=== PATIENT | female | born 1985 | race Caucasian/White ===

== ENCOUNTER 2020-10-26 22:25 | Emergency (ER) | payer OTHER, SELFPAY ==
--- NOTE | ~2020-10-26 | XR_ITS ---
XR tibia fibula LT 2V 10/26/2020 23:03 INDICATION: Left leg pain and swelling PROCEDURE: 2 views left tibia/fibula COMPARISON: No prior studies for comparison. FINDINGS: Fracture, dislocation or subluxation is not identified. The soft tissues appear within norm al limits. No foreign bodies are identified. IMPRESSION: 1: NO ACUTE BONE OR JOINT ABNORMALITY IDENTIFIED. Reviewed, dictated and finalized at location A. INUING EDUCATION DEAN
--- NOTE | ~2020-10-26 | US_ITS ---
EXAMINATION: US venous doppler [facility] DATE: 10/27/2020 07:28 INDICATION: Left lower limb pain and swelling. TECHNIQUE: Grayscale ultrasound images without and with compression and Doppler ultrasound images of the left lower extremity veins were obtained. COMPARISON: None. FINDINGS: There is thrombus in the left common femoral vein, profunda (deep) femoral vein, femoral vein, poplit eal vein, peroneal veins, posterior tibial veins, and greater saphenous vein outflow. IMPRESSION: 1. Extensive deep vein thrombosis in left lower limb. Reviewed, dictated and finalized at location A. G DRIVER
--- NOTE | ~2020-10-26 | XR_ITS ---
XR femur LT min 2V 10/26/2020 23:03 INDICATION: Pain and swelling. PROCEDURE: 2 views left femur COMPARISON: No prior studies for comparison. FINDINGS: Fracture, dislocation or subluxation is not identified. The soft tissues appear within norm al limits. No foreign bodies are identified. IMPRESSION: 1: NO ACUTE BONE OR JOINT ABNORMALITY IDENTIFIED. Reviewed, dictated and finalized at location A. CHAIN QUILLER TENDER
[2020-10-26 22:36] VITALS: BP 101/88; PULSE 85; RESP 18; TEMP 36.9; O2SAT 94
--- NOTE | 2020-10-26 22:42 | PC.NURSE ---
spoke with Ruthie (mother) and updated [phone]
--- NOTE | 2020-10-26 23:00 | PC.NURSE ---
Pt. to XR
--- NOTE | 2020-10-26 23:17 | PC.NURSE ---
Assumed care of pt. report from Maria G RN
[2020-10-26 23:19] LABS: Basophils Absolute Auto 0.1 K/mm3 (0.0-0.1); Basophils Percent Auto 0.6 % (0.2-1.2); Eosinophils Absolute Auto 0.1 K/mm3 (0-0.3); Eosinophils Percent Auto 0.4 % (0-4.4); Hematocrit 36.8 % (37.0-47.0); Hemoglobin 11.7 g/dL (12.0-15.0); Immature Granulocyte Absolute 0.07 K/mm3 (0.00-0.031); Immature Granulocyte Percent A 0.6 % (0-0.5); Lymphocytes Absolute Auto 1.66 K/mm3 (0.9-3.2); Lymphocytes Percent Auto 13.2 % (18.3-44.2); Mean Corpuscular HGB Conc 31.8 g/dl (32-36); Mean Corpuscular Hemoglobin 29.1 pg (26-34); Mean Corpuscular Volume 91.5 fl (80-100); Mean Platelet Volume 11.1 fl (7.4-10.4); Monocytes Absolute Auto 1.2 K/mm3 (0.1-0.6); Monocytes Percent Auto 9.4 % (2.6-8.5); Neutrophils Absolute Auto 9.6 K/mm3 (1.3-6.7); Neutrophils Percent Auto 75.8 % (45.5-73.1); Platelet Count Result 164 k/mm3 (150-375); Red Blood Count 4.02 M/mm3 (4.2-5.4); Red Cell Distribution Width 13.3 % (11.5-14.5); White Blood Count 12.6 K/mm3 (4.5-10.0)
[2020-10-26 23:30] VITALS: BP 96/77; PULSE 80; RESP 15; O2SAT 99
[2020-10-26 23:30] LABS: Prothrombin Time 14.1 Seconds (11.1-14.7)
[2020-10-26 23:31] LABS: Partial Thromboplastin Time 27.7 SECONDS (22.3-36.8)
[2020-10-26 23:32] LABS: Alanine Aminotransferase 14 U/L (4-35); Albumin Level 3.1 g/dL (3.5-5.1); Alkaline Phosphatase 44 U/L (38-126); Anion Gap 2 mmol/L (8-16); Aspartate Amino Transferase 23 U/L (14-36); Bilirubin,Total 0.2 mg/dL (0.2-1.3); Blood Urea Nitrogen 18 mg/dL (7-17); Calcium 8.5 mg/dL (8.4-10.2); Carbon Dioxide 26 mmol/L (22-30); Chloride 113 mmol/L (98-107); Estimated CRCL calculation 116 ml/min; Estimated Glomerular Filt Rate > 60; Glucose 94 mg/dL (65-105); Potassium 3.7 mmol/L (3.4-5.0); Sodium 141 mmol/L (137-145)
[2020-10-26 23:33] LABS: D Dimer 2.97 ug/mL (<0.48)
--- NOTE | 2020-10-27 00:13 | ED.GENADULT ---
HPI - General Adult General Chief complaint: Extremity Problem,Nontraumatic <Abdias Edge MD - Last Filed: 10/27/20 00:18> Stated complaint: poss dvt <Abdias Egde MD - Last Filed: 10/27/20 00:18> Time Seen by Provider: 10/26/20 22:33 <Abdias Edge MD - Last Filed: 10/27/20 00:18> History of Present Illness HPI narrative: Patient is a 35-year-old female who presents the emergency department with chief complaint of left lower extremity swelling. The patient is normally not very ambulatory at the facility where she is a resident at. The patient and care providers have noticed that her left leg has been more swollen patient denies shortness of breath denies chest pain they were concerned for DVT and had a ultrasound scheduled for Thursday but decided to send the patient to the emergency department for evaluation in a's or expedited fashion. <Abdias Edge MD - Last Filed: 10/27/20 00:18> Related Data Home medications: Home Medications Medication Instructions Recorded Confirmed clonazepam 1 mg tablet 1 mg PO .COMPLEX 11/09/19 11/09/19 clonazepam 2 mg disintegrating 2 mg PO .PRN tablet 11/09/19 11/09/19 tablet clonazepam 2 mg tablet 2 mg PO .COMPLEX tablet 11/09/19 11/09/19 fluticasone propionate 50 ml NASAL 11/09/19 11/09/19 mcg/actuation nasal spray,suspension levetiracetam 1,000 mg tablet 1,000 mg PO QID tablet 11/09/19 11/09/19 oxcarbazepine 300 mg tablet 300 mg PO .COMPLEX tablet 11/09/19 11/09/19 pantoprazole 40 mg tablet,delayed tablet PO 11/09/19 11/09/19 release phenytoin sodium extended 30 mg 90 mg PO BID cap 11/09/19 11/09/19 capsule prednisone 20 mg tablet 20 mg PO DAILY tablet 11/09/19 11/09/19 topiramate 200 mg tablet 200 mg PO BID tablet 11/09/19 11/09/19 <Abdias Edge MD - Last Filed: 10/27/20 00:18> Allergies/adverse reactions: Allergies Allergy/AdvReac Type Severity Reaction Status Date / Time lacosamide Allergy Unknown Dizziness Verified 10/26/20 22:43 No Known Allergies Allergy Verified 10/26/20 22:43 <Abdias Edge MD - Last Filed: 10/27/20 00:18> Review of Systems Review of Systems: Narrative: A 10 system review of systems was completed on the patient and is negative except for what is stated in the HPI. Nursing and ancillary documentation was reviewed. <Abdias Edge MD - Last Filed: 10/27/20 00:18> PMFSH Past Medical History Medical History: Medical History Menstrual disorder NEC <Abdias Edge MD - Last Filed: 10/27/20 00:18> Family History Family History: Family History Mother Family history of malignant neoplasm of breast in first degree relative Family history of malignant neoplasm of breast Father Family history of bipolar disorder Grandparent Carcinoma of colon Other Cerebrovascular accident Family history of hypercholesterolemia Family history of lupus erythematosus <Abdias Edge MD - Last Filed: 10/27/20 00:18> Social History Social History: Social History Smoking status: Former smoker Smoking end date: 08/17/02 Alcohol intake: current <Abdias Edge MD - Last Filed: 10/27/20 00:18> Exam Narrative: Exam Narrative: GENERAL: Well-appearing, well-nourished, and in no acute distress. HEAD: Normocephalic, atraumatic. EYES: PERRLA and EOMI. ENT: Nares clear, no rhinorrhea or epistaxis. Mucous membranes moist. NECK: Supple. CHEST: Clear to auscultation. No respiratory distress. HEART: Regular rate and rhythm. No murmur heard. Normal peripheral pulses. ABDOMEN: Soft, nontender, nondistended, normal active bowel sounds. EXTREMITIES: Normal range of motion. There is +1 edema to the left lower e
--- NOTE | 2020-10-27 00:29 | PC.NURSE ---
Addendum entered by Porsche Batista 10/27/20 00:29: ETA [id number] Original Note: called [facility] to request transport. ETA [id number]
[2020-10-27 00:30] VITALS: BP 104/75; PULSE 73; RESP 14; O2SAT 99
[2020-10-27] MEDS: ENOXAPARIN 100 MG/ML SYRINGE SUB-Q (01:05)
[2020-10-27 01:30] VITALS: BP 98/73; PULSE 70; RESP 16; O2SAT 98
--- NOTE | 2020-10-27 01:43 | PC.NURSE ---
Updated ETA for [facility] is 0530. Patient has an 0730 US appointment in the morning - so request [facility] arrive at 0830 to return patient to halfway.
[2020-10-27 03:30] VITALS: BP 111/74; PULSE 77; RESP 19; O2SAT 99
[2020-10-27 08:28] VITALS: BP 108/70; PULSE 78; RESP 19; O2SAT 98
== END 2020-10-27 08:31 ==
PROVIDERS: Emergency Provider Emergency Medicine
DX: I82.412 Acute embolism and thrombosis of left femoral vein (principal); I82.432 Acute embolism and thrombosis of left popliteal vein; I82.452 Acute embolism and thrombosis of left peroneal vein; I82.442 Acute embolism and thrombosis of left tibial vein; I82.492 Acute embolism and thrombosis of other specified deep vein of left lower extremity; Z87.891 Personal history of nicotine dependence
CPT/HCPCS: 36415; 73552; 73590; 80053; 85025; 85380; 85610; 85730; 93971; 96372; 99284; J1650

== ENCOUNTER 2020-11-26 14:37 | Emergency (ER) | payer OTHER, SELFPAY ==
[2020-11-26] VITALS (16 sets, daily range): BP systolic 109–151; BP diastolic 88–97; PULSE 72–95; RESP 12–20; TEMP 36.6; O2SAT 97–100
--- NOTE | ~2020-11-26 | US_ITS ---
EXAMINATION: US venous doppler [facility] DATE: 11/26/2020 15:55 INDICATION: Left lower limb pain and swelling TECHNIQUE: Kapoor scale images without and with compression and Doppler images of the left lower extrem ity veins were obtained. COMPARISON: 10/27/2020 FINDINGS: There is persistent thrombosis of the left common femoral vein, profunda femoral vein, femo ral vein, popliteal vein, posterior tibial veins, and greater saphenous vein. The peroneal veins appe ar normal. IMPRESSION: 1. Persistent extensive deep venous thrombosis of the visualized left lower extremity veins with mild improvement in the peroneal veins. These findings were discussed with Dr. Baudilio Robbins MD in the Emergency Department at 1606 hour s on 11/26/2020. Reviewed, dictated and finalized at location B. IMPRESSION: 1. Persistent extensive deep venous thrombosis of the visualized left lower ext remity veins with mild improvement in the peroneal veins. These findings were discussed with Dr. Baudilio Robbins MD in the Emergency D epartment at 1606 hours on 11/26/2020.
--- NOTE | ~2020-11-26 | XR_ITS ---
EXAMINATION: XR ankle LT 2V DATE: 11/26/2020 15:57 INDICATION: Left ankle swelling and bruising TECHNIQUE: Two views of the left ankle were obtained. COMPARISON: None. FINDINGS: There is mild soft tissue swelling of ankle. Bone alignment is normal. There is no fracture . The joint spaces are unremarkable. IMPRESSION: 1. Mild soft tissue swelling without acute osseous abnormality. Reviewed, dictated and finalized at location B.
--- NOTE | ~2020-11-26 | XR_ITS ---
EXAMINATION: XR foot LT min 3V DATE: 11/26/2020 15:56 INDICATION: Left foot swelling TECHNIQUE: Dorsoplantar, lateral, and 2 oblique views of the left foot were obtained. COMPARISON: None. FINDINGS: There is no fracture, dislocation, or subluxation. Mild osteoarthritis is noted at the firs t metatarsophalangeal joint. Soft tissues are unremarkable. IMPRESSION: 1. No acute osseous abnormality. Reviewed, dictated and finalized at location B.
--- NOTE | 2020-11-26 16:50 | ED.GENADULT ---
HPI - General Adult General Chief complaint: Extremity Problem,Nontraumatic Stated complaint: DVT'S Time Seen by Provider: 11/26/20 14:58 History of Present Illness HPI narrative: Patient is a 35-year-old female who presents ER with concern for lower extremity clot. Patient was diagnosed with extensive DVT to the left lower extremity 1 month ago. She has been on Eliquis. Apparently had a repeat ultrasound today which showed an acute DVT? Patient has difficulty conveying whether she is having increased pain. She will follow directions and intermittently answers yes or no questions appropriate. She is not having chest pain and does not appearing to be short of breath. Related Data Home Medications Medication Instructions Recorded Confirmed clonazepam 1 mg tablet 1 mg PO .COMPLEX 11/09/19 11/09/19 clonazepam 2 mg disintegrating 2 mg PO .PRN tablet 11/09/19 11/09/19 tablet clonazepam 2 mg tablet 2 mg PO .COMPLEX tablet 11/09/19 11/09/19 fluticasone propionate 50 ml NASAL 11/09/19 11/09/19 mcg/actuation nasal spray,suspension levetiracetam 1,000 mg tablet 1,000 mg PO QID tablet 11/09/19 11/09/19 oxcarbazepine 300 mg tablet 300 mg PO .COMPLEX tablet 11/09/19 11/09/19 pantoprazole 40 mg tablet,delayed tablet PO 11/09/19 11/09/19 release phenytoin sodium extended 30 mg 90 mg PO BID cap 11/09/19 11/09/19 capsule prednisone 20 mg tablet 20 mg PO DAILY tablet 11/09/19 11/09/19 topiramate 200 mg tablet 200 mg PO BID tablet 11/09/19 11/09/19 Allergies Allergy/AdvReac Type Severity Reaction Status Date / Time lacosamide Allergy Unknown Dizziness Verified 10/26/20 22:43 No Known Allergies Allergy Verified 10/26/20 22:43 Review of Systems Review of Systems: ROS unobtainable: Yes unobtainable due to medical condition PMFSH Past Medical History Medical History (Updated 11/26/20 @ 17:10 by Baudilio Robbins MD) DVT (deep venous thrombosis) Encephalitis Menstrual disorder NEC Seizure disorder Surgical History Surgical History (Updated 11/26/20 @ 17:06 by Baudilio Robbins MD) No pertinent past surgical history Family History Family History Mother Family history of malignant neoplasm of breast in first degree relative Family history of malignant neoplasm of breast Father Family history of bipolar disorder Grandparent Carcinoma of colon Other Cerebrovascular accident Family history of hypercholesterolemia Family history of lupus erythematosus Social History Social History Smoking status: Former smoker Smoking end date: 08/17/02 Alcohol intake: current Exam Narrative: Exam Narrative: GENERAL: Chronically ill-appearing, well-nourished, and in no acute distress. HEAD: Normocephalic, atraumatic. EYES: PERRL and EOMI. ENT: Mucous membranes moist. CHEST: Clear to auscultation. No respiratory distress. HEART: Regular rate and rhythm. Normal peripheral pulses. ABDOMEN: Soft, nontender, nondistended. EXTREMITIES: Bilateral lower extremities without deformity but left lower extremity with pitting edema just past the ankle. Palpable pulses noted. Negative Homans' sign. SKIN: Warm, dry, no rash. NEURO: Awake and alert, follows commands and intermittently answers questions. Course Reevaluation(s) Reevaluation #1: Discussed case with Dr. Vyas. Patient has not necessarily had treatment failure with Eliquis and would not recommend IVC filter at this time. Patient can be discharged back to [facility]. Date: 11/26/20 Time: 16:51 Reevaluation #2: Discussed with Dr. Hammer at [facility]. He had no additional concerns to be addressed within the ER. His plan is to discontinue the Eliquis and then start patient on a different anticoagulant to see if this helps with her chronic DVT. I discussed with him that should he want an interventional procedure such as a thrombectomy the
[2020-11-26 17:25] LABS: Basophils Absolute Auto 0.1 K/mm3 (0.0-0.1); Basophils Percent Auto 0.8 % (0.2-1.2); Eosinophils Percent Auto 0.3 % (0-4.4); Hemoglobin 14.7 g/dL (12.0-15.0); Immature Granulocyte Absolute 0.04 K/mm3 (0.00-0.031); Immature Granulocyte Percent A 0.4 % (0-0.5); Lymphocytes Absolute Auto 0.89 K/mm3 (0.9-3.2); Lymphocytes Percent Auto 9.8 % (18.3-44.2); Mean Corpuscular Hemoglobin 29.6 pg (26-34); Mean Corpuscular Volume 92.7 fl (80-100); Mean Platelet Volume 11.3 fl (7.4-10.4); Monocytes Absolute Auto 0.4 K/mm3 (0.1-0.6); Monocytes Percent Auto 4.2 % (2.6-8.5); Neutrophils Absolute Auto 7.6 K/mm3 (1.3-6.7); Neutrophils Percent Auto 84.5 % (45.5-73.1); Platelet Count Result 205 k/mm3 (150-375); Red Blood Count 4.96 M/mm3 (4.2-5.4); Red Cell Distribution Width 13.2 % (11.5-14.5)
[2020-11-26 17:33] LABS: Prothrombin Time 13.9 Seconds (11.1-14.7)
[2020-11-26 17:34] LABS: Partial Thromboplastin Time 26.2 SECONDS (22.3-36.8)
[2020-11-26 17:37] LABS: Anion Gap 7 mmol/L (8-16); Blood Urea Nitrogen 28 mg/dL (7-17); Calcium 8.7 mg/dL (8.4-10.2); Carbon Dioxide 28 mmol/L (22-30); Chloride 112 mmol/L (98-107); Estimated Glomerular Filt Rate > 60; Glucose 93 mg/dL (65-105); Potassium 3.6 mmol/L (3.4-5.0); Sodium 147 mmol/L (137-145)
--- NOTE | 2020-11-26 18:26 | PC.NURSE ---
made contact with [employer] and [facility] to transfer patient back to [facility]. both companies declined. [facility] accepted with [facility] 1900
--- NOTE | 2020-11-26 18:53 | PC.NURSE ---
Pt. mother being very inpatient about transfer back of [facility], Pt. is demanding an ambulance right now.
--- NOTE | 2020-11-26 18:57 | PC.NURSE ---
[facility] has arrived
== END 2020-11-26 19:05 ==
PROVIDERS: Emergency Provider Emergency Medicine
DX: I82.502 Chronic embolism and thrombosis of unspecified deep veins of left lower extremity (principal); Z79.01 Long term (current) use of anticoagulants; G40.909 Epilepsy, unspecified, not intractable, without status epilepticus; Z87.891 Personal history of nicotine dependence
CPT/HCPCS: 36415; 73600; 73630; 80048; 85025; 85610; 85730; 87040; 93971; 99284

== ENCOUNTER 2021-03-10 17:28 | Emergency (ER) | payer OTHER, SELFPAY ==
--- NOTE | ~2021-03-10 | XR_ITS ---
EXAMINATION: XR chest 2V EXAM DATE: 03/10/2021 18:04 INDICATION: Fever this p.m.;pt resident at [facility]. TECHNIQUE: Frontal and lateral projections of the chest obtained and reviewed. There is no prior amaya dy for comparison. FINDINGS: The lungs are clear. There are no pleural effusions. The cardiomediastinal silhouette is within normal limits. There is no pneumothorax suspected. The bones and soft tissues are unremarkab le. IMPRESSION: No acute cardiopulmonary findings. Reviewed, dictated and finalized at location A.
[2021-03-10 17:44] VITALS: BP 103/73; PULSE 110; RESP 20; TEMP 36.8; O2SAT 98
--- NOTE | 2021-03-10 18:37 | PC.NURSE ---
mother of the pt, took pt back to facility. unsure if pt needed to be here at this time. encouraged to return if need be. pt was helped into car.
== END 2021-03-10 18:37 | disposition left against medical advice (07) ==
PROVIDERS: Emergency Provider Emergency Medicine
DX: R50.9 Fever, unspecified (principal)
CPT/HCPCS: 71046; 99199

== ENCOUNTER 2021-08-15 07:49 | Emergency (ER) | payer OTHER, SELFPAY ==
[2021-08-15] VITALS (37 sets, daily range): BP systolic 126–157; BP diastolic 82–107; PULSE 113–126; RESP 13–33; TEMP 37.7–38.6; O2SAT 94–100
[2021-08-15] MEDS: levETIRAcetam 500MG/NACL 100ML 500 MG/100 ML BAG 400 MG IVPB (08:14)
--- NOTE | 2021-08-15 08:17 | PC.NURSE ---
500mg of Levetiracetam given IV per EDP [facility] Medrano.
[2021-08-15 08:37] LABS: Basophils Percent Auto 0.4 % (0.2-1.2); Eosinophils Percent Auto 0.1 % (0-4.4); Hematocrit 37.1 % (37.0-47.0); Hemoglobin 11.9 g/dL (12.0-15.0); Immature Granulocyte Absolute 0.02 K/mm3 (0.00-0.031); Immature Granulocyte Percent A 0.3 % (0-0.5); Lymphocytes Percent Auto 15.2 % (18.3-44.2); Mean Corpuscular HGB Conc 32.1 g/dl (32-36); Mean Corpuscular Hemoglobin 30.1 pg (26-34); Mean Corpuscular Volume 93.7 fl (80-100); Mean Platelet Volume 10.6 fl (7.4-10.4); Monocytes Absolute Auto 0.5 K/mm3 (0.1-0.6); Monocytes Percent Auto 6.6 % (2.6-8.5); Neutrophils Absolute Auto 5.6 K/mm3 (1.3-6.7); Neutrophils Percent Auto 77.4 % (45.5-73.1); Platelet Count Result 188 k/mm3 (150-375); Red Blood Count 3.96 M/mm3 (4.2-5.4); Red Cell Distribution Width 12.9 % (11.5-14.5); White Blood Count 7.2 K/mm3 (4.5-10.0)
[2021-08-15 09:00] LABS: Alanine Aminotransferase 18 U/L (4-35); Albumin Level 3.9 g/dL (3.5-5.1); Alkaline Phosphatase 68 U/L (38-126); Anion Gap 7 mmol/L (8-16); Aspartate Amino Transferase 37 U/L (14-36); Bilirubin,Total 0.4 mg/dL (0.2-1.3); Blood Urea Nitrogen 14 mg/dL (7-17); Calcium 8.7 mg/dL (8.4-10.2); Carbon Dioxide 27 mmol/L (22-30); Chloride 106 mmol/L (98-107); Estimated CRCL calculation 132 ml/min; Estimated Glomerular Filt Rate > 60; Glucose 99 mg/dL (65-110); Phenytoin Dilantin 20 ug/mL (10-20); Potassium 3.7 mmol/L (3.4-5.0); Sodium 140 mmol/L (137-145)
--- NOTE | 2021-08-15 12:21 | PC.NURSE ---
pt reported feeling hot, tmp taken, 100.8 orally. provider aware, ofirmev 1g iv x1 from dr sandoval
[2021-08-15 13:53] LABS: EDCOVIDSCREEN Negative (Negative)
--- NOTE | 2021-08-15 13:59 | PC.NURSE ---
covid result called to [facility], now we await a bed
[2021-08-15] MEDS: LORazepam INJ (*CRX) 2 MG/ML VIAL 1 MG IV PUSH (15:05)
--- NOTE | 2021-08-15 15:11 | PC.NURSE ---
Mark Saravia from [place]- pt assigned to room [facility] the [facility], call report to [phone]
[2021-08-15] MEDS: SODIUM CHLORIDE 0.9% IV 1,000 ML 999 ML IV CONT (15:13)
--- NOTE | 2021-08-15 15:29 | ED.SEIZURE ---
HPI - Seizure General Chief Complaint: Seizure Stated Complaint: seizures Time Seen by Provider: 08/15/21 08:03 Source: EMS History of Present Illness HPI Narrative: 36-year-old with a history of ICU complex partial seizures, DVT on Eliquis presently living in [facility] for seizures was sent in for active seizure since this morning as per the [facility] patient is been getting all her medication however when EMS picked her up this morning they were pills found on the bed. No history of fever . Patient upon arrival had a focal seizures which lasted for few minutes. Patient was alert after the seizure activity was able to answer questions. She denied any headache, chest pain or nausea or vomiting. MD complaint: seizure Witnessed: Yes - by Other (By [facility] staff and EMS) Trauma: No Seizure History: Yes Possible Precipitating Event: none Associated symptoms: denies other symptoms Treatments prior to arrival: benzodiazepines (Valium 10 mg IV) Related Data Home Medications Medication Instructions Recorded Confirmed clonazepam 1 mg tablet 1 mg PO .COMPLEX 11/09/19 08/15/21 clonazepam 2 mg disintegrating 2 mg PO .PRN tablet 11/09/19 08/15/21 tablet clonazepam 2 mg tablet 2 mg PO .COMPLEX tablet 11/09/19 08/15/21 fluticasone propionate 50 50 spray NASAL 11/09/19 11/09/19 mcg/actuation nasal spray,suspension levetiracetam 1,000 mg tablet 1,000 mg PO QID tablet 11/09/19 08/15/21 oxcarbazepine 300 mg tablet 300 mg PO .COMPLEX tablet 11/09/19 08/15/21 pantoprazole 40 mg tablet,delayed 40 tablet PO QAM 11/09/19 08/15/21 release prednisone 20 mg tablet 20 mg PO DAILY tablet 11/09/19 11/09/19 topiramate 200 mg tablet 200 mg PO BID tablet 11/09/19 08/15/21 cenobamate [Xcopri] 100 mg PO 08/15/21 divalproex 125 mg PO Q8H 08/15/21 08/15/21 divalproex 500 mg PO Q8H 08/15/21 08/15/21 folic acid 08/15/21 hydrocodone-acetaminophen 08/15/21 phenytoin sodium extended PO 08/15/21 phenytoin sodium extended 30 mg PO 08/15/21 [Dilantin] potassium chloride [Klor-Con M20] meq PO 08/15/21 topiramate 08/15/21 Allergies Allergy/AdvReac Type Severity Reaction Status Date / Time lacosamide Allergy Unknown Dizziness Verified 10/26/20 22:43 No Known Allergies Allergy Verified 10/26/20 22:43 Review of Systems Review of Systems: All systems reviewed & are unremarkable except as noted in HPI and below Constitutional: Constitutional: Reports no additional constitutional complaints Eyes: Eyes: Reports no additional eye complaints Cardiovascular: Cardiovascular: Reports no additional cardiovascular complaints Respiratory: Respiratory: Reports no additional respiratory complaints Musculoskeletal: Musculoskeletal: Reports no additional musculoskeletal complaints Neurologic: Reports as per HPI [facility] Past Medical History Medical History DVT (deep venous thrombosis) Encephalitis Menstrual disorder NEC Seizure disorder Surgical History Surgical History No pertinent past surgical history Family History Family History Mother Family history of malignant neoplasm of breast in first degree relative Family history of malignant neoplasm of breast Father Family history of bipolar disorder Grandparent Carcinoma of colon Other Cerebrovascular accident Family history of hypercholesterolemia Family history of lupus erythematosus Social History Social History Smoking status: Former smoker Smoking end date: 08/17/02 Alcohol intake: current Gender identity (if verbalized by the patient): Female Exam Narrative: GENERAL: ill-appearing, thin ,having focal seizure HEAD: Normocephalic, atraumatic. EYES: PERRLA and EOMI. ENT: Nares clear, no rhinorrhea NECK: Supple. CHEST: Clear to auscul
== END 2021-08-15 17:20 | disposition short-term general hospital (02) ==
PROVIDERS: Emergency Provider Family Medicine
DX: G40.919 Epilepsy, unspecified, intractable, without status epilepticus (principal); Z86.718 Personal history of other venous thrombosis and embolism; Z79.01 Long term (current) use of anticoagulants; Z87.891 Personal history of nicotine dependence
CPT/HCPCS: 36415; 80053; 80185; 85025; 87426; 96361; 96365; 96367; 96375; 99285; C9803; J0131; J1953; J2060; J7030

== ENCOUNTER 2021-10-06 20:40 | Emergency (ER) | payer OTHER, SELFPAY ==
[2021-10-06] VITALS (15 sets, daily range): BP systolic 101–215; BP diastolic 81–86; PULSE 87–105; RESP 11–19; TEMP 37.1; O2SAT 98–100
--- NOTE | ~2021-10-06 | CT_ITS ---
EXAMINATION: CT brain wo con EXAM DATE: 10/06/2021 22:15 INDICATION: increased seizurelike activity . TECHNIQUE: Spiral CT of the head was performed without contrast. Axial, coronal and sagittal images were reviewed. The dose-length product (DLP) for this examination was 605.33 mGy-cm. The exposure w as tailored according to patient size, and iterative reconstruction (ASIR) was used as additional dos e reduction technique. Comparison is made to prior examination from 08/20/2005. FINDINGS: There is no acute intraparenchymal hemorrhage. No evidence of intraparenchymal brain mass lesion. No evidence of acute infarction. Development of moderate amount of atrophy, rather pronounce d for patient's age. There is no mass effect or midline shift. The ventricles are normal in size. T here are no extra-axial collections. There are no acute calvarial fractures. The orbits are unremark able. Soft tissue is unremarkable. The visualized sinuses and mastoid air cells are well aerated. IMPRESSION: 1. No acute intracranial findings. 2. Development of cerebral atrophy rather pronounced for age. Reviewed, dictated and finalized at location A. TIONAL REHABILITATION TEACHER
--- NOTE | ~2021-10-06 | XR_ITS ---
EXAMINATION: XR chest 1V portable DATE: 10/06/2021 21:17 INDICATION: Several episodes of seizure-like activity TECHNIQUE: frontal view of the chest was obtained. COMPARISON: Chest radiograph dated 06/10/2021 FINDINGS: The lungs remain clear with no focal airspace opacities, pulmonary edema, pleural effusion or pneumot horax. The cardiomediastinal silhouette is normal. Prominent gaseous distention of the stomach. IMPRESSION: 1. No acute cardiopulmonary disease. Reviewed, dictated and finalized at location A. SETTER
--- NOTE | 2021-10-06 21:20 | ED.GENADULT ---
HPI - General Adult General Chief complaint: Seizure Stated complaint: Seizure Time Seen by Provider: 10/06/21 20:42 Source: EMS, RN notes reviewed and old records reviewed Mode of arrival: EMS Limitations: language barrier and altered mental status History of Present Illness HPI narrative: 36-year-old female history of seizures presents to the emergency department from a local [facility] for evaluation of possible seizure-like activity. Nurses do not report tonic-clonic seizures but states that she did have her eyes rolling back into her head today. [facility] states that the patient had no evidence of postictal periods. Patient does have a very longstanding history of seizures and has impaired mobility due. Documentation in the EMR states that her previous seizures had been generalized but after starting AED they had become more focal. Patient states that she does believe that she had multiple seizures today. Patient is unsure of when her last seizure was previously but that the multiple seizures she had today are atypical for her. Patient denies any complaints at this time. Related Data Home Medications Medication Instructions Recorded Confirmed clonazepam 1 mg tablet 3 mg PO BID 11/09/19 08/15/21 levetiracetam 1,000 mg tablet 2,000 mg PO BID tablet 11/09/19 08/15/21 oxcarbazepine 300 mg tablet 300 mg PO .COMPLEX tablet 11/09/19 08/15/21 pantoprazole 40 mg tablet,delayed 40 tablet PO QAM 11/09/19 08/15/21 release cenobamate [Xcopri] 100 mg PO DAILY 08/15/21 divalproex 500 mg PO BID 08/15/21 08/15/21 folic acid 800 mcg PO DAILY 08/15/21 hydrocodone-acetaminophen 5 - 325 tablet PO BID PRN 08/15/21 phenytoin sodium extended 100 mg PO BID 08/15/21 phenytoin sodium extended 30 mg PO HS 08/15/21 [Dilantin] potassium chloride [Klor-Con M20] 20 meq PO DAILY 08/15/21 topiramate 50 mg PO BID 08/15/21 Refresh Tears 1 drp EACH EYE Q1H PRN 10/07/21 acetaminophen 650 mg PO Q6H PRN 10/07/21 apixaban [Eliquis DVT-PE Treat 30D 5 mg PO BID 10/07/21 Start] furosemide 20 mg PO BID 02/21/22 Allergies Allergy/AdvReac Type Severity Reaction Status Date / Time lacosamide Allergy Unknown Dizziness Verified 10/26/20 22:43 No Known Allergies Allergy Verified 10/06/21 21:51 Review of Systems Review of Systems: CONSTITUTIONAL: Denies fever, chills, or sweats. EYES: Denies visual changes, redness, or discharge. ENT: Denies rhinorrhea, congestion, sore throat, or otalgia. CARDIOVASCULAR: Denies chest pain, palpitations, or edema. RESPIRATORY: Denies cough or dyspnea. GASTROINTESTINAL: Denies abdominal pain, nausea, vomiting, or diarrhea. GENITOURINARY: Denies dysuria or hematuria. SKIN: Denies rash or itching. MUSCULOSKELETAL: Denies back pain, joint pain, or myalgia. NEUROLOGIC: Breakthrough seizures and increased baseline tremor PSYCHIATRIC: Denies anxiety or depression. All systems reviewed & are unremarkable except as noted in HPI and below PMFSH Past Medical History Medical History DVT (deep venous thrombosis) Encephalitis Menstrual disorder NEC Seizure disorder Surgical History Surgical History No pertinent past surgical history Family History Family History Mother Family history of malignant neoplasm of breast in first degree relative Family history of malignant neoplasm of breast Father Family history of bipolar disorder Grandparent Carcinoma of colon Other Cerebrovascular accident Family history of hypercholesterolemia Family history of lupus erythematosus Social History Social History Smoking status: Former smoker Smoking end date: 08/17/02 Alcohol intake: current Gender identity (if verbalized by the patient): Female Exam Narrative: APPEARANCE: Well appearing, no shai
[2021-10-06 21:31] LABS: Basophils Absolute Auto 0.1 K/mm3 (0.0-0.1); Eosinophils Absolute Auto 0.3 K/mm3 (0-0.3); Eosinophils Percent Auto 4.5 % (0-4.4); Hematocrit 38.7 % (37.0-47.0); Hemoglobin 12.3 g/dL (12.0-15.0); Immature Granulocyte Absolute 0.01 K/mm3 (0.00-0.031); Immature Granulocyte Percent A 0.2 % (0-0.5); Lymphocytes Absolute Auto 2.44 K/mm3 (0.9-3.2); Lymphocytes Percent Auto 39.5 % (18.3-44.2); Mean Corpuscular HGB Conc 31.8 g/dl (32-36); Mean Corpuscular Hemoglobin 29.4 pg (26-34); Mean Corpuscular Volume 92.6 fl (80-100); Mean Platelet Volume 11.3 fl (7.4-10.4); Monocytes Absolute Auto 0.7 K/mm3 (0.1-0.6); Monocytes Percent Auto 11.7 % (2.6-8.5); Neutrophils Absolute Auto 2.7 K/mm3 (1.3-6.7); Neutrophils Percent Auto 43.1 % (45.5-73.1); Platelet Count Result 200 k/mm3 (150-375); Red Blood Count 4.18 M/mm3 (4.2-5.4); Red Cell Distribution Width 12.7 % (11.5-14.5); White Blood Count 6.2 K/mm3 (4.5-10.0)
[2021-10-06 21:39] LABS: Lactic Acid Reflex 1.2 mmol/L (0.7-2.1)
[2021-10-06 21:43] LABS: Add Urine Microscopic? NO; Appearance Urine Clear (Clear); Bilirubin Urine Negative (Negative); Blood Urine Negative (Negative); Color Urine Yellow (Yellow); Glucose Urine UA Negative (Negative); Ketones Urine Negative (Negative); Leukocyte Esterase Ur Negative LEU/UL (Negative); Nitrate Urine Negative (Negative); Protein Urine Negative (Negative); Specific Grav Ur 1.023 (1.001-1.035); Urobilinogen Urine Negative mg/dL (<2.0)
[2021-10-06 21:54] LABS: Phenytoin Dilantin 21 ug/mL (10-20)
[2021-10-06 22:04] LABS: Alanine Aminotransferase 14 U/L (4-35); Alkaline Phosphatase 68 U/L (38-126); Anion Gap 8 mmol/L (8-16); Aspartate Amino Transferase 34 U/L (14-36); Bilirubin,Total 0.4 mg/dL (0.2-1.3); Blood Urea Nitrogen 23 mg/dL (7-17); Carbon Dioxide 29 mmol/L (22-30); Chloride 109 mmol/L (98-107); Estimated Glomerular Filt Rate > 60; Glucose 82 mg/dL (65-110); Potassium 4.2 mmol/L (3.4-5.0); Sodium 146 mmol/L (137-145)
--- NOTE | 2021-10-06 23:34 | PC.NURSE ---
Patient mother, Ruthie, called to check on patient;
[2021-10-07] VITALS (30 sets, daily range): BP systolic 98–107; BP diastolic 73–83; PULSE 73–91; RESP 10–20; TEMP 36.3; O2SAT 95–100
--- NOTE | 2021-10-07 00:17 | PC.NURSE ---
Covid swab obtained and sent to lab as ordered.
--- NOTE | 2021-10-07 00:53 | PC.NURSE ---
Report given to [facility]; COVID swab pending, will call once resulted [phone]
[2021-10-07 01:02] LABS: SARS-CoV-2 RNA PCR Negative
--- NOTE | 2021-10-07 01:22 | PC.NURSE ---
0044: Patient accepted at [facility]. Waiting for COVID results and bed assignment.
--- NOTE | 2021-10-07 01:38 | PC.NURSE ---
Results for COVID swab given to [facility]; awaiting bed assignment
--- NOTE | 2021-10-07 03:06 | PC.NURSE ---
Pt moved from ED H2 to ED Room 2.
--- NOTE | 2021-10-07 03:14 | PC.NURSE ---
Spoke to [facility]...no bed available yet. Waiting for d/c, etc.
== END 2021-10-07 06:00 | disposition short-term general hospital (02) ==
PROVIDERS: Emergency Provider Emergency Medicine
DX: G40.909 Epilepsy, unspecified, not intractable, without status epilepticus (principal); Z20.822 Contact with and (suspected) exposure to COVID-19; Z79.01 Long term (current) use of anticoagulants; Z86.718 Personal history of other venous thrombosis and embolism; Z87.891 Personal history of nicotine dependence; G31.9 Degenerative disease of nervous system, unspecified
CPT/HCPCS: 36415; 70450; 71045; 80053; 80177; 80185; 81003; 83605; 85025; 99285; C9803; U0003; U0005

== ENCOUNTER 2021-11-02 19:34 | Emergency (ER) | payer OTHER, MEDICAID, SELFPAY ==
[2021-11-02] VITALS (25 sets, daily range): BP systolic 107–135; BP diastolic 63–92; PULSE 115–128; RESP 14–21; TEMP 37.1; O2SAT 94–100
--- NOTE | ~2021-11-02 | CT_ITS ---
EXAMINATION: CT brain wo con DATE: 11/02/2021 21:07 INDICATION: Seizure TECHNIQUE: Computed tomography (CT) of the head was performed without intravenous contrast. The mA wa s adjusted according to patient size. Iterative reconstruction technique was employed. Exam dose: 75 6.67 mGy-cm total exam DLP. COMPARISON: October 06, 2021 CT brain FINDINGS: Nonstandard head positioning. There is prominent central and cortical cerebral and cerebellar atrophy. No intracranial mass lesion or hemorrhage, midline shift or mass effect or subdural or epidural hemat darci is evident. No fracture or bone destruction of the cranial vault. Advise mild mucoperiosteal thickening of the le ft maxillary sinus and an opacified posterior right ethmoid air cell. IMPRESSION: Cerebral and cerebellar atrophy No acute intracranial finding or skull fracture Reviewed, dictated and finalized at [facility]. Reviewed, dictated and finalized at [facility].
--- NOTE | 2021-11-02 19:48 | PC.NURSE ---
When assessing patient, she begins to make abnormal movements when provider in room but is able to look at you and respond when spoken to.
--- NOTE | 2021-11-02 19:55 | PC.NURSE ---
1954 ERP in room, gives VORB give 1mg ativan IV. Med given at 1954. Patient does desat to 78% on RA after the ativan given, came right back up moments later to 96%. Patient shaking decreased and patient states she feels better.
[2021-11-02] MEDS: LORazepam INJ (*CRX) 2 MG/ML VIAL (19:57)
--- NOTE | 2021-11-02 20:08 | ECG_ITS ---
Measurements Intervals [place] Rate: 116 P: 54 FL: 138 QRS: 48 QRSD: 88 T: 73 QT: 341 QTc: 474 Interpretive Statements [address] DEVIATION AND MODERATE T-WAVE ABNORMALITY, CONSIDER LATERAL ISCHEMIA [-0.1+ mV T- WAVE IN I/aVL/V5/V6] ABNORMAL ECG NO PREVIOUS ECG AVAILABLE FOR COMPARISON Electronically Signed On 11-03-2021 12:33:14 CDT by Tim Nelson M.D.
--- NOTE | 2021-11-02 20:40 | PC.NURSE ---
Called [facility], spoke with Claudia, caregiver at the [place], Claudia stated she did not give her evening doses of medications yet. Per Claudia, patient left right before med pass. ERP notified of the evening meds.
[2021-11-02 20:43] LABS: Basophils Absolute Auto 0.1 K/mm3 (0.0-0.1); Basophils Percent Auto 0.5 % (0.2-1.2); Eosinophils Percent Auto 0.1 % (0-4.4); Hematocrit 37.3 % (37.0-47.0); Hemoglobin 12.1 g/dL (12.0-15.0); Immature Granulocyte Absolute 0.04 K/mm3 (0.00-0.031); Immature Granulocyte Percent A 0.3 % (0-0.5); Lymphocytes Absolute Auto 1.34 K/mm3 (0.9-3.2); Lymphocytes Percent Auto 10.4 % (18.3-44.2); Mean Corpuscular HGB Conc 32.4 g/dl (32-36); Mean Corpuscular Hemoglobin 30.3 pg (26-34); Mean Corpuscular Volume 93.3 fl (80-100); Mean Platelet Volume 10.5 fl (7.4-10.4); Monocytes Percent Auto 7.9 % (2.6-8.5); Neutrophils Absolute Auto 10.4 K/mm3 (1.3-6.7); Neutrophils Percent Auto 80.8 % (45.5-73.1); Platelet Count Result 221 k/mm3 (150-375); Red Cell Distribution Width 13.2 % (11.5-14.5); White Blood Count 12.9 K/mm3 (4.5-10.0)
--- NOTE | 2021-11-02 20:46 | ED.SEIZURE ---
HPI - Seizure General Chief Complaint: Seizure <Baudilio Robbins MD - Last Filed: 11/02/21 22:06> Stated Complaint: seizure <Baudilio Robbins MD - Last Filed: 11/02/21 22:06> Time Seen by Provider: 11/02/21 19:34 <Baudilio Robbins MD - Last Filed: 11/02/21 22:06> History of Present Illness HPI Narrative: Patient is a 36-year-old female who presents ER with seizure-like activity. Patient has come partial seizures and is on multiple antiepileptics and is followed at [facility]. According to the assisted patient was having more full body seizure-like activity but they report as her typical absent seizures. No reports of trauma. Patient is on blood thinners. History is limited due to patient's chronic medical condition. Though she can intermittently answer questions and will respond she cannot provide a full history. <Baudilio Robbins MD - Last Filed: 11/02/21 22:06> Seizure History: Yes <Baudilio Robbins MD - Last Filed: 11/02/21 22:06> Related Data Home Medications: Home Medications Medication Instructions Recorded Confirmed clonazepam 1 mg tablet 3 mg PO BID 11/09/19 08/15/21 levetiracetam 1,000 mg tablet 2,000 mg PO BID tablet 11/09/19 08/15/21 oxcarbazepine 300 mg tablet 300 mg PO .COMPLEX tablet 11/09/19 08/15/21 pantoprazole 40 mg tablet,delayed 40 tablet PO QAM 11/09/19 08/15/21 release cenobamate [Xcopri] 100 mg PO DAILY 08/15/21 divalproex 500 mg PO BID 08/15/21 08/15/21 folic acid 800 mcg PO DAILY 08/15/21 hydrocodone-acetaminophen 5 - 325 tablet PO BID PRN 08/15/21 phenytoin sodium extended 100 mg PO BID 08/15/21 phenytoin sodium extended 30 mg PO HS 08/15/21 [Dilantin] potassium chloride [Klor-Con M20] 20 meq PO DAILY 08/15/21 topiramate 50 mg PO BID 08/15/21 Refresh Tears 1 drp EACH EYE Q1H PRN 10/07/21 acetaminophen 650 mg PO Q6H PRN 10/07/21 apixaban [Eliquis DVT-PE Treat 30D 5 mg PO BID 10/07/21 Start] furosemide 20 mg PO BID 10/07/21 <Baudilio Robbins MD - Last Filed: 11/02/21 22:06> Allergies/Adverse Reactions: Allergies Allergy/AdvReac Type Severity Reaction Status Date / Time lacosamide Allergy Unknown Dizziness Verified 10/26/20 22:43 No Known Allergies Allergy Verified 11/02/21 20:00 <Baudilio Robbins MD - Last Filed: 11/02/21 22:06> Review of Systems Review of Systems: ROS unobtainable: Yes unobtainable due to medical condition <Baudilio Robbins MD - Last Filed: 11/02/21 22:06> PMFSH Past Medical History Medical History: Medical History DVT (deep venous thrombosis) Encephalitis Menstrual disorder NEC Seizure disorder <Baudilio Robbins MD - Last Filed: 11/02/21 22:06> Surgical History Surgical History: Surgical History No pertinent past surgical history <Baudilio Robbins MD - Last Filed: 11/02/21 22:06> Family History Family History: Family History Mother Family history of malignant neoplasm of breast in first degree relative Family history of malignant neoplasm of breast Father Family history of bipolar disorder Grandparent Carcinoma of colon Other Cerebrovascular accident Family history of hypercholesterolemia Family history of lupus erythematosus <Baudilio Robbins MD - Last Filed: 11/02/21 22:06> Social History Social History: Social History Smoking status: Former smoker Smoking end date: 08/17/02 Alcohol intake: current Gender identity (if verbalized by the patient): Female <Baudilio Robbins MD - Last Filed: 11/02/21 22:06> Exam Narrative: GENERAL: Chronically ill-appearing, thin, seizing. HEAD: Normocephalic, atraumatic. EYES: Pupils equal but poorly reactive bilaterally with mydriasis approximately 10 mm pupils, EOMI. ENT: Mucous
[2021-11-02 20:49] LABS: Add Urine Microscopic? YES; Appearance Urine Cloudy (Clear); Bilirubin Urine Negative (Negative); Blood Urine Negative (Negative); Color Urine Yellow (Yellow); Glucose Urine UA Negative (Negative); Ketones Urine Trace mg/dL (Negative); Leukocyte Esterase Ur Negative LEU/UL (Negative); Mucus Urine Few /lpf; Nitrate Urine Negative (Negative); Protein Urine Negative (Negative); Specific Grav Ur 1.026 (1.001-1.035); Squamous Epithelial Cell Urine Occasional /hpf (Few); Urobilinogen Urine Negative mg/dL (<2.0); WBC Urine 0-3 /hpf
--- NOTE | 2021-11-02 20:50 | PC.NURSE ---
Patient to CT at this time.
[2021-11-02 20:53] LABS: Prothrombin Time 13.2 Seconds (11.1-14.7)
[2021-11-02 20:54] LABS: Partial Thromboplastin Time 29.8 SECONDS (22.3-36.8)
[2021-11-02 20:56] LABS: Alanine Aminotransferase 15 U/L (4-35); Albumin Level 3.9 g/dL (3.5-5.1); Alkaline Phosphatase 75 U/L (38-126); Anion Gap 7 mmol/L (8-16); Aspartate Amino Transferase 25 U/L (14-36); Bilirubin,Total 0.3 mg/dL (0.2-1.3); Blood Urea Nitrogen 15 mg/dL (7-17); Calcium 8.5 mg/dL (8.4-10.2); Carbon Dioxide 25 mmol/L (22-30); Chloride 107 mmol/L (98-107); Estimated Glomerular Filt Rate > 60; Glucose 116 mg/dL (65-110); Phenytoin Dilantin 20 ug/mL (10-20); Potassium 3.9 mmol/L (3.4-5.0); Sodium 139 mmol/L (137-145)
--- NOTE | 2021-11-02 21:06 | PC.NURSE ---
Patient mother Ruthie called to get update on patient. Ruthie stated she will call back later. She did also state she has a Neurologist appt at [facility] on Thursday.
[2021-11-02 21:19] LABS: Valproic Acid 10.9 ug/mL (50-120)
--- NOTE | 2021-11-02 21:21 | PC.NURSE ---
[facility] to give patient home evening meds. Orders placed in computer.
[2021-11-02] MEDS: SODIUM CHLORIDE 0.9% IV 1,000 ML 999 ML IV CONT (21:25)
[2021-11-02] MEDS: DIVALPROEX SODIUM SPRINKLE 125 MG CAP.DR 500 MG PO (21:39)
[2021-11-02] MEDS: levETIRAcetam 250 MG TABLET 2000 MG PO (21:39)
[2021-11-02] MEDS: FUROSEMIDE 20 MG TABLET PO (21:39)
[2021-11-02] MEDS: TOPIRAMATE 25 MG TABLET 50 MG PO (21:39)
[2021-11-02] MEDS: OXcarbazepine 300 MG TABLET 900 MG PO (21:39)
[2021-11-02] MEDS: APIXABAN 5 MG TABLET PO (21:39)
--- NOTE | 2021-11-02 21:58 | PC.NURSE ---
Patient given PO meds with water and jello. Patient tolerated well.
[2021-11-02] MEDS: PHENYTOIN SODIUM 100 MG EXTENDED RELEASE CAP PO (22:13)
[2021-11-02] MEDS: clonazePAM (*CRX) 0.5 MG TABLET 3 MG PO (22:13)
[2021-11-02] MEDS: PHENYTOIN SODIUM 30 MG PO (22:20)
--- NOTE | 2021-11-02 23:59 | PC.NURSE ---
Pt to be transported back to facility. will notify ems of impending transport need.
[2021-11-03] VITALS (32 sets, daily range): BP systolic 113–136; BP diastolic 61–101; PULSE 103–114; RESP 15–19; TEMP 36.7–37.3; O2SAT 94–100
--- NOTE | 2021-11-03 00:21 | PC.NURSE ---
Contacted Ruthie, updated her on patients status and that she is going back to the NH and to follow up with her neurologist.
--- NOTE | 2021-11-03 00:56 | PC.NURSE ---
Claudia, patients caregiver from [place] calls back to get report.
--- NOTE | 2021-11-03 04:41 | PC.NURSE ---
Patient stated she urinated in her brief. Patient a/ox3. Patient linen changed, patient cleaned up, repositioned. Patient denies any pain at this time. Patient resting comfortably on stretcher, call light in hand, VSS.
--- NOTE | 2021-11-03 05:43 | PC.NURSE ---
[facility] here to take patient back to [place]. Patient transferred with her chart and belongings. Patient conversant, a/ox3.
== END 2021-11-03 05:48 ==
PROVIDERS: Emergency Medicine; Emergency Provider Emergency Medicine
DX: G40.909 Epilepsy, unspecified, not intractable, without status epilepticus (principal); Z79.01 Long term (current) use of anticoagulants; Z86.718 Personal history of other venous thrombosis and embolism; Z87.891 Personal history of nicotine dependence; G31.9 Degenerative disease of nervous system, unspecified
CPT/HCPCS: 36415; 51701; 70450; 80053; 80164; 80185; 81001; 85025; 85610; 85730; 93005; 96361; 96374; 99284; A9270; J2060; J7030

== ENCOUNTER 2023-05-20 22:31 | Inpatient (IN) | payer OTHER, MEDICAID, SELFPAY ==
--- NOTE | ~2023-05-20 | CT_ITS ---
EXAMINATION: CT brain wo con DATE: 05/20/2023 23:35 INDICATION: Intractable seizures. L sided weakness. . TECHNIQUE: Computed tomography (CT) of the head was performed without intravenous contrast. The mA wa s adjusted according to patient size. Iterative reconstruction technique was employed. The dose-lengt h product was 681.00 mGy-cm. COMPARISON: 11/02/2021 and 10/06/2021. FINDINGS: Examination is mildly limited by motion artifact. No acute intracranial hemorrhage or extra-axial fluid collection. No hydrocephalus, mass, or herniation. No acute large vessel infarct. Unremarkable dural venous sinus attenuation. No acute osseous abnormality. The aerated spaces are clear. Moderate atrophy and chronic white matter change. Bilateral lens replacements. IMPRESSION: No acute intracranial process. Reviewed, dictated and finalized at [facility].
--- NOTE | ~2023-05-20 | XR_ITS ---
EXAMINATION: XR chest 1V portable Exam Date/Time: 05/20/2023 23:15 CDT HISTORY: Fever, seizures Comparison: 10/06/2021. RESULT: Lines, tubes, and devices: None. Lungs and pleura: Clear. Cardiomediastinal silhouette: Stable. Other: No acute osseous or upper abdominal finding. Persistent gaseous distention of the stomach. IMPRESSION: No acute cardiopulmonary process. Reviewed, dictated and finalized at [facility].
[2023-05-20 22:31] VITALS: BP 112/75; PULSE 116; RESP 19; TEMP 37.9; O2SAT 99
[2023-05-20 22:40] VITALS: BP 112/75; PULSE 113; PULSE 116; RESP 25; TEMP 38.8; O2SAT 98
[2023-05-20 22:41] VITALS: O2SAT 99
[2023-05-20 22:47] VITALS: O2SAT 99
--- NOTE | 2023-05-20 22:53 | ECG_ITS ---
Measurements Intervals [place] Rate: 115 P: 41 MN: 123 QRS: 48 QRSD: 83 T: 18 QT: 295 QTc: 408 Interpretive Statements SINUS TACHYCARDIA ST DEVIATION AND MODERATE T-WAVE ABNORMALITY, CONSIDER ANTEROLATERAL ISCHEMIA [-0.1+ mV T WAVE IN V3-V6] COMPARED TO ECG 11/02/2021 19:49:16 NO SIGNIFICANT CHANGES Electronically Signed On 05-21-2023 12:43:25 CDT by Delmi Colon M.D.
[2023-05-20 22:59] LABS: Glucose Point of Care 122 mg/dl (65-105)
[2023-05-20 23:07] LABS: Basophils Absolute Auto 0.1 K/mm3 (0.0-0.1); Basophils Percent Auto 1.1 % (0.2-1.2); Eosinophils Percent Auto 0.5 % (0-4.4); Hematocrit 40.2 % (37.0-47.0); Hemoglobin 12.9 g/dL (12.0-15.0); Immature Granulocyte Absolute 0.03 K/mm3 (0.00-0.031); Immature Granulocyte Percent A 0.4 % (0-0.5); Lymphocytes Absolute Auto 1.25 K/mm3 (0.9-3.2); Lymphocytes Percent Auto 15.4 % (18.3-44.2); Mean Corpuscular HGB Conc 32.1 g/dl (32-36); Mean Corpuscular Hemoglobin 30.4 pg (26-34); Mean Corpuscular Volume 94.6 fl (80-100); Mean Platelet Volume 10.8 fl (7.4-10.4); Monocytes Absolute Auto 0.3 K/mm3 (0.1-0.6); Monocytes Percent Auto 3.8 % (2.6-8.5); Neutrophils Absolute Auto 6.4 K/mm3 (1.3-6.7); Neutrophils Percent Auto 78.8 % (45.5-73.1); Platelet Count Result 234 k/mm3 (150-375); Red Blood Count 4.25 M/mm3 (4.2-5.4); Red Cell Distribution Width 12.5 % (11.5-14.5); White Blood Count 8.1 K/mm3 (4.5-10.0)
[2023-05-20] MEDS: LORazepam INJ (*CRX) 2 MG/ML VIAL IV PUSH (23:08)
[2023-05-20] MEDS: SODIUM CHLORIDE 0.9% IV 2,000 ML 999 ML IV CONT (23:10)
[2023-05-20 23:12] LABS: Alanine Aminotransferase 19 U/L (6-35); Albumin Level 4.3 g/dL (3.5-5.1); Alkaline Phosphatase 64 U/L (38-126); Anion Gap 12 mmol/L (8-16); Aspartate Amino Transferase 24 U/L (14-36); Bilirubin,Total 0.4 mg/dL (0.2-1.3); Blood Urea Nitrogen 18 mg/dL (7-17); Calcium 8.5 mg/dL (8.4-10.2); Carbon Dioxide 21 mmol/L (22-30); Chloride 109 mmol/L (98-107); Estimated CRCL calculation 125 ml/min; Estimated Glomerular Filt Rate > 60; Glucose 133 mg/dL (65-110); Magnesium 2.4 mg/dL (1.6-2.3); Potassium 3.5 mmol/L (3.4-5.0); Sodium 142 mmol/L (137-145)
--- NOTE | 2023-05-20 23:43 | ED.GENADULT ---
HPI - General Adult General Chief complaint: Seizure <Shai Martin MD - Last Filed: 05/21/23 07:25> Stated complaint: SZ <Shai Martin MD - Last Filed: 05/21/23 07:25> Time Seen by Provider: 05/20/23 22:48 <Shai Martin MD - Last Filed: 05/21/23 07:25> History of Present Illness HPI narrative: This is a 38-year-old female with history of seizures Presenting with seizure-like activity. Patient's seizures are partial seizures with repetitive movements of the right arm and face. the patient's fpc has not been able to give her her daily Klonopin due to medication shortages. She has been taking her other medications as directed. Patient notes that she does feel like she has a fever but has no other complaints at this time. <Shai Martin MD - Last Filed: 05/21/23 07:25> Related Data Home medications: Home Medications Medication Instructions Recorded Confirmed clonazepam 1 mg tablet 3 mg PO BID 11/09/19 05/21/23 levetiracetam 1,000 mg tablet 2,000 mg PO BID 11/09/19 05/21/23 oxcarbazepine 300 mg tablet 300 mg PO .COMPLEX 11/09/19 05/21/23 cenobamate 100 mg tablet (Xcopri) 100 mg PO DAILY 08/15/21 05/21/23 divalproex 125 mg capsule,delayed 500 mg PO BID 08/15/21 05/21/23 release sprinkle folic acid 800 mcg tablet 800 mcg PO DAILY 08/15/21 05/21/23 phenytoin sodium extended 100 mg 100 mg PO BID 08/15/21 05/21/23 capsule phenytoin sodium extended 30 mg 30 mg PO HS 08/15/21 05/21/23 capsule (Dilantin) topiramate 50 mg tablet 50 mg PO BID 08/15/21 05/21/23 Refresh Tears 1 drp EACH EYE Q1H PRN Dry Eye(S) 10/07/21 05/21/23 apixaban 5 mg (74 tabs) tablets in 5 mg PO BID 10/07/21 05/21/23 a dose pack (Eliquis DVT-PE Treat 30D Start) furosemide 20 mg tablet 20 mg PO BID 10/07/21 05/21/23 polyethylene glycol 3350 17 17 g PO DAILY PRN Constipation 05/21/23 05/21/23 gram/dose oral powder (Miralax) <Shai Martin MD - Last Filed: 05/21/23 07:25> Allergies/adverse reactions: Allergies Allergy/AdvReac Type Severity Reaction Status Date / Time lacosamide Allergy Unknown Dizziness Verified 10/26/20 22:43 <Shai Martin MD - Last Filed: 05/21/23 07:25> [facility] Past Medical History Medical History: Medical History DVT (deep venous thrombosis) Encephalitis Menstrual disorder NEC Seizure disorder <Shai Martin MD - Last Filed: 05/21/23 07:25> Surgical History Surgical History: Surgical History No pertinent past surgical history <Shai Martin MD - Last Filed: 05/21/23 07:25> Family History Family History: Family History Mother Family history of malignant neoplasm of breast in first degree relative Family history of malignant neoplasm of breast Father Family history of bipolar disorder Grandparent Carcinoma of colon Other Cerebrovascular accident Family history of hypercholesterolemia Family history of lupus erythematosus <Shai Martin MD - Last Filed: 05/21/23 07:25> Social History Social History: Social History Smoking status: Never smoker Second hand tobacco smoke exposure: No Smoking end date: 08/17/02 Alcohol intake: never Substance use: never Lack of Transportation: No Lack of Food: Never True Current Housing: I Have Housing Concerned About Future Housing: No Difficulty Paying Gas/Electric Bills: No Difficulty Paying for Meds: No Currently Unemployed: No Education: High School Diploma/GED Difficulty w/ Childcare or Family Care: No Gender identity (if verbalized by the patient): Female Spiritual care concerns: No <Shai Martin MD - Last Filed: 05/21/23 07:25> Exam Narrative: APPEARANCE: No apparent distress. Head: atraumatic. EYES: EOMI,
[2023-05-21] VITALS (23 sets, daily range): BP systolic 85–122; BP diastolic 52–77; PULSE 67–112; RESP 12–18; TEMP 36.3–38.4; O2SAT 97–100; BMI 16.9
[2023-05-21 00:22] LABS: Influenza A QL RT-PCR Negative (Negative); Influenza B QL RT-PCR Negative (Negative); RSV RNA, RT-PCR Negative (Negative); SARS-CoV-2 RNA PCR Negative (Negative)
[2023-05-21 00:55] LABS: Appearance Urine Cloudy (Clear); Bacteria Urine 3+ /hpf; Bilirubin Urine Negative (Negative); Blood Urine Negative (Negative); Color Urine Yellow (Yellow); Glucose Urine UA Negative (Negative); Ketones Urine Negative (Negative); Leukocyte Esterase Ur 1+ LEU/UL (Negative); Need Manual Microscopic Reviewed; Nitrate Urine Negative (Negative); Non Pathogenic Casts 0-2; Protein Urine Negative (Negative); RBC Urine 0-2 /hpf (0-2); Specific Grav Ur 1.014 (1.001-1.035); Squamous Epithelial Cell Urine Many /hpf (Few)
[2023-05-21 00:59] LABS: Add Urine Microscopic? YES
[2023-05-21] MEDS: LORazepam INJ (*CRX) 2 MG/ML VIAL IV PUSH ×2 (01:28)
[2023-05-21 01:37] LABS: Creatine Kinase 27 U/L (30-135)
--- NOTE | 2023-05-21 01:43 | PC.NURSE ---
Spoke with Kirsten RN @ [facility] regarding pt transfer. States she will call back when pt receives a bed.
[2023-05-21 03:01] LABS: Glucose CSF 68 mg/dL (40-70); Total Protein CSF 48 mg/dL (12-60)
[2023-05-21] MEDS: cefTRIAXone 2 GM/NS 100 ML 2 GM/100 ML BAG IVPB (03:26)
[2023-05-21 03:53] LABS: Appearance CSF Clear (Clear); CSF source CSF; Color CSF Colorless (Colorless)
[2023-05-21 04:16] LABS: Lymphocytes CSF 10 % (40-80)
[2023-05-21 04:18] LABS: Nucleated Cell CSF 0 /uL (0-5)
[2023-05-21 04:19] LABS: Red Blood Cell CSF 2 (0-2)
--- NOTE | 2023-05-21 04:29 | PC.NURSE ---
Spoke with Lucrecia from [facility] regarding pt status. Updated that pt is awaiting a bed at [facility].
[2023-05-21] MEDS: VANCOMYCIN 1,250 MG/NS 250 ML 1,250 MG/250 ML BAG 166.67 MG IVPB (06:58)
--- NOTE | 2023-05-21 09:21 | PC.NURSE ---
called [facility] for ETA of bed assignment - states per drafting technician - 5 days before a bed is open
[2023-05-21] MEDS: APIXABAN 5 MG TABLET PO ×2 (09:36→21:01)
[2023-05-21] MEDS: FUROSEMIDE 20 MG TABLET PO ×2 (09:37→16:21)
[2023-05-21] MEDS: PHENYTOIN SODIUM 100 MG EXTENDED RELEASE CAP PO ×2 (09:37→16:21)
[2023-05-21] MEDS: TOPIRAMATE 25 MG TABLET 50 MG PO ×2 (09:38→21:02)
[2023-05-21] MEDS: OXcarbazepine 300 MG TABLET 900 MG PO ×2 (09:38→21:02)
[2023-05-21] MEDS: DIVALPROEX SODIUM SPRINKLE 125 MG CAP.DR 500 MG PO ×2 (09:42→16:21)
--- NOTE | 2023-05-21 13:20 | ADMGEN ---
This patient, Khadra Meadows, was admitted to IMU Room 207-01. Patient/family oriented to hospital policies and general routines including ID bracelet, bed and alarms, visiting hours, pain management, procedures, bathroom and other care routines, personal items, smoking policy, room service/diet, and visiting hours. Information on how to activate the Rapid Response Team has been discussed. Patient/Family are encouraged to report perceived risks to care and to ask questions if they do not understand what they are told or what they should do.
[2023-05-21] MEDS: VANCOMYCIN 1,000 MG/NS 250 ML 1,000 MG/250 ML BAG 250 MG IVPB (15:05)
--- NOTE | 2023-05-21 15:59 | PM.IMHP ---
H&P: HPI History of Present Illness Date/Time: 05/21/23 15:59 Chief Complaint: Seizures, Fever Narrative: 38-year-old female presents here with multiple seizures and fever with past medical history of encephalitis, seizures since childhood, and DVT. Patient is currently a resident at [facility], she has been a resident there for quite some time. Patient reportedly has not received her Klonopin due to medication shortage is for a few days. She reports that she has been feeling feverish for a couple days, unknown exact onset. Patient was transferred here after she experienced 8 seizures. Was given 2 of Versed EN route by EMS. After arrival to the ED she received 6 mg Ativan. She is currently A/Ox4. states that her seizures are controlled for the most part. Last seizure was a few weeks ago and on average she has a seizure every few weeks. No other changes reported recently beyond receiving flu vaccination. She reports an aura with her seizures, metallic taste. During history and physical she endorsed experiencing that taste. History obtained from patient, report per ED provider, and chart review. Review of Systems Review of Systems: She denies chest pain, shortness of breath, headache, vision changes, changes in sensation, or changes in speech. [facility] Past Medical History Medical History DVT (deep venous thrombosis) Encephalitis Menstrual disorder NEC Seizure disorder Surgical History Surgical History No pertinent past surgical history Family History Family History Mother Family history of malignant neoplasm of breast in first degree relative Family history of malignant neoplasm of breast Father Family history of bipolar disorder Grandparent Carcinoma of colon Other Cerebrovascular accident Family history of hypercholesterolemia Family history of lupus erythematosus Social History Social History (Updated 05/22/23 @ 00:26 by Brittany Stevens APRN) Social History: Currently a resident at [facility]. Surrogate decision maker: Ruthie Torres - mom. Full Code. Smoking status: Never smoker Second hand tobacco smoke exposure: No Smoking end date: 08/17/02 Alcohol intake: never Substance use: never Lack of Transportation: No Lack of Food: Never True Current Housing: I Have Housing Concerned About Future Housing: No Difficulty Paying Gas/Electric Bills: No Difficulty Paying for Meds: No Currently Unemployed: No Education: High School Diploma/GED Difficulty w/ Childcare or Family Care: No Gender identity (if verbalized by the patient): Female Spiritual care concerns: No Meds Home Medications and Allergies Home Medications Medication Instructions Recorded Confirmed Type clonazepam 1 mg tablet 3 mg PO BID 11/09/19 05/21/23 History levetiracetam 1,000 mg tablet 2,000 mg PO BID 11/09/19 05/21/23 History oxcarbazepine 300 mg tablet 300 mg PO .COMPLEX 11/09/19 05/21/23 History cenobamate 100 mg tablet (Xcopri) 100 mg PO DAILY 08/15/21 05/21/23 History divalproex 125 mg capsule,delayed 500 mg PO BID 08/15/21 05/21/23 History release sprinkle folic acid 800 mcg tablet 800 mcg PO DAILY 08/15/21 05/21/23 History phenytoin sodium extended 100 mg 100 mg PO BID 08/15/21 05/21/23 History capsule phenytoin sodium extended 30 mg 30 mg PO HS 08/15/21 05/21/23 History capsule (Dilantin) topiramate 50 mg tablet 50 mg PO BID 08/15/21 05/21/23 History Refresh Tears 1 drp EACH EYE Q1H PRN Dry Eye(S) 10/07/21 05/21/23 History apixaban 5 mg (74 tabs) tablets in 5 mg PO BID 10/07/21 05/21/23 History a dose pack (Eliquis DVT-PE Treat 30D Start) furosemide 20 mg tablet 20 mg PO BID 10/07/21 05/21/23 History polyethylene glycol 3350 17 17 g PO DAILY PRN Cons
[2023-05-21] MEDS: clonazePAM (*CRX) 0.5 MG TABLET 3 MG PO (16:21)
[2023-05-21 17:23] LABS: Phenytoin Dilantin 15 ug/mL (10-20)
[2023-05-21] MEDS: levETIRAcetam 500 MG TABLET 2000 MG PO (21:01)
[2023-05-21] MEDS: PHENYTOIN SODIUM 30 MG PO (21:03)
[2023-05-22] VITALS (17 sets, daily range): BP systolic 91–111; BP diastolic 39–70; PULSE 80–108; RESP 16–18; TEMP 36.2–36.9; O2SAT 98–100; BMI 17.4
[2023-05-22] MEDS: VANCOMYCIN 1,000 MG/NS 250 ML 1,000 MG/250 ML BAG 250 MG IVPB (03:00)
[2023-05-22 05:01] LABS: Basophils Absolute Auto 0.1 K/mm3 (0.0-0.1); Basophils Percent Auto 0.9 % (0.2-1.2); Eosinophils Absolute Auto 0.4 K/mm3 (0-0.3); Eosinophils Percent Auto 4.7 % (0-4.4); Hematocrit 32.7 % (37.0-47.0); Immature Granulocyte Absolute 0.02 K/mm3 (0.00-0.031); Immature Granulocyte Percent A 0.2 % (0-0.5); Lymphocytes Absolute Auto 3.69 K/mm3 (0.9-3.2); Lymphocytes Percent Auto 45.2 % (18.3-44.2); Mean Corpuscular HGB Conc 30.6 g/dl (32-36); Mean Corpuscular Volume 98.2 fl (80-100); Mean Platelet Volume 10.5 fl (7.4-10.4); Monocytes Absolute Auto 0.7 K/mm3 (0.1-0.6); Monocytes Percent Auto 8.2 % (2.6-8.5); Neutrophils Absolute Auto 3.3 K/mm3 (1.3-6.7); Neutrophils Percent Auto 40.8 % (45.5-73.1); Platelet Count Result 180 k/mm3 (150-375); Red Blood Count 3.33 M/mm3 (4.2-5.4); Red Cell Distribution Width 12.3 % (11.5-14.5); White Blood Count 8.2 K/mm3 (4.5-10.0)
[2023-05-22 05:23] LABS: Anion Gap 6 mmol/L (8-16); Blood Urea Nitrogen 10 mg/dL (7-17); Calcium 7.5 mg/dL (8.4-10.2); Carbon Dioxide 20 mmol/L (22-30); Chloride 112 mmol/L (98-107); Estimated CRCL calculation 121 ml/min; Estimated Glomerular Filt Rate > 60; Glucose 88 mg/dL (65-110); Magnesium 2.2 mg/dL (1.6-2.3); Phosphorus 3.1 mg/dL (2.5-4.5); Potassium 2.8 mmol/L (3.4-5.0); Sodium 138 mmol/L (137-145)
[2023-05-22] MEDS: POTASSIUM CHLORIDE 20 MEQ ER TABLET 80 MEQ PO (06:03)
[2023-05-22] MEDS: TOPIRAMATE 25 MG TABLET 50 MG PO ×2 (08:39→21:18)
[2023-05-22] MEDS: PHENYTOIN SODIUM 100 MG EXTENDED RELEASE CAP PO ×2 (08:39→16:45)
[2023-05-22] MEDS: clonazePAM (*CRX) 0.5 MG TABLET 3 MG PO ×2 (08:40→16:45)
[2023-05-22] MEDS: FUROSEMIDE 20 MG TABLET PO ×2 (08:40→16:45)
[2023-05-22] MEDS: DIVALPROEX SODIUM SPRINKLE 125 MG CAP.DR 500 MG PO (08:40)
[2023-05-22] MEDS: levETIRAcetam 500 MG TABLET 2000 MG PO (08:40)
[2023-05-22] MEDS: OXcarbazepine 300 MG TABLET 900 MG PO ×2 (08:40→21:17)
[2023-05-22] MEDS: FOLIC ACID 0.4 MG TABLET 0.8 MG PO (08:40)
[2023-05-22] MEDS: APIXABAN 5 MG TABLET PO ×2 (08:41→21:17)
--- NOTE | 2023-05-22 10:06 | P.PNIM_ITS ---
Progress Note: A&P Assessment and Plan (1) Epileptic seizure: Code(s): G40.909 - Epilepsy, unspecified, not intractable, without status epilepticus Status: Acute Assessment and Plan: Case discussed with MD Nat at [facility] - Neurology. She recommended LP and meningitic antibiotics. Transfer to be [facility] attempted, bed unavailable for the next 5 days. Accepted here with Neurology consulting. * Ativan 2 mg PRN for breakthrough seizures x1 - call provider if patient requires medication * Continue home epilepsy medication: Klonopin 3 mg b.i.d., divalproex 500 mg b.i.d., Keppra 2 g q.12, oxcarbazepine 900 mg q.12, phenytoin 100 mg b.i.d., topiramate 50 mg q.12, cenobamate 100 mg daily * Seizure precautions * Neurology consulted - [facility] * Dilantin level * Keppra level * CT brain without contrast: No acute intracranial process * Magnesium 2.4, trend chemistry and mag * Neurological checks q.4 (2) Fever: Code(s): R50.9 - Fever, unspecified Status: Acute Assessment and Plan: No current identified source, normal white count * Broad-spectrum antibiotics and antivirals: Vancomycin 1G q.12, ceftriaxone 1G Q24, and acyclovir 500 mg q.8 - started on 05/21 * LP performed - current abnormals from resulted testing: CSF lymphocytes 10 (L), - fungal culture and smear - herpes simplex virus culture - CSF culture - AFB culture and smear - glucose - lactic acid - VDRL quantitative - Herpes simplex PCR - West Nile virus PCR - lyme disease IgG, IgM - Total protein * Lyme disease antibody * Multiple sclerosis panel * Cryptococcus antigen * Total creatinine kinase: 27 * UA: cloudy, 1+ leuks, 11-20 WBC, many squamous epithelial cells, 3+ bacteria * UC pending * CXR impression: no acute cardiopulmonary process * Viral PCR negative for influenza, RSV, COVID on 05/20/23 * continue tele monitoring with Q2 VS * Trend CBC * Tylenol p.r.n. for fever or pain * Zofran p.r.n. for nausea Plan GI Prophylaxis: not indicated DVT Prophylaxis: Eliquis Code Status: Full Code Subjective Date/time seen: 05/22/23 10:06 Interval history: 38-year-old female with past medical history of encephalitis, seizures since childhood, and DVT presents here with multiple seizures and fever. No overnight events noted. No chest pain or shortness of breath. No nausea, vomiting or diarrhea. No fevers or chills. Eating lunch, feels a little weak. Review of Systems Review of Systems: 12 point review of systems was assessed and was negative except as noted in the HPI Exam Narrative: General: No acute distress, alert and oriented per baseline HEENT: Atraumatic, normocephalic, mucous membranes moist CV: Regular rate and rhythm, S1, S2 Lungs: Clear to auscultation bilaterally, no rales or crackles noted, no wheezes, good air entry Abdomen: Soft, nontender, nondistended Extremities: Normal to inspection Skin: No rashes noted, no lesions or wounds seen Psych: Euthymic, normal affect Objective Data Vital Signs Vital Signs: Vital Signs - 24 hr 05/21/23 10:30 05/21/23 11:28 05/21/23 12:23 Temperature 97.6 F Pulse Rate 80 95 96 Respiratory Rate 16 16 15 Blood Pressure 104/71 99/65 L 102/69 Pulse
--- NOTE | 2023-05-22 10:06 | PM.IMPN ---
Progress Note: A&P Assessment and Plan (1) Epileptic seizure: Code(s): G40.909 - Epilepsy, unspecified, not intractable, without status epilepticus Status: Acute Assessment and Plan: Case discussed with MD Nat at [facility] - Neurology. She recommended LP and meningitic antibiotics. Transfer to be [facility] attempted, bed unavailable for the next 5 days. Accepted here with Neurology consulting. Ativan 2 mg PRN for breakthrough seizures x1 - call provider if patient requires medication Continue home epilepsy medication: Klonopin 3 mg b.i.d., divalproex 500 mg b.i.d., Keppra 2 g q.12, oxcarbazepine 900 mg q.12, phenytoin 100 mg b.i.d., topiramate 50 mg q.12, cenobamate 100 mg daily Seizure precautions Neurology consulted - Ron Silveira level Keppra level CT brain without contrast: No acute intracranial process Magnesium 2.4, trend chemistry and mag Neurological checks q.4 (2) Fever: Code(s): R50.9 - Fever, unspecified Status: Acute Assessment and Plan: No current identified source, normal white count Broad-spectrum antibiotics and antivirals: Vancomycin 1G q.12, ceftriaxone 1G Q24, and acyclovir 500 mg q.8 - started on 05/21 LP performed - current abnormals from resulted testing: CSF lymphocytes 10 (L), - fungal culture and smear - herpes simplex virus culture - CSF culture - AFB culture and smear - glucose - lactic acid - VDRL quantitative - Herpes simplex PCR - West Nile virus PCR - lyme disease IgG, IgM - Total protein Lyme disease antibody Multiple sclerosis panel Cryptococcus antigen Total creatinine kinase: 27 UA: cloudy, 1+ leuks, 11-20 WBC, many squamous epithelial cells, 3+ bacteria UC pending CXR impression: no acute cardiopulmonary process Viral PCR negative for influenza, RSV, COVID on 05/20/23 continue tele monitoring with Q2 VS Trend CBC Tylenol p.r.n. for fever or pain Zofran p.r.n. for nausea Plan GI Prophylaxis: not indicated DVT Prophylaxis: Eliquis Code Status: Full Code Subjective Date/time seen: 05/22/23 10:06 Interval history: 38-year-old female with past medical history of encephalitis, seizures since childhood, and DVT presents here with multiple seizures and fever. No overnight events noted. No chest pain or shortness of breath. No nausea, vomiting or diarrhea. No fevers or chills. Eating lunch, feels a little weak. Review of Systems Review of Systems: 12 point review of systems was assessed and was negative except as noted in the HPI Exam Narrative: General: No acute distress, alert and oriented per baseline HEENT: Atraumatic, normocephalic, mucous membranes moist CV: Regular rate and rhythm, S1, S2 Lungs: Clear to auscultation bilaterally, no rales or crackles noted, no wheezes, good air entry Abdomen: Soft, nontender, nondistended Extremities: Normal to inspection Skin: No rashes noted, no lesions or wounds seen Psych: Euthymic, normal affect Objective Data Vital Signs Vital Signs: Vital Signs - 24 hr 05/21/23 10:30 05/21/23 11:28 05/21/23 12:23 Temperature 97.6 F Pulse Rate 80 95 96 Respiratory Rate 16 16 15 Blood Pressure 104/71 99/65 L 102/69 Pulse Oximetry 100 100 100 Oxygen Delivery 05/21/23 12:33 05/21/23 13:00 05/21/23 14:00 Temperature 97.6 F Pulse Rate 93 93 89 Respiratory Rate 17 12 Blood Pressure 93/65 L Pulse Oximetry 98 Oxygen Delivery 05/21/23 15:51 05/21/23 16:00 05/21/23 16:00 Temperature 98.1 F Pulse Rate 99 99 105 H Respiratory Rate 16 16 Blood Pressure 91/66 L Pulse Oximetry 97 97 Oxygen Delivery Room Air 05/21/23 18:00 05/21/23 19:15 05/21/23 20:00 Temperature 98.3 F Pulse Rate 106 H 104 H 102 H Respiratory Rate 18 Blood Pressure 85/62 L Pulse Oximetry 100 Oxygen Delivery 05/21/23 20:00 05/21/23 22:00 05/21/23 23:24 Temperature 97.3 F L Pu
[2023-05-22] MEDS: LORazepam INJ (*CRX) 2 MG/ML VIAL IV PUSH (10:19)
--- NOTE | 2023-05-22 13:04 | WPDNEURCNPN ---
Assessment and Plan Assessment and plan (1) Increasing frequency of seizure activity: Code(s): R56.9 - Unspecified convulsions Status: Acute (2) Intractable epilepsy: Code(s): G40.919 - Epilepsy, unspecified, intractable, without status epilepticus Status: Acute (3) Fever: Code(s): R50.9 - Fever, unspecified Status: Acute (4) UTI (urinary tract infection): Code(s): N39.0 - Urinary tract infection, site not specified Status: Acute Plan Khadra Meadows is a 38 year old female with a history of intractable epilepsy presenting for increased seizure frequency. Likely provoked by medication non-compliance and underlying UTI. - Continue Klonopin 3mg BID, Keppra 2000mg BID, Trilpetal 900mg BID, Cenobamate 100mg daily, VPA 500mg BID, Dilantin 100mg/130mg, Topamax 50mg BID - Ativan 2mg as needed for breakthrough seizures while admitted - Follow-up AED levels - Pending transfer to [facility] Consult date: 05/22/23 Reason for consult: Increased seizure frequency HPI: Khadra Meadows is a 38 year old female with a history of intractable epilepsy presenting for increased seizure frequency. Patient take several anti-seizure medications and resides in a detention. Recently they ran out of patient's Klonopin so she had not been receiving it. She presented yesterday due to increase in baseline seizures. EMS was called and patient received 2mg Versed en route. On arrival to [facility] she continued to have seizures (described as RUE and right facial twitching). She ultimately received 6mg Ativan which aborted the seizures. Her temperature was 100.2 in the ED with initial blood pressure of 85/62. Case was discussed by ED physician with Neurologist at [facility], who recommend starting meningitic antibiotics and performing LP. LP was done successfully. Cell count came back as 0 with normal protein level. She is still on vancomycin, Rocephin, and Acyclovir. CT head did not show any acute process. Drug levels were drawn. Dilantin level was 15 which is within range. Other levels still pending. Her current medication regimen for her epilepsy are Klonopin 3mg BID, Keppra 2000mg BID, Trilpetal 900mg BID, Cenobamate 100mg daily, VPA 500mg BID, Dilantin 100mg/130mg, Topamax 50mg BID. She also takes Eliquis 5mg BID for history of DVT. Patient has been completely alert and oriented since she was admitted. UA on admission did show positive LE, WBC, and bacteria. Urine culture is pending. Preliminary blood and CSF cultures are negative to date. Patient is pending transfer to [facility]. Review of Systems Review of Systems: All systems reviewed & are unremarkable except as noted in HPI and below PMFSH Past Medical History Medical History DVT (deep venous thrombosis) Encephalitis Menstrual disorder NEC Seizure disorder Surgical History Surgical History No pertinent past surgical history Family History Family History Mother Family history of malignant neoplasm of breast in first degree relative Family history of malignant neoplasm of breast Father Family history of bipolar disorder Grandparent Carcinoma of colon Other Cerebrovascular accident Family history of hypercholesterolemia Family history of lupus erythematosus Social History Social History Social History: Currently a resident at [facility]. Surrogate decision maker: Ruthiechi Torres - mom. Full Code. Smoking status: Never smoker Second hand tobacco smoke exposure: No Smoking end date: 08/17/02 Alcohol intake: never Substance use: never Lack of Transportation: No Lack of Food: Never True Current Housing: I Have Housing Concerned About Future Housing: No Difficulty Paying Gas/Electric Bills
--- NOTE | 2023-05-22 13:48 | PHAR ---
The patient's home med of Cenobamate [Xcopri] 100 mg tablet has been verified.
[2023-05-22 15:44] LABS: Vancomycin Trough 7.1 ug/mL (10.0-20.0)
[2023-05-22] MEDS: PHENYTOIN SODIUM 30 MG PO (21:17)
[2023-05-22] MEDS: HYALURONIDASE, HUMAN RECOMB. 150 UNITS/ML VIAL SUB-Q (21:35)
[2023-05-22] MEDS: levETIRAcetam 1000MG/NACL100ML 1,000 MG/100 ML BAG 400 MG IVPB ×2 (22:34→22:39)
[2023-05-22] MEDS: VALPROIC ACID INJ 500 MG in DEXTROSE 5% 100 ML 100 MG IVPB (23:08)
--- NOTE | 2023-05-22 23:25 | PC.NURSE ---
Spoke with KANCHAN Gomez at [facility] transfer center. States that there is no bed available at this time.
[2023-05-23] VITALS (8 sets, daily range): BP systolic 87–96; BP diastolic 55–61; PULSE 75–104; RESP 16–18; TEMP 36.1–36.4; O2SAT 98–100
[2023-05-23 05:33] LABS: Estimated CRCL calculation 131 ml/min; Estimated Glomerular Filt Rate > 60
[2023-05-23] MEDS: clonazePAM (*CRX) 0.5 MG TABLET 3 MG PO (09:32)
[2023-05-23] MEDS: OXcarbazepine 300 MG TABLET 900 MG PO (09:33)
[2023-05-23] MEDS: PHENYTOIN SODIUM 100 MG EXTENDED RELEASE CAP PO (09:34)
[2023-05-23] MEDS: FOLIC ACID 0.4 MG TABLET 0.8 MG PO (09:35)
[2023-05-23] MEDS: APIXABAN 5 MG TABLET PO (09:35)
[2023-05-23] MEDS: FUROSEMIDE 20 MG TABLET PO (09:35)
[2023-05-23] MEDS: levETIRAcetam 1000MG/NACL100ML 1,000 MG/100 ML BAG 400 MG IVPB ×2 (09:37→10:36)
[2023-05-23] MEDS: TOPIRAMATE 25 MG TABLET 50 MG PO (09:57)
[2023-05-23] MEDS: VALPROIC ACID INJ 500 MG in DEXTROSE 5% 100 ML 100 MG IVPB (10:50)
--- NOTE | 2023-05-23 11:42 | P.PNIM_ITS ---
Progress Note: A&P Assessment and Plan (1) Epileptic seizure: Code(s): G40.909 - Epilepsy, unspecified, not intractable, without status epilepticus Status: Acute Assessment and Plan: Case discussed with MD Nat at [facility] - Neurology. She recommended LP and meningitic antibiotics. Transfer to [facility] attempted, bed unavailable for the next 5 days. Accepted here with Neurology consulting. * Ativan 2 mg PRN for breakthrough seizures x1 - call provider if patient requires medication * Continue home epilepsy medication: Klonopin 3 mg b.i.d., divalproex 500 mg b.i.d., Keppra 2 g q.12, oxcarbazepine 900 mg q.12, phenytoin 100 mg b.i.d., topiramate 50 mg q.12, cenobamate 100 mg daily * Seizure precautions * Neurology consulted - Ron * Dilantin level * Keppra level * CT brain without contrast: No acute intracranial process * Magnesium 2.4, trend chemistry and mag * Neurological checks q.4 (2) Fever: Code(s): R50.9 - Fever, unspecified Status: Acute Assessment and Plan: No current identified source, normal white count * Broad-spectrum antibiotics and antivirals: Vancomycin 1G q.12, ceftriaxone 1G Q24, and acyclovir 500 mg q.8 - started on 05/21 * LP performed - current abnormals from resulted testing: CSF lymphocytes 10 (L), - fungal culture and smear - herpes simplex virus culture - CSF culture - AFB culture and smear - glucose - lactic acid - VDRL quantitative - Herpes simplex PCR - West Nile virus PCR - lyme disease IgG, IgM - Total protein * Lyme disease antibody * Multiple sclerosis panel * Cryptococcus antigen * Total creatinine kinase: 27 * UA: cloudy, 1+ leuks, 11-20 WBC, many squamous epithelial cells, 3+ bacteria * UC pending * CXR impression: no acute cardiopulmonary process * Viral PCR negative for influenza, RSV, COVID on 05/20/23 * continue tele monitoring with Q2 VS * Trend CBC * Tylenol p.r.n. for fever or pain * Zofran p.r.n. for nausea Plan GI Prophylaxis: not indicated DVT Prophylaxis: Eliquis Code Status: Full Code Subjective Date/time seen: 05/23/23 11:42 Interval history: 38-year-old female with past medical history of encephalitis, seizures since childhood, and DVT presents here with multiple seizures and fever. No overnight events noted. No chest pain or shortness of breath. No nausea, vomiting or diarrhea. No fevers or chills. Doing much better than yesterday, states she almost feels back to baseline. Review of Systems Review of Systems: 12 point review of systems was assessed and was negative except as noted in the HPI Exam Narrative: General: No acute distress, alert and oriented per baseline HEENT: Atraumatic, normocephalic, mucous membranes moist CV: Regular rate and rhythm, S1, S2 Lungs: Clear to auscultation bilaterally, no rales or crackles noted, no wheezes, good air entry Abdomen: Soft, nontender, nondistended Extremities: Normal to inspection Skin: No rashes noted, no lesions or wounds seen, significant muscle atrophy noted Psych: Euthymic, normal affect Objective Data Vital Signs Vital Signs: Vital Signs - 24 hr 05/22/23 11:43 05/22/23 12:00 05/22/23 12:00 Temperature 97.1 F L Pulse Rate 96 104 H Respirator
--- NOTE | 2023-05-23 11:42 | PM.IMPN ---
Progress Note: A&P Assessment and Plan (1) Epileptic seizure: Code(s): G40.909 - Epilepsy, unspecified, not intractable, without status epilepticus Status: Acute Assessment and Plan: Case discussed with MD Nat at [facility] - Neurology. She recommended LP and meningitic antibiotics. Transfer to [facility] attempted, bed unavailable for the next 5 days. Accepted here with Neurology consulting. Ativan 2 mg PRN for breakthrough seizures x1 - call provider if patient requires medication Continue home epilepsy medication: Klonopin 3 mg b.i.d., divalproex 500 mg b.i.d., Keppra 2 g q.12, oxcarbazepine 900 mg q.12, phenytoin 100 mg b.i.d., topiramate 50 mg q.12, cenobamate 100 mg daily Seizure precautions Neurology consulted - Ron Silveira level Keppra level CT brain without contrast: No acute intracranial process Magnesium 2.4, trend chemistry and mag Neurological checks q.4 (2) Fever: Code(s): R50.9 - Fever, unspecified Status: Acute Assessment and Plan: No current identified source, normal white count Broad-spectrum antibiotics and antivirals: Vancomycin 1G q.12, ceftriaxone 1G Q24, and acyclovir 500 mg q.8 - started on 05/21 LP performed - current abnormals from resulted testing: CSF lymphocytes 10 (L), - fungal culture and smear - herpes simplex virus culture - CSF culture - AFB culture and smear - glucose - lactic acid - VDRL quantitative - Herpes simplex PCR - West Nile virus PCR - lyme disease IgG, IgM - Total protein Lyme disease antibody Multiple sclerosis panel Cryptococcus antigen Total creatinine kinase: 27 UA: cloudy, 1+ leuks, 11-20 WBC, many squamous epithelial cells, 3+ bacteria UC pending CXR impression: no acute cardiopulmonary process Viral PCR negative for influenza, RSV, COVID on 05/20/23 continue tele monitoring with Q2 VS Trend CBC Tylenol p.r.n. for fever or pain Zofran p.r.n. for nausea Plan GI Prophylaxis: not indicated DVT Prophylaxis: Eliquis Code Status: Full Code Subjective Date/time seen: 05/23/23 11:42 Interval history: 38-year-old female with past medical history of encephalitis, seizures since childhood, and DVT presents here with multiple seizures and fever. No overnight events noted. No chest pain or shortness of breath. No nausea, vomiting or diarrhea. No fevers or chills. Doing much better than yesterday, states she almost feels back to baseline. Review of Systems Review of Systems: 12 point review of systems was assessed and was negative except as noted in the HPI Exam Narrative: General: No acute distress, alert and oriented per baseline HEENT: Atraumatic, normocephalic, mucous membranes moist CV: Regular rate and rhythm, S1, S2 Lungs: Clear to auscultation bilaterally, no rales or crackles noted, no wheezes, good air entry Abdomen: Soft, nontender, nondistended Extremities: Normal to inspection Skin: No rashes noted, no lesions or wounds seen, significant muscle atrophy noted Psych: Euthymic, normal affect Objective Data Vital Signs Vital Signs: Vital Signs - 24 hr 05/22/23 11:43 05/22/23 12:00 05/22/23 12:00 Temperature 97.1 F L Pulse Rate 96 104 H Respiratory Rate 16 Blood Pressure 99/60 L Pulse Oximetry 98 Oxygen Delivery Room Air 05/22/23 14:00 05/22/23 16:26 05/22/23 16:00 Temperature 97.5 F L Pulse Rate 100 88 96 Respiratory Rate 18 Blood Pressure 97/66 L Pulse Oximetry 100 Oxygen Delivery 05/22/23 16:00 05/22/23 19:52 05/22/23 18:00 Temperature 97.2 F L Pulse Rate 96 98 Respiratory Rate 18 Blood Pressure 102/70 Pulse Oximetry 98 Oxygen Delivery Room Air 05/22/23 23:40 05/22/23 20:00 05/23/23 00:00 Temperature 97.5 F L Pulse Rate 95 96 95 Respiratory Rate 18 18 18 Blood Pressure 111/67 Pulse Oximetry 98 98 98 Oxygen Delivery Room Air Room Air
[2023-05-23 22:50] LABS: Cryptococcus Antigen Not Detected (Not Detected); Cryptococcus Specimen Source Serum
[2023-05-24 18:51] LABS: Levetiracetam Keppra <2.0 mcg/mL (6.0-46.0)
[2023-05-25 14:37] LABS: VDRL Quantitative CSF Nonreactive (Nonreactive)
[2023-05-26 06:34] LABS: Lyme Disease Ab (IgM), Blot Negative (Negative); Lyme Disease Ab(IgG), Blot Negative (Negative)
[2023-05-30 11:02] LABS: Source CSF
--- NOTE | 2023-06-04 15:27 | P.TS_ITS ---
Transfer Discharge Sum: Prov Provider Date of admission: 05/22/23 10:56 Primary care physician: Luciano Gutiérrez MD Admitting clinician: Derick Lucio MD Consults: 05/21/23 10:54 Consult to Physician Routine Comment: Consulting Provider: Teresa Velasquez Reason for consultation: Seizure Has provider been notified: Yes DS: Admitting Diagnosis Discharge Date 05/23/23 Admitting Diagnosis Seizures with a fever DS: Discharge Diagnosis Discharge Diagnosis (1) Epileptic seizure: Code(s): G40.909 - Epilepsy, unspecified, not intractable, without status epilepticus Status: Acute Assessment and Plan: Case discussed with MD Nat at [facility] - Neurology. She recommended LP and meningitic antibiotics. Transfer to [facility] attempted, bed unavailable for the next 5 days. Accepted here with Neurology consulting. * Ativan 2 mg PRN for breakthrough seizures x1 - call provider if patient requires medication * Continue home epilepsy medication: Klonopin 3 mg b.i.d., divalproex 500 mg b.i.d., Keppra 2 g q.12, oxcarbazepine 900 mg q.12, phenytoin 100 mg b.i.d., topiramate 50 mg q.12, cenobamate 100 mg daily * Seizure precautions * Neurology consulted - Ron * Dilantin level * Keppra level * CT brain without contrast: No acute intracranial process * Magnesium 2.4, trend chemistry and mag * Neurological checks q.4 (2) Fever: Code(s): R50.9 - Fever, unspecified Status: Acute Assessment and Plan: No current identified source, normal white count * Broad-spectrum antibiotics and antivirals: Vancomycin 1G q.12, ceftriaxone 1G Q24, and acyclovir 500 mg q.8 - started on 05/21 * LP performed - current abnormals from resulted testing: CSF lymphocytes 10 (L), - fungal culture and smear - herpes simplex virus culture - CSF culture - AFB culture and smear - glucose - lactic acid - VDRL quantitative - Herpes simplex PCR - West Nile virus PCR - lyme disease IgG, IgM - Total protein * Lyme disease antibody * Multiple sclerosis panel * Cryptococcus antigen * Total creatinine kinase: 27 * UA: cloudy, 1+ leuks, 11-20 WBC, many squamous epithelial cells, 3+ bacteria * UC pending * CXR impression: no acute cardiopulmonary process * Viral PCR negative for influenza, RSV, COVID on 05/20/23 * continue tele monitoring with Q2 VS * Trend CBC * Tylenol p.r.n. for fever or pain * Zofran p.r.n. for nausea Plan GI Prophylaxis: not indicated DVT Prophylaxis: Eliquis Code Status: Full Code Transfer Discharge Sum: Med Medications Active and Home Medications: Home Medications clonazepam 1 mg tablet 3 mg PO BID 11/09/19 [History Confirmed 05/21/23] levetiracetam 1,000 mg tablet 2,000 mg PO BID 11/09/19 [History Confirmed 05/21/23] oxcarbazepine 300 mg tablet 300 mg PO .COMPLEX 11/09/19 [History Confirmed 05/21/23] cenobamate 100 mg tablet (Xcopri) 100 mg PO DAILY 08/15/21 [History Confirmed 05/21/23] divalproex 125 mg capsule,delayed release sprinkle 500 mg PO BID 08/15/21 [History Confirmed 05/21/23] folic acid 800 mcg tablet 800 mcg PO DAILY 08/15/21 [History Confirmed 05/21/23] phenytoin sodium extended 100 mg capsule 100 mg PO BID 08/15/21 [History Confi rmed 05/21/23] phenytoin sodium extended 30 mg capsule (Dilantin) 30 mg PO HS 08/15/21 [History Confirmed 10
--- NOTE | 2023-06-04 15:27 | PM.TDS ---
Transfer Discharge Sum: Prov Provider Date of admission: 05/22/23 10:56 Primary care physician: Luciano Gutiérrez MD Admitting clinician: Derick Lucio MD Consults: 05/21/23 10:54 Consult to Physician Routine Comment: Consulting Provider: Teresa Velasquez Reason for consultation: Seizure Has provider been notified: Yes DS: Admitting Diagnosis Discharge Date 05/23/23 Admitting Diagnosis Seizures with a fever DS: Discharge Diagnosis Discharge Diagnosis (1) Epileptic seizure: Code(s): G40.909 - Epilepsy, unspecified, not intractable, without status epilepticus Status: Acute Assessment and Plan: Case discussed with MD Nat at [facility] - Neurology. She recommended LP and meningitic antibiotics. Transfer to [facility] attempted, bed unavailable for the next 5 days. Accepted here with Neurology consulting. Ativan 2 mg PRN for breakthrough seizures x1 - call provider if patient requires medication Continue home epilepsy medication: Klonopin 3 mg b.i.d., divalproex 500 mg b.i.d., Keppra 2 g q.12, oxcarbazepine 900 mg q.12, phenytoin 100 mg b.i.d., topiramate 50 mg q.12, cenobamate 100 mg daily Seizure precautions Neurology consulted - Ron Silveira level Keppra level CT brain without contrast: No acute intracranial process Magnesium 2.4, trend chemistry and mag Neurological checks q.4 (2) Fever: Code(s): R50.9 - Fever, unspecified Status: Acute Assessment and Plan: No current identified source, normal white count Broad-spectrum antibiotics and antivirals: Vancomycin 1G q.12, ceftriaxone 1G Q24, and acyclovir 500 mg q.8 - started on 05/21 LP performed - current abnormals from resulted testing: CSF lymphocytes 10 (L), - fungal culture and smear - herpes simplex virus culture - CSF culture - AFB culture and smear - glucose - lactic acid - VDRL quantitative - Herpes simplex PCR - West Nile virus PCR - lyme disease IgG, IgM - Total protein Lyme disease antibody Multiple sclerosis panel Cryptococcus antigen Total creatinine kinase: 27 UA: cloudy, 1+ leuks, 11-20 WBC, many squamous epithelial cells, 3+ bacteria UC pending CXR impression: no acute cardiopulmonary process Viral PCR negative for influenza, RSV, COVID on 05/20/23 continue tele monitoring with Q2 VS Trend CBC Tylenol p.r.n. for fever or pain Zofran p.r.n. for nausea Plan GI Prophylaxis: not indicated DVT Prophylaxis: Eliquis Code Status: Full Code Transfer Discharge Sum: Med Medications Active and Home Medications: Home Medications clonazepam 1 mg tablet 3 mg PO BID 11/09/19 [History Confirmed 05/21/23] levetiracetam 1,000 mg tablet 2,000 mg PO BID 11/09/19 [History Confirmed 05/21/23] oxcarbazepine 300 mg tablet 300 mg PO .COMPLEX 11/09/19 [History Confirmed 05/21/23] cenobamate 100 mg tablet (Xcopri) 100 mg PO DAILY 08/15/21 [History Confirmed 05/21/23] divalproex 125 mg capsule,delayed release sprinkle 500 mg PO BID 08/15/21 [History Confirmed 05/21/23] folic acid 800 mcg tablet 800 mcg PO DAILY 08/15/21 [History Confirmed 05/21/23] phenytoin sodium extended 100 mg capsule 100 mg PO BID 08/15/21 [History Confirmed 05/21/23] phenytoin sodium extended 30 mg capsule (Dilantin) 30 mg PO HS 08/15/21 [History Confirmed 05/21/23] topiramate 50 mg tablet 50 mg PO BID 08/15/21 [History Confirmed 05/21/23] Refresh Tears 1 drp EACH EYE Q1H PRN Dry Eye(S) 10/07/21 [History Confirmed 05/21/23] apixaban 5 mg (74 tabs) tablets in a dose pack (Ginais DVT-PE Treat 30D Start) 5 mg PO BID 10/07/21 [History Confirmed 05/21/23] furosemide 20 mg tablet 20 mg PO BID 10/07/21 [History Confirmed 05/21/23] polyethylene glycol 3350 17 gram/dose oral powder (Miralax) 17 g PO DAILY PRN Constipation 05/21/23 [History Confirmed 05/21/23] Transfer Discharge Sum: Hosp Hospital Course Hospital course: 38-year-old female with past medical history of
[2023-06-11 21:04] LABS: Albumin, CSF 16.4 mg/dL (8.0-42.0); Albumin, Serum 3.4 g/dL (3.6-5.1); IgG Index, CSF 0.48 (<0.70); IgG, CSF 2.4 mg/dL (0.8-7.7); Immunoglobulin G, Serum 1040 mg/dL (600-1640); Myelin Basic Protein, CSF <2.0 mcg/L (<=4.0); Oligoclonal Bands (IgG), CSF Absent (Absent); Synthesis Rate IgG, CSF -3.2 mg/24 h (-9.9-3.3)
== END 2023-05-23 12:48 | disposition short-term general hospital (02) | DRG 101 ==
LOC: ANHED 05-21 10:56 → ANHIMU 05-21 11:06
PROVIDERS: Emergency Medicine; Student in an Organized Health Care Education/Training Program; Admitting Provider Chiropractor; Emergency Provider Preventive Medicine Aerospace Medicine; PCP Hospitalist; Visit Provider Student in an Organized Health Care Education/Training Program
DX: G40.909 Epilepsy, unspecified, not intractable, without status epilepticus (principal); R50.9 Fever, unspecified; Z91.148 Patient's other noncompliance with medication regimen for other reason; Z20.822 Contact with and (suspected) exposure to COVID-19; Z86.718 Personal history of other venous thrombosis and embolism; Z86.61 Personal history of infections of the central nervous system
CPT/HCPCS: 36415; 70450; 71045; 80048; 80053; 80177; 80185; 80202; 81001; 82040; 82042; 82550; 82565; 82784; 82945; 82948; 83605; 83735; 83873; 83916; 84100; 84157; 85025; 86403; 86592; 86617; 87015; 87040; 87070; 87086; 87088; 87102; 87116; 87206; 87255; 87529; 87637; 87798; 89051; 93005; 96361; 96365; 96366; 96367; 96375; 96376; 99285; A9270; G0378; J0133; J0696; J1100; J1953; J2060; J3370; J3473; J7030

== ENCOUNTER 2024-05-02 12:30 | Inpatient (IN) | payer BC, SELFPAY ==
--- NOTE | ~2024-05-02 | XR_ITS ---
EXAMINATION: XR chest 1V portable DATE: 05/05/2024 15:42 INDICATION: Fever. TECHNIQUE: A single frontal view of the chest was obtained on 2 radiographs. COMPARISON: Chest single view 05/20/2023 FINDINGS: There is no pneumonia, pleural effusion, or pneumothorax. The heart size is normal. IMPRESSION: 1. No acute cardiopulmonary disease. Reviewed, dictated and finalized at location A.
--- NOTE | ~2024-05-02 | CT_ITS ---
EXAMINATION: CT brain wo con DATE: 05/02/2024 20:46 INDICATION: seizure . TECHNIQUE: Computed tomography (CT) of the head was performed without intravenous contrast. The mA wa s adjusted according to patient size. Iterative reconstruction technique was employed. The dose-lengt h product was 1362.00 mGy-cm. COMPARISON: 05/20/2023. FINDINGS: No acute intracranial hemorrhage or extra-axial fluid collection. No hydrocephalus, mass, or herniation. No acute ischemic infarct. Unremarkable dural venous sinus attenuation. No acute osseous abnormality. Nodular mucosal thickening in the left maxillary sinus, mild right maxillary, sphenoid, and ethmoid m ucosal thickening, the remaining aerated spaces are clear. Moderate atrophy, greater than expected for age. Mild chronic white matter change. IMPRESSION: No acute intracranial process. Reviewed, dictated and finalized at location K.
[2024-05-02 12:31] VITALS: BP 107/77; PULSE 100; RESP 20; TEMP 36.9; O2SAT 97
--- NOTE | 2024-05-02 12:36 | ECG_ITS ---
Test Date: 2024-05-02 12:37:24 Measurements Intervals [place] Rate: 102 P: 53 [place]: 118 QRS: 41 QRSD: 82 T: -14 QT: 334 QTc: 435 Interpretive Statements SINUS TACHYCARDIA WITH SHORT [place] INTERVAL ST DEVIATION AND MODERATE T-WAVE ABNORMALITY, CONSIDER ANTEROLAT/INF ISCHEMIA BASELINE ARTIFACT- I, II, AVR, AVL, V1-V2, V4 ABNORMAL ECG No previous ECG available for comparison Electronically Signed On 05-02-2024 12:53:42 CDT by Saleem Mckeon D.O.
[2024-05-02 13:39] LABS: Basophils Absolute Auto 0.1 K/mm3 (0.0-0.1); Eosinophils Absolute Auto 0.1 K/mm3 (0-0.3); Eosinophils Percent Auto 1.8 % (0-4.4); Hematocrit 38.7 % (37.0-47.0); Hemoglobin 12.3 g/dL (12.0-15.0); Immature Granulocyte Absolute 0.01 K/mm3 (0.00-0.031); Immature Granulocyte Percent A 0.3 % (0-0.5); Lymphocytes Absolute Auto 1.01 K/mm3 (0.9-3.2); Lymphocytes Percent Auto 25.8 % (18.3-44.2); Mean Corpuscular HGB Conc 31.8 g/dl (32-36); Mean Corpuscular Hemoglobin 29.9 pg (26-34); Mean Corpuscular Volume 93.9 fl (80-100); Mean Platelet Volume 9.8 fl (7.4-10.4); Monocytes Absolute Auto 0.4 K/mm3 (0.1-0.6); Neutrophils Absolute Auto 2.4 K/mm3 (1.3-6.7); Neutrophils Percent Auto 60.1 % (45.5-73.1); Platelet Count Result 270 k/mm3 (150-375); Red Blood Count 4.12 M/mm3 (4.2-5.4); Red Cell Distribution Width 11.9 % (11.5-14.5); White Blood Count 3.9 K/mm3 (4.5-10.0)
[2024-05-02 13:48] LABS: Prothrombin Time 13.6 Seconds (11.1-14.7)
[2024-05-02 13:49] LABS: Partial Thromboplastin Time 31.1 Seconds (22.3-36.8)
[2024-05-02 13:54] LABS: Alanine Aminotransferase 13 U/L (6-35); Alkaline Phosphatase 80 U/L (38-126); Anion Gap 12 mmol/L (4-12); Aspartate Amino Transferase 20 U/L (14-36); Bilirubin,Total 0.2 mg/dL (0.2-1.3); Blood Urea Nitrogen 20 mg/dL (7-17); Calcium 8.5 mg/dL (8.4-10.2); Carbon Dioxide 22 mmol/L (22-30); Chloride 107 mmol/L (98-107); Creatine Kinase 21 U/L (30-135); Estimated CRCL calculation 152 ml/min; Estimated Glomerular Filt Rate > 60; Glucose 98 mg/dL (65-110); Potassium 3.8 mmol/L (3.4-5.0); Sodium 141 mmol/L (137-145)
--- NOTE | 2024-05-02 13:56 | PC.NURSE ---
Called nursing facility to inquire about medication list. Will fax it over.
[2024-05-02 14:08] LABS: Add Urine Microscopic? YES; Appearance Urine Clear (Clear); Bacteria Urine 4+ /hpf; Bilirubin Urine Negative (Negative); Blood Urine Negative (Negative); Color Urine Dark Yellow (Yellow); Glucose Urine UA Negative (Negative); Ketones Urine Trace mg/dL (Negative); Leukocyte Esterase Ur 1+ LEU/UL (Negative); Nitrate Urine Positive (Negative); Non Pathogenic Casts 0-2; Protein Urine 1+ mg/dL (Negative); RBC Urine 0-2 /hpf (0-2); Specific Grav Ur 1.029 (1.001-1.035); Squamous Epithelial Cell Urine Few /hpf (Few); WBC Urine 21-50 /hpf (0-3); pH Urine 5.5 (5.0-9.0)
[2024-05-02 15:33] VITALS: BP 105/91; PULSE 105; RESP 20; O2SAT 98
[2024-05-02] MEDS: levETIRAcetam 1000MG/NACL100ML 1,000 MG/100 ML BAG 400 MG IVPB (15:41)
[2024-05-02] MEDS: TOPIRAMATE 25 MG TABLET 75 MG PO (15:53)
[2024-05-02] MEDS: PHENYTOIN SODIUM 100 MG EXTENDED RELEASE CAP PO (15:56)
[2024-05-02] MEDS: OXcarbazepine 300 MG TABLET PO (15:56)
[2024-05-02] MEDS: DIVALPROEX SODIUM ER 500 MG TAB.24H PO (15:56)
[2024-05-02 17:05] VITALS: BP 112/90; PULSE 100; RESP 20; TEMP 37.4; O2SAT 100
--- NOTE | 2024-05-02 17:59 | ED.GENADULT ---
HPI - General Adult General Chief complaint: Seizure <Baudilio Robbins MD - Last Filed: 05/04/24 18:40> Stated complaint: seizures <Baudilio Robbins MD - Last Filed: 05/04/24 18:40> Time Seen by Provider: 05/02/24 12:59 <Baudilio Robbins MD - Last Filed: 05/04/24 18:40> History of Present Illness HPI narrative: Patient is a 39-year-old female who presents ER with reports of seizures from [facility]. She did not take her morning medication because ER crushed up and she went to take going to take them in whole form. Patient then started having recurrent seizures. History limited from patient. Intermittent twitching in the and also the way it is. Patient is awake through all this and can respond to commands. Patient receives her neurologic care at [facility]. <Baudilio Robbins MD - Last Filed: 05/04/24 18:40> Related Data Home medications: Home Medications Medication Instructions Recorded Confirmed levetiracetam 1,000 mg tablet 2,000 mg PO BID 11/09/19 05/04/24 oxcarbazepine 300 mg tablet 900 mg PO BID 11/09/19 05/04/24 cenobamate 100 mg tablet (Xcopri) 100 mg PO DAILY 08/15/21 05/04/24 phenytoin sodium extended 100 mg 100 mg PO BID 08/15/21 05/04/24 capsule phenytoin sodium extended 30 mg 30 mg PO HS 08/15/21 05/04/24 capsule (Dilantin) topiramate 50 mg tablet 75 mg PO BID 08/15/21 05/04/24 acetaminophen 325 mg tablet 650 mg PO Q6H PRN Pain (Scale 05/04/24 05/04/24 Score 1-3) divalproex 125 mg capsule,delayed 500 mg PO BID 05/04/24 05/04/24 release sprinkle (Depakote Sprinkles) folic acid 1 mg tablet 1 mg PO DAILY 05/04/24 05/04/24 pantoprazole 40 mg tablet,delayed 40 mg PO DAILY 05/04/24 05/04/24 release potassium chloride 20 mEq/15 mL 20 meq PO DAILY 05/04/24 05/04/24 oral liquid <Baudilio Robbins MD - Last Filed: 05/04/24 18:40> Allergies/adverse reactions: Allergies Allergy/AdvReac Type Severity Reaction Status Date / Time ceftriaxone Allergy Hives Verified 05/02/24 23:25 lacosamide AdvReac Unknown Dizziness Verified 05/04/24 08:24 <Baudilio Robbins MD - Last Filed: 05/04/24 18:40> Review of Systems Review of Systems: ROS unobtainable: Yes unobtainable due to medical condition <Baudilio Robbins MD - Last Filed: 05/04/24 18:40> [facility] Past Medical History Medical History: Medical History Deep venous thrombosis Encephalitis Seizure disorder <Baudilio Robbins MD - Last Filed: 05/04/24 18:40> Surgical History Surgical History: Surgical History History of local excision of skin lesion Benign lesion from left neck. History of wisdom tooth extraction <Baudilio Robbins MD - Last Filed: 05/04/24 18:40> Family History Family History: Family History Mother Family history of malignant neoplasm of breast in first degree relative Family history of malignant neoplasm of breast Father Family history of bipolar disorder Grandparent Carcinoma of colon Other Cerebrovascular accident Family history of hypercholesterolemia Family history of lupus erythematosus <Baudilio Robbins MD - Last Filed: 05/04/24 18:40> Social History Social History: Social History Social History: Surrogate decision maker: Ruthie Torres, mother. Code status: Full Code. Smoking packs per day: 1 Smoking cigarettes per day: 20.0 Years smoked: 15 Smoking pack-years: 15.00 Smoking status: Former smoker Second hand tobacco smoke exposure: No Alcohol intake: never Substance use: never Do You Feel Safe in your Home?: Yes Lack of Transportation: No Lack of Food: Never True Current Housing: I Have Housing Concerned About Future Housing: No Difficulty Paying Gas/Electric Bills: No Difficulty Paying
[2024-05-02] MEDS: LORazepam INJ (*CRX) 2 MG/ML VIAL 1 MG IV PUSH (18:17)
[2024-05-02] MEDS: LORazepam INJ (*CRX) 2 MG/ML VIAL IV PUSH (19:29)
[2024-05-02 19:32] VITALS: BP 96/62; PULSE 108; RESP 18; TEMP 37.4; O2SAT 96
[2024-05-02 22:41] VITALS: BP 112/82; PULSE 108; RESP 20; O2SAT 98
--- NOTE | 2024-05-02 23:23 | PC.NURSE ---
Hives noted to patient's face after Rocephin infusion. Pt has no other complaints. VSS.
[2024-05-02] MEDS: diphenhydrAMINE HCl INJ 50 MG/ML VIAL 25 MG IV PUSH (23:35)
[2024-05-03] VITALS (18 sets, daily range): BP systolic 104–196; BP diastolic 34–135; PULSE 11–117; RESP 15–95; TEMP 36.8–38.5; O2SAT 24–99
[2024-05-03] MEDS: LORazepam INJ (*CRX) 2 MG/ML VIAL 1 MG IV PUSH (06:00)
[2024-05-03] MEDS: levETIRAcetam 1000MG/NACL100ML 1,000 MG/100 ML BAG 400 MG IVPB ×2 (06:22→20:50)
[2024-05-03] MEDS: DIVALPROEX SODIUM ER 500 MG TAB.24H PO (08:07)
--- NOTE | 2024-05-03 08:24 | PC.NURSE ---
No beds available remains on wait list
[2024-05-03] MEDS: PHENYTOIN SODIUM 100 MG EXTENDED RELEASE CAP PO ×2 (09:09→17:35)
[2024-05-03] MEDS: OXcarbazepine 150 MG TABLET PO ×2 (09:10→21:38)
[2024-05-03] MEDS: TOPIRAMATE 25 MG TABLET 75 MG PO ×2 (09:12→21:38)
--- NOTE | 2024-05-03 11:03 | PC.NURSE ---
Pt mother, Josue Torres, called for update on pt and requested to be called with any changes & when pt is to be transferred to [facility]
--- NOTE | 2024-05-03 12:55 | PC.NURSE ---
gave VORB that EKG was not needed at this time
[2024-05-03] MEDS: LORazepam INJ (*CRX) 2 MG/ML VIAL IV PUSH ×3 (16:30→20:48)
--- NOTE | 2024-05-03 16:30 | PC.NURSE ---
1627: RN entered pt room with student nurse to check on pt. RN observed pt eyes starting to deviate left and pt tremors began to become more apparent at 1628. Pt was no longer responsive to verbal commands at that time. EDP made aware and gave VORB for 2mg Ativan IV push. Pt seizure lasted 1.5 minutes. Seizure assessment filled out
--- NOTE | 2024-05-03 16:53 | PC.NURSE ---
dinner tray ordered
--- NOTE | 2024-05-03 21:22 | PC.NURSE ---
[facility] called to get an update on pt. states that they are still at capacity and will call when a bed becomes available
[2024-05-03] MEDS: ACETAMINOPHEN 500 MG TABLET 1000 MG PO (21:42)
--- NOTE | 2024-05-03 21:56 | PC.NURSE ---
Pt continues to have multiple seizures. Lasting approx 2-3 mins at a time. Pts eyes veers to the left and pt has tremors to her face. Pt not arousable during seizure, but quickly comes back to baseline.
[2024-05-03] MEDS: levoFLOXacin 750 MG/D5W 150 ML 750 MG/150 ML BAG 100 MG IVPB (22:53)
[2024-05-03 22:59] LABS: Glucose Point of Care 113 mg/dl (65-105)
[2024-05-04] VITALS (16 sets, daily range): BP systolic 105–135; BP diastolic 75–93; PULSE 92–112; RESP 13–20; TEMP 37.2–38.2; O2SAT 97–100; BMI 21.6
[2024-05-04] MEDS: LORazepam INJ (*CRX) 2 MG/ML VIAL IV PUSH ×2 (02:14→16:39)
[2024-05-04] MEDS: ACETAMINOPHEN 500 MG TABLET 1000 MG PO (05:07)
[2024-05-04] MEDS: IBUPROFEN IV 400 MG in SODIUM CHLORIDE 0.9% IV 100 ML 208 MG IVPB (05:08)
--- NOTE | 2024-05-04 05:54 | PC.NURSE ---
Pt given bed bath, oral care, don care, repositioned and hair brushed
[2024-05-04] MEDS: levETIRAcetam 1000MG/NACL100ML 1,000 MG/100 ML BAG 400 MG IVPB ×2 (08:45→22:10)
[2024-05-04] MEDS: SODIUM CHLORIDE 0.9% IV 1,000 ML 150 ML IV CONT (08:45)
[2024-05-04] MEDS: DIVALPROEX SODIUM ER 500 MG TAB.24H PO (08:46)
[2024-05-04] MEDS: OXcarbazepine 150 MG TABLET PO ×2 (08:52→22:10)
[2024-05-04] MEDS: PHENYTOIN SODIUM 100 MG EXTENDED RELEASE CAP PO ×2 (08:52→18:56)
[2024-05-04] MEDS: TOPIRAMATE 25 MG TABLET 75 MG PO ×2 (08:52→22:10)
--- NOTE | 2024-05-04 10:30 | PC.NURSE ---
Tina with [facility] transfer center called. updated on vitals and condition. states will call back when they get a bed.
--- NOTE | 2024-05-04 12:44 | PC.NURSE ---
No Beds Available remains on wait list
[2024-05-04] MEDS: SULFAMETHOXAZOLE/TRIMETHOPRIM 800/160 MG DS TABLET 1 TAB PO ×2 (15:44→22:09)
--- NOTE | 2024-05-04 16:30 | PC.NURSE ---
When starting antiobiotic infusion IV in left wrist noted to be leaking at the IV site. Attempted to redress the area without success, still leaking. Vascular access contacted to assist in starting a new IV. Shortly after [facility] left the room the patient had another seizure. SJ from Dr. Robbins for 2mg of Ativan.
--- NOTE | 2024-05-04 19:35 | PM.IMHP ---
H&P: HPI History of Present Illness Date/Time: 05/04/24 20:15 Chief Complaint: Breakthrough seizures. Narrative: This is a 39-year-old female with epilepsy with reports of focal seizures and occasional grand and petit mal seizures who presented to the emergency department via EMS from her nursing facility for evaluation of breakthrough seizures on 05/02/2024. The patient provides the following history. She has had an increase in seizure activity mainly focal seizures, over the past several days. It is my understanding that she missed at least 1 of her morning medications on the day of presentation but she is reportedly receiving her medications as directed since that time. She continues to have intermittent focal seizures and has required IV lorazepam on several occasions. Transfer was initiated to [place] where her neurologist is however no but is yet available. Workup in the ED was significant for a grossly abnormal urinalysis which has now come back growing multidrug resistant E coli. She is symptomatic with that and was started on ceftriaxone however had almost immediate hives and that was discontinued. She was given a dose of gentamicin and has been started on Bactrim. At the time my evaluation she feels fine and has no complaints aside from the food. She denies headache, fever, chills, sweats, cold and flu symptoms, chest pain, shortness of breath, abdominal pain, nausea, vomiting, and diarrhea. Review of Systems Review of Systems: 12 systems were reviewed and are negative except for as per HPI. [facility] Past Medical History Medical History (Updated 05/04/24 @ 23:29 by Edilma Stacy PA-C) Deep venous thrombosis Encephalitis Seizure disorder Surgical History Surgical History (Updated 05/04/24 @ 23:14 by Edilma Stacy PA-C) History of local excision of skin lesion Benign lesion from left neck. History of wisdom tooth extraction Family History Family History Mother Family history of malignant neoplasm of breast in first degree relative Family history of malignant neoplasm of breast Father Family history of bipolar disorder Grandparent Carcinoma of colon Other Cerebrovascular accident Family history of hypercholesterolemia Family history of lupus erythematosus Social History Social History (Updated 05/04/24 @ 23:15 by Edilma Stacy PA-C) Social History: Surrogate decision maker: Ruthie Torres, mother. Code status: Full Code. Smoking packs per day: 1 Smoking cigarettes per day: 20.0 Years smoked: 15 Smoking pack-years: 15.00 Smoking status: Former smoker Second hand tobacco smoke exposure: No Alcohol intake: never Substance use: never Do You Feel Safe in your Home?: Yes Lack of Transportation: No Lack of Food: Never True Current Housing: I Have Housing Concerned About Future Housing: No Difficulty Paying Gas/Electric Bills: No Difficulty Paying for Meds: No Currently Unemployed: No Education: High School Diploma/GED Difficulty w/ Childcare or Family Care: No Additional living arrangements comments: [facility]. Spiritual care concerns: No Meds Home Medications and Allergies Home Medications Medication Instructions Recorded Confirmed Type clonazepam 1 mg tablet 3 mg PO BID 11/09/19 05/21/23 History levetiracetam 1,000 mg tablet 2,000 mg PO BID 11/09/19 05/21/23 History oxcarbazepine 300 mg tablet 300 mg PO .COMPLEX 11/09/19 05/21/23 History cenobamate 100 mg tablet (Xcopri) 100 mg PO DAILY 08/15/21 05/21/23 History divalproex 125 mg capsule,delayed 500 mg PO BID 08/15/21 05/21/23 History release sprinkle folic acid 800 mcg tablet 800 mcg PO DAILY 08/15/21 05/21/23 History phenytoin sodium extended 100 mg 100 mg PO BID 08/15/21 05/21/23 History capsule phenytoin sodium extended 30 mg 30 mg PO HS 08/15/21 05/21/23 History capsule (Dilantin) topiramate 5
--- NOTE | 2024-05-04 20:15 | ADMGEN ---
This patient, Khadra Meadows, was admitted to 2 Medical Room 243-01. Patient/family oriented to hospital policies and general routines including ID bracelet, bed and alarms, visiting hours, pain management, procedures, bathroom and other care routines, personal items, smoking policy, room service/diet, and visiting hours. Information on how to activate the Rapid Response Team has been discussed. Patient/Family are encouraged to report perceived risks to care and to ask questions if they do not understand what they are told or what they should do. Report received from Soham in ED.
[2024-05-04 22:14] LABS: Phenytoin Dilantin 16 ug/mL (10-20)
[2024-05-04 23:26] LABS: Valproic Acid 31.8 ug/mL (50-120)
--- NOTE | 2024-05-04 23:42 | PC.NURSE ---
Multiple calls made to [facility] regarding patient medication. [facility] never sent over medication list after repeated calls. Med list completed per external med list.
--- NOTE | 2024-05-04 23:59 | PC.NURSE ---
Teodora from [facility] returned call and was able to verify medication. They stated they attempted to fax medication list, but we never received the list.
[2024-05-05] VITALS (10 sets, daily range): BP systolic 114–143; BP diastolic 75–97; PULSE 99–119; RESP 16–24; TEMP 37.1–37.8; O2SAT 96–100; BMI 21.6
[2024-05-05 06:43] LABS: Hemoglobin 11.6 g/dL (12.0-15.0); Mean Corpuscular HGB Conc 32.2 g/dl (32-36); Mean Corpuscular Hemoglobin 29.9 pg (26-34); Mean Corpuscular Volume 92.8 fl (80-100); Platelet Count Result 276 k/mm3 (150-375); Red Blood Count 3.88 M/mm3 (4.2-5.4); Red Cell Distribution Width 11.5 % (11.5-14.5); White Blood Count 7.2 K/mm3 (4.5-10.0)
[2024-05-05 06:56] LABS: Alanine Aminotransferase 12 U/L (6-35); Albumin Level 3.7 g/dL (3.5-5.1); Alkaline Phosphatase 83 U/L (38-126); Anion Gap 14 mmol/L (4-12); Aspartate Amino Transferase 24 U/L (14-36); Bilirubin,Total 0.5 mg/dL (0.2-1.3); Blood Urea Nitrogen 5 mg/dL (7-17); Calcium 8.3 mg/dL (8.4-10.2); Carbon Dioxide 19 mmol/L (22-30); Chloride 103 mmol/L (98-107); Estimated CRCL calculation 152 ml/min; Estimated Glomerular Filt Rate > 60; Glucose 88 mg/dL (65-110); Magnesium 2.1 mg/dL (1.6-2.3); Potassium 3.1 mmol/L (3.4-5.0); Sodium 136 mmol/L (137-145)
--- NOTE | 2024-05-05 07:30 | PM.IMPN ---
Progress Note: A&P Assessment and Plan (1) Increasing frequency of seizure activity: Code(s): R56.9 - Unspecified convulsions Status: Acute Assessment and Plan: Seizure this morning, resolved with ativan Home meds: Depakote 500mg BID, Xcopri 100mg (not on formulary), Clonazepam 3mg BID, Levetiracetamin 2000mg, oxcarbazepine 900mg BID, Phenytoin 100 BID, 30mg hs, Topiramate 50mg BID --Increased meds to home doses (2) Urinary tract infection: Code(s): N39.0 - Urinary tract infection, site not specified Status: Acute Assessment and Plan: On Bactrim, but new fever this afternoon Urine Culture 05/02 1. Escherichia Coli M.I.C. RX --------- --- Amoxicillin/Clavulanate 16 I Ampicillin/Sulbactam >=32 R Cefazolin >=64 R Ceftazidime 4 S Cefepime 8 I Ceftriaxone >=64 R Ciprofloxacin >=4 R Levofloxacin >=8 R Gentamicin <=1 S Imipenem <=0.25 S Meropenem <=0.25 S Nitrofurantoin <=16 S Piperacillin/Tazobactam 8 S Trimethoprim/Sulfamethoxazole <=20 S (3) Fever: Code(s): R50.9 - Fever, unspecified Status: Acute Assessment and Plan: No headache, but having seizures so low threshold to treat for [employer] infection Blood cultures x2 in process Urine culture sensitive to Zosyn and Meropenem, but both lower seizure threshold slightly (<1%). Check viral swab before broadening Consider CT abd/pelvis and lumbar puncture if worsening clinically --Continuing bactrim Plan UTI--Denies symptoms but currently febrile Fever--blood cultures x2, portable chest x-ray negative. May need CT abd/pelvis or lumbar puncture. Check viral swab Seizures--Head CT no acute findings Time Spent With Patient Time: 63 minutes Subjective Date/time seen: 05/05/24 07:30 Interval history: Had a seizure this morning, s/p ativan Clarified outpatient meds and increased doses Fever this afternoon, sending blood cultures, chest x-ray negative Urine cultures sensitive to Bactrim, may need to broaden to Zosyn or Indy if continued fevers but slight increased risk of seizures Waiting for transfer to [facility] Review of Systems Review of Systems: 12 systems were reviewed and are negative except for as per HPI. Exam Narrative: General: Nontoxic-appearing female in the semi-Koenig position in bed. Weight: 53.6 kg. BMI: 21.6. HEENT: Pupils are slightly irregular in size but are reactive. Extraocular motions intact. Sclera anicteric. Moist mucous membranes. Neck: Supple. Respiratory: Lungs are clear to auscultation bilaterally. Cardiovascular: Regular rate and rhythm with S1-S2. Gastrointestinal: Abdomen is soft, nontender, and nondistended with positive bowel sounds. Skin: Warm and dry. No rash or lesions on limited exam. Extremities: No cyanosis, clubbing, or edema. Radial and pedal pulses intact. Neurological: Alert and oriented. Cranial nerves 2-12 are grossly intact. Speech is slow but clear. No facial asymmetry. Left-sided extremities are a bit contracted. Left footdrop. She is unable to raise her legs off of the bed which she states is chronic. Fine tremors of the right hand. Psychiatric: Cooperative with appropriate mood. Objective Data Vital Signs Vital Signs: Vital Signs - 24 hr 05/04/24 08:42 05/04/24 09:52 05/04/24 10:52 Temperature 100.7 F H 100.3 F H Pulse Rate 109 H 104 H 96 Respiratory Rate 20 15 19 Blood Pressure 109/83 117/80 105/83 Pulse Oximetry
[2024-05-05] MEDS: levETIRAcetam 1000MG/NACL100ML 1,000 MG/100 ML BAG 400 MG IVPB (08:12)
[2024-05-05] MEDS: TOPIRAMATE 25 MG TABLET 75 MG PO ×2 (08:15→19:58)
[2024-05-05] MEDS: SULFAMETHOXAZOLE/TRIMETHOPRIM 800/160 MG DS TABLET 1 TAB PO ×2 (08:15→19:58)
[2024-05-05] MEDS: OXcarbazepine 150 MG TABLET PO (08:15)
[2024-05-05] MEDS: PHENYTOIN SODIUM 100 MG EXTENDED RELEASE CAP PO ×2 (08:16→16:55)
[2024-05-05] MEDS: DIVALPROEX SODIUM ER 500 MG TAB.24H PO ×2 (08:23→16:55)
[2024-05-05 11:06] LABS: Glucose Point of Care 94 mg/dl (65-105)
[2024-05-05] MEDS: LORazepam INJ (*CRX) 2 MG/ML VIAL IV PUSH ×2 (11:23→19:29)
[2024-05-05] MEDS: OXcarbazepine 300 MG TABLET PO (11:28)
--- NOTE | 2024-05-05 11:31 | WPDNEURCNPN ---
Assessment and Plan Assessment and plan (1) Increasing frequency of seizure activity: Code(s): R56.9 - Unspecified convulsions Status: Acute (2) Intractable epilepsy: Code(s): G40.919 - Epilepsy, unspecified, intractable, without status epilepticus Status: Acute (3) UTI (urinary tract infection): Code(s): N39.0 - Urinary tract infection, site not specified Status: Acute Plan I noted that Bere has been investigated by the various speciality Neurology at [facility]. At least 1 of the noted from 1999 indicates that she was being investigated for autoimmune encephalitis. 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 She is given a treatment with the steroids and that seemed to have helped her. The best we could find that she started to have these problems at around age of 16 or 17 and she is significantly incapacitated at this time. She is wheelchair bound or bed bound. Her parents have been the support however she is currently custodial. I noted that she is on lower doses of some of the medications which may have been done due to side effect from them or a decent control at which point most neurologist will consider lowering the dose of medications if possible. She is also on Trileptal or oxcarbazepine 300 mg a day. For now I would suggest to increase the dose of oxcarbazepine to 450 mg twice a day and Keppra to 1500 mg twice a day and continue with other medications . I believe that she is awaiting to get a bed in [facility] where she is under care epileptologist. Consult date: 05/05/24 HPI: Khadra Meadows is a 39 year old female with history of intractable seizures presented emergency room after having seizures. She had a seizure this also. Minutes or earlier prior to the seizure she appeared awake and smiled a was able to talk briefly. She states that she does not what to years ago she started having seizures. She is currently in a custodial. She is aware of the weakness on the left side being greater compared right side. She has been evaluated [facility] and does follow up over there. Looking at her current medications and the previous medications in an admission in 2022 before transfer it appears that some of the medications have been reduced particularly the dose of oxcarbazepine and Keppra has been reduced. She was previously on oxcarbazepine 900 mg twice a day and currently she is on 300 mg twice a day. She was on Keppra 2000 mg twice a day and now is on 1000 mg twice a day. She weighs 118 lb. She has not had any fever or chills her she denies any headache or any other pertinent symptoms. However she does not appear to be a completely reliable historian since he tends to drift off Review of Systems Review of Systems: ROS unobtainable: Yes unobtainable due to mental status PMFSH Past Medical History Medical History Deep venous thrombosis Encephalitis Seizure disorder Surgical History Surgical History History of local excision of skin lesion Benign lesion from left neck. History of wisdom tooth extraction Family History Family History Mother Family history of malignant neoplasm of breast in first degree relative Family history of malignant neoplasm of breast Father Family history of bipolar disorder Grandparent Carcinoma of colon Other Cerebrovascular accident Family history of hypercholesterolemia Family history of lupus erythematosus Social History Social History Social History: Surrogate decision maker: Ruthie Torres, mother. Code status: Full Code. Smoking packs per day: 1 Smoking cigarettes per day: 20.0 Years smoked: 15 Smoking pack-years: 15.00 Smoking status: Former smoker Second hand to
--- NOTE | 2024-05-05 11:34 | PC.NURSE ---
1105 Patient had 30 seconds seizure while [employer] inspector was giving her a bath. No ativan prn ordered. Rapid response called and Dr Polanco and Dr Dunn at bedside.
--- NOTE | 2024-05-05 13:19 | PM.EVENT ---
Event Note Event Note Event Note: Rapid response was called for seizure At bedside patient awake, seizure had stopped She had another focal episode for a few seconds with no loss consciousness Patient already on multiple Antiseizure meds called Dr Hernandez from neurology who came to bedside and reviewed patient antiseizure meds and made further adjustment and recommended PRN Ativan pending transfer to [facility]. Continue close monitoring and PRN Ativan pending transfer to [facility]
[2024-05-05 19:43] LABS: Influenza A QL RT-PCR Negative (Negative); Influenza B QL RT-PCR Negative (Negative); RSV RNA, RT-PCR Negative (Negative); SARS-CoV-2 RNA PCR Positive (Negative)
[2024-05-05] MEDS: clonazePAM (*CRX) 0.5 MG TABLET 3 MG PO (19:57)
[2024-05-05] MEDS: OXcarbazepine 300 MG TABLET 900 MG PO (19:58)
[2024-05-05] MEDS: levETIRAcetam IV 2,000 MG in DEXTROSE 5% 100 ML 720 MG IVPB (19:58)
--- NOTE | 2024-05-05 22:23 | PC.NURSE ---
Updates given to [facility]. No bed available yet. Pt remains on waitlist for a bed with neurology.
[2024-05-06] VITALS (10 sets, daily range): BP systolic 98–102; BP diastolic 63–75; PULSE 88–107; RESP 12–18; TEMP 36.6–36.9; O2SAT 98–100
--- NOTE | 2024-05-06 06:05 | PM.IMPN ---
Progress Note: A&P Assessment and Plan (1) Increasing frequency of seizure activity: Code(s): R56.9 - Unspecified convulsions Status: Acute Assessment and Plan: Seizure this morning, resolved with ativan Home meds: Depakote 500mg BID, Xcopri 100mg (not on formulary), Clonazepam 3mg BID, Levetiracetamin 2000mg, oxcarbazepine 900mg BID, Phenytoin 100 BID, 30mg hs, Topiramate 50mg BID --Increased meds to home doses (2) Urinary tract infection: Code(s): N39.0 - Urinary tract infection, site not specified Status: Acute Assessment and Plan: On Bactrim, new fever yester afternoon Urine Culture 05/02 1. Escherichia Coli M.I.C. RX --------- --- Amoxicillin/Clavulanate 16 I Ampicillin/Sulbactam >=32 R Cefazolin >=64 R Ceftazidime 4 S Cefepime 8 I Ceftriaxone >=64 R Ciprofloxacin >=4 R Levofloxacin >=8 R Gentamicin <=1 S Imipenem <=0.25 S Meropenem <=0.25 S Nitrofurantoin <=16 S Piperacillin/Tazobactam 8 S Trimethoprim/Sulfamethoxazole <=20 S (3) Fever: Code(s): R50.9 - Fever, unspecified Status: Acute Assessment and Plan: No headache, but having seizures so low threshold to treat for [employer] infection Blood cultures x2 in process Urine culture sensitive to Zosyn and Meropenem, but both lower seizure threshold slightly (<1%). Positive for COVID so not broadening and no fevers today. Consider CT abd/pelvis and lumbar puncture if worsening clinically, but has been stable --Continuing bactrim (4) COVID-19: Code(s): U07.1 - COVID-19 Status: Acute Assessment and Plan: NO oxygen requirement, shortness of breath, or cough. No fevers today --Monitoring off medications. Remdesivir and Paxlovid may both lower seizure threshhold so benefit doesn't outweigh the risk Plan Monitoring seizures-neurology following UTI-continuing bactrim Fever/Covid--monitoring Had planned transfer but family discussed staying her, not sure they want to transfer Time Spent With Patient Time: 69 minutes Subjective Date/time seen: 05/06/24 06:05 Interval history: Covid positive, likely cause of fever, could be seizure trigger No diarrhea, shortness of breath or cough. Overall feeling ok. RN reports 3 seizures overnight, about 30 seconds each. s/p ativan. None this morning. Clarified outpatient meds and increased doses yesterday. Discussed with neurology and ok with managing here. Have been told that family prefers not to transfer. Left a message for patient's mother, waiting for a call back. Review of Systems Review of Systems: 12 systems were reviewed and are negative except for as per HPI. Exam Narrative: General: Nontoxic-appearing female in the semi-Koenig position in bed. Weight: 53.6 kg. BMI: 21.6. HEENT: Pupils are slightly irregular in size but are reactive. Extraocular motions intact. Sclera anicteric. Moist mucous membranes. Neck: Supple. Respiratory: Lungs are clear to auscultation bilaterally. Cardiovascular: Regular rate and rhythm with S1-S2. Gastrointestinal: Abdomen is soft, nontender, and nondistended with positive bowel sounds. Skin: Warm and dry. No rash or lesions on limited exam. Extremities: No cyanosis, clubbing, or edema. Radial and pedal pulses intact. Neurological: Alert and oriented. Cranial nerves 2-12 are grossly intact. Speech is slow but clear. No facial asymmetry. Left-sided extremities are a
[2024-05-06 07:23] LABS: Basophils Absolute Auto 0.1 K/mm3 (0.0-0.1); Basophils Percent Auto 0.8 % (0.2-1.2); Eosinophils Absolute Auto 0.2 K/mm3 (0-0.3); Eosinophils Percent Auto 2.8 % (0-4.4); Hemoglobin 11.8 g/dL (12.0-15.0); Immature Granulocyte Absolute 0.02 K/mm3 (0.00-0.031); Immature Granulocyte Percent A 0.3 % (0-0.5); Lymphocytes Absolute Auto 3.08 K/mm3 (0.9-3.2); Lymphocytes Percent Auto 43.4 % (18.3-44.2); Mean Corpuscular HGB Conc 33.7 g/dl (32-36); Mean Corpuscular Hemoglobin 30.5 pg (26-34); Mean Corpuscular Volume 90.4 fl (80-100); Mean Platelet Volume 9.6 fl (7.4-10.4); Monocytes Absolute Auto 0.7 K/mm3 (0.1-0.6); Monocytes Percent Auto 9.7 % (2.6-8.5); Neutrophils Absolute Auto 3.1 K/mm3 (1.3-6.7); Platelet Count Result 266 k/mm3 (150-375); Red Blood Count 3.87 M/mm3 (4.2-5.4); Red Cell Distribution Width 11.8 % (11.5-14.5); White Blood Count 7.1 K/mm3 (4.5-10.0)
[2024-05-06 07:43] LABS: Alanine Aminotransferase 14 U/L (6-35); Albumin Level 3.7 g/dL (3.5-5.1); Alkaline Phosphatase 68 U/L (38-126); Anion Gap 10 mmol/L (4-12); Aspartate Amino Transferase 25 U/L (14-36); Bilirubin,Total 0.4 mg/dL (0.2-1.3); Blood Urea Nitrogen 10 mg/dL (7-17); CRP 1.6 mg/dL (<1.0); Calcium 8.5 mg/dL (8.4-10.2); Carbon Dioxide 22 mmol/L (22-30); Chloride 101 mmol/L (98-107); Estimated CRCL calculation 152 ml/min; Estimated Glomerular Filt Rate > 60; Glucose 92 mg/dL (65-110); Phosphorus 2.6 mg/dL (2.5-4.5); Sodium 133 mmol/L (137-145)
--- NOTE | 2024-05-06 08:40 | PC.NURSE ---
called pharmacy to clarify which seizure medications I can crush, as patient takes her medications crushed in pudding. okay to crush all medications besides depakote and phenytoin.
[2024-05-06] MEDS: clonazePAM (*CRX) 0.5 MG TABLET 3 MG PO ×2 (09:06→20:52)
[2024-05-06] MEDS: OXcarbazepine 300 MG TABLET 900 MG PO ×2 (09:06→20:51)
[2024-05-06] MEDS: SULFAMETHOXAZOLE/TRIMETHOPRIM 800/160 MG DS TABLET 1 TAB PO ×2 (09:06→20:51)
[2024-05-06] MEDS: TOPIRAMATE 25 MG TABLET 75 MG PO ×2 (09:06→20:51)
[2024-05-06] MEDS: levETIRAcetam IV 2,000 MG in DEXTROSE 5% 100 ML 720 MG IVPB (09:08)
[2024-05-06] MEDS: PHENYTOIN SODIUM 100 MG EXTENDED RELEASE CAP PO ×2 (09:08→18:49)
[2024-05-06] MEDS: DIVALPROEX SODIUM ER 500 MG TAB.24H PO ×2 (09:08→18:49)
[2024-05-06 12:19] LABS: Erythrocyte Sedimentation Rate 19 mm/hr (0-20)
--- NOTE | 2024-05-06 15:12 | WPDNEUROPN ---
Progress Note: A&P Assessment and Plan (1) Intractable epilepsy: Code(s): G40.919 - Epilepsy, unspecified, intractable, without status epilepticus Status: Acute (2) COVID-19: Code(s): U07.1 - COVID-19 Status: Acute Plan I had discussed the situation once again with the hospitalist team and agreed that we should continue same medications and the chances are that the patient minute to get transferred to [facility] in view of the development of COVID 19 infection. Patient monitor and continue the same medication for now. Her vital signs in the state of hydration also need to monitor since he is on lot of medications and now she has developed COVID-19. Her current medications were reviewed which includes Keppra 2000 mg twice a day, Klonopin 3 mg twice a day, Topamax 75 mg twice a day, Depakote 500 mg twice a day and Trileptal 900 mg twice a day. Subjective Date/time seen: 05/06/24 15:12 Interval history: The patient is 39-year-old white female with history of seizure disorder for past 20 years. She has had several spells in the last 24 hours. During the night she had 3 spells. The nurse practitioner cover here yesterday found out that she was getting Trileptal 900 mg twice a day and Klonopin 3 mg twice a day and discuss this with me and I suggested that we should go ahead with what she was on before admission. It was also noted that on the last admission to this hospital about a year ago she was on same dose of Trileptal. The patient follows up at [facility] and I am not sure whether somebody was trying to reduce some of the medication as may happen due to side effects. The patient is otherwise tolerating the medication fairly well. She required additional dose of Ativan on 2 occasions yesterday finally at the end of the day I decided that we can go ahead with the home medications to be given slightly early however during the night she still has 3 brief spells however this was most likely due to the fact that her home medications were being reinstated. She has no to be in intractable seizure patient. Now she also has been found to have positive COVID 19 status and is now placed in isolation. Review of Systems Review of Systems: ROS unobtainable: Yes unobtainable due to mental status Objective Data Vital Signs Vital Signs: Vital Signs - 24 hr 05/05/24 16:00 05/05/24 19:55 05/05/24 20:00 Temperature 99.5 F Pulse Rate 114 H 99 114 H Respiratory Rate 24 H Blood Pressure 135/97 H Pulse Oximetry 96 Oxygen Delivery 05/05/24 19:55 05/06/24 00:00 05/06/24 04:00 Temperature Pulse Rate 114 H 102 H 88 Respiratory Rate 24 H Blood Pressure Pulse Oximetry 96 Oxygen Delivery Room Air 05/06/24 06:00 05/06/24 07:40 05/06/24 08:00 Temperature 98.1 F Pulse Rate 93 98 Respiratory Rate 18 Blood Pressure 102/65 Pulse Oximetry 100 98 Oxygen Delivery Room Air 05/06/24 09:30 05/06/24 12:00 05/06/24 14:00 Temperature 97.8 F Pulse Rate 105 H 101 H Respiratory Rate 12 Blood Pressure 98/75 L Pulse Oximetry 100 Oxygen Delivery Room Air Intake/Output Intake/Output: Intake & Output 05/03/24 05/04/24 05/05/24 05/06/24 23:59 23:59 23:59 23:59 Intake Total 200 1560.5 1730 700 Output Total 500 Balance 200 1060.5 1730 700 Meds/Results Medications: Active Medications Generic Name Dose Route Start Last Admin Trade Name Freq PRN Reason Stop Dose Admin Acetaminophen 650 mg 05/04/24 08:16 Acetaminophen 325 Mg Tablet PO Q6HR PRN fever Hydrocodone Bitart/Acetaminophen 1 tab 05/04/24 18:26 Hydrocodone/Acetaminophen (*Crx) 5-325 Mg Tablet PO Q4H PRN Pain Rated 4-6 Clonazepam 3 mg 05/05/24 21:00 05/06/24 09:06 Clonazepam (*Crx) 0.5 Mg Tablet PO 3 mg Q12HR LAISHA Administration Divalproex Sodium 500 mg 05/05/24 09:00 05/06/24 09:08 Divalproex Sodium Er 500 Mg Tab.24h PO 500 mg BID LAISHA Admin
[2024-05-06] MEDS: POTASSIUM CHLORIDE INJ 40 MEQ in SODIUM CHLORIDE 0.9% IV 500 ML 130 MEQ IVPB (15:52)
--- NOTE | 2024-05-06 16:41 | PC.NURSE ---
[facility] transfer center called with bed provider notified and she reports family does not want transferred provider asked property underwriter to call and verify spoke with Ruthie daughter who reports she does not want her transferred out of facility.
[2024-05-07] VITALS (9 sets, daily range): BP systolic 92–94; BP diastolic 54–62; PULSE 79–102; RESP 16–18; TEMP 36.1–36.4; O2SAT 100
[2024-05-07] MEDS: levETIRAcetam IV 2,000 MG in DEXTROSE 5% 100 ML 720 MG IVPB ×2 (00:05→10:10)
[2024-05-07 05:21] LABS: Basophils Absolute Auto 0.1 K/mm3 (0.0-0.1); Eosinophils Absolute Auto 0.3 K/mm3 (0-0.3); Eosinophils Percent Auto 4.6 % (0-4.4); Hematocrit 36.5 % (37.0-47.0); Hemoglobin 11.7 g/dL (12.0-15.0); Immature Granulocyte Absolute 0.01 K/mm3 (0.00-0.031); Immature Granulocyte Percent A 0.2 % (0-0.5); Lymphocytes Absolute Auto 3.24 K/mm3 (0.9-3.2); Lymphocytes Percent Auto 53.3 % (18.3-44.2); Mean Corpuscular HGB Conc 32.1 g/dl (32-36); Mean Corpuscular Hemoglobin 29.8 pg (26-34); Mean Corpuscular Volume 93.1 fl (80-100); Monocytes Absolute Auto 0.4 K/mm3 (0.1-0.6); Monocytes Percent Auto 6.4 % (2.6-8.5); Neutrophils Absolute Auto 2.1 K/mm3 (1.3-6.7); Neutrophils Percent Auto 34.5 % (45.5-73.1); Platelet Count Result 239 k/mm3 (150-375); Red Blood Count 3.92 M/mm3 (4.2-5.4); Red Cell Distribution Width 11.9 % (11.5-14.5); White Blood Count 6.1 K/mm3 (4.5-10.0)
--- NOTE | 2024-05-07 08:41 | PM.IMPN ---
Progress Note: A&P Assessment and Plan (1) Increasing frequency of seizure activity: Code(s): R56.9 - Unspecified convulsions Status: Acute Assessment and Plan: Seizure this morning, resolved with ativan Home meds: Depakote 500mg BID, Xcopri 100mg (not on formulary), Clonazepam 3mg BID, Levetiracetamin 2000mg, oxcarbazepine 900mg BID, Phenytoin 100 BID, 30mg hs, Topiramate 50mg BID - Continue at these doses - Usually care for by [place] epileptologist (2) Urinary tract infection: Code(s): N39.0 - Urinary tract infection, site not specified Status: Acute Assessment and Plan: On Bactrim DS since 05/04 Urine Culture 05/02 1. Escherichia Coli M.I.C. RX --------- --- Amoxicillin/Clavulanate 16 I Ampicillin/Sulbactam >=32 R Cefazolin >=64 R Ceftazidime 4 S Cefepime 8 I Ceftriaxone >=64 R Ciprofloxacin >=4 R Levofloxacin >=8 R Gentamicin <=1 S Imipenem <=0.25 S Meropenem <=0.25 S Nitrofurantoin <=16 S Piperacillin/Tazobactam 8 S Trimethoprim/Sulfamethoxazole <=20 S (3) Fever: Code(s): R50.9 - Fever, unspecified Status: Acute Assessment and Plan: No headache, but having seizures so low threshold to treat for [employer] infection Blood cultures x2 in process Urine culture sensitive to Zosyn and Meropenem, but both lower seizure threshold slightly (<1%). Positive for COVID so not broadening and no fevers today. --Continuing bactrim (4) COVID-19: Code(s): U07.1 - COVID-19 Status: Acute Assessment and Plan: No oxygen requirement, shortness of breath, or cough. No fevers today --Monitoring off medications. Remdesivir and Paxlovid may both lower seizure threshhold so benefit doesn't outweigh the risk Subjective Date/time seen: 05/07/24 08:41 Interval history: No seizures. Tolerated diet. Denied pain. Denied gi/gu issues. Chronic weakness is stable. Review of Systems Review of Systems: All systems reviewed & are unremarkable except as noted in HPI and below Exam Narrative: General: Middle-aged female resting comfortably in hospital bed. HEENT: Pupils are slightly irregular in size but are reactive.Sclera anicteric. Moist mucous membranes. Neck: Supple. Respiratory: Lungs are clear to auscultation bilaterally. Cardiovascular: Regular rate and rhythm with S1-S2. Gastrointestinal: Abdomen is soft, nontender, and nondistended with positive bowel sounds. Skin: Warm and dry. No rash or lesions on limited exam. Extremities: No cyanosis, clubbing, or edema. Neurological: Alert and oriented. Cranial nerves 2-12 are grossly intact. Speech is slow but clear. No facial asymmetry. Left-sided extremities are a bit contracted. Left footdrop. She is unable to raise her legs off of the bed which she states is chronic. Psychiatric: Cooperative with appropriate mood. Objective Data Vital Signs Vital Signs: Vital Signs - 24 hr 05/06/24 09:30 05/06/24 12:00 05/06/24 14:00 Temperature 97.8 F Pulse Rate 105 H 101 H Respiratory Rate 12 Blood Pressure 98/75 L Pulse Oximetry 100 Oxygen Delivery Room Air 05/06/24 16:00 05/06/24 20:28 05/06/24 20:00 Temperature 98.5 F Pulse Rate 96 101 H 107 H Respiratory Rate 16 Blood Pressure 98/63 L Pulse Oximetry 100 Oxygen Delivery 05/06/24 20:00 05/07/24 00:00 05/07/24 04:00 Temperature Pulse Rate 101 H 94 81 Respiratory Rate 16 Blood Pressure Puls
[2024-05-07] MEDS: DIVALPROEX SODIUM ER 500 MG TAB.24H PO ×2 (10:09→17:55)
[2024-05-07] MEDS: SULFAMETHOXAZOLE/TRIMETHOPRIM 800/160 MG DS TABLET 1 TAB PO ×2 (10:10→21:11)
[2024-05-07] MEDS: OXcarbazepine 300 MG TABLET 900 MG PO ×2 (10:10→21:11)
[2024-05-07] MEDS: clonazePAM (*CRX) 0.5 MG TABLET 3 MG PO ×2 (10:10→21:11)
[2024-05-07] MEDS: TOPIRAMATE 25 MG TABLET 75 MG PO ×2 (10:10→21:10)
[2024-05-07] MEDS: PHENYTOIN SODIUM 100 MG EXTENDED RELEASE CAP PO ×2 (10:10→17:55)
[2024-05-07 13:28] LABS: Anion Gap 10 mmol/L (4-12); Blood Urea Nitrogen 14 mg/dL (7-17); Calcium 8.6 mg/dL (8.4-10.2); Carbon Dioxide 19 mmol/L (22-30); Chloride 108 mmol/L (98-107); Estimated CRCL calculation 152 ml/min; Estimated Glomerular Filt Rate > 60; Glucose 70 mg/dL (65-110); Potassium 4.1 mmol/L (3.4-5.0); Sodium 137 mmol/L (137-145)
--- NOTE | 2024-05-07 16:52 | WPDNEUROPN ---
Progress Note: A&P Assessment and Plan (1) Intractable epilepsy: Code(s): G40.919 - Epilepsy, unspecified, intractable, without status epilepticus Status: Acute (2) COVID-19: Code(s): U07.1 - COVID-19 Status: Acute Plan Continue the same medications however the IV medications can be changed to p.o. medications. Subjective Date/time seen: 05/07/24 16:52 Interval history: The patient is 39-year-old history of her intractable epilepsy. She now has COVID 19. She is stable and has not had any seizures yesterday or today whereas prior to that she has had numerous seizures. The current medications were reviewed. She seems to tolerating them fairly well. I discussed with the nursing staff about switching her from Keppra IV to p.o. medications. She can not take all the medications by mouth and these include Trileptal 900 mg twice a day, Depakote ER 500 mg twice a day, Topamax 75 mg twice a day, Cebinamate 100 mg a day and clonazepam 3 mg twice a day and I would suggest to continue the same Exam Narrative: fully conscious and alert, no aphasia or dysarthria. Moving both upper and lower limbs. Objective Data Vital Signs Vital Signs: Vital Signs - 24 hr 05/06/24 20:28 05/06/24 20:00 05/06/24 20:00 Temperature 98.5 F Pulse Rate 101 H 107 H 101 H Respiratory Rate 16 16 Blood Pressure 98/63 L Pulse Oximetry 100 100 Oxygen Delivery Room Air 05/07/24 00:00 05/07/24 04:00 05/07/24 05:47 Temperature 97.0 F L Pulse Rate 94 81 87 Respiratory Rate 18 Blood Pressure 94/62 L Pulse Oximetry 100 Oxygen Delivery 05/07/24 08:00 05/07/24 10:15 05/07/24 12:00 Temperature Pulse Rate 79 92 Respiratory Rate Blood Pressure Pulse Oximetry Oxygen Delivery Room Air 05/07/24 14:00 Temperature 97.6 F Pulse Rate 97 Respiratory Rate 16 Blood Pressure 92/54 L Pulse Oximetry 100 Oxygen Delivery Intake/Output Intake/Output: Intake & Output 05/04/24 05/05/24 05/06/24 05/07/24 23:59 23:59 23:59 23:59 Intake Total 1560.5 1730 2560 1300 Output Total 500 Balance 1060.5 1730 2560 1300 Meds/Results Medications: Active Medications Generic Name Dose Route Start Last Admin Trade Name Wilian PRN Reason Stop Dose Admin Acetaminophen 650 mg 05/04/24 08:16 Acetaminophen 325 Mg Tablet PO Q6HR PRN fever Hydrocodone Bitart/Acetaminophen 1 tab 05/04/24 18:26 Hydrocodone/Acetaminophen (*Crx) 5-325 Mg Tablet PO Q4H PRN Pain Rated 4-6 Clonazepam 3 mg 05/05/24 21:00 05/07/24 10:10 Clonazepam (*Crx) 0.5 Mg Tablet PO 3 mg Q12HR LAISHA Administration Divalproex Sodium 500 mg 05/05/24 09:00 05/07/24 10:09 Divalproex Sodium Er 500 Mg Tab.24h PO 500 mg BID LAISHA Administration Levetiracetam 2,000 mg 05/07/24 21:00 Levetiracetam 500 Mg Tablet PO Q12HR LAISHA Lorazepam 2 mg 05/05/24 13:14 05/05/24 19:29 Lorazepam Inj (*Crx) 2 Mg/Ml Vial IV PUSH 2 mg Q4H PRN Administration Seizure Activity Oxcarbazepine 900 mg 05/05/24 21:00 05/07/24 10:10 Oxcarbazepine 300 Mg Tablet PO 900 mg Q12HR LAISHA Administration Phenytoin Sodium 100 mg 05/03/24 09:00 05/07/24 10:10 Phenytoin Sodium 100 Mg Extended Release Cap PO 100 mg BID LAISHA Administration Polyethylene Glycol 17 gm 05/06/24 11:58 Polyethylene Glycol 3350 17 Gm Powd.Pack PO QAM PRN Constipation Topiramate 75 mg 05/03/24 09:00 05/07/24 10:10 Topiramate 25 Mg Tablet PO 75 mg Q12HR LAISHA Administration Trimethoprim/Sulfamethoxazole 1 tab 05/04/24 21:00 05/07/24 10:10 Sulfamethoxazole/Trimethoprim 800/160 Mg Ds Tablet PO 1 tab Q12HR LAISHA Administration Radiology Results: ITS Impressions Head CT 05/02/24 20:51 IMPRESSION: No acute intracranial process. Chest X-Ray 05/05/24 15:44 IMPRESSION: 1. No acute cardiopulmonary disease. Labs Labs: Laboratory Re
[2024-05-07] MEDS: levETIRAcetam 500 MG TABLET 2000 MG PO (21:10)
[2024-05-08] VITALS (9 sets, daily range): BP systolic 92–100; BP diastolic 55–60; PULSE 77–103; RESP 16–17; TEMP 36.2–36.4; O2SAT 99–100
[2024-05-08 05:14] LABS: Basophils Absolute Auto 0.1 K/mm3 (0.0-0.1); Eosinophils Absolute Auto 0.3 K/mm3 (0-0.3); Eosinophils Percent Auto 5.3 % (0-4.4); Immature Granulocyte Absolute 0.02 K/mm3 (0.00-0.031); Immature Granulocyte Percent A 0.3 % (0-0.5); Lymphocytes Absolute Auto 2.93 K/mm3 (0.9-3.2); Lymphocytes Percent Auto 48.7 % (18.3-44.2); Mean Corpuscular HGB Conc 31.6 g/dl (32-36); Mean Corpuscular Hemoglobin 29.9 pg (26-34); Mean Corpuscular Volume 94.5 fl (80-100); Monocytes Absolute Auto 0.4 K/mm3 (0.1-0.6); Monocytes Percent Auto 6.1 % (2.6-8.5); Neutrophils Absolute Auto 2.3 K/mm3 (1.3-6.7); Neutrophils Percent Auto 38.6 % (45.5-73.1); Platelet Count Result 288 k/mm3 (150-375); Red Blood Count 4.02 M/mm3 (4.2-5.4)
[2024-05-08 05:25] LABS: Anion Gap 8 mmol/L (4-12); Blood Urea Nitrogen 13 mg/dL (7-17); Calcium 8.7 mg/dL (8.4-10.2); Carbon Dioxide 24 mmol/L (22-30); Chloride 106 mmol/L (98-107); Estimated CRCL calculation 119 ml/min; Estimated Glomerular Filt Rate > 60; Glucose 72 mg/dL (65-110); Potassium 4.9 mmol/L (3.4-5.0); Sodium 138 mmol/L (137-145)
--- NOTE | 2024-05-08 08:30 | PC.NURSE ---
spoke with pharmacy to clarify if I can crush PO keppra. unable to crush
[2024-05-08] MEDS: SULFAMETHOXAZOLE/TRIMETHOPRIM 800/160 MG DS TABLET 1 TAB PO ×2 (09:20→20:10)
[2024-05-08] MEDS: clonazePAM (*CRX) 0.5 MG TABLET 3 MG PO ×2 (09:20→20:10)
[2024-05-08] MEDS: levETIRAcetam 500 MG TABLET 2000 MG PO ×2 (09:20→20:10)
[2024-05-08] MEDS: TOPIRAMATE 25 MG TABLET 75 MG PO ×2 (09:20→20:10)
[2024-05-08] MEDS: DIVALPROEX SODIUM ER 500 MG TAB.24H PO ×2 (09:20→18:20)
[2024-05-08] MEDS: PHENYTOIN SODIUM 100 MG EXTENDED RELEASE CAP PO ×2 (09:20→18:20)
[2024-05-08] MEDS: OXcarbazepine 300 MG TABLET 900 MG PO ×2 (09:20→20:10)
--- NOTE | 2024-05-08 14:58 | PM.DS ---
DS: Admitting Diagnosis Discharge Date 05/08/2024 Admitting Diagnosis breakthrough seizures DS: Discharge Diagnosis Discharge Diagnosis (1) Increasing frequency of seizure activity: Code(s): R56.9 - Unspecified convulsions Status: Acute Assessment and Plan: Seizure this morning, resolved with ativan Home meds: Depakote 500mg BID, Xcopri 100mg (not on formulary), Clonazepam 3mg BID, Levetiracetamin 2000mg, oxcarbazepine 900mg BID, Phenytoin 100 BID, 30mg hs, Topiramate 50mg BID - Continue at these doses - Usually care with f/u by [place] epileptologist (2) Urinary tract infection: Code(s): N39.0 - Urinary tract infection, site not specified Status: Acute Assessment and Plan: On Bactrim DS since 05/04 Urine Culture 05/02 1. Escherichia Coli M.I.C. RX --------- --- Amoxicillin/Clavulanate 16 I Ampicillin/Sulbactam >=32 R Cefazolin >=64 R Ceftazidime 4 S Cefepime 8 I Ceftriaxone >=64 R Ciprofloxacin >=4 R Levofloxacin >=8 R Gentamicin <=1 S Imipenem <=0.25 S Meropenem <=0.25 S Nitrofurantoin <=16 S Piperacillin/Tazobactam 8 S Trimethoprim/Sulfamethoxazole <=20 S (3) COVID-19: Code(s): U07.1 - COVID-19 Status: Acute Assessment and Plan: No oxygen requirement, shortness of breath, or cough. No fevers today --Monitoring off medications. Remdesivir and Paxlovid may both lower seizure threshhold so benefit doesn't outweigh the risk DS: Summary Hospital Course Hospital Course: Admitted to the emergency department May 02 due to seizure activity. Was found to have abnormal urinalysis and treated empirically with Bactrim DS. Her seizure medications have recently been reduced and where increased back to her previous doses. She did have a fever during hospitalization with blood cultures that have been negative thus far and a positive COVID-19 swab. She remained afebrile through the remainder of her hospitalization. Tolerated a diet. Had no more seizures. Had no complaints. Remained oriented and conversant. Discharge laboratories included a white count of 6000 hemoglobin of 12 platelet count [id number] creatinine 0.4. Chest x-ray done May 05 was negative on the date her COVID swab was positive. CT head was negative May 02. During hospitalization she did not require oxygen therapy nor did she have any gastrointestinal symptoms. She was seen by Neurology during her hospitalization. Time Spent with Patient Time attestation: Total time spent providing and/or coordinating discharge services: Exam Narrative: General: Middle-aged female resting comfortably in hospital bed. HEENT: Pupils are slightly irregular in size but are reactive.Sclera anicteric. Moist mucous membranes. Neck: Supple. Respiratory: Lungs are clear to auscultation bilaterally. Cardiovascular: Regular rate and rhythm with S1-S2. Gastrointestinal: Abdomen is soft, nontender, and nondistended with positive bowel sounds. Skin: Warm and dry. No rash or lesions on limited exam. Extremities: No cyanosis, clubbing, or edema. Neurological: Alert and oriented. Cranial nerves 2-12 are grossly intact. Speech is slow but clear. No facial asymmetry. Left-sided extremities are a bit contracted. Left footdrop. She is unable to raise her legs off of the bed which she states is chronic. Psychiatric: Cooperative with appropriate mood. DS: Data Data Completed and Pending Labs on da
== END 2024-05-08 22:25 | DRG 689 ==
LOC: ANHED 05-04 18:34 → ANH2MED 05-04 19:47
PROVIDERS: Nurse Practitioner Acute Care; Physician Assistant; Admitting Provider Internal Medicine; Emergency Provider Emergency Medicine; PCP Hospitalist; Visit Provider Internal Medicine
DX: N39.0 Urinary tract infection, site not specified (principal); U07.1 COVID-19; B96.20 Unspecified Escherichia coli [E. coli] as the cause of diseases classified elsewhere; G40.909 Epilepsy, unspecified, not intractable, without status epilepticus; Z87.891 Personal history of nicotine dependence; Z74.01 Bed confinement status; Z86.718 Personal history of other venous thrombosis and embolism
CPT/HCPCS: 36415; 70450; 71045; 80048; 80053; 80164; 80185; 81001; 82550; 82948; 83735; 84100; 85025; 85027; 85610; 85652; 85730; 86140; 87040; 87077; 87086; 87088; 87186; 87637; 93005; 96365; 96375; 96376; 99285; A9270; G0378; J0696; J1200; J1580; J1741; J1953; J1956; J2060; J3480; J7030; J7040

== ENCOUNTER 2024-07-26 19:16 | Emergency (ER) | payer MEDICARE, MEDICAID, SELFPAY ==
[2024-07-26] VITALS (14 sets, daily range): BP systolic 106–155; BP diastolic 70–98; PULSE 85–114; RESP 12–29; TEMP 36.6–36.9; O2SAT 97–100
--- NOTE | ~2024-07-26 | XR_ITS ---
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 RESULT: Lines, tubes, and devices: None. Lungs and pleura: Rightward rotation, otherwise clear. Cardiomediastinal silhouette: Stable. Other: No acute osseous or upper abdominal finding. IMPRESSION: No acute cardiopulmonary process. Reviewed, dictated and finalized at location K. L OWNER OPERATOR TRUCK DRIVER
--- NOTE | ~2024-07-26 | CT_ITS ---
EXAMINATION: CT brain wo con DATE: 07/26/2024 18:48 INDICATION: seizure . TECHNIQUE: Computed tomography (CT) of the head was performed without intravenous contrast. The mA wa s adjusted according to patient size. Iterative reconstruction technique was employed. The dose-lengt h product was 681.00 mGy-cm. COMPARISON: Prior head CT's back to 10/06/2021; MR brain 02/02/2024. FINDINGS: No acute intracranial hemorrhage or extra-axial fluid collection. No hydrocephalus, mass, or herniation. No acute ischemic infarct. Unremarkable dural venous sinus attenuation. No acute osseous abnormality. Nodular mucosal thickening with near complete opacification in the left maxillary sinus, the remainin g aerated spaces are clear. Cerebral and cerebellar atrophy, greater in the right hemisphere, with compensatory lateral ventricul ar dilation and midline shift. IMPRESSION: No acute intracranial process. Reviewed, dictated and finalized at location K. ING SUPERVISOR
--- NOTE | 2024-07-26 18:12 | ECG_ITS ---
Test Date: 2024-07-26 18:21:41 Measurements Intervals [place] Rate: 109 P: 45 ND: 122 QRS: 66 QRSD: 80 T: -83 QT: 342 QTc: 461 Interpretive Statements SINUS TACH[address] DEVIATION AND MODERATE T-WAVE ABNORMALITY, CONSIDER LATERAL ISCHEMIA [-0.1+ mV T WAVE IN I/aVL/V5/V6] Compared to ECG 05/02/2024 12:37:24 Short ND interval no longer present T-wave abnormality still present Possible ischemia still present Electronically Signed On 07-27-2024 11:48:34 [employer] by Erica Can
[2024-07-26] MEDS: SODIUM CHLORIDE 0.9% IV 1,000 ML 999 ML IV CONT (18:18)
--- NOTE | 2024-07-26 18:31 | ED_ITS ---
HPI - Seizure General Chief Complaint: Seizure Stated Complaint: seizures History of Present Illness HPI Narrative: 39-year-old female with a history of complex seizure disorder on multiple epileptic medication. She has been to this emergency department and hospital several times for breakthrough seizures and usually requires transfer to her epileptologist at [facility]. Today patient had a witnessed generalized seizure at her nursing facility. Was short-lived and EMS noted that she had recurrent partial seizure activity in the EMS rig. Patient is normally alert oriented x3 a presently only alert to her name and having twitching activity of both her arms and face. According to previous documentation and paperwork the twitching is chronic however the partial seizures have been increasing in frequency today. On initial presentation in the emergency department the triage nurse noted that patient was answering questions appropriately and alert x2 however when I went into the room patient was having a partial seizure and was not following commands or answering questions appropriately requiring IV Ativan at this time. IV was established and blood was drawn. EMR reviewed shows complex epileptic history on 6 different high-dose antiepileptic medications as well as Xarelto for DVTs. No reported trauma or injuries. Seizure History: Yes (Takes PO meds.) Related Data Home Medications ?Medication ?Instructions ?Recorded ?Confirmed ?Last Taken ?Type levetiracetam 1,000 mg tablet 2,000 mg PO BID 11/09/19 05/04/24 Unknown History oxcarbazepine 300 mg tablet 900 mg PO BID 11/09/19 05/04/24 Unknown History cenobamate 100 mg tablet (Xcopri) 100 mg PO DAILY 08/15/21 05/04/24 Unknown History phenytoin sodium extended 100 mg 100 mg PO BID 08/15/21 05/04/24 Unknown History capsule phenytoin sodium extended 30 mg 30 mg PO HS 08/15/21 05/04/24 Unknown History capsule (Dilantin) topiramate 50 mg tablet 75 mg PO BID 08/15/21 05/04/24 Unknown History acetaminophen 325 mg tablet 650 mg PO Q6H PRN Pain (Scale 05/04/24 05/04/24 Unknown History Score 1-3) divalproex 125 mg capsule,delayed 500 mg PO BID 05/04/24 05/04/24 Unknown History release sprinkle (Depakote Sprinkles) folic acid 1 mg tablet 1 mg PO DAILY 09/18/24 09/18/24 Unknown History pantoprazole 40 mg tablet,delayed 40 mg PO DAILY 05/04/24 05/04/24 Unknown History release potassium chloride 20 mEq/15 mL 20 meq PO DAILY 05/04/24 05/04/24 Unknown History oral liquid Allergies Allergy/AdvReac Type Severity Reaction Status Date / Time ceftriaxone Allergy Hives Verified 05/02/24 23:25 lacosamide AdvReac Unknown Dizziness Verified 05/04/24 08:24 Review of Systems 2 Review of Systems: As reviewed above in HPI [facility] Past Medical History Medical History Deep venous thrombosis Seizure disorder Encephalitis Surgical History Surgical History History of local excision of skin lesion Benign lesion from left neck. History of wisdom tooth extraction Family History Family History Mother Family history of malignant neoplasm of breast in first degree relative Family history of malignant neoplasm of breast Father Family history of bipolar disorder Grandparent Carcinoma of colon Other Cerebrovascular accident Family history of hypercholesterolemia Family history of lupus erythematosus Social History Social History Social History: Surrogate decision maker: Ruthie Torres, mother. Code status: Full Code. Smoking packs per day: 1 Smoking cigarettes per day: 20.0 Years smoked: 15 Smoking pack-years: 15.00 Smoking status: Former smoker Second hand tobacco smoke exposure: No Alcohol intake: never Substance use: never Do You Feel Safe in your Home?: Yes Lack of Transportation: No Lack of Food: Never True Current Housing: I Have Housing Concerned About Future Housing: No Difficulty Paying Gas/Electric Bills: No Difficulty Paying for Meds: No Currently Unemployed: No Education: High School Diploma/GED Difficulty w/ Childcare or Family Care: No Additional living arrangements comments: [facility]. Spiritual care concerns: No Exam 2 Narrative: GENERAL: Chronically ill-appearing, not any acute distress but does have twitching of right upper extremity and face. HEAD: [Normocephalic, atraumatic.] EYES: Pupils are 4 mm and reactive bilaterally, extraocular movements appear full ENT: Nares clear, no rhinorrhea or epistaxis. Mucous membranes moist. NECK: Supple. CHEST: [Clear to auscultation. No respiratory distress.] HEART: [Regular rate and rhythm]. No murmur heard. [Normal peripheral pulses.] ABDOMEN: [Soft, nondistended], [nontender], [No rigidity or guarding] EXTREMITIES: Normal range of motion of the right extremities, flaccid process left-sided chronic SKIN: Warm, dry, no rash. NEURO: Repetitive twitching of the right arm and face, flaccid left arm and leg. Awake but not alert, not following commands PSYCH: Unable to fully assess Course Vital Signs Vital signs: Vital Signs Temperature 36.6 C 07/26/24 18:06 Pulse Rate 114 H 07/26/24 18:06 Respiratory Rate 29 H 07/26/24 18:06 Blood Pressure 155/98 H 07/26/24 18:06 Pulse Oximetry 98 07/26/24 18:06 Oxygen Delivery Room Air 07/26/24 18:06 Temperature 36.6 C 07/26/24 21:17 Pulse Rate 96 07/26/24 21:17 Respiratory Rate 19 07/26/24 21:17 Blood Pressure 112/82 07/26/24 21:17 Pulse Oximetry 97 07/26/24 21:17 Oxygen Delivery Room Air 07/26/24 18:14 MDM - Seizure MDM Narrative Medical decision making narrative: 39-year-old female with complex epileptic history on multiple medications including phenytoin, Keppra, clonazepam, Depakote, topiramate, Cenobamate as well as Xarelto for DVT history. Patient presents via EMS today for a witnessed generalized seizure. She has a history of complex partial seizures but today had increased frequency of shaking and well as 1 episode of generalized tonic clonic activity. On initial presentation to the emergency department she was awake alert x2 and able to answer questions intermittently but somewhat confused and potentially postictal. On my initial assessment the patient she began having a complex partial seizure where she was twitching arms and face, not able to follow commands, able to answer questions appropriately but awake and moving her eyes. She has a twitching of the face and arms at baseline but presently I believe she is having a seizure. IV was established and blood was drawn. She is given 2 mg of IV Ativan and orders were placed including toxicological panel, Keppra and Dilantin level, head CT, urinalysis with straight catheterization, urine drug screen, EKG and chest x-ray. She was given a fluid bolus of normal saline and loaded with Keppra. Patient was frequent re-evaluated. After her CT scan patient was able to converse with me and talk to me in full complete sentences and was back to her baseline. This was very short-lived however during my repeat assessments she had a generalized seizure once again with gaze deviation fixed the left, rhythmic jerking of the right-sided arms and legs and face. She did given additional 2 mg of IV Ativan which resolved this and she was given a 60 cc/kg bolus of Keppra for status epilepticus at this time. She is maintaining her oxygen saturations as well as her airway at this time does not require any kind of emergent intubation but we will be very careful with her and she will need to be transferred to a higher level of care center after remaining workup. Patient was evaluated frequently and did not have any further grand mall or breakthrough seizures while here in the emergency department. She is resting comfortably on room air with stable reassuring vital signs on continuous monitoring. She has normal blood pressure, no tachycardia or hypoxia at this time. Breathing comfortably, but not at her baseline mentation yet indicative of status epilepticus at least from a definition standpoint. She has a history of refractory epilepsy and a complex epileptic history and does require transfer to a higher level of care center and even Neuro ICU with continuous EEG availability. Workup reveals no leukocytosis or anemia worse than her baseline. Normal platelet levels. Coagulation studies normal. CT head without any acute findings such as a bleed or mass. Electrolytes within normal limits, renal function within normal limits, normal glucose. Normal lactic acid and normal hepatic function panel. Urine was straight catheterization shows no acute infectious findings or drug screen concerns. Toxicological panel is negative. Her care is normally at [facility] and I 1st tried the transfer center there. I spoke to the neurologist Dr. Solano and we went over patient's presentation here in the emergency department, need for Ativan and Keppra and ICU admission. We then spoke to the ICU neuro spinning supervisor who states that the beds oral filled up at the facility and to try transfer to another facility such as [facility] or [facility]. I called and spoke to the [facility] transfer center was connected to another physician the neurologist over at [facility] on [address]. Dr. Thomas. After realizing the patient's presentation and concerns for continuous EEG monitoring and ICU level of admission he accepted the patient to a Neuro ICU bed to their facility. Agree with my plan of care going forward to maintain current medications and monitor for any further seizure activity here until transfer can be secured. If she were to further require any additional doses of Ativan or any escalation of therapy at that time intubation can be revisited, but currently she is doing well without need for airway protection on my frequent re-evaluations and the consultants have agreed to hold off unless absolutely needed. Patient has been accepted as a transfer and pending bed assignment for ALS transfer. Paperwork is filled out and signed. Awaiting call from accepting facility for bed placement. Her normal nightly doses of medications will be provided here in the ED. Lab Data Attestation: I reviewed the patient's lab results. 07/26/24 19:36 07/26/24 19:36 Labs: Lab Results 07/26/24 07/26/24 07/26/24 Range/Units 19:36 19:36 19:36 WBC 8.0 (4.5-10.0) K/mm3 RBC 3.78 L (4.2-5.4) M/mm3 Hgb 11.3 L (12.0-15.0) g/dL Hct 35.8 L (37.0-47.0) % MCV 94.7 (80-100) fl MCH 29.9 (26-34) pg MCHC 31.6 L (32-36) g/dl RDW 13.3 (11.5-14.5) % Plt Count 203 (150-375) k/mm3 MPV 10.7 H (7.4-10.4) fl Immature Gran % (Auto) 0.3 (0-0.5) % Neut % (Auto) 67.4 (45.5-73.1) % Lymph % (Auto) 21.4 (18.3-44.2) % [place] % (Auto) 9.7 H (2.6-8.5) % Eos % (Auto) 0.4 (0-4.4) % Baso % (Auto) 0.8 (0.2-1.2) % Lymph # (Auto) 1.70 (0.9-3.2) K/mm3 [place] # (Auto) 0.8 H (0.1-0.6) K/mm3 Eos # (Auto) 0.0 (0-0.3) K/mm3 Baso # (Auto) 0.1 (0.0-0.1) K/mm3 Abs Immat Gran (auto) 0.02 (0.00-0.031) K/mm3 Absolute Neuts (auto) 5.4 (1.3-6.7) K/mm3 Absolute Nucleated RBC 0.000 (0.0-0.012) K/mm3 Nucleated RBC % 0.0 (0.0-0.2) % PT 14.5 Cancelled (11.1-14.7) Seconds INR 1.1 Cancelled APTT 26.4 (22.3-36.8) Seconds Sodium (137-145) mmol/L Potassium (3.4-5.0) mmol/L Chloride (98-107) mmol/L Carbon Dioxide (22-30) mmol/L Anion Gap (4-12) mmol/L BUN (7-17) mg/dL Creatinine (0.7-1.0) mg/dL Estim Creat Clear Calc Estimated GFR (59 - ) Glucose (65-110) mg/dL Lactic Acid (0.7-2.0) mmol/L Calcium (8.4-10.2) mg/dL Total Bilirubin (0.2-1.3) mg/dL AST (14-36) U/L ALT (6-35) U/L Alkaline Phosphatase (38-126) U/L Total Creatine Kinase (30-135) U/L Total Protein (6.3-8.2) g/dL Albumin (3.5-5.1) g/dL Urine Color (Yellow) Urine Appearance (Clear) Urine pH (5.0-9.0) Ur Specific [place] (1.001-1.035) Urine Protein (Negative) mg/dL Urine Glucose (UA) (Negative) mg/dL Urine Ketones (Negative) mg/dL Ur Blood (Man) (Negative) Urine Nitrate (Negative) Urine Bilirubin (Negative) Urine Urobilinogen (<2.0) mg/dL Leukocyte Esterase Rfl (Negative) SHANTEL/UL Urine Test Salicylates (2-20) mg/dL Acetaminophen (10-30) ug/mL Free Phenytoin Levetiracetam Ethyl Alcohol (<10) mg/dL 07/26/24 07/26/24 Range/Units 19:36 19:48 WBC (4.5-10.0) K/mm3 RBC (4.2-5.4) M/mm3 Hgb (12.0-15.0) g/dL Hct (37.0-47.0) % MCV (80-100) fl MCH (26-34) pg MCHC (32-36) g/dl RDW (11.5-14.5) % Plt Count (150-375) k/mm3 MPV (7.4-10.4) fl Immature Gran % (Auto) (0-0.5) % Neut % (Auto) (45.5-73.1) % Lymph % (Auto) (18.3-44.2) % [place] % (Auto) (2.6-8.5) % Eos % (Auto) (0-4.4) % Baso % (Auto) (0.2-1.2) % Lymph # (Auto) (0.9-3.2) K/mm3 [place] # (Auto) (0.1-0.6) K/mm3 Eos # (Auto) (0-0.3) K/mm3 Baso # (Auto) (0.0-0.1) K/mm3 Abs Immat Gran (auto) (0.00-0.031) K/mm3 Absolute Neuts (auto) (1.3-6.7) K/mm3 Absolute Nucleated RBC (0.0-0.012) K/mm3 Nucleated RBC % (0.0-0.2) % PT (11.1-14.7) Seconds INR APTT Cancelled (22.3-36.8) Seconds Sodium 142 (137-145) mmol/L Potassium 4.0 (3.4-5.0) mmol/L Chloride 113 H (98-107) mmol/L Carbon Dioxide 23 (22-30) mmol/L Anion Gap 6 (4-12) mmol/L BUN 22 H (7-17) mg/dL Creatinine 0.50 L (0.7-1.0) mg/dL Estim Creat Clear Calc Not Reportable Estimated GFR > 60 (59 - ) Glucose 92 (65-110) mg/dL Lactic Acid 1.2 (0.7-2.0) mmol/L Calcium 8.4 (8.4-10.2) mg/dL Total Bilirubin 0.3 (0.2-1.3) mg/dL AST 16 (14-36) U/L ALT 13 (6-35) U/L Alkaline Phosphatase 64 (38-126) U/L Total Creatine Kinase 30 (30-135) U/L Total Protein 6.0 L (6.3-8.2) g/dL Albumin 3.6 (3.5-5.1) g/dL Urine Color Yellow (Yellow) Urine Appearance Clear (Clear) Urine pH 6.0 (5.0-9.0) Ur Specific [place] 1.033 (1.001-1.035) Urine Protein Negative (Negative) mg/dL Urine Glucose (UA) Negative (Negative) mg/dL Urine Ketones Negative (Negative) mg/dL Ur Blood (Man) Negative (Negative) Urine Nitrate Negative (Negative) Urine Bilirubin Negative (Negative) Urine Urobilinogen 1.0 (<2.0) mg/dL Leukocyte Esterase Rfl Negative (Negative) SHANTEL/UL Urine Test Negative Salicylates < 1.0 L (2-20) mg/dL Acetaminophen < 10 L (10-30) ug/mL Free Phenytoin Pending Levetiracetam Pending Ethyl Alcohol < 10 (<10) mg/dL Imaging Data Attestation: I personally reviewed and interpreted this imaging study as follows: Critical Care Time Critical Care Time Critical Care Time: Yes Total Critical Care Time: 75 Discharge Plan Discharge Clinical Impression: Epilepsy with status epilepticus, not intractable, Increasing frequency of seizure activity Patient Disposition: Acute Care Hospital Condition: Serious Patient Language: Portuguese Prescriptions: No Action levetiracetam 1,000 mg tablet 2,000 mg PO BID oxcarbazepine 300 mg tablet 900 mg PO BID acetaminophen 325 mg Tablet 650 mg PO Q6H PRN (Reason: Pain (Scale Score 1-3)) potassium chloride 20 mEq/15 mL Liquid 20 meq PO DAILY pantoprazole 40 mg tablet,delayed release (DR/EC) 40 mg PO DAILY folic acid 1 mg Tablet 1 mg PO DAILY divalproex [Depakote Sprinkles] 125 mg Capsule, Delayed Rel Sprinkle 500 mg PO BID sulfamethoxazole-trimethoprim 800-160 mg Tablet 1 tab PO Q12HR Qty: 7 0RF hydrocodone-acetaminophen 5-325 mg Tablet 1 tablet PO Q12H Qty: 14 0RF clonazepam 1 mg tablet 3 mg PO BID Qty: 42 0RF phenytoin sodium extended 100 mg capsule 100 mg PO BID Dilantin 30 mg capsule 30 mg PO HS topiramate 50 mg tablet 75 mg PO BID Xcopri 100 mg tablet 100 mg PO DAILY Follow-up/Referrals: Luciano Gutiérrez MD [Primary Care Provider] - Time of Disposition: 22:44
[2024-07-26] MEDS: LORazepam INJ (*CRX) 2 MG/ML VIAL IV PUSH ×2 (18:34→18:55)
[2024-07-26] MEDS: levETIRAcetam 1500MG/NACL100ML 1,500 MG/100 ML BAG 600 MG IVPB ×2 (18:51→18:54)
[2024-07-26 19:48] LABS: Basophils Absolute Auto 0.1 K/mm3 (0.0-0.1); Basophils Percent Auto 0.8 % (0.2-1.2); Eosinophils Percent Auto 0.4 % (0-4.4); Hematocrit 35.8 % (37.0-47.0); Hemoglobin 11.3 g/dL (12.0-15.0); Immature Granulocyte Absolute 0.02 K/mm3 (0.00-0.031); Immature Granulocyte Percent A 0.3 % (0-0.5); Lymphocytes Percent Auto 21.4 % (18.3-44.2); Mean Corpuscular HGB Conc 31.6 g/dl (32-36); Mean Corpuscular Hemoglobin 29.9 pg (26-34); Mean Corpuscular Volume 94.7 fl (80-100); Mean Platelet Volume 10.7 fl (7.4-10.4); Monocytes Absolute Auto 0.8 K/mm3 (0.1-0.6); Monocytes Percent Auto 9.7 % (2.6-8.5); Neutrophils Absolute Auto 5.4 K/mm3 (1.3-6.7); Neutrophils Percent Auto 67.4 % (45.5-73.1); Platelet Count Result 203 k/mm3 (150-375); Red Blood Count 3.78 M/mm3 (4.2-5.4); Red Cell Distribution Width 13.3 % (11.5-14.5)
[2024-07-26 19:50] LABS: Add Urine Microscopic? NO; Appearance Urine Clear (Clear); Bilirubin Urine Negative (Negative); Blood Urine Negative (Negative); Color Urine Yellow (Yellow); Glucose Urine UA Negative (Negative); Ketones Urine Negative (Negative); Leukocyte Esterase Ur Negative LEU/UL (Negative); Nitrate Urine Negative (Negative); Protein Urine Negative (Negative); Specific Grav Ur 1.033 (1.001-1.035)
[2024-07-26 20:00] LABS: Pregnancy On Board Control Positive; Urine Pregnancy Test Negative
[2024-07-26 20:01] LABS: INR 1.1; Prothrombin Time 14.5 Seconds (11.1-14.7)
[2024-07-26 20:02] LABS: Alanine Aminotransferase 13 U/L (6-35); Albumin Level 3.6 g/dL (3.5-5.1); Alkaline Phosphatase 64 U/L (38-126); Anion Gap 6 mmol/L (4-12); Aspartate Amino Transferase 16 U/L (14-36); Bilirubin,Total 0.3 mg/dL (0.2-1.3); Blood Urea Nitrogen 22 mg/dL (7-17); Calcium 8.4 mg/dL (8.4-10.2); Carbon Dioxide 23 mmol/L (22-30); Chloride 113 mmol/L (98-107); Estimated Glomerular Filt Rate > 60; Glucose 92 mg/dL (65-110); Lactic Acid Reflex 1.2 mmol/L (0.7-2.0); Partial Thromboplastin Time 26.4 Seconds (22.3-36.8); Sodium 142 mmol/L (137-145)
[2024-07-26 20:04] LABS: Acetaminophen < 10 ug/mL (10-30); Ethanol < 10 mg/dL (<10); Salicylate < 1.0 mg/dL (2-20)
[2024-07-26 20:09] LABS: Creatine Kinase 30 U/L (30-135)
--- NOTE | 2024-07-26 23:20 | PC.NURSE ---
rm [id number] assigned to patient at [facility] on [address] [phone] for report
== END 2024-07-27 00:45 | disposition short-term general hospital (02) ==
PROVIDERS: Emergency Provider Student in an Organized Health Care Education/Training Program; PCP Hospitalist
DX: G40.901 Epilepsy, unspecified, not intractable, with status epilepticus (principal); Z86.718 Personal history of other venous thrombosis and embolism; Z79.01 Long term (current) use of anticoagulants; Z87.891 Personal history of nicotine dependence
CPT/HCPCS: 36415; 70450; 71045; 80053; 80143; 80177; 80179; 80186; 81003; 81025; 82077; 82550; 83605; 85025; 85610; 85730; 93005; 96365; 96366; 96375; 99285; J1953; J2060; J7030

== ENCOUNTER 2024-10-21 18:26 | Emergency (ER) | payer MEDICARE, MEDICAID, SELFPAY ==
--- NOTE | ~2024-10-21 | XR_ITS ---
XR chest 1V Ordering provider: Ines Ngo PA-C History: 39 years Female with . sz, fever . Comparison: July 26, 2024 FINDINGS: MEDIASTINUM: The cardiac silhouette is not enlarged. LUNGS: No infiltrates, effusions or pneumothorax. OTHER: No free air under the diaphragm. IMPRESSION: No acute cardiopulmonary pathology. Reviewed, dictated and finalized at location A. ENTERS HELPER
--- NOTE | ~2024-10-21 | CT_ITS ---
CT brain wo con Ordering provider: Ines Ngo PA-C History: 39 years Female with . recurrent sz . Comparison: None. Technique: CT of the head without contrast. Radiation reduction technique utilized.The dose-length product was 1513.33 mGy-cm. FINDINGS: BRAIN PARENCHYMA AND CSF SPACES: Moderate leukoaraiosis and diffuse cortical atrophy. Moderate athero matous disease. No midline shift, mass effect or hemorrhage. The brain parenchyma and CSF spaces are otherwise normal. VISUALIZED PARANASAL SINUSES: Left maxillary sinus disease. Otherwise, Well aerated. MASTOIDS: Well aerated. BONES: The bones appear intact. SOFT TISSUES: Visualized nasopharynx is normal. Superficial soft tissues are normal. IMPRESSION: No acute intracranial findings. Reviewed, dictated and finalized at location A. S [employer]
[2024-10-21 18:39] VITALS: BP 120/84; PULSE 105; RESP 23; O2SAT 95
--- OUTSIDE RECORDS SUMMARY | 2024-10-21 18:43 | XMS_ITS | Encounter Summary ---
Author Organization [facility] Address 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
--- OUTSIDE RECORDS SUMMARY | 2024-10-21 18:43 | XMS_ITS | Clinical Summary ---
Author Organization [facility] Address [address] [place] [address] Care Team Providers Care Operations Lieutenant Name Role Phone Unavailable Primary Care Provider Unavailabl e Allergies Active Allergy Reactions Criticality Noted Date Comments Lacosamide Dizziness Low 02/06/2016 Medications acetaminophen 325 MG tablet Take 2 tablets (650 mg total) by mouth every 6 (six) hours as needed for Pain. Active divalproex EC 125 MG tablet Take 4 tablets (500 mg total) by mouth 2 (two) times daily. Active Carboxymethylcel lulose Sodium (REFRESH TEARS OP) Apply 1 drop to eye every hour as needed. Active folic acid 1 MG tablet Take 1 tablet (1 mg total) by mouth daily. Active Carboxymethylcel sarah-Glycerin (REFRESH RELIEVA) 0.5-0.9 % Solution Apply 1 drop to eye 3 (three) times a day. Active polyethylene glycol (GLYCOLAX) packet Take 240 mLs (17 g total) by mouth daily as needed. Dissolve powder in 240 mL water Active phenytoin ER (DILANTIN KAPSEALS) 30 MG capsule Take by mouth nightly at bedtime. Active levETIRAcetam (KEPPRA) 1000 MG tabletIndication s:Seizure (CMS/HCC HHS/HCC) TAKE 2 TABLETS (2,000 MG TOTAL) BY MOUTH 2 TIMES DAILY. 360 tablet 1 2 Active furosemide (LASIX) 20 MG tabletIndication s:Hypertension TAKE 1 TABLET BY MOUTH TWICE A DAY 180 tablet 3 Active topiramate (TOPAMAX) 50 MG TabIndications:S eizure ([facility]) Take 1 tablet (50 mg total) by mouth 2 (two) times daily. 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 180 tablet 1 3 Active Cenobamate (XCOPRI) 100 MG TabIndications:S tatus epilepticus due to complex partial seizure ([facility]) Take 1 tablet by mouth daily. 30 tablet 2 3 Active clonazePAM (KLONOPIN) 1 MG tabletIndication s:Status epilepticus due to complex partial seizure ([facility]) Take 3 tablets (3 mg total) by mouth 2 (two) times daily. 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 ([facility]) 01/06/2022 Gastroesophageal reflux disease without esophagi tis 01/06/2022 Other encephalitis and encephalomyelitis ([facility]) 01/06/2022 Moderate malnutrition ([facility]) 10/08/2021 Sepsis ([facility]) 02/28/2021 Localization-related (focal) (partial) symptomatic epilepsy and epileptic syndromes with complex partial seizures, intractable, with status epilepticus ([facility]) 02/03/2020 On antiepileptic therapy 01/07/2019 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 ([facility]) 01/07/2019 Status epilepticus due to co mplex partial seizure ([facility]) 09/11/2018 Hallux abductovalgus, acquired, left 06/21/2015 Capsulitis 06/21/2015 Onychomycosis of toenail 06/13/2015 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 ([facility]) 06/15/2006 Immunizations Name Administration Dates Next Due Influenza Adult (Generic) 06/01/2019 MODERNA COVID-19 (12+) MRNA, LNP-S, PF, 100 MCG/ 0.5 ML DOSE 02/12/2021,01/15/2021 PFIZER COVID-19 (ORIGINAL FO RMULATION, PURPLE CAP) mRNA, LNP-S, PF, 30 MCG/0.3 ML DOSE 08/27/2021 Tdap (Generic) 08/17/2018 Family History Medical History Relation Comments Stroke Maternal Grandfather Hypertension Maternal Grandmother Relation Status Comments Maternal Grandfather Maternal Grandmother Social History Tobacco Use Types Packs/Day Years Used Date Smoking Tobacco: Never Smokeless Tobacco: Never Tobacco Cessation:Counseling Given: No Alcohol Use Standard Drinks/Week Comments Yes 0 (1 standard drink = 0.6 oz pur e alcohol) Comments Unknown Sex and Gender Information Value Date Recorded Sex Assigned at Not on file Legal Sex Female 9:04 PM CDT Gender Identity Not on file Sexual Orientation Not on file Last Filed Vital Signs Vital Sign Reading Time Taken Comments Blood Pressure 106/82 01/07/2023 1:45 PM CDT Pulse 88 01/07/2023 1:45 PM CDT Temperature 36.7 C (98 F) 01/07/2023 1:45 PM CDT Respiratory Rate 16 12/10/2022 8:02 AM CDT Oxygen Saturation 99% 01/07/2023 1:45 PM CDT Inhaled Oxygen Concentration - - Weight 47.2 kg (104 lb) 10/22/2022 1:24 PM INSURANCE FOLLOW UP SPECIALIST Height 167.6 cm (5' 6 ) 09/06/2020 10:56 AM INSURANCE FOLLOW UP SPECIALIST Body Mass Index 16.79 09/06/2020 10:56 AM INSURANCE FOLLOW UP SPECIALIST Plan of Treatment Health Maintenance Due Date Last Done Comments Cervical Cancer Screening Pa p Smear (Age 30 to 64) Every 3 Years 1983 Annual Physical 1986 PHQ-2 (Physician [place]) 1995 Hepatitis C 2001 Hepatitis B Vaccines (1 of 3 - 19+ 3-dose series) 2002 Cervical Cancer Screening Pa p with HPV Testing (Age 30 to 64) Every 5 Years 2013 Cervical Cancer Screening wi th HPV 2013 Mammogram Screening 2023 COVID-19 Vaccine (4 - 2023-2 5 season) 2024 08/27/2021, 02/12/2021, 01/15/2021 Influenza Adult (#1) 2024 06/01/2019 PHQ-2 (Physician [employer]) 08/17/2024 DTaP, Tdap and Td Vaccines ( 2 - Td or Tdap) 08/17/2028 08/17/2018 HPV Vaccines Aged Out No longer eligi ble based on patient's age to complete this topic Meningococcal B Vaccine Aged Out No l onger eligible based on patient's age to complete this topic Meningococcal Vaccine Aged Out No ayleen olu eligible based on patient's age to complete this topic Pneumococcal Vaccine: Pediatrics (0 to 5 Years) and At-Risk Patients (6 to 64 Years) Aged Out No longer eligible b ased on patient's age to complete this topic RSV Immunizations Under 20 Months Aged Out No longer eligible b ased on patient's age to complete this topic Insurance [employer] Advance Directives * Full Code (Latest Code Status on File) Date Activated Date Inactivated Comments 01/06/2022 2:49 PM
--- OUTSIDE RECORDS SUMMARY | 2024-10-21 18:43 | XMS_ITS | Referral Summary ---
Author Organization [facility] Address [address] [place] [address] Care Team Providers Care Blind Eyeletter Name Role Phone Rodney Hutchinson MD, Jorge Luis Burciaga [facility] + Abdullahi Hammer MD Primary Care Provider [phone] Allergies No known active allergies Medications folic acid (FOLVITE) 1 mg tabletIndication s:Partial symptomatic epilepsy with complex partial seizures, intractable, with status epilepticus (HCC) Take 1 tablet (1 mg total) by mouth daily 90 tablet 3 0 Active acetaminophen (TYLENOL) 325 mg tablet Take 2 tablets (650 mg total) by mouth every 6 (six) hours as needed for pain or headaches 30 tablet 3 1 Active phenytoin ER (DILANTIN) 100 mg ER capsule Take 1 capsule (100 mg total) by mouth 2 (two) times a day 180 capsule 3 1 Active levETIRAcetam (KEPPRA) 1,000 mg tabletIndication s:Partial symptomatic epilepsy with complex partial seizures, intractable, with status epilepticus (HCC) Take 2 tablets (2,000 mg total) by mouth 2 (two) times a day 360 tablet 3 1 Active OXcarbazepine (TRILEPTAL) 300 mg tabletIndication s:Complex-Partia l Epilepsy Take 3 tablets (900 mg total) by mouth 2 (two) times a day 540 tablet 3 1 Active phenytoin ER (DILANTIN) 30 mg ER capsule Take 1 capsule (30 mg total) by mouth nightly 30 capsule 11 1 Active apixaban (ELIQUIS) 5 mg tablet Take 1 tablet (5 mg total) by mouth 2 (two) times a day Active Klor-Con M20 20 mEq CR tablet Take 1 tablet (20 mEq total) by mouth daily 1 Active HYDROcodone-acet aminophen (NORCO) 5-325 mg per tablet Take 1 tablet by mouth 2 (two) times a day Scheduled dosing verified w/ [place] records [address] (PROTONIX) 40 mg EC tabletIndication s:Treatment of Non-Bleeding Gastric Disorder Take 1 tablet (40 mg total) by mouth daily 30 tablet 11 2 Active divalproex (DEPAKOTE SPRINKLE) 125 mg capsule Take 4 capsules (500 mg total) by mouth 2 (two) times a day 240 capsule 3 Active clonazePAM (KlonoPIN) 1 mg tablet Take 3 tablets (3 mg total) by mouth 2 (two) times a day 180 tablet 3 Active cenobamate (XCOPRI) 100 mg tablet Take 1 tablet (100 mg total) by mouth daily 30 tablet 3 Active topiramate (TOPAMAX) 25 mg tablet Take 3 tablets (75 mg total) by mouth 2 (two) times a day 180 tablet 11 4 Active Active Problems Problem Noted Date Diagnosed Date Wheelchair dependent 08/07/2022 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 01/06/2022 Gastroesophageal reflux disease without esophagi tis 01/06/2022 Other encephalitis and encephalomyelitis 022 Moderate malnutrition 10/08/2021 Sepsis 02/28/2021 Liz encephalitis 02/03/2020 Localization-related (focal) (partial) symptomatic epilepsy and epileptic syndromes with complex partial seizures, intractable, with status epilepticus 02/03/2020 On antiepileptic therapy 01/07/2019 Cerebellar ataxia 01/07/2019 Cerebellar ataxia in diseases classified elsewhe re 01/07/2019 Status epilepticus due to complex partial seizur e 09/11/2018 Capsulitis 06/21/2015 Hallux abductovalgus, acquired, left 06/21/2015 Onychomycosis of toenail 06/13/2015 Intractable epilepsy with complex partial seizur es 06/15/2006 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 06/15/2006 Immunizations Immunization Administration Dates Next Due Influenza, Quadrivalent, Spl it, Preservative Free, Intramuscular 06/01/2019 Tdap 08/17/2018 Social History Tobacco Use Types Packs/Day Years Used Date Smoking Tobacco: Former Smokeless Tobacco: Never Tobacco Cessation:Counseling Given: Not Answered Alcohol Use Standard Drinks/Week Comments Yes 0 (1 standard drink = 0.6 oz pur e alcohol) very rare use Personal Safety Answer Date Recorded Have you ever been in or are you currently in a harmful physical or emotional relationship or is someone making you feel afraid or unsafe? 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 AND FEEDER Gender Identity Female 12/31/2018 9:37 AM CDT Sexual Orientation Straight 12/31/2018 9: 37 AM CDT Occupation Industry Job Start Date Job End Date Disability Not on file Not on file Not on file Last Filed Vital Signs Vital Sign Reading Time Taken Comments Blood Pressure 96/73 08/21/2023 11:00 PM TOGGLE PRESS FOLDER AND FEEDER Pulse 87 08/21/2023 11:00 PM TOGGLE PRESS FOLDER AND FEEDER Temperature 37.1 C (98.8 F) 08/21/2023 1:17 PM TOGGLE PRESS FOLDER AND FEEDER Respiratory Rate 16 08/21/2023 1:17 PM TOGGLE PRESS FOLDER AND FEEDER Oxygen Saturation 98% 08/21/2023 11:00 PM TOGGLE PRESS FOLDER AND FEEDER Inhaled Oxygen Concentration - - Weight 48.1 kg (106 lb) 08/21/2023 1:17 PM TOGGLE PRESS FOLDER AND FEEDER Height 167.6 cm (5' 6 ) 08/21/2023 1:17 PM TOGGLE PRESS FOLDER AND FEEDER Body Mass Index 17.11 08/21/2023 1:17 PM TOGGLE PRESS FOLDER AND FEEDER Plan of Treatment Not on file Additional Health Concerns Infection Onset Date Last 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 08/21/2023 08/21/2023 Insurance [facility] MEDICARE [facility] [address] [address] [facility] MEDICARE [facility] Address: [address] [address] [place] [address] Advance Directives For more information, please contact: [phone] Documents on File Type Date Recorded Patient Infantry Operations Specialist Expl anation ADVANCE DIRECTIVE 03/05/2021 9:39 AM DNR * Full Code (Latest Code Status on File) Date Activated Date Inactivated Comments 05/23/2023 1:57 PM 05/27/2023 9:14 PM * Full Code Date Activated Date Inactivated Comments 10/07/2021 7:30 AM 10/10/2021 1:33 AM * Full Code Date Activated Date Inactivated Comments 08/15/2021 6:39 PM 08/17/2021 10:43 PM * Full Code Date Activated Date Inactivated Comments 02/28/2021 7:55 PM 03/02/2021 6:36 AM * Full Code Date Activated Date Inactivated Comments 09/22/2020 12:56 PM 09/25/2020 9:00 PM Healthcare Agents on File Name Relationship Healthcare Agent Relationshi p Communication Ruthie Torres Mother Health Care Agent [email or web address] Process Care Teams Blind Eyeletter Relationship Specialty Start Date End Date Abdullahi Hammer MD [address] [place] [address] PCP - General Internal Medicine 08/29/24 Jorge Luis Stevens Jr., MD [address] [place] [address] Consulting Physician Neurology 02/07/20
--- OUTSIDE RECORDS SUMMARY | 2024-10-21 18:43 | XMS_ITS | Encounter Summary ---
Author Organization [facility] Healthcare Address [address] [place] [address] Care Team Providers Care Clinical Research Tech Name Role Phone Rodney Hutchinson MD, Jorge Luis Burciaga 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 Gender Identity Female 12/31/2018 9:37 AM CDT Sexual Orientation Straight 12/31/2018 9: 37 AM CDT Occupation Industry Job Start Date Job End Date Disability Not on file Not on file Not on file documented as of this encounter Plan of Treatment Not on file documented as of this encounter Visit Diagnoses Not on filedocumented in this encounter Additional Health Concerns Infection Onset Date Last Indicated Resolved Time 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
--- OUTSIDE RECORDS SUMMARY | 2024-10-21 18:43 | XMS_ITS | Clinical Summary ---
Author Organization [facility] Address [address] [place] [address] Care Team Providers Care Director Print Name Role Phone Rodney Hutchinson MD, Jorge Luis Burciaga [facility] + Abdullahi Hammer MD Primary Care Provider [phone] Allergies No known active allergies Medications folic [...] it, Preservative Free, Intramuscular 06/01/2019 Tdap 08/17/2018 Medical History Medical History Date Comments Focal epilepsy (HCC) Liz encephalitis Left Family History Medical History Relation Name Comments Kidney disease Father Breast cancer Mother Relation Name Status Comments Father Mother Alive Breast cancer ( dx age 2014) Social History Tobacco Use Types Packs/Day Years [...] on file Legal Sex Female 8:55 AM 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 FIBERGLASS Gender Identity Female 12/31/2018 9:37 AM CDT Sexual Orientation Straight 12/31/2018 9: 37 AM CDT Occupation Industry Job Start Date Job End Date Disability Not on file Not on file Not on file Obstetrics History Last Filed Vital Signs Vital Sign Reading Time Taken Comments Blood Pressure 96/73 08/21/2023 11:00 PM TUBE MOLDER FIBERGLASS Pulse 87 08/21/2023 11:00 PM TUBE MOLDER FIBERGLASS Temperature 37.1 C (98.8 F) 08/21/2023 1:17 PM TUBE MOLDER FIBERGLASS Respiratory Rate 16 08/21/2023 1:17 PM TUBE MOLDER FIBERGLASS Oxygen Saturation 98% 08/21/2023 11:00 PM TUBE MOLDER FIBERGLASS Inhaled Oxygen Concentration - - Weight 48.1 kg (106 lb) 08/21/2023 1:17 PM TUBE MOLDER FIBERGLASS Height 167.6 cm (5' 6 ) 08/21/2023 1:17 PM TUBE MOLDER FIBERGLASS Body Mass Index 17.11 08/21/2023 1:17 PM TUBE MOLDER FIBERGLASS Plan of Treatment Health Maintenance Due Date Last Done Comments Breast Cancer Screening-Mammogram 1983 Cervical Cancer Screening 1983 Depression Screening 1983 Hepatitis C Screening 1983 Varicella Vaccines (1 of 2 - 13+ 2-dose series) 02/17/1996 Hepatitis B Screening 2001 Regular Well Visit/Exam 18-64 2001 Covid-19 Vaccine (2023-2 5 season) 2024 08/27/2021, 02/12/2021, 01/15/2021 Influenza Vaccine (#1) 2024 06/01/2019 DTaP/Tdap/Td Vaccine (2 - Td or Tdap) 08/17/2028 08/17/2018 HPV Vaccines Aged Out No longer eligi ble based on patient's age to complete this topic Pneumococcal vaccine <65 Aged Out No longer eligible based on patient's age to complete this topic Additional Health Concerns Infection Onset Date Last 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 08/21/2023 08/21/2023 Insurance [facility] MEDIC[facility] Member Subscriber Plan / Payer (Ef fective 2018-Present) Name:Khadra Meadows Relation to Subscriber:Self Name:Khadra Meadows Payer ID:[id number] (NAIC) Type:MEDICARE RISK OTHER Address: [facility] [address] [facility] Advance Directives For more information, please contact: [phone] Documents on File Type Date Recorded Patient 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
--- OUTSIDE RECORDS SUMMARY | 2024-10-21 18:43 | XMS_ITS | Data Portability ---
Author Organization [facility] Address [address] [place] [id number] Assessment Encounter Date Assessment Date Assessment LastModified by Organization Details LastModified Time 04/05/2024 04/05/2024 pt no showed augabi Not available 0 04/24/2024 14:27:03 Plan of Treatment Reminders Order Date Submit Date Provider Last Modified By Organization Details Last Modified Time Details Appointments None record ed. Lab None record ed. Referral None record ed. Procedures None record ed. Surgeries None record ed. Imaging None record ed. Medication Orders None record ed. Patient TargetsNo targets recorded. Patient InstructionsNo instructions recorded. Reason for Referral None Reported. Medical Equipment None Reported. Medications Name Sig Start Date Stop Date Status Note LastModified by Organization Details LastModified Time hydrocodone 5 mg-acetaminophe n 325 mg tablet active Not Available Not Availa ble Not Available clonazepam 1 mg tablet active Not Available Not Available Not Available topiramate 25 mg tablet active Not Available Not Available No t Available oxcarbazepine 300 mg tablet active Not Available Not Availabl e Not Available phenytoin sodium extended 100 mg capsule active Not Available Not Availab le Not Available potassium chloride 20 mEq/15 mL oral liquid active Not Available Not Available Not Available pantoprazole 40 mg tablet,delayed release active Not Available Not Available Not Available divalproex 125 mg capsule,delayed release sprinkle active Not Available Not Available Not Available topiramate 50 mg tablet active Not Available Not Available No t Available levetiracetam 1,000 mg tablet active Not Available Not Availa ble Not Available Dilantin 30 mg capsule active Not Available Not Available Not Available Eliquis 5 mg tablet active Not Available Not Available Not Available Xcopri 100 mg tablet active Not Available Not Available Not Available Vitals None Recorded Social History None recorded. Functional Status None recorded. Mental Status None recorded. Family History Nothing Reported. Medical History No medical history recorded. Gynecological HistoryNo gynecological history recorded. Obstetrics History GPAL:G 0 P 0 0 0 0 Past Encounters Encounter ID Performer Location Encounter Start Date Encounter Closed Date Diagnosis/Indication Diagnosis SNOMED-CT Code Diagnosis ICD10 Code Diagnosis Note [id number] Sonya Medeiros MD [place] [address] [facility] [address] [place] [address] 04/05/2024 10:20:38 04/24/2024 14:27:30 Health Concerns Section Related Observation LastModified by Organization Detai ls LastModified Time None Recorded Concern Status LastModified by Organization Details LastModified Time None Recorded Advance Directives Directive None Recorded Payers Encounter Date Sequence Insurance Name Policy Number Policy Garcia Covered Member ID Garcia Member ID Guarantor Name 04/05/2024 2 [place] WHEN MEDICARE OR MEDICARE REPLACEMENT PRIMARY) Khadra Meadows [id number] Khadra Meadows 04/05/2024 1 [place] Khadra Meadows [id number] Khadra Meadows OBGyn Episode No OBEpisode recorded.
--- OUTSIDE RECORDS SUMMARY | 2024-10-21 18:44 | XMS_ITS | Continuity of Care Document ---
Author Organization [facility] Address [address] [place] [address] Phone Care Team Providers Care Milled Lumber Grader Name Role Phone Curt Hand MD Unavailable Unavailable Allergies, Adverse Reactions, Alerts Substance Reaction Status Criticality No Known Allergies Active No Inform ation Procedures Procedure Date PREV VISIT, NEW, AGE 18-39 Advance Directives Directive Yes / No Effective Date File Name No Information Encounters Encounter Description Practice Location Reason(s) For Visit Diagnoses Date Provider Providers Copied on Encounter PREV VISIT, NEW, AGE 18-39 [facility], [address] [place], [id number], [place] tel:[phone] [facility] Physical (chief complaint) Routine Medical ExamRoutine Medical Exam Yazan Elias. [address], [facility] [place], [id number], [place]. tel:[phone] Family History Family Member Type Diagnosis Age At Onset Father Problem (finding) Unknown Disease Brother Problem (finding) Alive and well Mother Problem (finding) Cancer -breast [place] 65 Payers Payer name Insurance type Covered alliance party ID Authoriza tion(s) No Information Social History Type Description Quantity Date Captured Comments Alcohol Use Details Caffeine Use Details Unknown Tobacco Use Status No Information Smoking Status Former smoker Smoking Tobacco Use Details Cigarette: No Details Available Cigarette: No Details Available Sex Female Vital Signs Date / Time: Height Weight BMI Pulse Rate Blood Pressure Temperature Respiratory Rate Body Surface Area Head Circumference BMI percentile Pulse Ox Inhaled Ox 5:53 PM 66.00 in 133.50 lbs 21.5 5 kg/m eter (2) 98 /min 111/72 mm[Hg] 99.0 F 16 /min Chief Complaint And Reason For Visit From encounter dated 10/03/2014 17:40'. Physical (chief complaint) Plan Of Treatment Date Type Action Status Referral Ordered: MAMMOGRAM, SCREENING ordered History Of Present Illness Encounter Date Complaint History Of Prese nt Illness No Information Instructions Date Instruction Additional Infor mation No Information Assessments Type Assessment Date No Information Mental Status Date Cognitive Assessment Orientation - Barron ed to time, place, person, situation.
--- OUTSIDE RECORDS SUMMARY | 2024-10-21 18:44 | XMS_ITS | Clinical Summary ---
Author Organization [facility] Address [address] [place] [address] Phone Care Team Providers Care Field Mechanical Meter Tester Name Role Phone Unavailable Primary Care Provider Unavailabl e Allergies No known active allergies Medications acetaminophen (TYLENOL) 325 mg tablet Take 650 mg by mouth every 6 hours as needed. Active apixaban (Eliquis) 5 mg tablet Take 5 mg by mouth daily. 09/23/2022 Active cenobamate (Xcopri) 100 mg tablet Take 100 mg by mouth daily. 10/13/2022 Active clonazePAM (KlonoPIN) 1 mg tablet Take 3 mg by mouth 2 times daily. 10/13/2022 Active folic acid (FOLVITE) 1 mg tablet Take 1 mg by mouth daily. Active levETIRAcetam (KEPPRA) 1,000 mg tablet Take 2,000 mg by mouth 2 times daily. 06/16/2022 Active OXcarbazepine (TRILEPTAL) 300 mg tablet Take 900 mg by mouth 2 times daily. 10/27/2022 Active pantoprazole (PROTONIX) 40 mg Tablet, Delayed Release (E.C.) Take 40 mg by mouth daily. 10/10/2021 Active phenytoin sodium extended release (Dilantin) 30 mg capsule Take 30 mg by mouth daily at bedtime. Active polyethylene glycol (MIRALAX) 17 gram Powder in Packet Take 17 Grams by mouth 1 time daily as needed. Active topiramate (TOPAMAX) 25 mg tablet Take 25 mg by mouth 2 times daily. 08/21/2023 Active topiramate (TOPAMAX) 50 mg tablet Take 50 mg by mouth 2 times daily. 09/18/2022 Active valproic acid (DEPAKENE) 250 mg/5 mL (5 mL) Solution 20 mL (1,000 mg) by NG Tube route every 8 hours. 08/07/2024 Active predniSONE (DELTASONE) 20 mg tablet Take 4 tabs x 1 week, 3tabs x 10 days, 2tabs x 10 days, 1 tab x 10 days 08/07/2024 Active phenytoin (DILANTIN) 125 mg/5 mL suspension 5 mL (125 mg) by NG Tube route every 12 hours. 08/07/2024 Active Active Problems Problem Noted Date Diagnosed Date Chronic venous embolism and thrombosis of deep vessels of distal end of left lower extremity 08/04/2024 Acute cystitis without hematuria 07/31/2024 Status epilepticus 07/27/2024 Complex partial seizures 07/27/2024 Acute metabolic encephalopathy 07/27/2024 Left-sided weakness 07/27/2024 Seizure 07/27/2024 Encounters Date Type Department Care Team Description 10/19/2024 External Device Data [facility] Provider, Abstract 10/05/2024 External Device Data [facility] Provider, Abstract 10/04/2024 External Device Data [facility] Provider, Abstract 09/13/2024 External Device Data [facility] Provider, Abstract 09/07/2024 External Device Data [facility] Provider, Abstract 09/07/2024 External Device Data [facility] Provider, Abstract 08/30/2024 External Device Data [facility] Provider, Abstract 08/02/2024 External Device Data [facility] Provider, Abstract 07/27/2024 1:59 AM HVAC MECHANIC - 08/07/2024 5:57 PM HVAC MECHANIC Hospital Encounter [facility] [address] [place] [id number] Heidi Thomas MD Demertzis, Lee Michael, MD Ahmad, MD Delbert Erwin, MD Ayan Dominguez Venkat, MD Status epilepticus ([facility]) Discharge Disposition: Intermediate Care Facility 07/27/2024 Travel from Last 3 Months Social History Tobacco Use Types Packs/Day Years Used Date Smoking Tobacco: Never Tobacco Cessation:Counseling Given: Not Answered Feeling Safe Answer Date Recorded Are you [...] on file Legal Sex Female 9:27 PM HVAC MECHANIC Gender Identity Not on file Sexual Orientation Not on file Last Filed Vital Signs Vital Sign Reading Time Taken Comments Blood Pressure 101/61 08/07/2024 9:19 AM HVAC MECHANIC Pulse 78 08/07/2024 4:40 AM HVAC MECHANIC Temperature 36.4 C (97.5 F) 08/07/2024 9:19 AM HVAC MECHANIC Respiratory Rate 16 08/07/2024 9:19 AM HVAC MECHANIC Oxygen Saturation 100% 08/07/2024 9:1 9 AM HVAC MECHANIC Inhaled Oxygen Concentration - - Weight 58.6 kg (129 lb 1.6 oz) 08/06/2024 5:00 AM HVAC MECHANIC Height 165.1 cm (5' 5 ) 07/27/2024 3:24 AM HVAC MECHANIC first height was stated by patient. Body Mass Index 21.48 07/27/2024 3:24 AM HVAC MECHANIC Plan of Treatment Health Maintenance Due Date Last Done Comments HEPATITIS B VACCINES (1 of 3 - 19+ 3-dose series) 2002 CERVICAL CANCER SCREENING 2013 BREAST CANCER SCREENING 2023 INFLUENZA VACCINE (#1) 2024 06/01/2019 COVID-19 Vaccine ( - 2023-2 5 season) 2024 08/27/2021, 02/12/2021, 01/15/2021 DTAP/TDAP/TD VACCINES (2 - T d or Tdap) 08/17/2028 08/17/2018 HPV VACCINES Aged Out No longer eligi ble based on patient's age to complete this topic PNEUMOCOCCAL VACCINE 0-49 YEARS Aged Out No longer eligible b ased on patient's age to complete this topic Procedures Procedure Name Priority Date/Time Associated Diagnosis Comments TELEMETRY REPORT 08/27/2024 10:4 0 AM HVAC MECHANIC TELEMETRY REPORT 08/27/2024 10:1 8 AM HVAC MECHANIC TELEMETRY REPORT 08/27/2024 10:0 4 AM HVAC MECHANIC TELEMETRY REPORT 08/26/2024 12:3 1 PM HVAC MECHANIC TELEMETRY REPORT 08/23/2024 1:56 PM HVAC MECHANIC POC GLUCOSE Routine 08/07/2024 4:48 PM HVAC MECHANIC POC GLUCOSE Routine 08/07/2024 9:22 AM HVAC MECHANIC POC GLUCOSE Routine 08/07/2024 4:45 AM HVAC MECHANIC POC GLUCOSE Routine 08/07/2024 1:42 AM HVAC MECHANIC POC GLUCOSE Routine 08/06/2024 10:18 PM HVAC MECHANIC POC GLUCOSE Routine 08/06/2024 4:45 PM HVAC MECHANIC POC GLUCOSE Routine 08/06/2024 12:58 PM HVAC MECHANIC POC GLUCOSE Routine 08/05/2024 10:43 PM HVAC MECHANIC POC GLUCOSE Routine 08/05/2024 6:28 PM HVAC MECHANIC TELEMETRY REPORT 08/05/2024 12:5 6 PM HVAC MECHANIC TELEMETRY REPORT 08/05/2024 12:4 8 PM HVAC MECHANIC POC GLUCOSE Routine 08/05/2024 11:53 AM HVAC MECHANIC POC GLUCOSE Routine 08/05/2024 8:30 AM HVAC MECHANIC PHENYTOIN LEVEL, TOTAL AND FREE Routine 08/05/2024 1:49 AM HVAC MECHANIC CBC WITH DIFFERENTIAL Routine 08/05/2024 1:49 AM HVAC MECHANIC RENAL FUNCTION PANEL Routine 08/05/2024 1:49 AM HVAC MECHANIC MAGNESIUM LEVEL Routine 08/05/2024 1:49 AM HVAC MECHANIC POC GLUCOSE Routine 08/04/2024 9:11 PM HVAC MECHANIC POC GLUCOSE Routine 08/04/2024 4:50 PM HVAC MECHANIC POC GLUCOSE Routine 08/04/2024 12:36 PM HVAC MECHANIC POC GLUCOSE Routine 08/04/2024 10:50 AM HVAC MECHANIC POC GLUCOSE Routine 08/04/2024 9:36 AM HVAC MECHANIC VALPROIC ACID LEVEL, TOTAL Routine 08/04/2024 4:03 AM HVAC MECHANIC PHENYTOIN LEVEL, TOTAL Routine 08/04/2024 4:03 AM HVAC MECHANIC CBC WITH DIFFERENTIAL Routine 08/04/2024 4:03 AM HVAC MECHANIC RENAL FUNCTION PANEL Routine 08/04/2024 4:03 AM HVAC MECHANIC MAGNESIUM LEVEL Routine 08/04/2024 4:03 AM HVAC MECHANIC CARBAMAZEPINE LEVEL Routine 08/04/2024 4 :03 AM HVAC MECHANIC POC GLUCOSE Routine 08/04/2024 3:33 AM HVAC MECHANIC EEG 08/04/2024 12:54 AM HVAC MECHANIC POC GLUCOSE Routine 08/03/2024 11:54 PM HVAC MECHANIC POC GLUCOSE Routine 08/03/2024 8:17 PM HVAC MECHANIC POC GLUCOSE Routine 08/03/2024 6:31 PM HVAC MECHANIC POC GLUCOSE Routine 08/03/2024 4:25 PM HVAC MECHANIC POC GLUCOSE Routine 08/03/2024 4:22 PM HVAC MECHANIC ASSOCIATE CHIEF NURSE EVALUATE AND TREAT Routine 08/03/2024 3:09 PM HVAC MECHANIC POC GLUCOSE Routine 08/03/2024 12:43 PM HVAC MECHANIC POC GLUCOSE Routine 08/03/2024 9:49 AM HVAC MECHANIC RENAL FUNCTION PANEL Routine 08/03/2024 5:11 AM HVAC MECHANIC MAGNESIUM LEVEL Routine 08/03/2024 5:11 AM HVAC MECHANIC PHENYTOIN LEVEL, TOTAL Routine 08/03/2024 5:11 AM HVAC MECHANIC POC GLUCOSE Routine 08/03/2024 4:58 AM HVAC MECHANIC POC GLUCOSE Routine 08/03/2024 12:13 AM HVAC MECHANIC POC GLUCOSE Routine 08/02/2024 8:35 PM HVAC MECHANIC EEG 08/02/2024 7:16 PM HVAC MECHANIC POC GLUCOSE Routine 08/02/2024 6:18 PM HVAC MECHANIC OXCARBAZEPINE LEVEL Routine 08/02/2024 4 :29 PM HVAC MECHANIC POC GLUCOSE Routine 08/02/2024 3:45 PM HVAC MECHANIC EEG Stat 08/02/2024 12:52 PM HVAC MECHANIC POC GLUCOSE Routine 08/02/2024 11:35 AM HVAC MECHANIC POC GLUCOSE Routine 08/02/2024 8:55 AM HVAC MECHANIC EEG Routine 08/02/2024 7:24 AM HVAC MECHANIC BLOOD GAS ARTERIAL Routine 08/02/2024 6: 02 AM HVAC MECHANIC XR CHEST PA OR AP 1 VW Routine 08/02/2024 5:19 AM HVAC MECHANIC PHOSPHORUS Routine 08/02/2024 4:20 AM HVAC MECHANIC BASIC METABOLIC PANEL Routine 08/02/2024 4:20 AM HVAC MECHANIC HEPATIC FUNCTION PANEL Routine 08/02/2024 4:20 AM HVAC MECHANIC CBC WITH DIFFERENTIAL Routine 08/02/2024 4:20 AM HVAC MECHANIC MAGNESIUM LEVEL Routine 08/02/2024 4:20 AM HVAC MECHANIC POC GLUCOSE Routine 08/02/2024 4:11 AM HVAC MECHANIC POC GLUCOSE Routine 08/01/2024 11:27 PM HVAC MECHANIC EEG 08/01/2024 9:33 PM HVAC MECHANIC POC GLUCOSE Routine 08/01/2024 7:43 PM HVAC MECHANIC POC GLUCOSE Routine 08/01/2024 5:02 PM HVAC MECHANIC POC LACTIC ACID Routine 08/01/2024 2:45 PM HVAC MECHANIC BLOOD GAS,(INCL. H+H, LYTES, GLUC) Routine 08/01/2024 2:45 PM HVAC MECHANIC POC GLUCOSE Routine 08/01/2024 11:54 AM HVAC MECHANIC CARBAMAZEPINE LEVEL Stat 08/01/2024 9 :57 AM HVAC MECHANIC PHENYTOIN LEVEL, TOTAL Stat 08/01/2024 9:57 AM HVAC MECHANIC EEG 08/01/2024 7:49 AM HVAC MECHANIC POC GLUCOSE Routine 08/01/2024 7:45 AM HVAC MECHANIC EEG Routine 08/01/2024 7:22 AM HVAC MECHANIC PT EVAL AND TREAT Routine 08/01/2024 7:0 8 AM HVAC MECHANIC OT EVAL AND TREAT Routine 08/01/2024 7:0 8 AM HVAC MECHANIC POC GLUCOSE Routine 08/01/2024 3:56 AM HVAC MECHANIC VALPROIC ACID LEVEL, TOTAL Stat 08/01/2024 3:54 AM HVAC MECHANIC BASIC METABOLIC PANEL Routine 08/01/2024 3:54 AM HVAC MECHANIC CBC WITH DIFFERENTIAL Routine 08/01/2024 3:54 AM HVAC MECHANIC POC GLUCOSE Routine 08/01/2024 12:01 AM HVAC MECHANIC POC GLUCOSE Routine 07/31/2024 7:52 PM HVAC MECHANIC POC GLUCOSE Routine 07/31/2024 4:31 PM HVAC MECHANIC POC GLUCOSE Routine 07/31/2024 12:29 PM HVAC MECHANIC POC GLUCOSE Routine 07/31/2024 8:34 AM HVAC MECHANIC CBC WITH DIFFERENTIAL Routine 07/31/2024 3:34 AM HVAC MECHANIC BASIC METABOLIC PANEL Routine 07/31/2024 3:34 AM HVAC MECHANIC POC GLUCOSE Routine 07/31/2024 3:31 AM HVAC MECHANIC POC GLUCOSE Routine 07/31/2024 12:04 AM HVAC MECHANIC POC GLUCOSE Routine 07/30/2024 7:39 PM HVAC MECHANIC POC GLUCOSE Routine 07/30/2024 3:41 PM HVAC MECHANIC EEG AWAKE OR DROWSY ROUTINE Routine 07/30/2024 3:40 PM HVAC MECHANIC POC GLUCOSE Routine 07/30/2024 11:22 AM HVAC MECHANIC POC GLUCOSE Routine 07/30/2024 8:02 AM HVAC MECHANIC CBC WITH DIFFERENTIAL Routine 07/30/2024 5:50 AM HVAC MECHANIC BASIC METABOLIC PANEL Routine 07/30/2024 5:50 AM HVAC MECHANIC POC GLUCOSE Routine 07/30/2024 5:49 AM HVAC MECHANIC POC LACTIC ACID Routine 07/30/2024 4:21 AM HVAC MECHANIC BLOOD GAS,(INCL. H+H, LYTES, GLUC) Routine 07/30/2024 4:21 AM HVAC MECHANIC POC GLUCOSE Routine 07/30/2024 12:20 AM HVAC MECHANIC POC GLUCOSE Routine 07/30/2024 12:05 AM HVAC MECHANIC POC GLUCOSE Routine 07/29/2024 8:06 PM HVAC MECHANIC POC GLUCOSE Routine 07/29/2024 3:41 PM HVAC MECHANIC BASIC METABOLIC PANEL Routine 07/29/2024 12:24 PM HVAC MECHANIC POC GLUCOSE Routine 07/29/2024 12:18 PM HVAC MECHANIC EEG 07/29/2024 7:49 AM HVAC MECHANIC POC GLUCOSE Routine 07/29/2024 7:30 AM HVAC MECHANIC POC LACTIC ACID Routine 07/29/2024 5:29 AM HVAC MECHANIC BLOOD GAS,(INCL. H+H, LYTES, GLUC) Routine 07/29/2024 5:29 AM HVAC MECHANIC EXTRA TUBE (URINE SCHMITZ) Routine 07/29/2024 5:16 AM HVAC MECHANIC URINALYSIS W/REFLEX MICROSCOPIC Routine 07/29/2024 5:16 AM HVAC MECHANIC URINE CULTURE Routine 07/29/2024 5:16 AM HVAC MECHANIC POC GLUCOSE Routine 07/29/2024 3:21 AM HVAC MECHANIC POC GLUCOSE Routine 07/29/2024 12:04 AM HVAC MECHANIC POC GLUCOSE Routine 07/28/2024 9:18 PM HVAC MECHANIC POC GLUCOSE Routine 07/28/2024 8:55 PM HVAC MECHANIC POC GLUCOSE Routine 07/28/2024 8:35 PM HVAC MECHANIC POC GLUCOSE Routine 07/28/2024 8:00 PM HVAC MECHANIC XR CHEST PA OR AP 1 VW Stat 07/28/2024 5:37 PM HVAC MECHANIC BLOOD GAS ARTERIAL Routine 07/28/2024 5: 36 PM HVAC MECHANIC OXCARBAZEPINE LEVEL Routine 07/28/2024 4 :35 PM HVAC MECHANIC XR ABDOMEN FOR FEEDING TUBE 1 VW Stat 07/28/2024 4:00 PM HVAC MECHANIC POC GLUCOSE Routine 07/28/2024 3:33 PM HVAC MECHANIC POC GLUCOSE Routine 07/28/2024 11:36 AM HVAC MECHANIC EEG 24 HOUR Stat 07/28/2024 10:50 AM HVAC MECHANIC LACTIC ACID Stat 07/28/2024 8:52 AM HVAC MECHANIC POC GLUCOSE Routine 07/28/2024 7:45 AM HVAC MECHANIC BASIC METABOLIC PANEL Routine 07/28/2024 4:29 AM HVAC MECHANIC CBC WITHOUT DIFFERENTIAL Routine 07/28/2024 4:29 AM HVAC MECHANIC POC GLUCOSE Routine 07/28/2024 3:51 AM HVAC MECHANIC POC GLUCOSE Routine 07/27/2024 11:09 PM HVAC MECHANIC POC GLUCOSE Routine 07/27/2024 8:33 PM HVAC MECHANIC POC GLUCOSE Routine 07/27/2024 3:59 PM HVAC MECHANIC POC GLUCOSE Routine 07/27/2024 11:34 AM HVAC MECHANIC PT EVAL AND TREAT Routine 07/27/2024 10: 07 AM HVAC MECHANIC OT EVAL AND TREAT Routine 07/27/2024 10: 07 AM HVAC MECHANIC C. DIFFICILE DETECTION Routine 07/27/2024 10:00 AM HVAC MECHANIC POC GLUCOSE Routine 07/27/2024 7:51 AM HVAC MECHANIC EXTRA TUBE (URINE SCHMITZ) Routine 07/27/2024 6:53 AM HVAC MECHANIC URINALYSIS W/REFLEX MICROSCOPIC Routine 07/27/2024 6:53 AM HVAC MECHANIC EKG 12-LEAD Routine 07/27/2024 4:16 AM HVAC MECHANIC TOPIRAMATE LEVEL Routine 07/27/2024 4:10 AM HVAC MECHANIC PHENYTOIN LEVEL, FREE Routine 07/27/2024 4:10 AM HVAC MECHANIC LEVETIRACETAM LEVEL Routine 07/27/2024 4 :10 AM HVAC MECHANIC T4 FREE Routine 07/27/2024 4:06 AM HVAC MECHANIC TSH REFLEXIVE Routine 07/27/2024 4:06 AM HVAC MECHANIC PROCALCITONIN Routine 07/27/2024 4:06 AM HVAC MECHANIC C-REACTIVE PROTEIN Routine 07/27/2024 4: 06 AM HVAC MECHANIC VITAMIN B12 AND FOLATE Routine 07/27/2024 4:06 AM HVAC MECHANIC VALPROIC ACID LEVEL, TOTAL Timed Study 07/27/2024 4:06 AM HVAC MECHANIC PHENYTOIN LEVEL, TOTAL Routine 07/27/2024 4:06 AM HVAC MECHANIC CARBAMAZEPINE LEVEL Timed Study 07/27/2024 4 :06 AM HVAC MECHANIC PHOSPHORUS Routine 07/27/2024 4:06 AM HVAC MECHANIC MAGNESIUM LEVEL Routine 07/27/2024 4:06 AM HVAC MECHANIC PROTIME-INR Routine 07/27/2024 4:06 AM HVAC MECHANIC LACTIC ACID Routine 07/27/2024 4:06 AM HVAC MECHANIC PROLACTIN Routine 07/27/2024 4:06 AM HVAC MECHANIC COMPREHENSIVE METABOLIC PANEL Routine 07/27/2024 4:06 AM HVAC MECHANIC CBC WITH DIFFERENTIAL Routine 07/27/2024 4:06 AM HVAC MECHANIC POC GLUCOSE Routine 07/27/2024 4:00 AM HVAC MECHANIC from Last 3 Months Results * TELEMETRY REPORT (08/27/2024 10:40 AM HVAC MECHANIC) Only the most recent of7 resultswithin the time period is included. us Provider Scanning ECG ORDERABLES Final Result * (ABNORMAL) POC GLUCOSE (08/07/2024 4:48 PM HVAC MECHANIC) Only the most recent of72 resultswithin the time period is included. GLUCOSE POC 145(H) 74 - 99 mg/dL 08/07/2024 4:48 PM HVAC MECHANIC [facility] POINT OF CARE SPECIMEN SOURCE, GLUCOSE POC Whole Blood 08/07/2024 4:48 PM HVAC MECHANIC [facility] POINT OF CARE Blood, whole 08/07/2024 4:48 PM HVAC MECHANIC 08/07/2024 5:13 PM HVAC MECHANIC Corky Botello MD POINT OF CARE TESTING Final Re sult [facility] POINT OF CARE CLIA # [id number] [place] [address] * (ABNORMAL) CBC WITH DIFFERENTIAL (08/05/2024 1:49 AM HVAC MECHANIC) Only the most recent of7 resultswithin the time period is included. WBC 9.1 4.0 - 9.8 K/uL 08/05/2024 2:12 AM HVAC MECHANIC [facility] RBC 3.67(L) 3.90 - 4.90 M/uL 08/05/2024 2:12 AM [facility] HEMOGLOBIN 11.5(L) 11.8 - 14.8 g/dL 08/05/2024 2:12 AM [facility] HEMATOCRIT 34.0(L) 35.5 - 44.0 % 08/05/2024 2:12 AM [facility] MCV 92.6 82.0 - 99.0 fL 08/05/2024 2:12 AM [facility] [place] [facility] MCH 31.3 27.2 - 32.6 pg 08/05/2024 2:12 AM [facility] MCHC 33.8 31.5 - 35.5 g/dL 08/05/2024 2:12 AM [facility] RDW 12.7 11.5 - 14.5 % 08/05/2024 2:12 AM [facility] RDW-STDEV 43.4 37.1 - 48.7 fL 08/05/2024 2:12 AM [facility] [place] [facility] PLATELETS 298 140 - 350 K/uL 08/05/2024 2:12 AM [facility] [place] [facility] MPV 10.4 9.3 - 12.4 fL 08/05/2024 2:12 AM [facility] [place] [facility] NEUTROPHILS 50 % 08/05/2024 2:12 AM [facility] [place] [facility] LYMPHOCYTES 36 % 08/05/2024 2:12 AM [facility] [place] [facility] MONOCYTES 9 % 08/05/2024 2:12 AM [facility] [place] [facility] EOSINOPHILS 3 % 08/05/2024 2:12 AM [facility] [place] [facility] BASOPHILS 1 % 08/05/2024 2:12 AM [facility] [place] [facility] IMMATURE GRANULOCYTES 2 % 08/05/2024 2:12 AM [facility] [place] [facility] Comment:IG (Immature Granulo cyte) count includes Metamyelocytes, Myelocytes, and Promyelocytes NEUTROPHIL ABSOLUTE 4.57 1.90 - 7.00 K/uL 08/05/2024 2:12 AM [facility] LYMPHOCYTE ABSOLUTE 3.29 0.70 - 4.50 K/uL 08/05/2024 2:12 AM HVAC MECHANIC [facility] MONOCYTE ABSOLUTE 0.80 0.10 - 1.30 K/uL 08/05/2024 2:12 AM [facility] EOSINOPHIL ABSOLUTE 0.23 0.00 - 0.70 K/uL 08/05/2024 2:12 AM HVAC MECHANIC [facility] BASOPHILS ABSOLUTE 0.05 0.00 - 0.20 K/uL 08/05/2024 2:12 AM HVAC MECHANIC [facility] IMMATURE GRANULOCYTES ABSOLUTE 0.14(H) 0.00 - 0.03 K/uL 08/05/2024 2:12 AM [facility] Blood Venipuncture / Unknown 08/05/2024 1:49 AM HVAC MECHANIC 08/05/2024 2:06 AM HVAC MECHANIC Amberly Mandujano MD HEMATOLOGY ORDERABLES Final Result [facility] CLIA# [id number] [place] [address] * PHENYTOIN LEVEL, TOTAL AND FREE (08/05/2024 1:49 AM HVAC MECHANIC) Pathologist [facility] PHENYTOIN TOTAL 12.7 10.0 - 20.0 mg/L 08/08/2024 3:53 AM HVAC MECHANIC [facility] PHENYTOIN FREE 1.6 1.0 - 2.0 mg/L 08/08/2024 3:53 AM HVAC MECHANIC [facility] Blood Venipuncture / Unknown 08/05/2024 1:49 AM HVAC MECHANIC 08/05/2024 2:06 AM HVAC MECHANIC Narrative [facility] - 08/08/2024 3:53 AM HVAC MECHANIC Performing Organization Information: Site ID: [id number] Name: [employer] Address: [address] [phone] Director: Thao Kaye MD Performing Organization Information: Site ID: [id number] Name: [employer] [employer] Address: [address] [place] Director: Marcos Grimm M.D.,PhD Site ID: [place] Name: [employer] Address: [address] [phone] Director: Thao Kaye MD us Amberly Mandujano MD CHEMISTRY ORDERABLES Final Result [facility] [phone] * MAGNESIUM LEVEL (08/05/2024 1:49 AM HVAC MECHANIC) Only the most recent of5 resultswithin the time period is included. MAGNESIUM 2.2 1.6 - 2.6 mg/dL 08/05/2024 2:41 AM HVAC MECHANIC [facility] Blood Venipuncture / Unknown 08/05/2024 1:49 AM HVAC MECHANIC 08/05/2024 2:05 AM HVAC MECHANIC us Amberly Mandujano MD CHEMISTRY ORDERABLES Final Result Performing Organization Address City/[facility]/ZIP Co de Phone Number [facility] [place] [facility] CLIA# [id number] [place] [address] * (ABNORMAL) RENAL FUNCTION PANEL (08/05/2024 1:49 AM HVAC MECHANIC) Only the most recent of3 resultswithin the time period is included. SODIUM 138 136 - 145 mmol/L 08/05/2024 2:41 AM HVAC MECHANIC [facility] POTASSIUM 4.0 3.4 - 5.1 mmol/L 08/05/2024 2:41 AM HVAC MECHANIC [facility] CHLORIDE 105 98 - 107 mmol/L 08/05/2024 2:41 AM HVAC MECHANIC [facility] CO2 20(L) 22 - 29 mmol/L 08/05/2024 2:41 AM HVAC MECHANIC [facility] CALCIUM 8.4(L) 8.6 - 10.4 mg/dL 08/05/2024 2:41 AM [facility] BUN 12 6 - 20 mg/dL 08/05/2024 2:41 AM [facility] CREATININE 0.26(L) 0.51 - 0.95 mg/dL 08/05/2024 2:41 AM [facility] GLUCOSE 116(H) 74 - 99 mg/dL 08/05/2024 2:41 AM [facility] ALBUMIN 3.2(L) 3.5 - 5.2 g/dL 08/05/2024 2:41 AM [facility] PHOSPHORUS 3.1 2.5 - 4.5 mg/dL 08/05/2024 2:41 AM [facility] GFR >60 >=60 mL/min/1.7 3 sq meter 08/05/2024 2:41 AM [facility] Comment:eGFR calculated with 2020 CKD-EPI equation. Vegetarian diet, extremely high or low muscle mass, and may affect results. Cystatin C with Glomerular Filtration Rate is a suitable alternative for these patients. ANION GAP 13 8 - 16 mmol/L 08/05/2024 2:41 AM [facility] Blood Venipuncture / Unknown 08/05/2024 1:49 AM HVAC MECH[employer]IC 08/05/2024 2:05 AM HVAC MECHANIC Amberly Mandujano MD CHEMISTRY ORDERABLES Final Result [facility] CLIA# [id number] [place] [address] * (ABNORMAL) PHENYTOIN LEVEL, TOTAL (08/04/2024 4:03 AM HVAC MECHANIC) Only the most recent of4 resultswithin the time period is included. PHENYTOIN TOTAL 9.7(L) 10.0 - 20.0 ug/mL 08/04/2024 11:06 AM [facility] Blood Venipuncture / Unknown 08/04/2024 4:03 AM HVAC MECHANIC 08/04/2024 4:26 AM HVAC MECHANIC Narrative [facility] - 08/04/2024 11:06 AM HVAC MECHANIC Phenytoin Toxic Level = >30 ug/mL Hipolito Richard NP CHEMISTRY ORDERABLES Final Re sult [facility] CLIA# [id number] [address] [place] [address] * (ABNORMAL) VALPROIC ACID LEVEL, TOTAL (08/04/2024 4:03 AM HVAC MECHANIC) Only the most recent of3 resultswithin the time period is included. VALPROIC ACID TOTAL 48.6(L) 50.0 - 100.0 ug/mL 08/04/2024 11:06 AM HVAC MECHANIC [facility] Comment: Valproic Acid Antiepileptic Control = 50 - 100 ug/mL Valproic Acid Manic Episode Control = 50 - 125 ug/mL Valproic Acid Toxic Level = >200 ug/mL Blood Venipuncture / Unknown 08/04/2024 4:03 AM HVAC MECHANIC 08/04/2024 4:26 AM HVAC MECHANIC Amberly Mandujano MD CHEMISTRY ORDERABLES Final Result [id number] [address] [place] [address] * (ABNORMAL) CARBAMAZEPINE LEVEL (08/04/2024 4:03 AM HVAC MECHANIC) Only the most recent of3 resultswithin the time period is included. CARBAMAZEPINE LEVEL <2.5(L) 4.0 - 12.0 ug/mL 08/04/2024 11:06 AM HVAC MECHANIC [facility] [place] Blood Venipuncture / Unknown 08/04/2024 4:03 AM HVAC MECHANIC 08/04/2024 4:26 AM HVAC MECHANIC Narrative [facility] - 08/04/2024 11:06 AM HVAC MECHANIC Carbamazepine Toxic Level = > 15.0 ug/mL us Amberly Mandujano MD CHEMISTRY ORDERABLES Final Result [facility] CLIA# [id number] [address] [place] [address] * EEG (08/04/2024 12:54 AM HVAC MECHANIC) Narrative Procedure Note Gualberto Duckworth MD - 08/04/2024 12:54 [place] [address] Patient Name: KHADRA MATHEW CSN: [id number] : 1985 Provider: Gualberto Duckworth MD Electroencephalogram PROCEDURE DATE: 08/02/2024 Routine followup EEG, 39-year-old patient located in ICU withnonconvulsive seizure activity in prior EEGs. EEG was done 08/02/2024.EEG shows moderate amount of movement artifact, but there is no evidenceof epileptiform discharges. There is frequent eye movement artifact andthere is at times well-formed rhythm in the upper theta range of 6 cyclesper second, other times slowing in the 3-4 cycles per second, mixed deltaand theta activity. It has remained symmetrical throughout. IMPRESSION: Mildly abnormal with some slowing disorganization, similar toprior EEGs. No epileptiform discharges at this time. Gualberto Duckworth MD med D: [id number] V: [id number] CC us Gualberto Duckworth MD NEUROLOGY ORDERABLES Final Res ult * EEG (08/02/2024 7:16 PM HVAC MECHANIC) Narrative Procedure Note Gualberto Duckworth MD - 08/02/2024 7:16 [place] [address] Patient Name: KHADRA MATHEW CSN: [id number] : 1985 Provider: Gualberto Duckworth MD Electroencephalogram PROCEDURE DATE: 08/02/2024 Routine EEG. A 39-year-old patient. Prior EEG showing encephalopathy andepileptiforms. EEG today is moderate amplitude and symmetrical. Ismildly disorganized mixture of slow and upper range theta activity withsome delta activity and there is some mild intermittent alpha rhythms seenbilaterally, but it is rare. The predominant rhythm is in the low to midtheta range, symmetrical. During this EEG, there is eye movementartifact, but there is no evidence of epileptiform discharges or seizureactivity seen. IMPRESSION: No evidence of seizure focus or epileptiform discharges. EEGas described above. Mildly abnormal due to metabolic, toxic or othercauses of encephalopathy. Gualberto Duckworth MD medq D: [id number] V: [id number] CC us Gualberto Duckworth MD NEUROLOGY ORDERABLES Final Res ult * OXCARBAZEPINE LEVEL (08/02/2024 4:29 PM HVAC MECHANIC) Only the most recent of2 resultswithin the time period is included. 10 HYDROXYCARBAZEPINE 22.1 8.0 - 35.0 mcg/mL 08/11/2024 3:30 PM HVAC MECHANIC [facility] Blood Venipuncture / Unknown 08/02/2024 4:29 PM HVAC MECHANIC 08/02/2024 4:38 PM HVAC MECHANIC Narrative [facility] - 08/11/2024 3:30 PM HVAC MECHANIC Performing Organization Information: Site ID: [id number] Name: [employer] [facility] Address: [address] [place] [address] Dr [place] Director: Marcos Grimm M.D.,PhD Performing Organization Information: Site ID: [facility] Name: [employer] [facility] Address: [address] [place] [address] Dr [place] Director: Marcos Grimm M.D.,PhD us Meme Queen [employer]VER[employer] BUFFER CHEMISTRY ORDERABLES Edited Re ronn - Final [facility] [phone] * (ABNORMAL) BLOOD GAS ARTERIAL (08/02/2024 6:02 AM HVAC MECHANIC) Only the most recent of2 resultswithin the time period is included. PH BLOOD POC 7.44 7.35 - 7.45 08/02/2024 6:02 AM [facility] PCO2 POC 35 35 - 48 mm Hg 08/02/2024 6:02 AM [facility] PO2 POC 153(H) 83 - 108 mm Hg 08/02/2024 6:02 AM [facility] HCO3 (CALC) POC 24 22 - 26 mmol/L 08/02/2024 6:02 AM [facility] BASE EXCESS POC 0 -2 - 3 mmol/L 08/02/2024 6:02 AM [facility] [place] [facility] O2 SATURATION POC 100(H) 94 - 98 % 08/02/2024 6:02 AM [facility] PH TEMP CORRECT 7.44 7.35 - 7.45 08/02/2024 6:02 AM [facility] PCO2 TEMP CORRECT 35 35 - 48 mm Hg 08/02/2024 6:02 AM [facility] PO2 TEMP CORRECT 153(H) 83 - 108 mm Hg 08/02/2024 6:02 AM [facility] SPECIMEN SOURCE, GASES POC Arterial 08/02/2024 6:02 AM [facility] FIO2 30.0 21.0 - 100.0 % 08/02/2024 6:02 AM [facility] P/F RATIO POC 510 08/02/2024 6:02 AM [facility] SET RATE POC 12 08/02/2024 6:02 AM [facility] VENT MODE POC A/C 08/02/2024 6:02 AM [facility] Blood, arterial 08/02/2024 6 :02 AM HVAC MECHANIC 08/02/2024 6:05 AM HVAC MECHANIC Erlinda Rascon SIL[employer] BUFFER ABG ORDERABLES Final Resul t [facility] CLIA# [id number] [address] * XR CHEST PA OR AP 1 VW (08/02/2024 5:19 AM HVAC MECHANIC) Only the most recent of2 resultswithin the time period is included. Anatomical Region Laterality Modality Chest Computed Radiogr aphy 08/02/2024 6:03 AM HVAC MECHANIC Impressions 08/02/2024 7:35 AM HVAC MECHANIC IMPRESSION: No acute pulmonary disease Stable endotracheal tube and feeding tube DICTATION LOCATION: [address] Narrative 08/02/2024 7:35 AM HVAC MECHANIC CHEST PORTABLE AP UPRIGHT VIEW DATE: 08/02/2024 5:19 AM HISTORY: Respiratory Failure COMPARISON: Five days earlier FINDINGS: Examination of the chest in anteroposterior projection in the upright position at the patient's bedside endotracheal tube and feeding tubes are stable. The lung art have not changed. The heart and mediastinal structures have not changed. INCIDENTAL FINDINGS: None. Procedure Note Todd Wagner MD - 08/02/2024 CHEST PORTABLE AP UPRIGHT VIEW DATE: 08/02/2024 5:19 AM HISTORY: Respiratory Failure COMPARISON: Five days earlier FINDINGS: Examination of the chest in anteroposterior projection in the upright position at the patient's bedside endotracheal tube and feeding tubes are stable. The lung art have not changed. The heart and mediastinal structures have not changed. INCIDENTAL FINDINGS: None. IMPRESSION: No acute pulmonary disease Stable endotracheal tube and feeding tube DICTATION LOCATION: Location [address] [place] [address] Amberly Mandujano MD DIAGNOSTIC IMAGING ORDERABL ES Final Result * PHOSPHORUS (08/02/2024 4:20 AM HVAC MECHANIC) Only the most recent of2 resultswithin the time period is included. PHOSPHORUS 3.1 2.5 - 4.5 mg/dL 08/02/2024 5:04 AM HVAC MECHANIC [facility] Blood Venipuncture / Unknown 08/02/2024 4:20 AM HVAC MECHANIC 08/02/2024 4:33 AM HVAC MECHANIC Amberly Mandujano MD CHEMISTRY ORDERABLES Final Result Performing Organization Address [facility]/ZIP Co de Phone Number [facility] CLIA# [id number] [place] [address] * (ABNORMAL) HEPATIC FUNCTION PANEL (08/02/2024 4:20 AM HVAC MECHANIC) Pathologist [facility] TOTAL PROTEIN 5.5(L) 6.3 - 8.7 g/dL 08/02/2024 5:04 AM [facility] ALBUMIN 3.0(L) 3.5 - 5.2 g/dL 08/02/2024 5:04 AM [facility] BILIRUBIN TOTAL <0.2(L) 0.3 - 1.2 mg/dL 08/02/2024 5:04 AM [facility] BILIRUBIN DIRECT <0.2 0.0 - 0.3 mg/dL 08/02/2024 5:04 AM [facility] ALKALINE PHOSPHATASE 58 40 - 150 U/L 08/02/2024 5:04 AM [facility] AST 10 0 - 33 U/L 08/02/2024 5:04 AM [facility] ALT 12 0 - 33 U/L 08/02/2024 5:04 AM [facility] Blood Venipuncture / Unknown 08/02/2024 4:20 AM HVAC MECHANIC 08/02/2024 4:33 AM HVAC MECHANIC Amberly Mandujano MD CHEMISTRY ORDERABLES Final Result Performing Organization Address City/[facility]/ZIP Co de Phone Number [facility] CLIA# [id number] [place] [address] * (ABNORMAL) BASIC METABOLIC PANEL (08/02/2024 4:20 AM HVAC MECHANIC) Only the most recent of6 resultswithin the time period is included. SODIUM 141 136 - 145 mmol/L 08/02/2024 5:04 AM [facility] POTASSIUM 4.1 3.4 - 5.1 mmol/L 08/02/2024 5:04 AM [facility] CHLORIDE 111(H) 98 - 107 mmol/L 08/02/2024 5:04 AM [facility] CO2 19(L) 22 - 29 mmol/L 08/02/2024 5:04 AM [facility] CALCIUM 8.3(L) 8.6 - 10.4 mg/dL 08/02/2024 5:04 AM [facility] BUN 19 6 - 20 mg/dL 08/02/2024 5:04 AM [facility] CREATININE 0.29(L) 0.51 - 0.95 mg/dL 08/02/2024 5:04 AM [facility] GLUCOSE 119(H) 74 - 99 mg/dL 08/02/2024 5:04 AM [facility] GFR >60 >=60 mL/min/1.7 3 sq meter 08/02/2024 5:04 AM [facility] Comment:eGFR calculated with 2020 CKD-EPI equation. Vegetarian diet, extremely high or low muscle mass, and may affect results. Cystatin C with Glomerular Filtration Rate is a suitable alternative for these patients. ANION GAP 11 8 - 16 mmol/L 08/02/2024 5:04 AM [facility] Blood Venipuncture / Unknown 08/02/2024 4:20 AM HVAC MECHANIC 08/02/2024 4:33 AM [facility] us Amberly Mandujano MD CHEMISTRY ORDERABLES Final Result [facility] CLIA# [id number] [address] * EEG (08/01/2024 9:33 PM HVAC MECHANIC) Narrative Procedure Note Gualberto Duckworth MD - 08/01/2024 9:33 [place] [address] Patient Name: KHADRA MATHEW CSN: [id number] : 1985 Provider: Gualberto Duckworth MD Electroencephalogram PROCEDURE DATE: 08/01/2024 Routine EEG, followup 39-year-old patient located in ICU with prior EEGshowing epileptiform discharges. The initial EEG is low voltage mixedslow activity, mostly in the delta range and slow theta activity. Thereare occasional sharp waves associated with EKG artifact. There are raresharp waves seen that do not localize nor lateralize, that do not havephase reversal, but at times a low amplitude sharp waves does appear tohave phase reversal and may be associated with isolated spike, but thereis no seizure activity seen, otherwise in the background rhythmpredominantly theta range. IMPRESSION: EEG shows overall generalized slowing predominantly thetarange or encephalopathy which may be medication induced versus toxicmetabolic or degenerative. The prior described atypical epileptiformdischarges on earlier record are not seen and there are occasional butrare isolated sharp waves without definite epileptiform discharges. Gualberto Duckworth MD medq D: [id number] V: [id number] CC Gualberto Duckworth MD NEUROLOGY ORDERABLES Final Res ult * POC LACTIC ACID (08/01/2024 2:45 PM HVAC MECHANIC) Only the most recent of3 resultswithin the time period is included. LACTIC ACID POC 1.1 <=2.0 mmol/L 08/01/2024 2:45 PM HVAC MECHANIC [facility] SPECIMEN SOURCE, GASES POC Venous 08/01/2024 2:45 PM HVAC MECHANIC [facility] Blood 08/01/2024 2:45 PM HVAC MECHANIC 08/01/2024 2:46 PM HVAC MECHANIC us Amberly Mandujano MD POINT OF CARE TESTING Final Result [facility] MARIA ISABEL# [id number] [address] * (ABNORMAL) BLOOD GAS,(INCL. H+H, LYTES, GLUC) (08/01/2024 2:45 PM HVAC MECHANIC) Only the most recent of3 resultswithin the time period is included. PH BLOOD POC 7.44(H) 7.32 - 7.43 08/01/2024 2:45 PM HVAC MECHANIC [facility] PCO2 POC 35(L) 38 - 50 mm Hg 08/01/2024 2:45 PM HVAC MECHANIC [facility] PO2 POC 82(H) 28 - 40 mm Hg 08/01/2024 2:45 PM HVAC MECHANIC [facility] HCO3 (CALC) POC 24 22 - 29 mmol/L 08/01/2024 2:45 PM HVAC MECHANIC [facility] O2 SATURATION POC 98(H) 40 - 70 % 08/01/2024 2:45 PM HVAC MECHANIC [facility] BASE EXCESS POC 0 No Reference Range Established mmol/L 08/01/2024 2:45 PM HVAC MECHANIC [facility] HEMOGLOBIN POC 9.9(L) 11.8 - 14.8 g/dL 08/01/2024 2:45 PM HVAC MECHANIC [facility] HEMATOCRIT POC 30(L) 35 - 44 % 08/01/2024 2:45 PM HVAC MECHANIC [facility] Comment:Estimated Value GLUCOSE POC 94 74 - 99 mg/dL 08/01/2024 2:45 PM HVAC MECHANIC [facility] SODIUM POC 138 135 - 145 mmol/L 08/01/2024 2:45 PM HVAC MECHANIC [facility] POTASSIUM POC 3.7 3.5 - 4.9 mmol/L 08/01/2024 2:45 PM HVAC MECHANIC [facility] CHLORIDE POC 109(H) 98 - 107 mmol/L 2:45 PM HVAC MECHANIC [facility] CALCIUM IONIZED POC 5.0 4.8 - 5.2 mg/dL 08/01/2024 2:45 PM HVAC MECHANIC [facility] PH TEMP CORRECT 7.44(H) 7.32 - 7.43 08/01/2024 2:45 PM HVAC MECHANIC [facility] PCO2 TEMP CORRECT 35(L) 38 - 50 mm Hg 08/01/2024 2:45 PM HVAC MECHANIC [facility] PO2 TEMP CORRECT 82(H) 25 - 40 mm Hg 08/01/2024 2:45 PM HVAC MECHANIC [facility] SPECIMEN SOURCE, GASES POC Venous 08/01/2024 2:45 PM HVAC MECHANIC [facility] Blood, venous 08/01/2024 2:4 5 PM HVAC MECHANIC 08/01/2024 2:46 PM HVAC MECHANIC us Amberly Mandujano MD ABG ORDERABLES Final Resul t [facility] CLIA# [id number] [address] [place] [address] * EEG (08/01/2024 7:49 AM HVAC MECHANIC) Narrative Procedure Note Gualberto Duckworth MD - 08/01/2024 7:49 [place] [address] Patient Name: KAHDRA MATHEW CSN: [id number] : 1985 Provider: Gualberto Duckworth MD Electroencephalogram PROCEDURE DATE: 07/31/2024 Routine EEG. 39-year-old patient. Test performed on 07/31/2024. EEGpredominantly shows slow and mid-range theta activity, mildlydisorganized. There are episodes of eye movement artifacts symmetrically,episodes of muscle tension artifact. The record is moderate amplitude andsymmetrical. The record is nonfocal, nonlateralizing, nonparoxysmalwithout evidence of seizure burst or seizure activity or focus. IMPRESSION: EEG is mildly abnormal due to persistent slowing which may bedue to underlying encephalopathy, metabolic, toxic, or medication inducedwithout evidence of seizure focus nor seizure activity. Gualberto Duckworth MD medq D: [id number] V: [id number] CC us Gualberto Duckworth MD NEUROLOGY ORDERABLES Final Res ult * EEG (07/29/2024 7:49 AM HVAC MECHANIC) Narrative Procedure Note Gualberto Duckworth MD - 07/29/2024 7:49 [place] [address] Patient Name: KHADRA MATHEW CSN: [id number] : 1985 Provider: Gualberto Duckworth MD Electroencephalogram PROCEDURE DATE: 07/28/2024 Routine EEG, 39-year-old patient, history of seizures on multiplemedications, located in ICU with epileptiform activity. The EEG showssignificant episodes of muscle tension that can be seen, right body orleft body. At times, there is moderately formed theta rhythms seen, atother times there is paroxysmal slightly higher amplitude sharp thetaactivity seen persistently in the right hemisphere. Otherwise, I cannotlocalize and that will disappear, but she still has this persistent muscletension artifact which is seen on the right and left at times, describedby physics technician as frequent twitching, but she goes in and out of theparoxysmal generalized slow activity. Sharp features more on the rightthan left. 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 Gualberto Duckworth MD medq D: [id number] V: [id number] CC us Gualberto Duckworth MD NEUROLOGY ORDERABLES Final Res ult * EXTRA TUBE (URINE SCHMITZ) (07/29/2024 5:16 AM HVAC MECHANIC) Only the most recent of2 resultswithin the time period is included. Urine URINE SPECIMEN OBTAINED BY CLEAN CATCH PROCEDURE / Unknown Collection / Unknown 07/29/2024 5:16 AM HVAC MECHANIC 07/29/2024 5:30 AM HVAC MECHANIC Roderick Salazar MD URINE ORDERABLES Final Result [facility] CLIA# [id number] [place] [address] * (ABNORMAL) URINALYSIS WITH REFLEX MICROSCOPIC (07/29/2024 5:16 AM HVAC MECHANIC) Only the most recent of2 resultswithin the time period is included. COLOR UA Yellow Pale to Dark Yellow 07/29/2024 5:45 AM [facility] CLARITY UA Slightly Cloudy(A) Clear 07/29/2024 5:45 AM [facility] SPECIFIC GRAVITY UA 1.012 1.003 - 1.035 07/29/2024 5:45 AM HVAC MECHANIC [facility] PH UA 8.0 5.0 - 8.0 07/29/2024 5:45 AM HVAC MECHANIC [facility] LEUKOCYTE ESTERASE UA 3+(A) Negative 07/29/2024 5:45 AM [facility] NITRITE UA Positive(A) Negative 07/29/2024 5:45 AM [facility] PROTEIN UA 1+(A) Negative 07/29/2024 5:45 AM HVAC MECHANIC [facility] GLUCOSE UA Negative Negative 07/29/2024 5:45 AM HVAC MECHANIC [facility] KETONES UA Negative Negative 07/29/2024 5:45 AM HVAC MECHANIC [facility] UROBILINOGEN UA Normal <2.0 mg/dL 5:45 AM HVAC MECHANIC [facility] BILIRUBIN UA Negative Negative 07/29/2024 5:45 AM HVAC MECHANIC [facility] BLOOD UA 3+(A) Negative 07/29/2024 5:45 AM HVAC MECHANIC [facility] WBC UA 51-100(A) 0 - 2 /hpf 07/29/2024 5:45 AM HVAC MECHANIC [facility] RBC UA 3-5(A) 0 - 2 /hpf 07/29/2024 5:45 AM HVAC MECHANIC [facility] BACTERIA UA 1+(A) Negative /hpf 07/29/2024 5:45 AM HVAC MECHANIC [facility] EPITHELIAL CELLS, URINE 0-5 0 - 5 /hpf 07/29/2024 5:45 AM HVAC MECHANIC [facility] HYALINE CAST None Seen None Seen, 0-2 /lpf 07/29/2024 5:45 AM HVAC MECHANIC [facility] Urine URINE SPECIMEN OBTAINED BY CLEAN CATCH PROCEDURE / Unknown Collection / Unknown 07/29/2024 5:16 AM HVAC MECHANIC 07/29/2024 5:30 AM HVAC MECHANIC Roderick Salazar MD URINE ORDERABLES Final Result [facility] CLIA# [id number] [address] * URINE CULTURE (07/29/2024 5:16 AM HVAC MECHANIC) CULTURE Polymicrobial growth consistent with normal urethral purvi and/or colonizing bacteria CLARENCE MCG/ML 07/31/2024 11:19 AM HVAC MECHANIC [facility] Urine URINE SPECIMEN OBTAINED BY CLEAN CATCH PROCEDURE / Unknown Collection / Unknown 07/29/2024 5:16 AM HVAC MECHANIC 07/29/2024 5:30 AM HVAC MECHANIC Narrative [facility] - 07/31/2024 11:19 AM HVAC MECHANIC After further incubation, culture result has been updated to polymicrobial growth consistent with normal urethral purvi and/or colonizing bacteria. us Kvng Gonzales MD MICROBIOLOGY - GENERAL ORDERABLES Final Result [facility] CLIA# [id number] [address] [place] [address] * XR ABDOMEN FOR FEEDING TUBE 1 VW (07/28/2024 4:00 PM HVAC MECHANIC) Anatomical Region Laterality Modality Abdomen Computed Radiogr aphy 07/28/2024 4:01 PM HVAC MECHANIC Narrative 07/28/2024 4:07 PM HVAC MECHANIC Abdomen AP History: Feeding tube placement aftercare FINDINGS: Feeding tube ends in the mid stomach. DICTATION LOCATION: Location [address] [place] [address] Erlinda Rascon S[employer] BUFFER DIAGNOSTIC IMAGING ORDERABL ES Edited * LACTIC ACID (07/28/2024 8:52 AM HVAC MECHANIC) Only the most recent of2 resultswithin the time period is included. Pathologist [facility] LACTIC ACID 1.6 <=2.0 mmol/L 07/28/2024 9:25 AM HVAC MECHANIC [facility] Blood Venipuncture / Unknown 07/28/2024 8:52 AM HVAC MECHANIC 07/28/2024 8:58 AM HVAC MECHANIC Erlinda Rascon [employer] BUFFER CHEMISTRY ORDERABLES Final Result [facility]# [id number] [place] [address] * (ABNORMAL) CBC WITHOUT DIFFERENTIAL (07/28/2024 4:29 AM HVAC MECHANIC) WBC 7.0 4.0 - 9.8 K/uL 07/28/2024 5:32 AM HVAC MECHANIC [facility] RBC 3.61(L) 3.90 - 4.90 M/uL 07/28/2024 5:32 AM [facility] HEMOGLOBIN 10.9(L) 11.8 - 14.8 g/dL 07/28/2024 5:32 AM [facility] HEMATOCRIT 35.4(L) 35.5 - 44.0 % 07/28/2024 5:32 AM [facility] MCV 98.1 82.0 - 99.0 fL 07/28/2024 5:32 AM HVAC MECHANIC [facility] MCH 30.2 27.2 - 32.6 pg 07/28/2024 5:32 AM [facility] MCHC 30.8(L) 31.5 - 35.5 g/dL 07/28/2024 5:32 AM [facility] PLATELETS 117(L) 140 - 350 K/uL 07/28/2024 5:32 AM [facility] Comment:No clot in sample MPV 11.5 9.3 - 12.4 fL 07/28/2024 5:32 AM [facility] RDW 12.9 11.5 - 14.5 % 07/28/2024 5:32 AM [facility] RDW-STDEV 46.1 37.1 - 48.7 fL 07/28/2024 5:32 AM [facility] Blood Venipuncture / Unknown 07/28/2024 4:29 AM HVAC MECHANIC 07/28/2024 5:01 AM HVAC MECHANIC us Redd Can MD HEMATOLOGY ORDERABLES Final Resu lt [facility] CLIA# [id number] [address] [place] [address] * C. DIFFICILE DETECTION (07/27/2024 10:00 AM HVAC MECHANIC) Pathologist [facility] TOXIGENIC C DIFFICILE NOT DETECTED Not Detected 07/27/2024 11:10 AM HVAC MECHANIC [facility] Stool STOOL SPECIMEN / Unknown Collection / Unknown 07/27/2024 10:00 AM HVAC MECHANIC 07/27/2024 10:11 AM HVAC MECHANIC Narrative [facility] - 07/27/2024 11:10 AM HVAC MECHANIC Admitted 07/27/2024 This assay is used to detect Toxigenic C. difficile target(B gene) DNA sequences in unformed stool specimens. If toxigenic C. difficile is not detected, but clinical suspicion is high please consult ID for consultation and potential repeat testing. This test should not be used as a test of cure. us Heidi Thomas MD MICROBIOLOGY - GENER AL ORDERABLES Final Result [facility]# [id number] [address] [place] [address] * EKG 12-LEAD (07/27/2024 4:16 AM HVAC MECHANIC) 07/27/2024 4:16 AM HVAC MECHANIC Narrative INTERFACE SYSTEM - 07/27/2024 5:49 [place] [address] Test Date: 2024-07-27 Pat Name: KHADRA MATHEW Department: 98 Room: [address] [place] [address] Gender: Female Kennel Attendant: LIA ZENDEJASB: 1985 Requested By: HEIDI ABREU Order Number: [id number] Reading MD: Aide Berg Measurements Intervals [place] Rate: 83 P: 60 VT: 122 QRS: 51 QRSD: 74 T: 24 QT: 382 QTc: 448 Interpretive Statements Normal sinus rhythm Septal infarct, age undetermined Abnormal ECG No previous ECG available for comparison Electronically Signed On 07-27-2024 17:49:44 HVAC MECHANIC by Aide Berg Procedure Note Aide Berg MD - 07/27/2024 [place] [address] Test Date: 2024-07-27 Pat Name: KHADRA MATHEW Department: 98 Room: [address] [place] [address] Gender: Female Kennel Attendant: LIA : 1985 Requested By: HEIDI DELGADO Order Number: [id number] Reading JORGE Berg Measurements Intervals [place] Rate: 83 P: 60 VT: 122 QRS: 51 QRSD: 74 T: 24 QT: 382 QTc: 448 Interpretive Statements Normal sinus rhythm Septal infarct, age undetermined Abnormal ECG No previous ECG available for comparison Electronically Signed On 07-27-2024 17:49:44 HVAC MECHANIC by Aide Berg us Silas Ruth NP ECG ORDERABLES Final Result INTERFACE SYSTEM Refer to clinic/hospital department * TOPIRAMATE LEVEL (07/27/2024 4:10 AM HVAC MECHANIC) TOPIRAMATE LEVEL 1.4 mcg/mL 08/01/20 24 10:25 AM HVAC MECHANIC [facility] Comment: Unable to flag abnormal result(s), please refer to reference range(s) below: THERAPEUTIC RANGES FOR TOPIRAMATE: Daily Dose Peak Trough (mg) (mcg/mL) (mcg/mL) 100 6.5-9.2 4.5-6.6 200 12.0-16.0 8.0-12.0 400 20.0-30.0 14.0-20.0 This test was developed and its analytical performance characteristics have been determined by [employer] [place], [place]. It has not been cleared or approved by the U.S. Food and Drug Administration. This assay has been validated pursuant to the CLIA regulations and is used for clinical purposes. Blood Venipuncture / Unknown 07/27/2024 4:10 AM HVAC MECHANIC 07/27/2024 4:21 AM HVAC MECHANIC Narrative [facility] - 08/01/2024 10:25 AM HVAC MECHANIC Performing Organization Information: Site ID: [facility] Name: [employer] Address: [address] [place] [address] [place] [address] Director: Marcos Grimm M.D.,PhD us Heidi Thomas MD CHEMISTRY ORDERABLES Final Result [facility] [phone] * LEVETIRACETAM LEVEL (07/27/2024 4:10 AM HVAC MECHANIC) LEVETIRACETAM LEVEL 19.2 6.0 - 46.0 mcg/mL 08/01/2024 10:25 AM HVAC MECHANIC [facility] Comment: Brivaracetam (Briviact(R), Rikelta(R)) exhibits significant cross-reactivity in the Levetiracetam (Keppra(R), Spritam(R)) immunoassay. If Brivaracetam has been prescribed, order Test Code 90979 Levetiracetam by LCMSMS. Blood Venipuncture / Unknown 07/27/2024 4:10 AM HVAC MECHANIC 07/27/2024 4:21 AM HVAC MECHANIC Narrative [facility] - 08/01/2024 10:25 AM HVAC MECHANIC Performing Organization Information: Site ID: [place] Name: [employer] Address: [address] [place] [phone] Director: Thao Kaye MD Performing Organization Information: Site ID: [place] Name: [employer] Address: [address] [place] [phone] Director: Thao Kaye MD Heidi Thomas MD CHEMISTRY ORDERABLES Edited Result - Final [facility] [phone] * PHENYTOIN LEVEL, FREE (07/27/2024 4:10 AM HVAC MECHANIC) PHENYTOIN FREE 1.0 1.0 - 2.0 mg/L 08/01/2024 10:25 AM HVAC MECHANIC [facility] Blood Venipuncture / Unknown 07/27/2024 4:10 AM HVAC MECHANIC 07/27/2024 4:21 AM HVAC MECHANIC Narrative [facility] - 08/01/2024 10:25 AM HVAC MECHANIC Performing Organization Information: Site ID: [facility] Name: [employer] [place] Address: [address] [place] Director: Marcos Grimm M.D.,PhD Performing Organization Information: Site ID: [place] Name: [employer] Address: [address] [place] [address] [place] Director: Marcos Grimm M.D.,PhD us Heidi Thomas MD CHEMISTRY ORDERABLES Edited Result - Final [facility] [phone] * (ABNORMAL) TSH REFLEXIVE (07/27/2024 4:06 AM HVAC MECHANIC) TSH 4.38(H) 0.27 - 4.20 uIU/mL 07/27/2024 5:33 AM HVAC MECHANIC [facility] Blood Venipuncture / Unknown 07/27/2024 4:06 AM HVAC MECHANIC 07/27/2024 4:22 AM HVAC MECHANIC us Heidi Thomas MD CHEMISTRY ORDERABLES Final Result [facility]# [id number] [place] [address] * PROCALCITONIN (07/27/2024 4:06 AM HVAC MECHANIC) PROCALCITONIN <0.06 <2.01 ng/mL 07/27/2024 5:04 AM HVAC MECHANIC [facility] Blood Venipuncture / Unknown 07/27/2024 4:06 AM HVAC MECHANIC 07/27/2024 4:22 AM HVAC MECHANIC Narrative [facility] - 07/27/2024 5:04 AM HVAC MECHANIC The utility of procalcitonin is limited/NOT recommended in certain populations (e.g. newborns, dialysis/ESRD, patients with recent major surgery/trauma/[place], liver cirrhosis, viral hepatitis, certain cancers, etc.). Procalcitonin levels MUST be interpreted in the context of the patient's clinical condition and CANNOT be solely relied upon for diagnosis of infection. <0.25 ng/mL: Bacterial infection unlikely, particularly lower respiratory tract infections. <0.5 ng/mL: Low risk for progression to severe sepsis/septic shock. Localized infection possible. Measurements done early (<6 hours) after systemic process starts may still be low. 0.5-2 ng/mL: Moderate risk for progression to severe sepsis/septic shock. >2 ng/mL: High risk for progression to severe sepsis/septic shock. If antibiotics ARE administered, repeat testing is recommended every 2-3 days to help guide antibiotic cessation. Once a decrease of 80% or more has occurred from baseline, discontinuation of antibiotics should strongly be considered in clinically stable patients. Procalcitonin is produced in the setting of systemic inflammation, particularly bacterial infections. It is detectable within 2-4 hours and peaks within 6-24 hours. us Heidi Thomas MD CHEMISTRY ORDERABLES Final Result Performing Organization Address City/[facility]/ZIP Co de Phone Number [facility] [id number] [place] [address] * VITAMIN B12 AND FOLATE (07/27/2024 4:06 AM HVAC MECHANIC) [facility] VITAMIN B12 484 232 - 1,245 pg/mL 07/27/2024 5:33 AM HVAC MECHANIC [facility] FOLATE, SERUM >20.0 4.6 - 34.8 ng/mL 07/27/2024 5:33 AM HVAC MECHANIC [facility] LABORATORY [facility] Blood Venipuncture / Unknown 07/27/2024 4:06 AM HVAC MECHANIC 07/27/2024 4:21 AM HVAC MECHANIC us Heidi Thomas MD CHEMISTRY ORDERABLES Final Result Performing Organization Address City/[facility]/ZIP Co de Phone Number [facility] CLIA# [id number] [place] [address] * PROLACTIN (07/27/2024 4:06 AM HVAC MECHANIC) Pathologist [facility] PROLACTIN 17.7 3.0 - 18.6 ng/mL 07/27/2024 5:04 AM HVAC MECHANIC [facility] Blood Venipuncture / Unknown 07/27/2024 4:06 AM HVAC MECHANIC 07/27/2024 4:22 AM HVAC MECHANIC Silas Ruth NP CHEMISTRY ORDERABLES Final Re sult [facility]# [id number] [address] [place] [address] * PROTIME-INR (07/27/2024 4:06 AM HVAC MECHANIC) Pathologist [facility] PROTIME 14.1 11.5 - 14.7 Seconds 07/27/2024 4:51 AM HVAC MECHANIC [facility] INR 1.1 0.9 - 1.1 07/27/2024 4:51 AM HVAC MECHANIC [facility] Blood Venipuncture / Unknown 07/27/2024 4:06 AM HVAC MECHANIC 07/27/2024 4:21 AM HVAC MECHANIC Silas Ruth NP HEMATOLOGY ORDERABLES Final R esult Performing Organization Address City/[facility] Co de Phone Number [facility] CLIA# [id number] [place] [address] * C-REACTIVE PROTEIN (07/27/2024 4:06 AM HVAC MECHANIC) CRP 3.1 <5.0 mg/L 07/27/2024 5:04 AM HVAC MECHANIC [facility] Blood Venipuncture / Unknown 07/27/2024 4:06 AM HVAC MECHANIC 07/27/2024 4:22 AM HVAC MECHANIC Heidi Thomas MD CHEMISTRY ORDERABLES Final Result [facility] [id number] [place] [address] * (ABNORMAL) T4 FREE (07/27/2024 4:06 AM HVAC MECHANIC) Pathologist [facility] T4 FREE 0.74(L) 0.93 - 1.70 ng/dL 07/27/2024 7:43 AM [facility] Blood Venipuncture / Unknown 07/27/2024 4:06 AM HVAC MECHANIC 07/27/2024 4:22 AM HVAC MECHANIC Heidi Thomas MD CHEMISTRY ORDERABLES Final Result [facility]# [id number] [place] [address] * (ABNORMAL) COMPREHENSIVE METABOLIC PANEL (07/27/2024 4:06 AM HVAC MECHANIC) [facility] SODIUM 141 136 - 145 mmol/L 07/27/2024 5:04 AM [facility] POTASSIUM 3.4 3.4 - 5.1 mmol/L 07/27/2024 5:04 AM [facility] CHLORIDE 112(H) 98 - 107 mmol/L 07/27/2024 5:04 AM [facility] CO2 20(L) 22 - 29 mmol/L 07/27/2024 5:04 AM [facility] CALCIUM 8.2(L) 8.6 - 10.4 mg/dL 07/27/2024 5:04 AM [facility] BUN 20 6 - 20 mg/dL 07/27/2024 5:04 AM [facility] CREATININE 0.33(L) 0.51 - 0.95 mg/dL 07/27/2024 5:04 AM [facility] GLUCOSE 119(H) 74 - 99 mg/dL 07/27/2024 5:04 AM [facility] TOTAL PROTEIN 5.7(L) 6.3 - 8.7 g/dL 07/27/2024 5:04 AM [facility] ALBUMIN 3.5 3.5 - 5.2 g/dL 07/27/2024 5:04 AM [facility] BILIRUBIN TOTAL 0.3 0.3 - 1.2 mg/dL 07/27/2024 5:04 AM [facility] ALKALINE PHOSPHATASE 60 40 - 150 U/L 07/27/2024 5:04 AM [facility] AST 14 0 - 33 U/L 07/27/2024 5:04 AM [facility] ALT 9 0 - 33 U/L 07/27/2024 5:04 AM [facility] GFR >60 >=60 mL/min/1.7 3 sq meter 07/27/2024 5:04 AM [facility] Comment:eGFR calculated with 2020 CKD-EPI equation. Vegetarian diet, extremely high or low muscle mass, and may affect results. Cystatin C with Glomerular Filtration Rate is a suitable alternative for these patients. ANION GAP 9 8 - 16 mmol/L 07/27/2024 5:04 AM [facility] Blood Venipuncture / Unknown 07/27/2024 4:06 AM HVAC MECHANIC 07/27/2024 4:22 AM HVAC MECHANIC us Silas Ruth SILVERWARE BUFFER CHEMISTRY ORDERABLES Final Re sult [facility] CLIA# [id number] [place] [address] from Last 3 Months Insurance MEDICARE PART A AND B Advance Directives For more information, please contact: [phone] * Full Code (Latest Code Status on File) Date Activated Date Inactivated Comments 07/27/2024 2:52 AM 08/07/2024 7:57 PM * Default Full Code - Needs Discussion Date Activated Date Inactivated Comments 07/27/2024 2:16 AM 07/27/2024 2:52 AM
[2024-10-21 18:46] VITALS: O2SAT 96
--- NOTE | 2024-10-21 18:46 | ED.SEIZURE ---
HPI - Seizure General Chief Complaint: Seizure Stated Complaint: seizure Time Seen by Provider: 10/21/24 18:32 Source: patient, EMS and old records reviewed Mode of arrival: EMS Limitations: clinical condition History of Present Illness HPI Narrative: Patient is a 39 y/o female, with PMH of complex seizure disorder on multiple high dose epileptic medications, who presents to the ED via EMS with report of multiple seizures. Patient is a resident of [facility]. She has been seen in our ED several times for breakthrough seizures. She follows with neurology and epilepsy team at [facility]. Today at care home, patient was reported to have 6 seizures in a 45 minute time frame. Seizures were very brief, did not require abortive medications. She was reportedly alert and able to speak in between seizure episodes. Per EMS, patient had 2 more witnessed seizures in route to the ED. She was also noted to be alert and able to speak in between seizure episodes. Again did not require report of medications due to brief nature of seizures. Upon my evaluation, patient is able to follow some commands, speaks some words and answer some questions. She is alert. Denies any pain. Was noted to be febrile by EMS. Seizure History: Yes (Takes PO meds.) Related Data Home Medications ?Medication ?Instructions ?Recorded ?Confirmed ?Last Taken ?Type levetiracetam 1,000 mg tablet 2,000 mg PO BID 11/09/19 05/04/24 Unknown History oxcarbazepine 300 mg tablet 900 mg PO BID 11/09/19 05/04/24 Unknown History cenobamate 100 mg tablet (Xcopri) 100 mg PO DAILY 08/15/21 05/04/24 Unknown History phenytoin sodium extended 100 mg 100 mg PO BID 08/15/21 05/04/24 Unknown History capsule phenytoin sodium extended 30 mg 30 mg PO HS 08/15/21 05/04/24 Unknown History capsule (Dilantin) topiramate 50 mg tablet 75 mg PO BID 08/15/21 05/04/24 Unknown History acetaminophen 325 mg tablet 650 mg PO Q6H PRN Pain (Scale 05/04/24 05/04/24 Unknown History Score 1-3) divalproex 125 mg capsule,delayed 500 mg PO BID 05/04/24 05/04/24 Unknown History release sprinkle (Depakote Sprinkles) folic acid 1 mg tablet 1 mg PO DAILY 05/04/24 05/04/24 Unknown History pantoprazole 40 mg tablet,delayed 40 mg PO DAILY 05/04/24 05/04/24 Unknown History release potassium chloride 20 mEq/15 mL 20 meq PO DAILY 05/04/24 05/04/24 Unknown History oral liquid Allergies Allergy/AdvReac Type Severity Reaction Status Date / Time ceftriaxone Allergy Hives Verified 05/02/24 23:25 lacosamide AdvReac Unknown Dizziness Verified 05/04/24 08:24 Review of Systems Review of Systems: All systems reviewed & are unremarkable except as noted in HPI. All systems reviewed & are unremarkable except as noted in HPI and below PMFSH Past Medical History Medical History Deep venous thrombosis Seizure disorder Encephalitis Surgical History Surgical History History of local excision of skin lesion Benign lesion from left neck. History of wisdom tooth extraction Family History Family History Mother Family history of malignant neoplasm of breast in first degree relative Family history of malignant neoplasm of breast Father Family history of bipolar disorder Grandparent Carcinoma of colon Other Cerebrovascular accident Family history of hypercholesterolemia Family history of lupus erythematosus Social History Social History Social History: Surrogate decision maker: Ruthie Torres, mother. Code status: Full Code. Smoking packs per day: 1 Smoking cigarettes per day: 20.0 Years smoked: 15 Smoking pack-years: 15.00 Smoking status: Former smoker Second hand tobacco smoke exposure: No Alcohol intake: never Substance use: never Do You Feel Safe in your Home?: Yes Lack of Transportation: No Lack of Food: Never True Current Housing: I Have Housing Concerned About Future Housing: No Difficulty Paying Gas/Electric Bills: No Difficulty Paying for Meds: No Currently Unemployed: No Education: High School Diploma/GED Difficulty w/ Childcare or Family Care: No Additional living arrangements comments: [facility]. Spiritual care concerns: No Exam Narrative: GENERAL: Chronically ill appearing, somewhat thin, in no acute obvious distress, twitching of R arm and face. HEAD: Normocephalic, atraumatic. RESPIRATORY: Airway patent, respirations nonlabored. Clear to auscultation bilaterally, no rales, rhonchi, wheezing. CARDIOVASCULAR: Borderline tachycardic with regular rhythm. Peripheral pulses intact. ABDOMINAL: Soft, nondistended, no appreciable tenderness. Normoactive BS. MUSCULOSKELETAL: No gross deformities. Flaccid LUE/LLE. SKIN: Warm, dry, mildly flushed. NEURO: Alert, able to follow commands, answers some questions. Speech clear. Tracking movements with eyes. Repetitive twitching of the right arm and face. Flaccid LUE/LLE. Strong receiving barn custodian strength on R PSYCHIATRIC: Appropriate mood. Course Vital Signs Vital signs: Vital Signs Pulse Rate 105 H 10/21/24 18:39 Respiratory Rate 23 H 10/21/24 18:39 Blood Pressure 120/84 10/21/24 18:39 Pulse Oximetry 95 10/21/24 18:39 Temperature 99.0 F 10/21/24 19:27 Pulse Rate 94 10/22/24 00:18 Respiratory Rate 25 H 10/22/24 00:18 Blood Pressure 129/80 10/22/24 00:18 Pulse Oximetry 99 10/22/24 00:18 Oxygen Delivery Room Air 10/21/24 19:19 MDM - Seizure MDM Narrative Medical decision making narrative: Patient presented to ED with multiple seizures at care home. History of complex seizure disorder, on 9 different high dose seizure medications. Records were reviewed extensively. Vital signs were stable upon arrival. Patient was borderline tachycardic. Borderline febrile. Fluids and Tylenol initiated. She is in no acute distress. Stable respiratory status. She is alert and awake, able to answer some questions. She is able to follow my commands. Not speaking in full sentences. She does have some repetitive twitching of her right arm and face, which is chronic for her per care home records and previous records here. She does not appear to be having any active ongoing seizure-like activity. A thorough workup was obtained. Patient was loaded with Keppra. CT brain without acute findings. Chest x-ray is clear. Laboratory studies are fairly unremarkable. No leukocytosis or anemia. Kidney function is stable. Electrolytes are stable. Does appear slightly dry. Fluids are ongoing. Lactic acid within normal range at 1.5. Viral swabs negative. Urine obtained via straight catheterization at does appear infectious. 2+ leuk esterase, greater than 100 WBC, 1+ urine bacteria. Blood and urine cultures obtained. Previous urine cultures review, culture positive last April grew out E coli with several resistances. She has a ceftriaxone allergy. Discussed with pharmacy, low cross-reactivity with meropenem. Given dose of this. Aside from UTI, overall workup is nonrevealing. Patient has been monitored in the ED for several hours and has not had any recurrent seizure-like activity. Patient is completely back to her baseline. She is alert oriented x4, able to hold a conversation and is making jokes. Remains hemodynamically stable. Vital signs stable. No respiratory distress. Minimal tachycardia resolved. Discussed case with Dr. Araiza, Neurology @ [facility], advised this is fairly similar to patient's previous presentations. Feels reassured that she is back to her baseline and has not had any further activity in the ED. OK to discharge back to facility with antibiotics for UTI and continue home medications. Patient has a follow-up appointment with her neurologist in December. She will reach out to patient's neurologist to notify of ED visit and determine if she needs a sooner follow-up appointment. I do feel this is appropriate. Again patient has remained at her baseline. She has no complaints. She would like to go home. EMS transport being arranged. Will be discharged on bactrim for UTI, sensitive per previous cx result. Discussed strict return precautions on paperwork. Patient was given her nighttime/10 pm doses of home seizure medicines due to slight delay in EMS transfer back home. Medical Records Attestation: I reviewed the patient's medical records. Lab Data Attestation: I reviewed the patient's lab results. 10/21/24 20:42 10/21/24 20:42 Labs: Lab Results 10/21/24 10/21/24 10/21/24 Range/Units 20:13 20:23 20:42 WBC 7.7 (4.5-10.0) K/mm3 RBC 4.16 L (4.2-5.4) M/mm3 Hgb 12.4 (12.0-15.0) g/dL Hct 39.8 (37.0-47.0) % MCV 95.7 (80-100) fl MCH 29.8 (26-34) pg MCHC 31.2 L (32-36) g/dl RDW 13.2 (11.5-14.5) % Plt Count 306 D (150-375) k/mm3 MPV 9.9 (7.4-10.4) fl Immature Gran % (Auto) 0.4 (0-0.5) % Neut % (Auto) 59.3 (45.5-73.1) % Lymph % (Auto) 31.2 (18.3-44.2) % [place] % (Auto) 6.2 (2.6-8.5) % Eos % (Auto) 1.7 (0-4.4) % Baso % (Auto) 1.2 (0.2-1.2) % Lymph # (Auto) 2.40 (0.9-3.2) K/mm3 [place] # (Auto) 0.5 (0.1-0.6) K/mm3 Eos # (Auto) 0.1 (0-0.3) K/mm3 Baso # (Auto) 0.1 (0.0-0.1) K/mm3 Abs Immat Gran (auto) 0.03 (0.00-0.031) K/mm3 Absolute Neuts (auto) 4.6 (1.3-6.7) K/mm3 Absolute Nucleated RBC 0.000 (0.0-0.012) K/mm3 Nucleated RBC % 0.0 (0.0-0.2) % PT 14.1 (11.1-14.7) Seconds INR 1.1 APTT 27.7 (22.3-36.8) Seconds Sodium 148 H (137-145) mmol/L Potassium 3.6 (3.4-5.0) mmol/L Chloride 115 H (98-107) mmol/L Carbon Dioxide 23 (22-30) mmol/L Anion Gap 10 (4-12) mmol/L BUN 19 H (7-17) mg/dL Creatinine 0.33 L (0.7-1.0) mg/dL Estim Creat Clear Calc 153 ml/min Estimated GFR > 60 (59 - ) Glucose 109 (65-110) mg/dL Lactic Acid 1.5 (0.7-2.0) mmol/L Calcium 8.2 L (8.4-10.2) mg/dL Magnesium 2.1 (1.6-2.3) mg/dL Total Bilirubin 0.2 (0.2-1.3) mg/dL AST 16 (14-36) U/L ALT 13 (6-35) U/L Alkaline Phosphatase 84 (38-126) U/L Total Protein 7.0 (6.3-8.2) g/dL Albumin 3.6 (3.5-5.1) g/dL Urine Color Yellow (Yellow) Urine Appearance Cloudy H (Clear) Urine pH 5.5 (5.0-9.0) Ur Specific [place] 1.028 (1.001-1.035) Urine Protein 1+ H (Negative) mg/dL Urine Glucose (UA) Negative (Negative) mg/dL Urine Ketones Trace H (Negative) mg/dL Ur Blood (Man) Negative (Negative) Urine Nitrate Negative (Negative) Urine Bilirubin Negative (Negative) Urine Urobilinogen 1.0 (<2.0) mg/dL Add Ur Microanalysis Reviewed Leukocyte Esterase Rfl 2+ H (Negative) SHANTEL/UL Urine RBC 3-5 H (0-2) /hpf Urine WBC >100 H (0-3) /hpf Ur Squamous Epith Cells Moderate (Few) /hpf Urine Bacteria 1+ H /hpf Urine Casts 3-5 Influenza A (RT-PCR) Negative (Negative) Influenza B (RT-PCR) Negative (Negative) RSV (RT-PCR) Negative (Negative) SARS-CoV-2 RNA (RT-PCR) Negative (Negative) Imaging Data Attestation: I personally reviewed and interpreted this imaging study as follows: Radiologist's impression: ITS Impressions Chest X-Ray 10/21/24 19:03 IMPRESSION: No acute cardiopulmonary pathology. Head CT 10/21/24 19:20 IMPRESSION: No acute intracranial findings. Discharge Plan Discharge Clinical Impression: Breakthrough seizure Intractable epilepsy Qualifiers: Epilepsy type: unspecified Status epilepticus: without status epilepticus Qualified Code(s): G40.919 - Epilepsy, unspecified, intractable, without status epilepticus UTI (urinary tract infection) Qualifiers: Urinary tract infection type: acute cystitis Hematuria presence: with hematuria Qualified Code(s): N30.01 - Acute cystitis with hematuria Patient Disposition: NH Detention/Asst Living Condition: Stable Instructions: Antibiotic Form, Epilepsy (ED), Recurrent Seizures in Adults (ED) Additional Instructions: Take antibiotics as prescribed for urinary tract infection. Continue Tylenol as needed for fevers. Continue home seizure medications. Follow-up closely with patient's neurologist. Return to the ED for recurrent uncontrollable seizures, unable to keep down food or drink, confusion, or any other symptoms of concern. Patient Language: Japanese Prescriptions: New sulfamethoxazole-trimethoprim [Bactrim DS] 800-160 mg tablet 1 tablet PO Q12H 7 Days Qty: 14 0RF sulfamethoxazole-trimethoprim [Bactrim DS] 800-160 mg tablet 1 tablet PO Q12H 7 Days Qty: 14 0RF Discontinued sulfamethoxazole-trimethoprim 800-160 mg Tablet 1 tab PO Q12HR Qty: 7 0RF No Action levetiracetam 1,000 mg tablet 2,000 mg PO BID oxcarbazepine 300 mg tablet 900 mg PO BID acetaminophen 325 mg Tablet 650 mg PO Q6H PRN (Reason: Pain (Scale Score 1-3)) potassium chloride 20 mEq/15 mL Liquid 20 meq PO DAILY pantoprazole 40 mg tablet,delayed release (DR/EC) 40 mg PO DAILY folic acid 1 mg Tablet 1 mg PO DAILY divalproex [Depakote Sprinkles] 125 mg Capsule, Delayed Rel Sprinkle 500 mg PO BID hydrocodone-acetaminophen 5-325 mg Tablet 1 tablet PO Q12H Qty: 14 0RF clonazepam 1 mg tablet 3 mg PO BID Qty: 42 0RF phenytoin sodium extended 100 mg capsule 100 mg PO BID Dilantin 30 mg capsule 30 mg PO HS topiramate 50 mg tablet 75 mg PO BID Xcopri 100 mg tablet 100 mg PO DAILY Follow-up/Referrals: Luciano Gutiérrez MD [Primary Care Provider] - Time of Disposition: 22:16
[2024-10-21 19:19] VITALS: O2SAT 95
[2024-10-21 19:27] VITALS: BP 128/67; PULSE 101; RESP 16; TEMP 37.2; O2SAT 95
[2024-10-21] MEDS: levETIRAcetam 1500MG/NACL100ML 1,500 MG/100 ML BAG 400 MG IVPB (19:28)
[2024-10-21] MEDS: SODIUM CHLORIDE 0.9% IV 1,000 ML 999 ML IV CONT (19:28)
--- NOTE | 2024-10-21 19:57 | PC.NURSE ---
attempted to draw patients blood. due to patients chronic condition, unable to find a vein to draw blood. Marj HEMPHILL aware.
[2024-10-21] MEDS: ACETAMINOPHEN 500 MG TABLET 1000 MG PO (20:06)
[2024-10-21 20:27] LABS: Add Urine Microscopic? YES; Appearance Urine Cloudy (Clear); Bacteria Urine 1+ /hpf; Bilirubin Urine Negative (Negative); Blood Urine Negative (Negative); Color Urine Yellow (Yellow); Glucose Urine UA Negative (Negative); Ketones Urine Trace mg/dL (Negative); Leukocyte Esterase Ur 2+ LEU/UL (Negative); Need Manual Microscopic Reviewed; Nitrate Urine Negative (Negative); Protein Urine 1+ mg/dL (Negative); Specific Grav Ur 1.028 (1.001-1.035); Squamous Epithelial Cell Urine Moderate /hpf (Few); WBC Urine >100 /hpf (0-3); pH Urine 5.5 (5.0-9.0)
[2024-10-21 20:28] VITALS: BP 110/78; PULSE 100; RESP 20; O2SAT 96
--- NOTE | 2024-10-21 20:31 | PC.NURSE ---
phlebotomy at bedside at this time
[2024-10-21 20:51] LABS: Basophils Absolute Auto 0.1 K/mm3 (0.0-0.1); Basophils Percent Auto 1.2 % (0.2-1.2); Eosinophils Absolute Auto 0.1 K/mm3 (0-0.3); Eosinophils Percent Auto 1.7 % (0-4.4); Hematocrit 39.8 % (37.0-47.0); Hemoglobin 12.4 g/dL (12.0-15.0); Immature Granulocyte Absolute 0.03 K/mm3 (0.00-0.031); Immature Granulocyte Percent A 0.4 % (0-0.5); Lymphocytes Percent Auto 31.2 % (18.3-44.2); Mean Corpuscular HGB Conc 31.2 g/dl (32-36); Mean Corpuscular Hemoglobin 29.8 pg (26-34); Mean Corpuscular Volume 95.7 fl (80-100); Mean Platelet Volume 9.9 fl (7.4-10.4); Monocytes Absolute Auto 0.5 K/mm3 (0.1-0.6); Monocytes Percent Auto 6.2 % (2.6-8.5); Neutrophils Absolute Auto 4.6 K/mm3 (1.3-6.7); Neutrophils Percent Auto 59.3 % (45.5-73.1); Platelet Count Result 306 k/mm3 (150-375); Red Blood Count 4.16 M/mm3 (4.2-5.4); Red Cell Distribution Width 13.2 % (11.5-14.5); White Blood Count 7.7 K/mm3 (4.5-10.0)
[2024-10-21 21:00] LABS: Lactic Acid Reflex 1.5 mmol/L (0.7-2.0)
[2024-10-21 21:01] LABS: Alanine Aminotransferase 13 U/L (6-35); Albumin Level 3.6 g/dL (3.5-5.1); Alkaline Phosphatase 84 U/L (38-126); Anion Gap 10 mmol/L (4-12); Aspartate Amino Transferase 16 U/L (14-36); Bilirubin,Total 0.2 mg/dL (0.2-1.3); Blood Urea Nitrogen 19 mg/dL (7-17); Calcium 8.2 mg/dL (8.4-10.2); Carbon Dioxide 23 mmol/L (22-30); Chloride 115 mmol/L (98-107); Estimated CRCL calculation 153 ml/min; Estimated Glomerular Filt Rate > 60; Glucose 109 mg/dL (65-110); Magnesium 2.1 mg/dL (1.6-2.3); Potassium 3.6 mmol/L (3.4-5.0); Sodium 148 mmol/L (137-145)
[2024-10-21 21:04] LABS: Influenza A QL RT-PCR Negative (Negative); Influenza B QL RT-PCR Negative (Negative); RSV RNA, RT-PCR Negative (Negative); SARS-CoV-2 RNA PCR Negative (Negative)
[2024-10-21 21:05] LABS: INR 1.1; Prothrombin Time 14.1 Seconds (11.1-14.7)
[2024-10-21 21:06] LABS: Partial Thromboplastin Time 27.7 Seconds (22.3-36.8)
[2024-10-21] MEDS: MEROPENEM 1 GM/NS 100 ML 1 GM/100 ML BAG IVPB (21:11)
[2024-10-21] MEDS: clonazePAM (*CRX) 0.5 MG TABLET 3 MG PO (23:16)
[2024-10-21] MEDS: VALPROIC ACID LIQ 250 MG/5 ML ORAL SOLUTION UDC 1000 MG PO (23:17)
[2024-10-22] MEDS: OXcarbazepine 300 MG TABLET 900 MG PO (00:03)
[2024-10-22] MEDS: levETIRAcetam 500 MG TABLET 2000 MG PO (00:03)
[2024-10-22] MEDS: PHENYTOIN SODIUM 30 MG PO (00:04)
[2024-10-22] MEDS: TOPIRAMATE 25 MG TABLET 75 MG PO (00:04)
[2024-10-22 00:18] VITALS: BP 129/80; PULSE 94; RESP 25; O2SAT 99
== END 2024-10-22 00:25 ==
PROVIDERS: Emergency Provider Physician Assistant; PCP Hospitalist
DX: G40.919 Epilepsy, unspecified, intractable, without status epilepticus (principal); N30.01 Acute cystitis with hematuria; Z20.822 Contact with and (suspected) exposure to COVID-19; Z86.718 Personal history of other venous thrombosis and embolism; Z87.891 Personal history of nicotine dependence; Z79.899 Other long term (current) drug therapy
CPT/HCPCS: 36415; 70450; 71045; 80053; 81001; 83605; 83735; 85025; 85610; 85730; 87040; 87637; 96361; 96365; 96375; 99284; A9270; J1953; J2185; J7030

== ENCOUNTER 2025-01-28 11:22 | Emergency (ER) | payer MEDICARE, MEDICAID, SELFPAY ==
--- NOTE | ~2025-01-28 | XR_ITS ---
EXAMINATION: XR chest 1V portable 01/28/2025 12:08 INDICATION: Seizures PROCEDURE: AP portable chest COMPARISON: 05/20/2023 FINDINGS: The lungs are clear. The cardiomediastinal silhouette is within normal limits. There are no pleural effusions. There is no pneumothorax suspected. IMPRESSION: 1: NO ACUTE CARDIOPULMONARY DISEASE. Reviewed, dictated and finalized at location B.
--- NOTE | ~2025-01-28 | XR_ITS ---
XR foot LT 2V 01/28/2025 12:31 Indication: Left second toe pain Procedure: 4 views left foot Comparison: 11/26/2020 Findings: Osteopenia. Lisfranc joint intact. No fracture or traumatic malalignment. No soft tissue ab normality. No foreign bodies. Impression: 1: No acute fracture. Reviewed, dictated and finalized at location B. Impression: 1: No acute fracture.
--- NOTE | ~2025-01-28 | CT_ITS ---
EXAMINATION: CT brain wo con DATE: 01/28/2025 11:44 INDICATION: Recurrent seizures TECHNIQUE: Computed tomography (CT) of the head was performed without intravenous contrast. The dose- length product was 605.33 mGy-cm. Automated exposure control and iterative reconstruction technique w ere employed. COMPARISON: CT dated 10/21/2024 FINDINGS: Asymmetric atrophy right hemisphere. No ventriculomegaly. No acute hemorrhage, infarction, mass or mass effect. There is chronic mucosal thickening of the left maxillary sinus. There is midlin e shift to the right secondary to right-sided volume loss. Mastoids are pneumatized. No depressed sku ll fractures. IMPRESSION: 1. No acute intracranial abnormality. No significant interval change. Reviewed, dictated and finalized at location B.
[2025-01-28 11:19] VITALS: BP 113/77; PULSE 94; RESP 20; TEMP 37.3; O2SAT 93
[2025-01-28 11:25] VITALS: PULSE 95; RESP 21
--- NOTE | 2025-01-28 11:26 | ECG_ITS ---
Test Date: 2025-01-28 11:31:42 Measurements Intervals Coden Rate: 96 P: 49 NJ: 117 QRS: 38 QRSD: 78 T: -38 QT: 355 QTc: 449 Interpretive Statements SINUS RHYTHM WITH SHORT NJ INTERVAL WITH OCCASIONAL SUPRAVENTRICULAR PREMATURE COMPLEXES ST-T WAVE ABNORMALITY IN ANTEROLAT/INF LEADS- CONSIDER ISCHEMIA ABNORMAL ECG Compared to ECG 07/26/2024 18:21:41 HEART RATE HAS DECREASED Short NJ interval now present ST-T WAVE ABNORMALITY NOW PRESENT POSSIBLE ISCHEMIA NOW PRESENT Electronically Signed On 01-28-2025 13:38:26 CDT by Saleem Mckeon D.O.
[2025-01-28 11:28] VITALS: BP 113/77; PULSE 94; RESP 17; O2SAT 93; O2SAT 94
--- OUTSIDE RECORDS SUMMARY | 2025-01-28 11:29 | XMS_ITS | Continuity of Care Document ---
Author Organization [facility] Address [address] [place] [address] [place] [address] Phone Care Team Providers Care Senior Internal Auditor Name Role Phone Curt Hand MD Unavailable Unavailable Allergies, Adverse Reactions, Alerts Substance Reaction Status Criticality No Known Allergies Active No Inform ation Procedures Procedure Date PREV VISIT, NEW, AGE 18-39 Advance Directives Directive Yes / No Effective Date File Name No Information Encounters Encounter Description Practice Location Reason(s) For Visit Diagnoses Date Provider Providers Copied on Encounter PREV VISIT, NEW, AGE 18-39 [facility], [address] [place], [id number], [place] tel:[phone] [facility] Physical (chief complaint) Routine Medical ExamRoutine Medical Exam Yazan Elias. [address], [facility] [place], [id number], [place]. tel:[phone] Family History Family Member Type Diagnosis Age At Onset Father Problem (finding) Unknown Disease Brother Problem (finding) Alive and well Mother Problem (finding) Cancer -breast [place] 65 Payers Payer name Insurance type Covered constitution party ID Authoriza tion(s) No Information Social [...] Mental Status Date Cognitive Assessment Orientation - Otho ed to time, place, person, situation.
--- OUTSIDE RECORDS SUMMARY | 2025-01-28 11:29 | XMS_ITS | Clinical Summary ---
Author Organization [facility] Address [address] [place] [address] Phone Care Team Providers Care Pension Fund Manager Name Role Phone Unavailable Primary Care Provider [...] Encounters Date Type Department Care Team Description 01/10/2025 External Device Data STL ABSTRACTION Provider, Abstract 01/05/2025 External Device Data [facility] ABSTRACTION Provider, Abstract 01/04/2025 External Device Data [facility] ABSTRACTION Provider, Abstract 01/03/2025 External Device Data [facility] ABSTRACTION Provider, Abstract 12/20/2024 External Device Data [facility] ABSTRACTION Provider, Abstract 11/15/2024 External Device Data ST[facility] ABSTRACTION Provider, Abstract 11/08/2024 External Device Data ST[facility] ABSTRACTION Provider, Abstract 11/02/2024 External Device Data STL ABSTRACTION Provider, Abstract from Last 3 Months Social History Tobacco Use Types Packs/Day Years Used Date Smoking Tobacco: Never Tobacco Cessation:Counseling Given: Not Answered Feeling Safe Answer Date Recorded Are you in a relationship wi th someone who hurts you emotionally and/or physically? No 07/27/2024 Food Insecurity Answer Date Recorded Patient needs follow up regardin 12/08/2024 Transportation Needs Answer Date Record ed Patient needs follow up regardin 12/08/2024 Housing Stability Answer Date Recorded Social/Environmental Concerns No concerns Utility Needs Answer Date Recorded Patient needs follow up regardin 12/08/2024 Comments Unknown Sex and Gender Information Value Date Recorded Sex Assigned at Not on file Legal Sex Female 9:27 PM ASSEMBLER RADIO AND ELECTRICAL Gender Identity Not on file Sexual Orientation Not on file Last Filed Vital Signs Vital Sign Reading Time Taken Comments Blood Pressure 101/61 08/07/2024 9:19 AM ASSEMBLER RADIO AND ELECTRICAL Pulse 78 08/07/2024 4:40 AM ASSEMBLER RADIO AND ELECTRICAL Temperature 36.4 C (97.5 F) 08/07/2024 9:19 AM ASSEMBLER RADIO AND ELECTRICAL Respiratory Rate 16 08/07/2024 9:19 AM ASSEMBLER RADIO AND ELECTRICAL Oxygen Saturation 100% 08/07/2024 9:1 9 AM ASSEMBLER RADIO AND ELECTRICAL Inhaled Oxygen Concentration - - Weight 58.6 kg (129 lb 1.6 oz) 08/06/2024 5:00 AM ASSEMBLER RADIO AND ELECTRICAL Height 165.1 cm (5' 5) 07/27/2024 3:24 AM ASSEMBLER RADIO AND ELECTRICAL first height was stated by patient. Body Mass Index 21.48 07/27/2024 3:24 AM ASSEMBLER RADIO AND ELECTRICAL Plan of Treatment Health Maintenance Due Date Last Done Comments HEPATITIS B VACCINES (1 of 3 - 19+ 3-dose series) 2002 HPV/Cotest (21-29) 02/17/2004 CERVICAL CANCER SCREENING 2013 HPV/Cotest (30-65) 2013 PAP SMEAR 2013 BREAST CANCER SCREENING 2023 INFLUENZA VACCINE (#1) 2024 06/01/2019 COVID-19 Vaccine ( season) 2024 08/27/2021, 02/12/2021, 01/15/2021 DTAP/TDAP/TD VACCINES (2 - Td or Tdap) 08/17/2028 08/17/2018 HPV VACCINES Aged Out No longer eligi ble based on patient's age to complete [place] [address] MEDICARE PART A AND B Advance Directives For more information, please contact: [phone] * Full Code (Latest Code Status on File) Date Activated Date Inactivated Comments 07/27/2024 2:52 AM 08/07/2024 7:57 PM * Default Full Code - Needs Discussion Date Activated Date Inactivated Comments 07/27/2024 2:16 AM 07/27/2024 2:52 AM
--- OUTSIDE RECORDS SUMMARY | 2025-01-28 11:29 | XMS_ITS | Clinical Summary ---
Author Organization [facility] Address [address] [place] [address] Care Team Providers Care Placement Director Name Role Phone Rodney Hutchinson MD, Jorge Luis Gualberto [facility] + Margarette Maravilla MD Primary Care Provider [phone] Allergies No known active allergies Medications folic [...] on file Legal Sex Female 8:55 AM ELECTROPHYSIOLOGY TECHNICIAN Gender Identity Female 12/31/2018 9:37 AM CDT Sexual Orientation Straight 12/31/2018 9: 37 AM CDT Occupation Industry Job Start Date Job End Date Disability Not on file Not on file Not on file Obstetrics History Last Filed Vital Signs Vital Sign Reading Time Taken Comments Blood Pressure 96/73 08/21/2023 11:00 PM ELECTROPHYSIOLOGY TECHNICIAN Pulse 87 08/21/2023 11:00 PM ELECTROPHYSIOLOGY TECHNICIAN Temperature 37.1 C (98.8 F) 08/21/2023 1:17 PM ELECTROPHYSIOLOGY TECHNICIAN Respiratory Rate 16 08/21/2023 1:17 PM ELECTROPHYSIOLOGY TECHNICIAN Oxygen Saturation 98% 08/21/2023 11:00 PM ELECTROPHYSIOLOGY TECHNICIAN Inhaled Oxygen Concentration - - Weight 48.1 kg (106 lb) 08/21/2023 1:17 PM ELECTROPHYSIOLOGY TECHNICIAN Height 167.6 cm (5' 6) 08/21/2023 1:17 PM ELECTROPHYSIOLOGY TECHNICIAN Body Mass Index 17.11 08/21/2023 1:17 PM ELECTROPHYSIOLOGY TECHNICIAN Plan of Treatment Health Maintenance Due Date Last Done Comments Breast Cancer Screening-Mammogram 1983 Cervical Cancer Screening 1983 Depression Screening 1983 Hepatitis C Screening 1983 Varicella Vaccines (1 of 2 - 13+ 2-dose series) 02/17/1996 Hepatitis B Screening 2001 Regular Well Visit/Exam 18-64 2001 Covid-19 Vaccine (4 - 2023-2 5 season) 2024 08/27/2021, 02/12/2021, 01/15/2021 Influenza Vaccine (Season Ended) 2025 06/01/2019 DTaP/Tdap/Td Vaccine (2 - Td or Tdap) 08/17/2028 08/17/2018 HPV Vaccines Aged Out No longer eligi ble based on patient's age to complete this topic Pneumococcal vaccine <65 Aged Out No longer eligible based on patient's age to complete this topic Additional Health Concerns Infection Onset Date Last 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 08/21/2023 08/21/2023 Insurance [facility] MEDICARE [facility] Member Subscriber Plan / Payer (Ef fective 2018-Present) Name:Khadra Meadows Relation to Subscriber:Self Name:Khadra Meadows Payer ID:[id number] (NAIC) Type:MEDICARE RISK OTHER Address: [address] [place] MEDICARE Advance Directives For more information, please contact: [phone] Documents on File Type Date Recorded Patient Closet Organizer Expl anation ADVANCE DIRECTIVE 03/05/2021 9:39 AM [...] Comments 09/22/2020 12:56 PM 09/25/2020 9:00 PM Care Teams Placement Director Relationship Specialty Start Date End Date Margarette Maravilla MD [address] [facility] [place] [address] PCP - General Internal Medicine 11/23/24 Jorge Luis Stevens Jr., MD [address] [place] [address] Consulting Physician Neurology 02/07/20
--- OUTSIDE RECORDS SUMMARY | 2025-01-28 11:29 | XMS_ITS | Data Portability ---
Author Organization [facility] Address [address] [place] [id number] Assessment Encounter Date Assessment Date Assessment LastModified [...] SNOMED-CT Code Diagnosis ICD10 Code Diagnosis Note [id number] MD Danny Ellis 14 [address] [facility] [address] [place] [address] 04/05/2024 10:20:38 04/24/2024 14:27:30 Health Concerns Section Related Observation LastModified by Organization Detai ls LastModified Time None Recorded Concern Status LastModified by Organization Details LastModified Time None Recorded Advance Directives Directive None Recorded Payers Insurance Date Sequence Insurance Name Policy Number Policy Garcia Covered Member ID Garcia Member ID Guarantor Name 04/05/2024 2 [place]CON[place] WHEN MEDICARE OR MEDICARE REPLACEMENT PRIMARY) Khadra Meadows [id number] Khadra Meadows 03/21/2024 1 [place] Khadra Meadows [id number] Khadra Meadows 04/05/2024 1 [place] Khadra Meadows [id number] Khadra Meadows OBGyn Episode No OBEpisode recorded.
--- OUTSIDE RECORDS SUMMARY | 2025-01-28 11:29 | XMS_ITS | Referral Summary ---
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 Gender Identity Female 12/31/2018 9:37 AM CDT Sexual Orientation Straight 12/31/2018 9: 37 AM CDT Occupation Industry Job Start Date Job End Date Disability Not on file Not on file Not on file Last Filed Vital Signs Vital Sign Reading Time Taken Comments Blood Pressure 96/73 08/21/2023 11:00 PM VP STRATEGIC PLANNING Pulse 87 08/21/2023 11:00 PM VP STRATEGIC PLANNING Temperature 37.1 C (98.8 F) 08/21/2023 1:17 PM VP STRATEGIC PLANNING Respiratory Rate 16 08/21/2023 1:17 PM VP STRATEGIC PLANNING Oxygen Saturation 98% 08/21/2023 11:00 PM VP STRATEGIC PLANNING Inhaled Oxygen Concentration - - Weight 48.1 kg (106 lb) 08/21/2023 1:17 PM VP STRATEGIC PLANNING Height 167.6 cm (5' 6) 08/21/2023 1:17 PM VP STRATEGIC PLANNING Body Mass Index 17.11 08/21/2023 1:17 PM VP STRATEGIC PLANNING Plan of Treatment Not on file Additional Health Concerns Infection Onset Date Last 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 08/21/2023 08/21/2023 Insurance [facility] MEDICARE [facility] [place] [place] [address] [facility] [place] [address] [facility] Advance Directives For more information, please contact: [phone] Documents on File Type Date Recorded 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
--- OUTSIDE RECORDS SUMMARY | 2025-01-28 11:29 | XMS_ITS | Encounter Summary ---
Author Organization [facility] Address [address] [place] [address] Care Team Providers Care Engraver Hand Hard Metals Name Role Phone Rodney Hutchinson MD, Jorge Luis Burciaga Unavailable + Miguel Rabago DO Primary Care Provider [phone] Abdullahi Hammer MD Primary Care Provider Margarette Maravilla MD Primary Care Provider [phone] Encounter Details Date Type Department Care Team (Late st Contact Info) Description 05/02/2024 Hospital Encounter [facility] [address] [place] [address] Lemuel Mckinney MD PhD [address] [place] [address] Social History Tobacco Use Types Packs/Day Years [...] on file 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 Gender Identity Female 12/31/2018 9:37 AM CDT [...] documented as of this encounter Care Teams Engraver Hand Hard Metals Relationship Specialty Start Date End Date Miguel Rabago DO [address] [place] [address] PCP - General Internal Medicine 11/21/22 08/28/24 Abdullahi Hammer MD [address] [place] [address] PCP - General Internal Medicine 08/29/24 11/22/24 Margarette Maravilla MD [address] [facility] [place] [address] PCP - General Internal Medicine 11/23/24 Jorge Luis Stevens Jr., MD [address] [place] [address] Consulting Physician Neurology 02/07/20 documented as of this encounter
[2025-01-28 11:34] VITALS: O2SAT 93
--- NOTE | 2025-01-28 11:38 | ED_ITS ---
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 She presents to the emergency department after having multiple [id number] seizures at her [facility] facility without return to baseline. Nursing staff noted that she was actively seizing with inability to give her morning medications and EMS was called. EMS administered 5 mg of IV Valium in route she had multiple seizures in the ambulance ride over here without return to baseline. Seizures were described as focal seizure activity in the extremities with ocular deviation to the right and loss of consciousness. Patient normally is alert oriented x4 and contracted at baseline. No traumatic injuries reported by [facility] staff for EMS. Patient is somnolent but protecting airway at this time, not able to provide collateral information. EMR used for remaining collateral. Patient is well-known to this facility and has been seen numerous times for intractable epilepsy and [facility] such as her neurologist at [facility]. Seizure History: Yes (Takes PO meds.) Related Data Home Medications ?Medication ?Instructions ?Recorded ?Confirmed ?Last Taken ?Type levetiracetam 1,000 mg tablet 2,000 mg PO BID 11/09/19 05/04/24 Unknown History oxcarbazepine 300 mg tablet 900 mg PO BID 11/09/19 05/04/24 Unknown History cenobamate 100 mg tablet (Xcopri) 100 mg PO DAILY 08/15/21 05/04/24 Unknown History phenytoin sodium extended 100 mg 100 mg PO BID 08/15/21 05/04/24 Unknown History capsule phenytoin sodium extended 30 mg 30 mg PO HS 08/15/21 05/04/24 Unknown History capsule (Dilantin) topiramate 50 mg tablet 75 mg PO BID 08/15/21 05/04/24 Unknown History acetaminophen 325 mg tablet 650 mg PO Q6H PRN Pain (Scale 05/04/24 05/04/24 Unknown History Score 1-3) divalproex 125 mg capsule,delayed 500 mg PO BID 05/04/24 05/04/24 Unknown History release sprinkle (Depakote Sprinkles) folic acid 1 mg tablet 1 mg PO DAILY 05/04/24 05/04/24 Unknown History pantoprazole 40 mg tablet,delayed 40 mg PO DAILY 05/04/24 05/04/24 Unknown History release potassium chloride 20 mEq/15 mL 20 meq PO DAILY 05/04/24 05/04/24 Unknown History oral liquid Allergies Allergy/AdvReac Type Severity Reaction Status Date / Time ceftriaxone Allergy Hives Verified 05/02/24 23:25 lacosamide AdvReac Unknown Dizziness Verified 05/04/24 08:24 Review of Systems 2 Review of Systems: As [facility] Past Medical History Medical History Deep venous thrombosis Seizure disorder Encephalitis Surgical History Surgical History History of local excision of skin lesion Benign lesion from left neck. History of wisdom tooth extraction Family History Family History Mother Family history of malignant neoplasm of breast in first degree relative Family history of malignant neoplasm of breast Father Family history of bipolar disorder Grandparent Carcinoma of colon Other Cerebrovascular accident Family history of hypercholesterolemia Family history of lupus erythematosus Social History Social History Social History: Surrogate decision maker: Ruthie Torres, mother. Code status: Full Code. Smoking packs per day: 1 Smoking cigarettes per day: 20.0 Years smoked: 15 Smoking pack-years: 15.00 Smoking status: Former smoker Second hand tobacco smoke exposure: No Alcohol intake: never Substance use: never Do You Feel Safe in your Home?: Yes Lack of Transportation: No Lack of Food: Never True Current Housing: I Have Housing Concerned About Future Housing: No Difficulty Paying Gas/Electric Bills: No Difficulty Paying for Meds: No Currently Unemployed: No Education: High School Diploma/GED Difficulty w/ Childcare or Family Care: No Additional living arrangements comments: [facility]. Spiritual care concerns: No Exam 2 Narrative: GENERAL: Somnolent, not arousable to verbal or physical stimuli, protecting airway HEAD: [Normocephalic, atraumatic.] EYES: Pupils are 3 mm and reactive, not deviated ENT: Nares clear, no rhinorrhea or epistaxis. Mucous membranes moist. NECK: Supple. CHEST: [Clear to auscultation. No respiratory distress.] HEART: [Regular rate and rhythm]. No murmur heard. [Normal peripheral pulses.] ABDOMEN: [Soft, nondistended], [nontender], [No rigidity or guarding] EXTREMITIES: Contracted extremities SKIN: Warm, dry, no rash. NEURO: Not able to fully assess secondary to obtundation Course Vital Signs Vital signs: Vital Signs Temperature 37.3 C 01/28/25 11:19 Pulse Rate 94 01/28/25 11:19 Respiratory Rate 20 01/28/25 11:19 Blood Pressure 113/77 01/28/25 11:19 Pulse Oximetry 93 01/28/25 11:19 Oxygen Delivery Room Air 01/28/25 11:19 Temperature 37.3 C 01/28/25 11:19 Pulse Rate 94 01/28/25 11:28 Respiratory Rate 17 01/28/25 11:28 Blood Pressure 113/77 01/28/25 11:28 Pulse Oximetry 93 01/28/25 11:34 Oxygen Delivery Room Air 01/28/25 11:34 MDM - Seizure MDM Narrative Medical decision making narrative: 39-year-old female with history of intractable epilepsy in complex seizure disorders on 7 different antiepileptic medication as well as Xarelto for DVT. Patient presents after having multiple seizures today witnessed by nursing staff. Patient was not able to get her morning antiepileptic medications as she was actively seizing. EMS arrived and patient had multiple seizures [id number] without return to baseline so she was administered 5 mg of IV Valium in route with of her seizure activity. Patient is currently somnolent and not arousable, protecting her own airway and breathing spontaneously with normal vital signs which is reassuring. No signs of traumatic injury. She has chronic contractures. Patient is well-known to this facility. Altered mental status workup ordered this time including a CT of the head, EKG, chest x-ray, troponin, CBC, CMP, lactic acid, CPK. Suspect breakthrough seizures, potential infectious pathology, urinary tract infections as she is prone to them, less likely intracranial pathology such as new mass or brain bleed but she is on Xarelto making this high risk. Patient is currently protecting airway but given her status epilepticus with rebound seizures back to back and current mental status very low threshold for intubation and I discussed this with the mother was arrived at bedside and she is agreeable. Will reach out to [facility] once we have a better picture of her status and laboratories for possible transfer. After CT scan pictures were taken patient began becoming more awake and was seemingly post ictal. She is now interacting and verbalizing albeit slowly. She is expressing that she banged her foot on something during one of her seizures and she is having some toe pain. X-rays were taken of the left foot although on exam she has very minor abrasion to the dorsum of the left toe without any evidence of fracture or dislocation. Given her improvement in mental status and seizure activity seemingly controlled at this time will reach out to her neurologist for additional recommendations. Remaining workup shows no leukocytosis or anemia. Normal platelet count. Slight hypokalemia which is not new and patient was given IV potassium. Coagulation panel is normal. LFTs normal. Renal function normal. Glucose normal. CPK is negative. Lactic acid is negative. Troponins negative. TSH normal. Urinalysis without signs of infection. Negative test. CT scan shows no intracranial anomalies or interval change from prior. Chest x-ray without any acute cardiopulmonary disease. Foot x-ray with no fractures or dislocation. No foreign body. Spoke to the [facility] transfer system was connected to the neurologist at [facility] Dr. Solano who is familiar with patient's care. We went over patient's imaging studies, clinical exam, laboratory results and no etiologies that point towards why she had a breakthrough seizure today. He recommends increasing her Klonopin to 3.5 mg b.i.d. for 3 days enough for her to get bridged to a follow- up appoint with her neurologist team on Thursday. Patient re-evaluated and remains at baseline mental status at this time with normal vital signs and largely unremarkable workup. Neurologist did recommend ordering a viral panel which was ordered and sent out. Discussed the care with the patient's family members at bedside and they were comfortable with her going back to her facility with a follow-up appointment on Thursday. Patient remained hemodynamically stable without any breakthrough seizures during her multiple hour observation here in the emergency department and can be safely discharged back to facility within the regimen in mind. Medical Records Attestation: I reviewed the patient's medical records. Lab Data Attestation: I reviewed the patient's lab results. 01/28/25 11:54 01/28/25 11:54 Labs: Lab Results 01/28/25 01/28/25 01/28/25 Range/Units 11:26 11:54 12:01 WBC 7.5 (4.5-10.0) K/mm3 RBC 4.39 (4.2-5.4) M/mm3 Hgb 12.9 (12.0-15.0) g/dL Hct 41.0 (37.0-47.0) % MCV 93.4 (80-100) fl MCH 29.4 (26-34) pg MCHC 31.5 L (32-36) g/dl RDW 13.0 (11.5-14.5) % Plt Count 251 (150-375) k/mm3 MPV 10.0 (7.4-10.4) fl Immature Gran % (Auto) 0.5 (0-0.5) % Neut % (Auto) 73.3 H (45.5-73.1) % Lymph % (Auto) 18.3 (18.3-44.2) % Door % (Auto) 6.0 (2.6-8.5) % Eos % (Auto) 0.7 (0-4.4) % Baso % (Auto) 1.2 (0.2-1.2) % Lymph # (Auto) 1.38 (0.9-3.2) K/mm3 Door # (Auto) 0.5 (0.1-0.6) K/mm3 Eos # (Auto) 0.1 (0-0.3) K/mm3 Baso # (Auto) 0.1 (0.0-0.1) K/mm3 Abs Immat Gran (auto) 0.04 H (0.00-0.031) K/mm3 Absolute Neuts (auto) 5.5 (1.3-6.7) K/mm3 Absolute Nucleated RBC 0.000 (0.0-0.012) K/mm3 Nucleated RBC % 0.0 (0.0-0.2) % PT 13.4 (11.1-14.7) Seconds INR 1.0 APTT 25.2 (22.3-36.8) Seconds Sodium 145 (137-145) mmol/L Potassium 3.1 L (3.4-5.0) mmol/L Chloride 112 H (98-107) mmol/L Carbon Dioxide 23 (22-30) mmol/L Anion Gap 10 (4-12) mmol/L BUN 16 (7-17) mg/dL Creatinine 0.41 L (0.7-1.0) mg/dL Estim Creat Clear Calc 130 ml/min Estimated GFR > 60 (59 - ) Glucose 127 H (65-110) mg/dL Lactic Acid 2.0 (0.7-2.0) mmol/L Calcium 8.5 (8.4-10.2) mg/dL Total Bilirubin 0.3 (0.2-1.3) mg/dL AST 26 (14-36) U/L ALT 17 (6-35) U/L Alkaline Phosphatase 73 (38-126) U/L Total Creatine Kinase 29 L (30-135) U/L Troponin I < 0.012 (0.000-0.034) ng/mL Total Protein 7.3 (6.3-8.2) g/dL Albumin 4.0 (3.5-5.1) g/dL TSH (Reflex) 1.510 (0.465-4.68) uIU/mL Urine Color Yellow (Yellow) Urine Appearance Turbid H (Clear) Urine pH 7.5 (5.0-9.0) Ur Specific [place] 1.022 (1.001-1.035) Urine Protein Trace (Negative) mg/dL Urine Glucose (UA) Negative (Negative) mg/dL Urine Ketones Trace H (Negative) mg/dL Ur Blood (Man) Negative (Negative) Urine Nitrate Negative (Negative) Urine Bilirubin Negative (Negative) Urine Urobilinogen 1.0 (<2.0) mg/dL Leukocyte Esterase Rfl Negative (Negative) SHANTEL/UL Urine RBC 0-2 (0-2) /hpf Urine WBC 0-5 (0-3) /hpf Ur Squamous Epith Cells Occasional (Few) /hpf Amorphous Sediment Few H (None) Urine Bacteria None seen /hpf Urine Casts 0-2 POC Urine HCG, Qual Negative (Negative) Nasal RSV Type A (PCR) Nasal RSV Type B (PCR) Chlamy pneumoniae PCR Adenovirus DNA Human Bocavirus (GERALD) Coronavirus Type OC43 Coronavirus Type HKU1 Coronavirus Type 229E Coronavirus Type NL63 Human Metapneumovir PCR Influenza A (PCR) Influenza A (H1) RNA Influenza A (H3) PCR M. pneumoniae DNA Parainfluenza PCR Parainfluenza 2 (PCR) Parainfluenza 3 RNA (PCR) Parainfluenza 4 (PCR) Rhino/Enterovirus (GERALD) SARS-CoV-2 RNA (RT-PCR) Influenza Type B (PCR) Misc Test Comment 01/28/25 01/28/25 Range/Units 12:02 14:05 WBC (4.5-10.0) K/mm3 RBC (4.2-5.4) M/mm3 Hgb (12.0-15.0) g/dL Hct (37.0-47.0) % MCV (80-100) fl MCH (26-34) pg MCHC (32-36) g/dl RDW (11.5-14.5) % Plt Count (150-375) k/mm3 MPV (7.4-10.4) fl Immature Gran % (Auto) (0-0.5) % Neut % (Auto) (45.5-73.1) % Lymph % (Auto) (18.3-44.2) % Door % (Auto) (2.6-8.5) % Eos % (Auto) (0-4.4) % Baso % (Auto) (0.2-1.2) % Lymph # (Auto) (0.9-3.2) K/mm3 Door # (Auto) (0.1-0.6) K/mm3 Eos # (Auto) (0-0.3) K/mm3 Baso # (Auto) (0.0-0.1) K/mm3 Abs Immat Gran (auto) (0.00-0.031) K/mm3 Absolute Neuts (auto) (1.3-6.7) K/mm3 Absolute Nucleated RBC (0.0-0.012) K/mm3 Nucleated RBC % (0.0-0.2) % PT (11.1-14.7) Seconds INR APTT (22.3-36.8) Seconds Sodium (137-145) mmol/L Potassium (3.4-5.0) mmol/L Chloride (98-107) mmol/L Carbon Dioxide (22-30) mmol/L Anion Gap (4-12) mmol/L BUN (7-17) mg/dL Creatinine (0.7-1.0) mg/dL Estim Creat Clear Calc ml/min Estimated GFR (59 - ) Glucose (65-110) mg/dL Lactic Acid (0.7-2.0) mmol/L Calcium (8.4-10.2) mg/dL Total Bilirubin (0.2-1.3) mg/dL AST (14-36) U/L ALT (6-35) U/L Alkaline Phosphatase (38-126) U/L Total Creatine Kinase (30-135) U/L Troponin I (0.000-0.034) ng/mL Total Protein (6.3-8.2) g/dL Albumin (3.5-5.1) g/dL TSH (Reflex) (0.465-4.68) uIU/mL Urine Color (Yellow) Urine Appearance (Clear) Urine pH (5.0-9.0) Ur Specific [place] (1.001-1.035) Urine Protein (Negative) mg/dL Urine Glucose (UA) (Negative) mg/dL Urine Ketones (Negative) mg/dL Ur Blood (Man) (Negative) Urine Nitrate (Negative) Urine Bilirubin (Negative) Urine Urobilinogen (<2.0) mg/dL Leukocyte Esterase Rfl (Negative) SHANTEL/UL Urine RBC (0-2) /hpf Urine WBC (0-3) /hpf Ur Squamous Epith Cells (Few) /hpf Amorphous Sediment (None) Urine Bacteria /hpf Urine Casts POC Urine HCG, Qual Negative (Negative) Nasal RSV Type A (PCR) Pending Nasal RSV Type B (PCR) Pending Chlamy pneumoniae PCR Pending Adenovirus DNA Pending Human Bocavirus (GERALD) Pending Coronavirus Type OC43 Pending Coronavirus Type HKU1 Pending Coronavirus Type 229E Pending Coronavirus Type NL63 Pending Human Metapneumovir PCR Pending Influenza A (PCR) Pending Influenza A (H1) RNA Pending Influenza A (H3) PCR Pending M. pneumoniae DNA Pending Parainfluenza PCR Pending Parainfluenza 2 (PCR) Pending Parainfluenza 3 RNA (PCR) Pending Parainfluenza 4 (PCR) Pending Rhino/Enterovirus (GERALD) Pending SARS-CoV-2 RNA (RT-PCR) Pending Influenza Type B (PCR) Pending Misc Test Comment Pending ECG Data EKG #1: Attestation: I personally reviewed and interpreted this ECG as follows: ECG completion date: 01/28/25 ECG completion time: 11:31 Prior ECG tracings: available for review Interpretation: Diffuse ST segment depressions without any ST segment elevation. QTC 4 awake, QRS 78, rate of 96 beats per minute. NH interval 117. Sinus rhythm. No interval change compared to prior EKGs and the ST depressions are not new Discharge Plan Discharge Clinical Impression: Breakthrough seizure Intractable epilepsy Qualifiers: Epilepsy type: unspecified Status epilepticus: without status epilepticus Q ualified Code(s): G40.919 - Epilepsy, unspecified, intractable, without status epilepticus Patient Disposition: NH Care Home/Asst Living Condition: Stable Instructions: Antibiotic Form, Epilepsy (ED) Additional Instructions: We spoke to the neurologist team at [facility] and they recommended increasing the Klonopin dose to 3.5 mg twice daily for the next 3 days until follow-up appointment on Thursday at [facility]. Return with any new, worsening or further breakthrough seizures. Follow-up with the neurologist team on Thursday. Patient Language: Montenegrin Prescriptions: New clonazepam [Klonopin] 0.5 mg tablet 3.5 mg PO BID 3 Days Qty: 42 0RF No Action levetiracetam 1,000 mg tablet 2,000 mg PO BID oxcarbazepine 300 mg tablet 900 mg PO BID acetaminophen 325 mg Tablet 650 mg PO Q6H PRN (Reason: Pain (Scale Score 1-3)) potassium chloride 20 mEq/15 mL Liquid 20 meq PO DAILY pantoprazole 40 mg tablet,delayed release (DR/EC) 40 mg PO DAILY folic acid 1 mg Tablet 1 mg PO DAILY divalproex [Depakote Sprinkles] 125 mg Capsule, Delayed Rel Sprinkle 500 mg PO BID hydrocodone-acetaminophen 5-325 mg Tablet 1 tablet PO Q12H Qty: 14 0RF clonazepam 1 mg tablet 3 mg PO BID Qty: 42 0RF sulfamethoxazole-trimethoprim [Bactrim DS] 800-160 mg tablet 1 tablet PO Q12H 7 Days Qty: 14 0RF sulfamethoxazole-trimethoprim [Bactrim DS] 800-160 mg tablet 1 tablet PO Q12H 7 Days Qty: 14 0RF phenytoin sodium extended 100 mg capsule 100 mg PO BID Dilantin 30 mg capsule 30 mg PO HS topiramate 50 mg tablet 75 mg PO BID Xcopri 100 mg tablet 100 mg PO DAILY Follow-up/Referrals: Luciano Gutiérrez MD [Primary Care Provider] - Stand Alone Forms: Shelter Discharge Time of Disposition: 15:13
[2025-01-28 12:02] LABS: Basophils Absolute Auto 0.1 K/mm3 (0.0-0.1); Basophils Percent Auto 1.2 % (0.2-1.2); Eosinophils Absolute Auto 0.1 K/mm3 (0-0.3); Eosinophils Percent Auto 0.7 % (0-4.4); Hemoglobin 12.9 g/dL (12.0-15.0); Immature Granulocyte Absolute 0.04 K/mm3 (0.00-0.031); Immature Granulocyte Percent A 0.5 % (0-0.5); Lymphocytes Absolute Auto 1.38 K/mm3 (0.9-3.2); Lymphocytes Percent Auto 18.3 % (18.3-44.2); Mean Corpuscular HGB Conc 31.5 g/dl (32-36); Mean Corpuscular Hemoglobin 29.4 pg (26-34); Mean Corpuscular Volume 93.4 fl (80-100); Monocytes Absolute Auto 0.5 K/mm3 (0.1-0.6); Neutrophils Absolute Auto 5.5 K/mm3 (1.3-6.7); Neutrophils Percent Auto 73.3 % (45.5-73.1); Platelet Count Result 251 k/mm3 (150-375); Red Blood Count 4.39 M/mm3 (4.2-5.4); White Blood Count 7.5 K/mm3 (4.5-10.0)
[2025-01-28 12:04] LABS: BEDSIDEPREGUCG Negative (Negative)
[2025-01-28 12:07] LABS: BEDSIDEPREGUCG Negative (Negative)
[2025-01-28] MEDS: LACTATED RINGERS 1,000 ML 999 ML IV CONT (12:09)
[2025-01-28 12:12] LABS: Alanine Aminotransferase 17 U/L (6-35); Alkaline Phosphatase 73 U/L (38-126); Anion Gap 10 mmol/L (4-12); Aspartate Amino Transferase 26 U/L (14-36); Bilirubin,Total 0.3 mg/dL (0.2-1.3); Blood Urea Nitrogen 16 mg/dL (7-17); Calcium 8.5 mg/dL (8.4-10.2); Carbon Dioxide 23 mmol/L (22-30); Chloride 112 mmol/L (98-107); Creatine Kinase 29 U/L (30-135); Estimated CRCL calculation 130 ml/min; Estimated Glomerular Filt Rate > 60; Glucose 127 mg/dL (65-110); Potassium 3.1 mmol/L (3.4-5.0); Sodium 145 mmol/L (137-145); Total Protein 7.3 g/dL (6.3-8.2)
[2025-01-28 12:23] LABS: Partial Thromboplastin Time 25.2 Seconds (22.3-36.8); Prothrombin Time 13.4 Seconds (11.1-14.7)
[2025-01-28 12:24] LABS: Troponin I < 0.012 ng/mL (0.000-0.034)
[2025-01-28 12:31] LABS: Add Urine Microscopic? YES; Appearance Urine Turbid (Clear); Bacteria Urine None Seen /hpf; Bilirubin Urine Negative (Negative); Blood Urine Negative (Negative); Color Urine Yellow (Yellow); Glucose Urine UA Negative (Negative); Ketones Urine Trace mg/dL (Negative); Leukocyte Esterase Ur Negative LEU/UL (Negative); Nitrate Urine Negative (Negative); Non Pathogenic Casts 0-2; Protein Urine Trace mg/dL (Negative); RBC Urine 0-2 /hpf (0-2); Specific Grav Ur 1.022 (1.001-1.035); Squamous Epithelial Cell Urine Occasional /hpf (Few); WBC Urine 0-5 /hpf (0-3); pH Urine 7.5 (5.0-9.0)
[2025-01-28 12:34] LABS: Amorphous Sediment Urine Few
[2025-01-28] MEDS: KCL 20 MEQ/SW 100 ML 100 ML 50 MEQ IVPB (12:34)
--- NOTE | 2025-01-28 13:59 | PC.NURSE ---
spoke with Elsa in pharmacy about Klonopin not being accessible in the Pyxis. they will send the med in the tube station
[2025-01-28] MEDS: clonazePAM (*CRX) 0.5 MG TABLET 3.5 MG PO (14:14)
[2025-02-01 18:08] LABS: Adenovirus DNA Not Detected (Not Detected); Chlamydophila pneumoniae Not Detected (Not Detected); Coronavirus 229E Not Detected (Not Detected); Coronavirus HKU1 Not Detected (Not Detected); Coronavirus NL63 Not Detected (Not Detected); Coronavirus OC43 Not Detected (Not Detected); Human Metapneumovirus Not Detected (Not Detected); Human Parainfluenza Virus 1 Not Detected (Not Detected); Human Parainfluenza Virus 2 Not Detected (Not Detected); Human Parainfluenza Virus 3 Not Detected (Not Detected); Human Parainfluenza Virus 4 Not Detected (Not Detected); Human RSV B Not Detected (Not Detected); Influenza A Not Detected (Not Detected); Influenza B Not Detected (Not Detected); Mycoplasma pneumoniae Not Detected (Not Detected); Rhinovirus/Enterovirus Not Detected (Not Detected)
== END 2025-01-28 16:55 ==
PROVIDERS: Emergency Provider Student in an Organized Health Care Education/Training Program; PCP Hospitalist
DX: G40.919 Epilepsy, unspecified, intractable, without status epilepticus (principal); Z86.718 Personal history of other venous thrombosis and embolism; Z87.891 Personal history of nicotine dependence; Z79.01 Long term (current) use of anticoagulants; Z79.899 Other long term (current) drug therapy
CPT/HCPCS: 36415; 70450; 71045; 73620; 80053; 81001; 81025; 82550; 83605; 84443; 84484; 85025; 85610; 85730; 87633; 93005; 96361; 96365; 96366; 99284; A9270; J3480; J7120

== ENCOUNTER 2025-02-16 11:33 | Emergency (ER) | payer MEDICARE, MEDICAID, SELFPAY ==
[2025-02-16] VITALS (18 sets, daily range): BP systolic 119–166; BP diastolic 83–101; PULSE 112–145; RESP 13–39; TEMP 37.7–38.3; O2SAT 95–100
--- NOTE | ~2025-02-16 | CT_ITS ---
EXAMINATION: CT brain wo con DATE: 02/16/2025 13:03 INDICATION: Seizure on eliquis. TECHNIQUE: Computed tomography (CT) of the head was performed without intravenous contrast. Sagittal and coronal reconstructions were performed. Automated exposure control and iterative reconstruction t echnique were employed. The dose-length product was 605.33 mGy-cm. COMPARISON: head CT dated 01/28/2025 and brain MR dated 02/01/2014 FINDINGS: No fracture. Again seen is asymmetric mild left-sided and moderate right-sided diffuse cerebral volum e loss. This results in unchanged chronic mild [id number] midline shift. No acute intracranial hem orrhage, acute infarction or abnormal extra axial fluid collection. Ventricles are normal and symmetr ic. No mass/mass effect. Mild mucosal thickening in the left maxillary sinus which is nearly complete ly opacified. Mild mucosal thickening the left ethmoid sinus. The orbits and mastoid air cells are no rmal. IMPRESSION: 1. Stable appearance of chronic asymmetric mild left-sided and moderate right-sided diffuse cerebral volume loss. No acute intracranial process. 2. Prominent mucosal thickening with near complete opacification of the left maxillary sinus. Reviewed, dictated and finalized at location B. IMPRESSION: 1. Stable appearance of chronic asymmetric mild left-sided and moderate right-s ided diffuse cerebral volume loss. No acute intracranial process. 2. Prominent mucosal thickening with near complete opacification of the left ma xillary sinus.
--- NOTE | ~2025-02-16 | XR_ITS ---
EXAMINATION: XR chest 1V portable DATE: 02/16/2025 12:44 INDICATION: Seizure TECHNIQUE: frontal view of the chest was obtained. COMPARISON: Chest radiograph dated 01/28/2025 FINDINGS: The lungs are clear with no focal airspace opacities, pulmonary edema, pleural effusion or pneumothor ax. The cardiomediastinal silhouette is within normal limits conifer slight rightward rotation of the patient.. Visualized bones and soft tissues are unremarkable. IMPRESSION: 1. No acute cardiopulmonary disease. Reviewed, dictated and finalized at location B.
--- NOTE | 2025-02-16 11:37 | PC.NURSE ---
Pt. arrived to [facility] actively seizing. Oxygen 96% on RA. Dr. Edge immediately notified of pt. condition upon arrival to [facility] and to bedside to assess pt. Pt. parents also at bedside providing information about pt. health history.
--- NOTE | 2025-02-16 11:44 | ECG_ITS ---
Test Date: 2025-02-16 12:25:13 Measurements Intervals [place] Rate: 121 P: 55 NE: 138 QRS: 31 QRSD: 82 T: 56 QT: 338 QTc: 481 Interpretive Statements SINUS TACH[address] DEVIATION AND MODERATE T-WAVE ABNORMALITY, CONSIDER ANTEROLATERAL ISCHEMIA [-0.1+ mV T-WAVE IN V3-V6] Compared to ECG 01/28/2025 11:31:42 Sinus rhythm no longer present Short NE interval no longer present T-wave abnormality still present Possible ischemia still present Electronically Signed On 02-17-2025 12:40:37 CDT by Ethan Marie M.D.
--- OUTSIDE RECORDS SUMMARY | 2025-02-16 11:45 | XMS_ITS | Encounter Summary ---
Author Organization [facility] Healthcare Address [address] [place] [address] Care Team Providers Care Security Services Manager Name Role Phone Rodney Hutchinson MD, Jorge Luis [facility] + Miguel Rabago DO Primary Care Provider [phone]- [phone] Abdullahi Hammer MD Primary Care Provider Margarette Maravilla MD Primary Care Provider Encounter Details Date Type Department Care Team (Late st Contact Info) Description 05/02/2024 Hospital Encounter [facility] ADMIT [address] [place] [address] Lemuel Mckinney MD PhD [address] [place], [place] [id number] Social History Tobacco Use Types Packs/Day Years [...] on file 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 Gender Identity Female 12/31/2018 9:37 AM CDT [...] documented as of this encounter Care Teams Security Services Manager Relationship Specialty Start Date End Date Miguel Rabago DO [address] [place] [address] PCP - General Internal Medicine 11/21/22 08/28/24 Abdullahi Hammer MD [address] [place] [address] PCP - General Internal Medicine 08/29/24 11/22/24 Margarette Maravilla MD [address] [facility] [place] [address] PCP - General Internal Medicine 11/23/24 Jorge Luis Stevens Jr., MD [address] [place] [address] Consulting Physician Neurology 02/07/20 documented as of this encounter
--- OUTSIDE RECORDS SUMMARY | 2025-02-16 11:45 | XMS_ITS | Encounter Summary ---
Author Organization [facility] Address 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
--- OUTSIDE RECORDS SUMMARY | 2025-02-16 11:45 | XMS_ITS | Data Portability ---
Author [facility] Address [address] [place] [address] Assessment Encounter Date Assessment Date Assessment LastModified [...] SNOMED-CT Code Diagnosis ICD10 Code Diagnosis Note [id number] MD Brandon Ellis 14 IM [address] [facility] [address] [place] [address] 04/05/2024 10:20:38 04/24/2024 14:27:30 Health Concerns [...] MEDICARE OR MEDICARE REPLACEMENT PRIMARY) Khadra Meadows [id number] Khadra Meadows 03/21/2024 1 [place] Khadra Meadows [id number] Khadra Meadows 04/05/2024 1 [place] Khadra Meadows [id number] Khadra Meadows OBGyn Episode No OBEpisode recorded.
--- OUTSIDE RECORDS SUMMARY | 2025-02-16 11:45 | XMS_ITS | Clinical Summary ---
Author Organization [facility] Address [address] [place] [address] Phone Care Team Providers Care Logistics Technician Name Role Phone Unavailable Primary Care Provider [...] Encounters Date Type Department Care Team Description 02/14/2025 External Device Data [facility] ABSTRACTION Provider, Abstract 02/01/2025 External Device Data [facility] ABSTRACTION Provider, Abstract 01/31/2025 External Device Data [facility] ABSTRACTION Provider, Abstract 01/31/2025 External Device Data [facility] ABSTRACTION Provider, Abstract 01/10/2025 External Device Data [facility] ABSTRACTION Provider, [...] on file Legal Sex Female 9:27 PM RN VISITING Gender Identity Not on file Sexual Orientation Not on file Last Filed Vital Signs Vital Sign Reading Time Taken Comments Blood Pressure 101/61 08/07/2024 9:19 AM RN VISITING Pulse 78 08/07/2024 4:40 AM RN VISITING Temperature 36.4 C (97.5 F) 08/07/2024 9:19 AM RN VISITING Respiratory Rate 16 08/07/2024 9:19 AM RN VISITING Oxygen Saturation 100% 08/07/2024 9:1 9 AM RN VISITING Inhaled Oxygen Concentration - - Weight 58.6 kg (129 lb 1.6 oz) 08/06/2024 5:00 AM RN VISITING Height 165.1 cm (5' 5) 07/27/2024 3:24 AM RN VISITING first height was stated by patient. Body Mass Index 21.48 07/27/2024 3:24 AM RN VISITING Plan of Treatment Health Maintenance Due Date [...] patient's age to complete this topic Insurance MEDICARE PART A AND B Advance Directives For more information, please contact: [phone] * Full Code (Latest Code Status on File) Date Activated Date Inactivated Comments 07/27/2024 2:52 AM 08/07/2024 7:57 PM * Default Full Code - Needs Discussion Date Activated Date Inactivated Comments 07/27/2024 2:16 AM 07/27/2024 2:52 AM
--- OUTSIDE RECORDS SUMMARY | 2025-02-16 11:45 | XMS_ITS | Referral Summary ---
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 Gender Identity Female 12/31/2018 9:37 AM CDT Sexual Orientation Straight 12/31/2018 9: 37 AM CDT Occupation Industry Job Start Date Job End Date Disability Not on file Not on file Not on file Last Filed Vital Signs Vital Sign Reading Time Taken Comments Blood Pressure 96/73 08/21/2023 11:00 PM HOU[employer]Y TEAM MEM[employer]ERS Pulse 87 08/21/2023 11:00 PM HOURLY TEAM MEM[employer]ERS Temperature 37.1 C (98.8 F) 08/21/2023 1:17 PM [employer]Y TE[employer] MEM[employer]ERS Respiratory Rate 16 08/21/2023 1:17 PM HOURLY TEAM MEMBERS Oxygen Saturation 98% 08/21/2023 11:00 PM HOU[employer]Y TEAM MEM[employer]ERS Inhaled Oxygen Concentration - - Weight 48.1 kg (106 lb) 08/21/2023 1:17 PM HOURLY TEAM MEMBERS Height 167.6 cm (5' 6) 08/21/2023 1:17 PM HOURLY TEAM MEMBERS Body Mass Index 17.11 08/21/2023 1:17 PM HOURLY TEAM MEM[employer]ERS Plan of Treatment Not on file Additional Health Concerns Infection Onset Date Last 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 08/21/2023 08/21/2023 Insurance [facility] MEDICARE [facility] IDCT [facility] Member Subscriber Plan / Payer (Ef fective 2018-Present) Name:Khadra Meadows Relation to Subscriber:Self Name:Khadra Meadows Payer ID:[id number] (NAIC) Type:MEDICARE RISK OTHER Address: [address] [place] MEDICARE [facility] Address: [address] [address] [place] [address] Advance Directives For more information, please contact: [phone] Documents on File Type Date Recorded Patient Delivery Driver Assistant Expl anation ADVANCE DIRECTIVE 03/05/2021 9:39 AM [...] Communication Ruthie Torres Mother Health Care Agent [email or web address] Care Teams Research Psychologist Relationship Specialty Start Date End Date Margarette Maravilla MD [address] [facility], [place] [address] PCP - General Internal Medicine 11/23/24 Jorge Luis Stevens Jr., MD [address] [place] [address] Consulting Physician Neurology 02/07/20
--- OUTSIDE RECORDS SUMMARY | 2025-02-16 11:45 | XMS_ITS | Clinical Summary ---
Author Organization [facility] Address [address] [place] [address] Care Team Providers Care Allied Health Instructor Name Role Phone Unavailable Primary Care Provider [...] Active topiramate (TOPAMAX) 50 MG TabIndications:S eizure ([facility]) Take 1 tablet (50 mg total) by mouth 2 (two) times daily. 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 180 tablet 1 3 Active Cenobamate (XCOPRI) 100 MG TabIndications:S tatus epilepticus due to complex partial seizure ([facility]) Take 1 tablet by mouth daily. 30 tablet 2 3 Active clonazePAM (KLONOPIN) 1 MG tabletIndication s:Status epilepticus due to complex partial seizure ([facility]) Take 3 tablets (3 mg total) by mouth 2 (two) times daily. 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 ([facility]) 01/06/2022 Gastroesophageal reflux disease without esophagi tis 01/06/2022 Other encephalitis and encephalomyelitis ([facility]/ [facility]) 01/06/2022 Moderate malnutrition ([facility]) 10/08/2021 Sepsis ([facility]) 02/28/2021 Localization-related (focal) (partial) symptomatic epilepsy and epileptic syndromes with complex partial seizures, intractable, with status epilepticus ([facility]) 02/03/2020 On antiepileptic therapy 01/07/2019 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 ([facility]) 01/07/2019 Status epilepticus due to co mplex partial seizure ([facility]) 09/11/2018 Hallux abductovalgus, acquired, left 06/21/2015 Capsulitis 06/21/2015 Onychomycosis of toenail 06/13/2015 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 ([facility]) 06/15/2006 Immunizations Immunization Administration Dates Next Due Influenza Adult (Generic) [...] 47.2 kg (104 lb) 10/22/2022 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 Height 167.6 cm (5' 6) 09/06/2020 10:56 AM WAD BLANKING PRESS ADJUSTER Body Mass Index 16.79 09/06/2020 10:56 AM WAD BLANKING PRESS ADJUSTER Plan of Treatment Health Maintenance Due Date Last Done Comments Cervical Cancer Screening Pa p Smear (Age 30 to 64) Every 3 Years 1983 Annual Physical 1986 Hepatitis C 2001 Hepatitis B Vaccines (1 of 3 - 19+ 3-dose series) 2002 Cervical Cancer Screening Pa p with HPV Testing (Age 30 to 64) Every 5 Years 2013 Cervical Cancer Screening wi th HPV 2013 Mammogram Screening 2023 COVID-19 Vaccine (2023-2 5 season) 2024 08/27/2021, 02/12/2021, 01/15/2021 PHQ-2 (Physician Lime) 08/17/2024 DTaP, Tdap and Td Vaccines ( [...] 5 Years) and At-Risk Patients (6 to 49 Years) Aged Out No longer eligible b ased on patient's age to complete this topic RSV Immunizations Under 20 Months Aged Out No longer eligible b ased on patient's age to complete this topic Insurance [place] [address] [address] Advance Directives * Full Code (Latest Code Status on File) Date Activated Date Inactivated Comments 01/06/2022 2:49 PM
--- OUTSIDE RECORDS SUMMARY | 2025-02-16 11:45 | XMS_ITS | Clinical Summary ---
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 Gender Identity Female 12/31/2018 9:37 AM CDT Sexual Orientation Straight 12/31/2018 9: 37 AM CDT Occupation Industry Job Start Date Job End Date Disability Not on file Not on file Not on file Obstetrics History Last Filed Vital Signs Vital Sign Reading Time Taken Comments Blood Pressure 96/73 08/21/2023 11:00 PM MEDICAL LIBRARIAN Pulse 87 08/21/2023 11:00 PM MEDICAL LIBRARIAN Temperature 37.1 C (98.8 F) 08/21/2023 1:17 PM MEDICAL LIBRARIAN Respiratory Rate 16 08/21/2023 1:17 PM MEDICAL LIBRARIAN Oxygen Saturation 98% 08/21/2023 11:00 PM MEDICAL LIBRARIAN Inhaled Oxygen Concentration - - Weight 48.1 kg (106 lb) 08/21/2023 1:17 PM MEDICAL LIBRARIAN Height 167.6 cm (5' 6) 08/21/2023 1:17 PM MEDICAL LIBRARIAN Body Mass Index 17.11 08/21/2023 1:17 PM MEDICAL LIBRARIAN Plan of Treatment Health Maintenance Due Date [...] 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 08/21/2023 08/21/2023 Insurance [facility] [place] [address] MEDICARE [facility] Member Subscriber Plan / Payer ( fective 2018-Present) Name:Khadra Meadows Relation to Subscriber:Self Name:Khadra Meadows Payer ID:[id number] (NAIC) Type:MEDICARE RISK OTHER Address: [address] [place] [address] [facility] [place] [address] [facility] MEDICARE Advance Directives For more information, please contact: [phone] Documents on File Type Date Recorded Patient Executive Assistant To General Counsel Expl anation ADVANCE DIRECTIVE 03/05/2021 9:39 AM [...] Communication Ruthie Torres Mother Health Care Agent [email or web address] Care Teams Steward/Stewardess Relationship Specialty Start Date End Date Margarette Maravilla MD [address] [facility] [address] PCP - General Internal Medicine 11/23/24 Jorge Luis Stevens Jr., MD [address] [place] [address] Consulting Physician Neurology 02/07/20
--- OUTSIDE RECORDS SUMMARY | 2025-02-16 11:45 | XMS_ITS | Continuity of Care Document ---
Author Organization [facility] Address [address] [place] [address] Phone Care Team Providers Care Counter Intelligence Agent Name Role Phone Curt Hand MD Unavailable Unavailable Allergies, Adverse Reactions, Alerts Substance Reaction Status Criticality No Known Allergies Active No Inform ation Procedures Procedure Date PREV VISIT, NEW, AGE 18-39 Advance Directives Directive Yes / No Effective Date File Name No Information Encounters Encounter Description Practice Location Reason(s) For Visit Diagnoses Date Provider Providers Copied on Encounter PREV VISIT, NEW, AGE 18-39 [facility], [address] [facility] [place], [id number], [place] tel:[phone] [facility] Physical (chief complaint) Routine Medical ExamRoutine Medical Exam Yazan Elias. [address], [facility] [place], [id number], [place]. tel:[phone] Family History Family Member Type Diagnosis Age At Onset Father Problem (finding) Unknown Disease Brother Problem (finding) Alive and well Mother Problem (finding) Cancer -breast [place] 65 Payers Payer name Insurance type Covered libertarian ID Authoriza tion(s) No Information Social History [...] Mental Status Date Cognitive Assessment Orientation - [place] ed to time, place, person, situation.
[2025-02-16] MEDS: ACETAMINOPHEN 650 MG SUPPOSITORY RECTAL ×2 (11:51→19:06)
[2025-02-16] MEDS: LORazepam INJ (*CRX) 2 MG/ML VIAL 1 MG IV PUSH ×2 (11:52→12:33)
[2025-02-16] MEDS: SODIUM CHLORIDE 0.9% IV 1,000 ML 999 ML IV CONT ×2 (11:52→12:34)
[2025-02-16] MEDS: levETIRAcetam 500MG/NACL 100ML 500 MG/100 ML BAG 400 MG IVPB (11:59)
--- NOTE | 2025-02-16 12:28 | PC.NURSE ---
Pt continues to have seizures with tremors, resp status intact, oxygen applied, pt repositioned, MD made aware.
[2025-02-16 12:34] LABS: Hematocrit 42.2 % (37.0-47.0); Hemoglobin 13.2 g/dL (12.0-15.0); Immature Granulocyte Percent A 0.2 % (0-0.5); Lymphocytes Absolute Auto 1.09 K/mm3 (0.9-3.2); Mean Corpuscular HGB Conc 31.3 g/dl (32-36); Mean Corpuscular Hemoglobin 29.0 pg (26-34); Mean Corpuscular Volume 92.7 fl (80-100); Nucleated Red Blood Cells Absolute Auto 0.000 K/mm3 (0.0-0.012); Nucleated Red Blood Cells Perc 0.0 % (0.0-0.2); Platelet Count Result 275 k/mm3 (150-375); Red Blood Count 4.55 M/mm3 (4.2-5.4); White Blood Count 8.1 K/mm3 (4.5-10.0)
[2025-02-16 12:46] LABS: Alanine Aminotransferase 20 U/L (6-35); Albumin Level 4.4 g/dL (3.5-5.1); Alkaline Phosphatase 73 U/L (38-126); Anion Gap 12 mmol/L (4-12); Aspartate Amino Transferase 29 U/L (14-36); Bilirubin,Total 0.5 mg/dL (0.2-1.3); Blood Urea Nitrogen 20 mg/dL (7-17); Calcium 9.1 mg/dL (8.4-10.2); Carbon Dioxide 20 mmol/L (22-30); Chloride 111 mmol/L (98-107); Estimated CRCL calculation 142 ml/min; Estimated Glomerular Filt Rate > 60; Glucose 86 mg/dL (65-110); Lipase 120 U/L (23-300); Magnesium 2.4 mg/dL (1.6-2.3); Potassium 3.5 mmol/L (3.4-5.0); Sodium 143 mmol/L (137-145); Total Protein 8.1 g/dL (6.3-8.2)
[2025-02-16 12:47] LABS: INR 1.0; Prothrombin Time 13.5 Seconds (11.1-14.7)
[2025-02-16 12:48] LABS: Partial Thromboplastin Time 27.3 Seconds (22.3-36.8)
[2025-02-16 12:58] LABS: Troponin I 0.018 ng/mL (0.000-0.034)
[2025-02-16 13:01] LABS: Add Urine Microscopic? YES; Appearance Urine Cloudy (Clear); Glucose Urine UA Negative (Negative); Leukocyte Esterase Ur 1+ LEU/UL (Negative); Need Manual Microscopic Reviewed; Nitrate Urine Positive (Negative); Non Pathogenic Casts 0-2; Specific Grav Ur 1.035 (1.001-1.035)
[2025-02-16 13:03] LABS: Procalcitonin 0.0 ng/mL
--- NOTE | 2025-02-16 13:03 | ED.GENADULT ---
HPI - General Adult General Chief complaint: Seizure Stated complaint: seizure Time Seen by Provider: 02/16/25 11:36 History of Present Illness HPI narrative: The patient 40-year-old female who presents emergency department with chief complaint of seizures patient has prior history of a very complicated seizure disorder and is on multiple anti epileptic medications patient is followed at [facility] reports that she had multiple seizures at the facility where she is resident of and then continued to have multiple seizures by EMS prior to arrival the patient in the ER as continued to have intermittent seizures but has had where she regains consciousness between the episodes. Related Data Home Medications ?Medication ?Instructions ?Recorded ?Confirmed ?Last Taken ?Type levetiracetam 1,000 mg tablet 2,000 mg PO BID 11/09/19 05/04/24 Unknown History oxcarbazepine 300 mg tablet 900 mg PO BID 11/09/19 05/04/24 Unknown History cenobamate 100 mg tablet (Xcopri) 100 mg PO DAILY 08/15/21 05/04/24 Unknown History phenytoin sodium extended 100 mg 100 mg PO BID 08/15/21 05/04/24 Unknown History capsule phenytoin sodium extended 30 mg 30 mg PO HS 08/15/21 05/04/24 Unknown History capsule (Dilantin) topiramate 50 mg tablet 75 mg PO BID 08/15/21 05/04/24 Unknown History acetaminophen 325 mg tablet 650 mg PO Q6H PRN Pain (Scale 05/04/24 05/04/24 Unknown History Score 1-3) divalproex 125 mg capsule,delayed 500 mg PO BID 05/04/24 05/04/24 Unknown History release sprinkle (Depakote Sprinkles) folic acid 1 mg tablet 1 mg PO DAILY 05/04/24 05/04/24 Unknown History pantoprazole 40 mg tablet,delayed 40 mg PO DAILY 05/04/24 05/04/24 Unknown History release potassium chloride 20 mEq/15 mL 20 meq PO DAILY 05/04/24 05/04/24 Unknown History oral liquid Allergies Allergy/AdvReac Type Severity Reaction Status Date / Time ceftriaxone Allergy Hives Verified 05/02/24 23:25 lacosamide AdvReac Unknown Dizziness Verified 05/04/24 08:24 Review of Systems Review of Systems: A 10 system review of systems was completed on the patient and is negative except for what is stated in the HPI. Nursing and ancillary documentation was reviewed. [facility] Past Medical History Medical History Deep venous thrombosis Seizure disorder Encephalitis Surgical History Surgical History History of local excision of skin lesion Benign lesion from left neck. History of wisdom tooth extraction Family History Family History Mother Family history of malignant neoplasm of breast in first degree relative Family history of malignant neoplasm of breast Father Family history of bipolar disorder Grandparent Carcinoma of colon Other Cerebrovascular accident Family history of hypercholesterolemia Family history of lupus erythematosus Social History Social History Social History: Surrogate decision maker: Ruthie Torres, mother. Code status: Full Code. Smoking packs per day: 1 Smoking cigarettes per day: 20.0 Years smoked: 15 Smoking pack-years: 15.00 Smoking status: Former smoker Second hand tobacco smoke exposure: No Alcohol intake: never Substance use: never Do You Feel Safe in your Home?: Yes Lack of Transportation: No Lack of Food: Never True Current Housing: I Have Housing Concerned About Future Housing: No Difficulty Paying Gas/Electric Bills: No Difficulty Paying for Meds: No Currently Unemployed: No Education: High School Diploma/GED Difficulty w/ Childcare or Family Care: No Additional living arrangements comments: [facility] Spiritual care concerns: No Exam Narrative: GENERAL: Ill-appearing, well-nourished, and in no acute distress. Intermittently having seizure activity HEAD: Normocephalic, atraumatic. EYES: PERRLA and EOMI. ENT: Nares clear, no rhinorrhea or epistaxis. Mucous membranes moist. NECK: Supple. CHEST: Clear to auscultation. No respiratory distress. HEART: Tachycardic rate and regular rhythm. No murmur heard. Normal peripheral pulses. ABDOMEN: Soft, nontender, nondistended, normal active bowel sounds. EXTREMITIES: Normal range of motion. No edema. SKIN: Warm, dry, no rash. NEURO: No focal deficits. Intermittently having focal seizures. PSYCH: Normal mood and affect. Course Vital Signs Vital signs: Vital Signs Temperature 38.3 C H 02/16/25 11:32 Pulse Rate 132 H 02/16/25 11:32 Respiratory Rate 14 02/16/25 11:32 Blood Pressure 161/83 H 02/16/25 11:32 Pulse Oximetry 95 02/16/25 11:32 Oxygen Delivery Room Air 02/16/25 11:32 Temperature 37.8 C H 02/16/25 16:55 Pulse Rate 114 H 02/16/25 16:55 Respiratory Rate 15 02/16/25 16:55 Blood Pressure 126/101 H 02/16/25 16:55 Pulse Oximetry 98 02/16/25 16:55 Oxygen Delivery Nasal Cannula 02/16/25 12:27 Oxygen Flow Rate 2 02/16/25 12:27 Medical Decision Making MDM Narrative Medical decision making narrative: Patient has a complicated history of seizures the patient was given benzodiazepines in route by EMS and given Ativan sublingual by the nursing staff at the facility where she is resident of the patient is contusion have intermittent seizures she was given IV Ativan in the emergency department as well as given a 500 mg Keppra load in the ER the patient did have a temperature of 38? she also has a urinary tract infection Vital Signs Vital Signs: Vital Signs Temperature 38.3 C H 02/16/25 11:32 Pulse Rate 132 H 02/16/25 11:32 Respiratory Rate 14 02/16/25 11:32 Blood Pressure 161/83 H 02/16/25 11:32 Pulse Oximetry 95 02/16/25 11:32 Oxygen Delivery Room Air 02/16/25 11:32 Temperature 37.8 C H 02/16/25 16:55 Pulse Rate 114 H 02/16/25 16:55 Respiratory Rate 15 02/16/25 16:55 Blood Pressure 126/101 H 02/16/25 16:55 Pulse Oximetry 98 02/16/25 16:55 Oxygen Delivery Nasal Cannula 02/16/25 12:27 Oxygen Flow Rate 2 02/16/25 12:27 Lab Data 02/16/25 12:25 02/16/25 12:25 Labs: Lab Results 02/16/25 02/16/25 02/16/25 Range/Units 11:41 12:25 15:55 WBC 8.1 (4.5-10.0) K/mm3 RBC 4.55 (4.2-5.4) M/mm3 Hgb 13.2 (12.0-15.0) g/dL Hct 42.2 (37.0-47.0) % MCV 92.7 (80-100) fl MCH 29.0 (26-34) pg MCHC 31.3 L (32-36) g/dl RDW 12.7 (11.5-14.5) % Plt Count 275 (150-375) k/mm3 MPV 10.1 (7.4-10.4) fl Immature Gran % (Auto) 0.2 (0-0.5) % Neut % (Auto) 81.2 H (45.5-73.1) % Lymph % (Auto) 13.4 L (18.3-44.2) % [place] % (Auto) 4.6 (2.6-8.5) % Eos % (Auto) 0.0 (0-4.4) % Baso % (Auto) 0.6 (0.2-1.2) % Lymph # (Auto) 1.09 (0.9-3.2) K/mm3 [place] # (Auto) 0.4 (0.1-0.6) K/mm3 Eos # (Auto) 0.0 (0-0.3) K/mm3 Baso # (Auto) 0.1 (0.0-0.1) K/mm3 Abs Immat Gran (auto) 0.02 (0.00-0.031) K/mm3 Absolute Neuts (auto) 6.6 (1.3-6.7) K/mm3 Absolute Nucleated RBC 0.000 (0.0-0.012) K/mm3 Nucleated RBC % 0.0 (0.0-0.2) % PT 13.5 (11.1-14.7) Seconds INR 1.0 APTT 27.3 (22.3-36.8) Seconds Sodium 143 (137-145) mmol/L Potassium 3.5 (3.4-5.0) mmol/L Chloride 111 H (98-107) mmol/L Carbon Dioxide 20 L (22-30) mmol/L Anion Gap 12 (4-12) mmol/L BUN 20 H (7-17) mg/dL Creatinine 0.34 L (0.7-1.0) mg/dL Estim Creat Clear Calc 142 ml/min Estimated GFR > 60 (59 - ) Glucose 86 (65-110) mg/dL POC Capillary Glucose 94 (65-105) mg/dl Lactic Acid 2.3 H 0.8 (0.7-2.0) mmol/L Calcium 9.1 (8.4-10.2) mg/dL Magnesium 2.4 H (1.6-2.3) mg/dL Total Bilirubin 0.5 (0.2-1.3) mg/dL AST 29 (14-36) U/L ALT 20 (6-35) U/L Alkaline Phosphatase 73 (38-126) U/L Troponin I 0.018 (0.000-0.034) ng/mL Total Protein 8.1 (6.3-8.2) g/dL Albumin 4.4 (3.5-5.1) g/dL Lipase 120 (23-300) U/L Procalcitonin 0.0 ng/mL Urine Color Dark yellow (Yellow) Urine Appearance Cloudy H (Clear) Urine pH 6.0 (5.0-9.0) Ur Specific [place] 1.035 (1.001-1.035) Urine Protein 2+ H (Negative) mg/dL Urine Glucose (UA) Negative (Negative) mg/dL Urine Ketones Trace H (Negative) mg/dL Ur Blood (Man) Trace (Negative) Urine Nitrate Positive H (Negative) Urine Bilirubin 1+ H (Negative) Urine Urobilinogen 1.0 (<2.0) mg/dL Add Ur Microanalysis Reviewed Leukocyte Esterase Rfl 1+ H (Negative) SHANTEL/UL Urine RBC 6-10 H (0-2) /hpf Urine WBC 21-50 H (0-3) /hpf Ur Squamous Epith Cells Few (Few) /hpf Urine Bacteria 1+ H /hpf Urine Casts 0-2 Influenza A (RT-PCR) Negative (Negative) Influenza B (RT-PCR) Negative (Negative) RSV (RT-PCR) Negative (Negative) SARS-CoV-2 RNA (RT-PCR) Negative (Negative) Critical Care Time Critical Care Time Critical Care Time: Yes Total Critical Care Time: 75 Discharge Plan Discharge Clinical Impression: Breakthrough seizure, UTI (urinary tract infection) Patient Disposition: Acute Care Hospital Condition: Stable Patient Language: Tristanian Prescriptions: No Action levetiracetam 1,000 mg tablet 2,000 mg PO BID oxcarbazepine 300 mg tablet 900 mg PO BID acetaminophen 325 mg Tablet 650 mg PO Q6H PRN (Reason: Pain (Scale Score 1-3)) potassium chloride 20 mEq/15 mL Liquid 20 meq PO DAILY pantoprazole 40 mg tablet,delayed release (DR/EC) 40 mg PO DAILY folic acid 1 mg Tablet 1 mg PO DAILY divalproex [Depakote Sprinkles] 125 mg Capsule, Delayed Rel Sprinkle 500 mg PO BID hydrocodone-acetaminophen 5-325 mg Tablet 1 tablet PO Q12H Qty: 14 0RF clonazepam 1 mg tablet 3 mg PO BID Qty: 42 0RF sulfamethoxazole-trimethoprim [Bactrim DS] 800-160 mg tablet 1 tablet PO Q12H 7 Days Qty: 14 0RF sulfamethoxazole-trimethoprim [Bactrim DS] 800-160 mg tablet 1 tablet PO Q12H 7 Days Qty: 14 0RF phenytoin sodium extended 100 mg capsule 100 mg PO BID Dilantin 30 mg capsule 30 mg PO HS topiramate 50 mg tablet 75 mg PO BID Xcopri 100 mg tablet 100 mg PO DAILY clonazepam [Klonopin] 0.5 mg tablet 3.5 mg PO BID 3 Days Qty: 42 0RF Follow-up/Referrals: Luciano Gutiérrez MD [Primary Care Provider] - Time of Disposition: 14:46
[2025-02-16 13:20] LABS: Influenza A QL RT-PCR Negative (Negative); Influenza B QL RT-PCR Negative (Negative); RSV RNA, RT-PCR Negative (Negative); SARS-CoV-2 RNA PCR Negative (Negative)
[2025-02-16] MEDS: MEROPENEM 1 GM/NS 100 ML 1 GM/100 ML BAG IVPB (14:30)
--- NOTE | 2025-02-16 14:49 | PC.NURSE ---
[facility] called for triage information. Information given, states she will call back once bed is available.
[2025-02-16] MEDS: LEVETIRACETAM IVPB (15:24)
[2025-02-16] MEDS: DEXTROSE 5% IVPB (15:24)
--- NOTE | 2025-02-16 18:40 | PC.NURSE ---
Report called to Erika at [facility] step down unit. Pt accepted to bed [id number]. report called to [phone].
--- NOTE | 2025-02-16 19:22 | PC.NURSE ---
Patient noted to have 2 focal seizures lasing approx 30 seconds each within 5 minutes. Provider aware and no new orders. Patient's vital signs remain stable
== END 2025-02-16 20:39 | disposition short-term general hospital (02) ==
PROVIDERS: Emergency Provider Emergency Medicine; PCP Hospitalist
DX: G40.909 Epilepsy, unspecified, not intractable, without status epilepticus (principal); N39.0 Urinary tract infection, site not specified; Z79.899 Other long term (current) drug therapy; Z87.891 Personal history of nicotine dependence; Z20.822 Contact with and (suspected) exposure to COVID-19
CPT/HCPCS: 36415; 70450; 71045; 80053; 81001; 82948; 83605; 83690; 83735; 84145; 84484; 85025; 85610; 85730; 87040; 87077; 87086; 87147; 87181; 87186; 87637; 93005; 96361; 96365; 96366; 96367; 96375; 96376; 99285; A9270; J1953; J2060; J2185; J7030

== ENCOUNTER 2025-06-11 07:25 | Emergency (ER) | payer MEDICARE, MEDICAID, SELFPAY ==
[2025-06-11] VITALS (75 sets, daily range): BP systolic 92–132; BP diastolic 62–91; PULSE 75–124; RESP 12–30; TEMP 37.2–38.4; O2SAT 96–100
--- NOTE | ~2025-06-11 | CT_ITS ---
CT HEAD NON-CONTRAST Clinical History: seizure Comparison: 02/16/2025 Technique: Unenhanced axial images skull base to vertex Coronal, sagittal reformats CT images acquired with automatic exposure control for dose reduction DLP: 1362 mGy-cm Findings: Chronic diffuse volume loss Sulci, ventricles: Unremarkable. No intracerebral hemorrhage. No evidence acute territorial infarct. No mass effect, midline shift. Bony calvarium intact. Visualized paranasal sinuses: Diffuse disease left maxillary. Mastoid air cells: Clear. IMPRESSION: 1. No acute intracranial findings. Reviewed, dictated and finalized at location R.
--- NOTE | ~2025-06-11 | XR_ITS ---
Examination: XR chest 1V portable Clinical History: seizure, best obtained due to pt condition Comparison: 02/16/2025 Technique: Portable AP Findings: Heart size normal. Lungs clear. No acute bony abnormality. IMPRESSION: 1. No acute cardiopulmonary findings given portable technique. Reviewed, dictated and finalized at location R.
--- NOTE | 2025-06-11 07:29 | ECG_ITS ---
Test Date: 2025-06-11 07:29:31 Measurements Intervals [place] Rate: 115 P: 37 LA: 118 QRS: 41 QRSD: 76 T: 47 QT: 342 QTc: 474 Interpretive Statements SINUS TACHYCARDIA WITH SHORT LA INTERVAL ST-T WAVE ABNORMALITY IN ANTEROLAT/INF LEADS- CONISDER ISCHEMIA BASELINE ARTIFACT- I, II, AVR, AVL, V5 ABNORMAL ECG Compared to ECG 02/16/2025 12:25:13 Short LA interval now present Electronically Signed On 06-11-2025 13:59:52 CDT by Saleem Mckeon D.O.
--- OUTSIDE RECORDS SUMMARY | 2025-06-11 07:43 | XMS_ITS | Clinical Summary ---
Author Organization [facility] Address [address] [place] [address] Care Team Providers Care Undercutter Operator Name Role Phone Rodney Hutchinson MD, Jorge Luis Burciaga [facility] + Margarette Maravilla MD Primary Care Provider [phone] Allergies No known active allergies Medications folic [...] mouth daily 30 tablet 11 2 Active clonazePAM (KlonoPIN) 1 mg tablet Take 3 tablets (3 mg total) by mouth 2 (two) times a day 180 tablet 3 Active cenobamate (XCOPRI) 100 mg tablet Take 1 tablet (100 mg total) by mouth daily 30 tablet 3 Active topiramate (TOPAMAX) 50 mg tablet Take 3 tablets (150 mg total) by mouth 2 (two) times a day 5 02/21/20 26 Active valproate 50 mg/mL syrup Take 20 mL (1,000 mg total) by mouth 3 (three) times a day Active thiamine (VITAMIN B1) 100 mg tablet Take 1 tablet (100 mg total) by mouth daily for 1 dose 5 Active pyridoxine (VITAMIN B-6) 100 mg tablet Take 1 tablet (100 mg total) by mouth daily for 1 dose 5 Active multivit cxtcykyh-eacg-JY -calcium (THERA-M) 9 mg iron-400 mcg tablet Take 1 tablet by mouth daily 5 Active Active Problems Problem Noted Date Diagnosed Date Seizures 2025 Wheelchair dependent 08/07/2022 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 Gender Identity Female 12/31/2018 9:37 AM CDT Sexual Orientation Straight 12/31/2018 9: 37 AM CDT Occupation Industry Job Start Date Job End Date Disability Not on file Not on file Not on file Obstetrics History Last Filed Vital Signs Vital Sign Reading Time Taken Comments Blood Pressure 90/57 02/20/2025 11:40 AM CDT Pulse 94 02/20/2025 11:40 AM CDT Temperature 36.7 C (98.1 F) 02/20/2025 11:40 AM CDT Respiratory Rate 18 02/20/2025 11:40 AM CDT Oxygen Saturation 97% 02/20/2025 11:40 AM CDT Inhaled Oxygen Concentration - - Weight 46.5 kg (102 lb 8.2 oz) 2025 10:00 PM CDT Height 167.6 cm (5' 5.98) 2025 9:25 PM CD T Body Mass Index 16.55 2025 9:25 PM CDT Plan of Treatment Health Maintenance Due Date Last Done Comments Breast Cancer Screening-Mammogram 1983 Cervical Cancer Screening 1983 Depression Screening 1983 Hepatitis C Screening 1983 Varicella Vaccines (1 of 2 - 13+ 2-dose series) 02/17/1996 Hepatitis B Screening 2001 Regular Well Visit/Exam 18-64 2001 HPV Vaccines (1 - 3-dose SCD M series) 2010 Covid-19 Vaccine ( - 2024-2 6 season) 2025 08/27/2021, 02/12/2021, 01/15/2021 Influenza Vaccine (#1) 2025 06/01/2019 DTaP/Tdap/Td Vaccine (2 - Td or Tdap) 08/17/2028 08/17/2018 Pneumococcal vaccine <65 Aged Out No longer eligible based on patient's age to complete this topic Additional Health Concerns Infection Onset Date Last 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 08/21/2023 08/21/2023 Insurance IDPA MEDICARE [facility] [place] [address] [place] [address] [facility] [place] [address] [facility] MEDIC[facility] Advance Directives For more information, please contact: [phone] Documents on File Type Date Recorded 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 ADVANCE DIRECTIVE 03/05/2021 9:39 AM DNR * Full Code (Latest Code Status on File) Date Activated Date Inactivated Comments 2025 9:47 PM 02/20/2025 4:42 PM * Full Code Date Activated Date Inactivated Comments 05/23/2023 1:57 PM 05/27/2023 9:14 PM * Full Code Date Activated Date Inactivated Comments 10/07/2021 7:30 AM 10/10/2021 1:33 AM * Full Code Date Activated Date Inactivated Comments 08/15/2021 6:39 PM 08/17/2021 10:43 PM * Full Code Date Activated Date Inactivated Comments 02/28/2021 7:55 PM 03/02/2021 6:36 AM Healthcare Agents on File Name Relationship Healthcare Agent Relationshi p Communication Ruthie Torres Mother Health Care Agent [email or web address] Care Teams Undercutter Operator Relationship Specialty Start Date End Date Margarette Maravilla MD [address] [facility], [place] [address] PCP - General Internal Medicine 11/23/24 Jorge Luis Stevens Jr., MD [address] [place] [address] Consulting Physician Neurology 02/07/20
--- OUTSIDE RECORDS SUMMARY | 2025-06-11 07:44 | XMS_ITS | Clinical Summary ---
Author Organization [facility] Address [address] [place] [address] Phone Care Team Providers Care Digital Research Analyst Name Role Phone Unavailable Primary Care Provider [...] Encounters Date Type Department Care Team Description 06/07/2025 External Device Data ST[facility] ABSTRACTION Provider, Abstract 06/06/2025 External Device Data ST[facility] ABSTRACTION Provider, Abstract 05/02/2025 External Device Data [facility] ABSTRACTION Provider, Abstract 04/11/2025 External Device Data ST[facility] ABSTRACTION Provider, Abstract 04/04/2025 External Device Data ST[facility] ABSTRACTION Provider, Abstract 03/14/2025 External Device Data STL ABSTRACTION Provider, Abstract 03/14/2025 External Device Data STL ABSTRACTION Provider, Abstract [...] on file 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 Gender Identity Not on file Sexual Orientation Not on file Last Filed Vital Signs Vital Sign Reading Time Taken Comments Blood Pressure 101/61 08/07/2024 9:19 AM AIR QUALITY ENGINEER Pulse 78 08/07/2024 4:40 AM AIR QUALITY ENGINEER Temperature 36.4 C (97.5 F) 08/07/2024 9:19 AM AIR QUALITY ENGINEER Respiratory Rate 16 08/07/2024 9:19 AM AIR QUALITY ENGINEER Oxygen Saturation 100% 08/07/2024 9:1 9 AM AIR QUALITY ENGINEER Inhaled Oxygen Concentration - - Weight 58.6 kg (129 lb 1.6 oz) 08/06/2024 5:00 AM AIR QUALITY ENGINEER Height 165.1 cm (5' 5) 07/27/2024 3:24 AM AIR QUALITY ENGINEER first height was stated by patient. Body Mass Index 21.48 07/27/2024 3:24 AM AIR QUALITY ENGINEER Plan of Treatment Health Maintenance Due Date Last Done Comments HEPATITIS B VACCINES (1 of 3 - 19+ 3-dose series) 2002 HPV/Cotest (21-29) 02/17/2004 HPV VACCINES (1 - 3-dose SCD M series) 2010 CERVICAL CANCER SCREENING 2013 HPV/Cotest (30-65) 2013 PAP SMEAR 2013 BREAST CANCER SCREENING 2023 INFLUENZA VACCINE (#1) 2025 06/01/2019 COVID-19 Vaccine (2024-2 6 season) 2025 08/27/2021, 02/12/2021, 01/15/2021 DTAP/TDAP/TD VACCINES (2 - T d or Tdap) 08/17/2028 08/17/2018 [place] [address] MEDICARE PART A AND B Advance Directives For more information, please contact: [phone] * Full Code (Latest Code Status on File) Date Activated Date Inactivated Comments 07/27/2024 2:52 AM 08/07/2024 7:57 PM * Default Full Code - Needs Discussion Date Activated Date Inactivated Comments 07/27/2024 2:16 AM 07/27/2024 2:52 AM
[2025-06-11] MEDS: ACETAMINOPHEN 650 MG SUPPOSITORY RECTAL (07:56)
[2025-06-11] MEDS: SODIUM CHLORIDE 0.9% IV 800 ML 999 ML IV CONT (07:56)
[2025-06-11] MEDS: SODIUM CHLORIDE 0.9% IV 1,000 ML 999 ML IV CONT (07:56)
[2025-06-11 08:16] LABS: Hematocrit 40.4 % (37.0-47.0); Hemoglobin 12.7 g/dL (12.0-15.0); Immature Granulocyte Percent A 0.3 % (0-0.5); Lymphocytes Absolute Auto 1.01 K/mm3 (0.9-3.2); Mean Corpuscular HGB Conc 31.4 g/dl (32-36); Mean Corpuscular Hemoglobin 29.6 pg (26-34); Mean Corpuscular Volume 94.2 fl (80-100); Nucleated Red Blood Cells Absolute Auto 0.000 K/mm3 (0.0-0.012); Nucleated Red Blood Cells Perc 0.0 % (0.0-0.2); Platelet Count Result 181 k/mm3 (150-375); Red Blood Count 4.29 M/mm3 (4.2-5.4); White Blood Count 13.4 K/mm3 (4.5-10.0)
--- NOTE | 2025-06-11 08:21 | ED.GENADULT ---
HPI - General Adult General Chief complaint: Seizure Stated complaint: Seizure Time Seen by Provider: 06/11/25 07:29 History of Present Illness HPI narrative: Patient is a 40-year-old female who presents ER after having a seizure from her longterm. Patient had a seizure with EMS that they report as tonic clonic. She received 5 of Versed. She then had a subsequent seizure and received an additional 5 mg. I was unable to witness this. On arrival patient is febrile and sleeping. Unable to provide a history. Related Data Home Medications ?Medication ?Instructions ?Recorded ?Confirmed ?Last Taken ?Type levetiracetam 1,000 mg tablet 2,000 mg PO BID 11/09/19 06/11/25 06/10/25 History oxcarbazepine 300 mg tablet 900 mg PO BID 11/09/19 06/11/25 06/10/25 History cenobamate 100 mg tablet (Xcopri) 100 mg PO DAILY 08/15/21 06/11/25 06/10/25 History phenytoin sodium extended 100 mg 100 mg PO BID 08/15/21 06/11/25 06/10/25 History capsule phenytoin sodium extended 30 mg 30 mg PO HS 08/15/21 06/11/25 06/10/25 History capsule (Dilantin) topiramate 50 mg tablet 75 mg PO BID 08/15/21 06/11/25 06/10/25 History acetaminophen 325 mg tablet 650 mg PO Q6H PRN Pain (Scale 05/04/24 06/11/25 06/11/25 History Score 1-3) divalproex 125 mg capsule,delayed 500 mg PO BID 05/04/24 06/11/25 06/10/25 History release sprinkle (Depakote Sprinkles) folic acid 1 mg tablet 1 mg PO DAILY 05/04/24 06/11/25 06/10/25 History pantoprazole 40 mg tablet,delayed 40 mg PO DAILY 05/04/24 06/11/25 06/10/25 History release potassium chloride 20 mEq/15 mL 20 meq PO DAILY 05/04/24 06/11/25 06/10/25 History oral liquid Allergies Allergy/AdvReac Type Severity Reaction Status Date / Time ceftriaxone Allergy Hives Verified 06/11/25 07:32 lacosamide AdvReac Unknown Dizziness Verified 06/11/25 07:32 Review of Systems Review of Systems: ROS unobtainable: Yes unobtainable due to medical condition PMFSH Past Medical History Medical History Deep venous thrombosis Seizure disorder Encephalitis Surgical History Surgical History History of local excision of skin lesion Benign lesion from left neck. History of wisdom tooth extraction Family History Family History Mother Family history of malignant neoplasm of breast in first degree relative Family history of malignant neoplasm of breast Father Family history of bipolar disorder Grandparent Carcinoma of colon Other Cerebrovascular accident Family history of hypercholesterolemia Family history of lupus erythematosus Social History Social History Social History: Surrogate decision maker: Ruthie Torres, mother. Code status: Full Code. Smoking packs per day: 1 Smoking cigarettes per day: 20.0 Years smoked: 15 Smoking pack-years: 15.00 Smoking status: Former smoker Second hand tobacco smoke exposure: No Alcohol intake: never Substance use: never Do You Feel Safe in your Home?: Yes Lack of Transportation: No Lack of Food: Never True Current Housing: I Have Housing Concerned About Future Housing: No Difficulty Paying Gas/Electric Bills: No Difficulty Paying for Meds: No Currently Unemployed: No Education: High School Diploma/GED Difficulty w/ Childcare or Family Care: No Additional living arrangements comments: [facility]. Spiritual care concerns: No Exam Narrative: GENERAL: Chronically ill-appearing, thin, and in no acute distress. HEAD: Normocephalic, atraumatic. EYES: PERRLA and EOMI. ENT: Mucous membranes moist. CHEST: Clear to auscultation. No respiratory distress. HEART: Tachycardic and regular. Normal peripheral pulses. ABDOMEN: Soft, nontender, nondistended. EXTREMITIES: No deformity or edema, diffuse atrophy. SKIN: Warm, dry, no rash. NEURO: Sedated/postictal. Course Course Emergency Course: Patient has been awake alert in her room. She has been persistently febrile despite Tylenol. Will give her some ibuprofen. No source of infection at this time. Patient is on Xarelto so lumbar puncture is not an option, but I do not think that this is meningitis as she is awake and moving her head and nontoxic appearing. 1313: Patient accepted to [facility] by Dr. Velasquez with Neurology. Will cover for possible meningitis with vancomycin and ciprofloxacin. No additional seizure activity here. Vital Signs Vital signs: Vital Signs Temperature 101.1 F H 06/11/25 07:23 Pulse Rate 117 H 06/11/25 07:23 Respiratory Rate 30 H 06/11/25 07:23 Pulse Oximetry 96 06/11/25 07:23 Oxygen Delivery Room Air 06/11/25 07:23 Temperature 100.3 F H 06/11/25 12:31 Pulse Rate 100 06/11/25 12:31 Respiratory Rate 14 06/11/25 12:31 Blood Pressure 114/77 06/11/25 12:30 Pulse Oximetry 97 06/11/25 12:31 Oxygen Delivery Room Air 06/11/25 07:23 Medical Decision Making Differential Diagnosis Differential Diagnosis: Breakthrough Seizure, status epilepticus, sepsis, pneumonia, UTI Medical Records Medical records reviewed: Yes I reviewed the external patient's medical records. Vital Signs Vital Signs: Vital Signs Temperature 101.1 F H 06/11/25 07:23 Pulse Rate 117 H 06/11/25 07:23 Respiratory Rate 30 H 06/11/25 07:23 Pulse Oximetry 96 06/11/25 07:23 Oxygen Delivery Room Air 06/11/25 07:23 Temperature 100.3 F H 06/11/25 12:31 Pulse Rate 100 06/11/25 12:31 Respiratory Rate 14 06/11/25 12:31 Blood Pressure 114/77 06/11/25 12:30 Pulse Oximetry 97 06/11/25 12:31 Oxygen Delivery Room Air 06/11/25 07:23 Lab Data Lab results reviewed: Yes I reviewed the patient's lab results. 06/11/25 08:07 06/11/25 08:07 Labs: Lab Results 06/11/25 06/11/25 06/11/25 Range/Units 08:07 08:10 09:01 WBC 13.4 H (4.5-10.0) K/mm3 RBC 4.29 (4.2-5.4) M/mm3 Hgb 12.7 (12.0-15.0) g/dL Hct 40.4 (37.0-47.0) % MCV 94.2 (80-100) fl MCH 29.6 (26-34) pg MCHC 31.4 L (32-36) g/dl RDW 12.6 (11.5-14.5) % Plt Count 181 (150-375) k/mm3 MPV 11.1 H (7.4-10.4) fl Immature Gran % (Auto) 0.3 (0-0.5) % Neut % (Auto) 87.4 H (45.5-73.1) % Lymph % (Auto) 7.5 L (18.3-44.2) % [facility] % (Auto) 4.1 (2.6-8.5) % Eos % (Auto) 0.3 (0-4.4) % Baso % (Auto) 0.4 (0.2-1.2) % Lymph # (Auto) 1.01 (0.9-3.2) K/mm3 [facility] # (Auto) 0.6 (0.1-0.6) K/mm3 Eos # (Auto) 0.0 (0-0.3) K/mm3 Baso # (Auto) 0.1 (0.0-0.1) K/mm3 Abs Immat Gran (auto) 0.04 H (0.00-0.031) K/mm3 Absolute Neuts (auto) 11.7 H (1.3-6.7) K/mm3 Absolute Nucleated RBC 0.000 (0.0-0.012) K/mm3 Nucleated RBC % 0.0 (0.0-0.2) % PT 14.8 H (11.1-14.7) Seconds INR 1.1 APTT 24.3 (22.3-36.8) Seconds Sodium 140 (137-145) mmol/L Potassium 4.5 (3.4-5.0) mmol/L Chloride 112 H (98-107) mmol/L Carbon Dioxide 21 L (22-30) mmol/L Anion Gap 7 (4-12) mmol/L BUN 22 H (7-17) mg/dL Creatinine 0.42 L (0.7-1.0) mg/dL Estim Creat Clear Calc Not Reportable Estimated GFR > 60 (59 - ) Glucose 90 (65-110) mg/dL Lactic Acid 1.4 (0.7-2.0) mmol/L Calcium 8.6 (8.4-10.2) mg/dL Total Bilirubin 0.8 (0.2-1.3) mg/dL AST 30 (14-36) U/L ALT 16 (6-35) U/L Alkaline Phosphatase 71 (38-126) U/L Troponin I < 0.012 (0.000-0.034) ng/mL C-Reactive Protein 5.7 H (<1.0) mg/dL Total Protein 7.1 (6.3-8.2) g/dL Albumin 3.9 (3.5-5.1) g/dL Urine Color Dark yellow (Yellow) Urine Appearance Clear (Clear) Urine pH 5.0 (5.0-9.0) Ur Specific [place] 1.034 (1.001-1.035) Urine Protein Trace (Negative) mg/dL Urine Glucose (UA) Negative (Negative) mg/dL Urine Ketones Trace H (Negative) mg/dL Ur Blood (Man) Negative (Negative) Urine Nitrate Negative (Negative) Urine Bilirubin 1+ H (Negative) Urine Urobilinogen 1.0 (<2.0) mg/dL Add Ur Microanalysis Reviewed Leukocyte Esterase Rfl Trace H (Negative) SHANTEL/UL Urine RBC 3-5 H (0-2) /hpf Urine WBC 0-5 (0-3) /hpf Ur Squamous Epith Cells Few (Few) /hpf Urine Bacteria None seen /hpf Urine Casts 3-5 Urine Mucus Present /lpf Phenytoin 10 (10-20) ug/mL Influenza A (RT-PCR) (Negative) Influenza B (RT-PCR) (Negative) RSV (RT-PCR) (Negative) SARS-CoV-2 RNA (RT-PCR) (Negative) 06/11/25 Range/Units 09:11 WBC (4.5-10.0) K/mm3 RBC (4.2-5.4) M/mm3 Hgb (12.0-15.0) g/dL Hct (37.0-47.0) % MCV (80-100) fl MCH (26-34) pg MCHC (32-36) g/dl RDW (11.5-14.5) % Plt Count (150-375) k/mm3 MPV (7.4-10.4) fl Immature Gran % (Auto) (0-0.5) % Neut % (Auto) (45.5-73.1) % Lymph % (Auto) (18.3-44.2) % [facility] % (Auto) (2.6-8.5) % Eos % (Auto) (0-4.4) % Baso % (Auto) (0.2-1.2) % Lymph # (Auto) (0.9-3.2) K/mm3 [facility] # (Auto) (0.1-0.6) K/mm3 Eos # (Auto) (0-0.3) K/mm3 Baso # (Auto) (0.0-0.1) K/mm3 Abs Immat Gran (auto) (0.00-0.031) K/mm3 Absolute Neuts (auto) (1.3-6.7) K/mm3 Absolute Nucleated RBC (0.0-0.012) K/mm3 Nucleated RBC % (0.0-0.2) % PT (11.1-14.7) Seconds INR APTT (22.3-36.8) Seconds Sodium (137-145) mmol/L Potassium (3.4-5.0) mmol/L Chloride (98-107) mmol/L Carbon Dioxide (22-30) mmol/L Anion Gap (4-12) mmol/L BUN (7-17) mg/dL Creatinine (0.7-1.0) mg/dL Estim Creat Clear Calc Estimated GFR (59 - ) Glucose (65-110) mg/dL Lactic Acid (0.7-2.0) mmol/L Calcium (8.4-10.2) mg/dL Total Bilirubin (0.2-1.3) mg/dL AST (14-36) U/L ALT (6-35) U/L Alkaline Phosphatase (38-126) U/L Troponin I (0.000-0.034) ng/mL C-Reactive Protein (<1.0) mg/dL Total Protein (6.3-8.2) g/dL Albumin (3.5-5.1) g/dL Urine Color (Yellow) Urine Appearance (Clear) Urine pH (5.0-9.0) Ur Specific [place] (1.001-1.035) Urine Protein (Negative) mg/dL Urine Glucose (UA) (Negative) mg/dL Urine Ketones (Negative) mg/dL Ur Blood (Man) (Negative) Urine Nitrate (Negative) Urine Bilirubin (Negative) Urine Urobilinogen (<2.0) mg/dL Add Ur Microanalysis Leukocyte Esterase Rfl (Negative) SHANTEL/UL Urine RBC (0-2) /hpf Urine WBC (0-3) /hpf Ur Squamous Epith Cells (Few) /hpf Urine Bacteria /hpf Urine Casts Urine Mucus /lpf Phenytoin (10-20) ug/mL Influenza A (RT-PCR) Negative (Negative) Influenza B (RT-PCR) Negative (Negative) RSV (RT-PCR) Negative (Negative) SARS-CoV-2 RNA (RT-PCR) Negative (Negative) Imaging Data Radiologist's impression: ITS Impressions Chest X-Ray 06/11/25 09:17 IMPRESSION: 1. No acute cardiopulmonary findings given portable technique. ITS Impressions Chest X-Ray 06/11/25 09:17 IMPRESSION: 1. No acute cardiopulmonary findings given portable technique. Head CT 06/11/25 12:27 IMPRESSION: 1. No acute intracranial findings. ECG Data EKG #1: ECG completion date: 06/11/25 ECG completion time: 07:29 EKG Interpretation: tachycardia (115), sinus rhythm, no ectopy, non-specific ST changes and normal QRS Critical Care Time Critical Care Time Critical Care Time: Yes Total Critical Care Time: 35 Discharge Plan Discharge Clinical Impression: Seizures, Fever Patient Disposition: Acute Care Hospital Condition: Stable Patient Language: Vietnamese Prescriptions: No Action levetiracetam 1,000 mg tablet 2,000 mg PO BID oxcarbazepine 300 mg tablet 900 mg PO BID acetaminophen 325 mg Tablet 650 mg PO Q6H PRN (Reason: Pain (Scale Score 1-3)) potassium chloride 20 mEq/15 mL Liquid 20 meq PO DAILY pantoprazole 40 mg tablet,delayed release (DR/EC) 40 mg PO DAILY folic acid 1 mg Tablet 1 mg PO DAILY divalproex [Depakote Sprinkles] 125 mg Capsule, Delayed Rel Sprinkle 500 mg PO BID hydrocodone-acetaminophen 5-325 mg Tablet 1 tablet PO Q12H Qty: 14 0RF clonazepam 1 mg tablet 3 mg PO BID Qty: 42 0RF sulfamethoxazole-trimethoprim [Bactrim DS] 800-160 mg tablet 1 tablet PO Q12H 7 Days Qty: 14 0RF sulfamethoxazole-trimethoprim [Bactrim DS] 800-160 mg tablet 1 tablet PO Q12H 7 Days Qty: 14 0RF phenytoin sodium extended 100 mg capsule 100 mg PO BID Dilantin 30 mg capsule 30 mg PO HS topiramate 50 mg tablet 75 mg PO BID Xcopri 100 mg tablet 100 mg PO DAILY clonazepam [Klonopin] 0.5 mg tablet 3.5 mg PO BID 3 Days Qty: 42 0RF Follow-up/Referrals: Lucinao Gutiérrez MD [Primary Care Provider, Nephrology]
[2025-06-11 08:28] LABS: INR 1.1; Partial Thromboplastin Time 24.3 Seconds (22.3-36.8); Prothrombin Time 14.8 Seconds (11.1-14.7)
[2025-06-11 08:30] LABS: Add Urine Microscopic? YES; Appearance Urine Clear (Clear); Glucose Urine UA Negative (Negative); Leukocyte Esterase Ur Trace LEU/UL (Negative); Need Manual Microscopic Reviewed; Nitrate Urine Negative (Negative); Specific Grav Ur 1.034 (1.001-1.035)
--- NOTE | 2025-06-11 08:30 | PC.NURSE ---
Attempted multiple sticks for blood cultures. Phlebotomy called.
[2025-06-11 08:34] LABS: Alanine Aminotransferase 16 U/L (6-35); Albumin Level 3.9 g/dL (3.5-5.1); Alkaline Phosphatase 71 U/L (38-126); Anion Gap 7 mmol/L (4-12); Aspartate Amino Transferase 30 U/L (14-36); Bilirubin,Total 0.8 mg/dL (0.2-1.3); Blood Urea Nitrogen 22 mg/dL (7-17); CRP 5.7 mg/dL (<1.0); Calcium 8.6 mg/dL (8.4-10.2); Carbon Dioxide 21 mmol/L (22-30); Chloride 112 mmol/L (98-107); Estimated Glomerular Filt Rate > 60; Glucose 90 mg/dL (65-110); Potassium 4.5 mmol/L (3.4-5.0); Sodium 140 mmol/L (137-145); Total Protein 7.1 g/dL (6.3-8.2)
[2025-06-11 08:41] LABS: Troponin I < 0.012 ng/mL (0.000-0.034)
--- NOTE | 2025-06-11 09:49 | PC.NURSE ---
pt did not receive morning meds per [facility].
[2025-06-11 09:52] LABS: Influenza A QL RT-PCR Negative (Negative); Influenza B QL RT-PCR Negative (Negative); RSV RNA, RT-PCR Negative (Negative); SARS-CoV-2 RNA PCR Negative (Negative)
[2025-06-11] MEDS: DIVALPROEX SODIUM SPRINKLE 125 MG CAP.DR 500 MG PO ×2 (10:50→22:07)
[2025-06-11] MEDS: PHENYTOIN SODIUM 100 MG EXTENDED RELEASE CAP PO ×2 (10:50→22:06)
[2025-06-11] MEDS: TOPIRAMATE 25 MG TABLET 75 MG PO ×2 (10:53→22:06)
[2025-06-11] MEDS: clonazePAM (*CRX) 0.5 MG TABLET 3 MG PO ×2 (10:58→17:33)
[2025-06-11] MEDS: IBUPROFEN SUSPENSION 200 MG/10 ML UDC 800 MG PO (11:37)
--- NOTE | 2025-06-11 13:17 | PC.NURSE ---
Talked with [facility] transfer nurse.
[2025-06-11] MEDS: CIPROFLOXACIN 400 MG/D5W 200ML 200 ML 200 MG IVPB (13:44)
[2025-06-11] MEDS: VANCOMYCIN 1,500 MG/NS 500 ML 1,500 MG/500 ML BAG 250 MG IVPB (14:44)
--- NOTE | 2025-06-11 21:30 | PC.NURSE ---
Spoke to [facility] transfer center, Pt has bed at [facility]. rm [id number]. Number for report is [phone]
== END 2025-06-12 02:35 | disposition short-term general hospital (02) ==
PROVIDERS: Emergency Provider Emergency Medicine; PCP Hospitalist
DX: G40.909 Epilepsy, unspecified, not intractable, without status epilepticus (principal); R50.9 Fever, unspecified; R00.0 Tachycardia, unspecified; Z20.822 Contact with and (suspected) exposure to COVID-19; Z86.718 Personal history of other venous thrombosis and embolism; Z79.01 Long term (current) use of anticoagulants
CPT/HCPCS: 36415; 70450; 71045; 80053; 80185; 81001; 83605; 84484; 85025; 85610; 85730; 86140; 87040; 87637; 93005; 96361; 96365; 96366; 96367; 99285; A9270; J0744; J3373; J7030